=== PATIENT | female | born 1975 | race Caucasian/White ===

== ENCOUNTER 2018-05-05 23:39 | Inpatient (IN) | payer MEDICARE, OTHER ==
[2018-05-05 23:53] LABS: Glucose,Whole Blood 111 mg/dL (75-99)
--- NOTE | 2018-05-06 00:19 | ED ---
General Adult HPI - General Chief complaint: Seizure Stated complaint: SEIZURE Time Seen by Provider: 05/05/18 23:43 Source: EMS, RN notes reviewed, old records reviewed, Caregiver Limitations: language barrier, altered mental status, physical limitation - History of Present Illness Initial comments: Patient is a nonverbal 43-year-old female with history of Down syndrome and severe developmental delay and seizures presenting as a transfer from [facility]. Patient is unable to provide any history. Patient reportedly had 2 seizures today, second one lasting up to 10-15 minutes. While there patient did become hypotensive and later fed was started. Patient also was found to be hypothermic. No source of infection was identified. Chest x-ray and computed tomography scan of the brain and urinalysis are reported as normal. Patient presents to emergency department somewhat alert. Patient does not follow commands however does try to withdrawal when providing treatment. - Related Data Allergies Allergy/AdvReac Type Severity Reaction Status Date / Time No Known Allergies Allergy Verified 05/06/18 00:05 Review of Systems ROS Statement: Those systems with pertinent positive or pertinent negative responses have been documented in the HPI. ROS Other: All systems not noted in ROS Statement are negative. Limitations: ROS unobtainable due to patients medical condition Past Medical History Past Medical History: Seizure Disorder, Thyroid Disorder Additional Past Medical History / Comment(s): downs syndrome developmental delay History of Any Multi-Drug Resistant Organisms: Unobtainable Past Surgical History: Unable to Obtain Past Psychological History: Unable to Obtain Smoking Status: Unknown if ever smoked Past Alcohol Use History: Unable to Obtain Past Drug Use History: Unable to Obtain General Exam Limitations: language barrier, altered mental status, physical limitation General appearance: alert, in no apparent distress Head exam: Present: atraumatic Eye exam: Present: normal appearance, PERRL ENT exam: Present: normal oropharynx Neck exam: Present: normal inspection Respiratory exam: Present: normal lung sounds bilaterally Cardiovascular Exam: Present: regular rate, normal rhythm GI/Abdominal exam: Present: soft. Absent: tenderness Extremities exam: Present: normal inspection Neurological exam: Present: alert, altered, other (Limited exam. Does not follow commands. Patient does move all extremities. Patient can say no). Absent: motor sensory deficit Psychiatric exam: Present: other (Agitated to touch) Skin exam: Present: normal color Course Vital Signs 05/05/18 05/05/18 05/05/18 23:45 23:46 23:50 Temperature 97.4 F L Pulse Rate 68 Respiratory 18 Rate Blood Pressure 99/51 99/51 O2 Sat by Pulse 96 98 90 L Oximetry 05/06/18 05/06/18 05/06/18 00:00 00:06 00:20 Temperature Pulse Rate 71 69 77 Respiratory 12 9 L 15 Rate Blood Pressure 81/55 74/46 78/41 O2 Sat by Pulse Oximetry 05/06/18 00:38 Temperature 97.4 F L Pulse Rate 51 L Respiratory 12 Rate Blood Pressure 73/45 O2 Sat by Pulse 98 Oximetry - Reevaluation(s) Reevaluation #1: 05/06/18 01:29 Case was earlier discussed with Dr. Arredondo who did come and evaluate the patient. Chest x-ray is now concerning for infiltrate increased from previous. With patient having episodes of hypotension and now a source of infection there is increased concern for sepsis. Dr. Arredondo agrees with Zosyn and Levaquin. Patient was earlier given Rocephin. I did place central line. Patient will need to be restarted on Levophed. Labs will be redrawn. 05/06/18 01:30 Dr. Toledo has been paged for consult. 05/06/18 01:36 Patient did receive 2 L bolus from [facility]. 05/06/18 01:38 Case was discussed with Dr. Brannon, who will consult EKG Findings - EKG Comments: EKG Findings:: Sinus rhythm at 66. OH 144. QRS 72. QT 392. QTC 410. Normal axis. Normal QRS. No acute ST change. Procedures - Central Line Placement Right Femoral Consent Obtained: verbal consent, emergent situation Time Out Performed: Yes Patient Placed on Monitor/Pulse Ox: Yes MD Prep: mask, gown, gloves Central Line Prep: Chlorhexidine scrub Local Anesthesia Used: Lidocaine 1% Central Line Position: good blood return, all ports aspirated, flushed, capped, sutured in place with 3-0 nylon Dressing Applied: Tegaderm Post Procedure X-Ray: tip of catheter in good position Patient Tolerated Procedure: well Complications: none - Sepsis Sepsis Focused Exam #1 Time Sepsis Criteria Met: 00:00 Sepsis Focused Exam Date: 05/06/18 Sepsis Focused Exam Time: 01:37 Sepsis Focused Exam Complete: Yes Vital Signs & RN Notes Reviewed: Yes Capillary Refill: < 2 Seconds: Fingers, Toes Peripheral Pulses: Weak: Radial (R), Radial (L) Skin Color: Normal for Patient Respiratory Exam: normal lung sounds Cardiovascular Exam: regular rate, normal rhythm Medical Decision Making - Lab Data Lab Results 05/05/18 Range/Units 23:51 POC Glucose (mg/dL) 111 H (75-99) mg/dL POC Glu Patient Registration Clerk ID Josefa Bean - Radiology Data Radiology results: image reviewed (Chest x-ray shows interstitial infiltrates. Bilateral bases.) Critical Care Time Critical Care Time: Yes Total Critical Care Time: 32 Disposition Clinical Impression: Sepsis, Pneumonia Disposition: ADMITTED IP TO THIS HOSP Condition: Stable Is patient prescribed a controlled substance at d/c from ED?: No Referrals: Kamran Pittman MD [Primary Care Provider] - 1-2 days Decision Time: 01:29
--- NOTE | 2018-05-06 01:09 | XR ---
EXAMINATION TYPE: XR chest 1V portable DATE OF EXAM: 05/06/2018 COMPARISON: Yesterday HISTORY: Altered mental status TECHNIQUE: Single frontal view of the chest is obtained. FINDINGS: There are some infiltrates and atelectasis in the lower lobes. There is no definite heart failure. There are chest leads. IMPRESSION: Interstitial infiltrates and atelectasis at the lung bases are increased compared to yes terday. No gross heart failure.
[2018-05-06] MEDS ORDERED: PIPERACILLIN-TAZOBACTAM 3.375 GM in SODIUM CHLORIDE 0.9% 100 ML IVPB STA (01:31)
[2018-05-06] MEDS ORDERED: IPRATROPIUM-ALBUTEROL 3 ML NEB INHALATION PRN (01:31)
[2018-05-06] MEDS ORDERED: PNEUMONIA PROTOCOL UTILIZED 1 EACH MISC PO PRN (01:31)
[2018-05-06] MEDS ORDERED: NALOXONE 0.4 MG/ML 1 ML VIAL IV PRN (01:31)
[2018-05-06] MEDS ORDERED: LEVOFLOXACIN 750MG-D5W PMX 750 MG in DEXTROSE/WATER 1 150ML.BAG IVPB STA (01:31)
[2018-05-06] MEDS ORDERED: NOREPINEPHRINE 16 MG in SODIUM CHLORIDE 0.9% 250 ML IV SCH (02:00)
[2018-05-06] MEDS: SODIUM CHLORIDE 0.9% 500 ML 500 ML IV SCH (02:03)
[2018-05-06] MEDS: SODIUM CHLORIDE 0.9% 1,000 ML IV SCH ×3 (02:04→16:38)
[2018-05-06 02:35] LABS: Basophils % (A) 1 %; Eosinophils % (A) 0 %; HCT 36.2 % (34.0-46.0); HGB 11.8 gm/dL (11.4-16.0); Lymphocytes # (A) 0.8 k/uL (1.0-4.8); Lymphocytes % (A) 17 %; MCHC 32.6 g/dL (31.0-37.0); MCV 110.2 fL (80.0-100.0); Macrocytosis Marked; Mean Platelet Volume 8.4; Monocytes # (A) 0.2 k/uL (0-1.0); Monocytes % (A) 4 %; Neutrophils # (A) 3.3 k/uL (1.3-7.7); Neutrophils % (A) 76 %; Platelet Count 129 k/uL (150-450); RBC 3.28 m/uL (3.80-5.40); RDW 14.6 % (11.5-15.5); WBC 4.3 k/uL (3.8-10.6)
[2018-05-06 02:44] LABS: ALT 41 U/L (9-52); AST 42 U/L (14-36); Albumin 2.7 g/dL (3.5-5.0); Alkaline Phosphatase 83 U/L (38-126); Anion Gap 4 mmol/L; Blood Urea Nitrogen 24 mg/dL (7-17); Calcium 8.3 mg/dL (8.4-10.2); Carbon Dioxide 26 mmol/L (22-30); Chloride 112 mmol/L (98-107); Glucose 113 mg/dL (74-99); Potassium 4.8 mmol/L (3.5-5.1); Sodium 142 mmol/L (137-145); Total Bilirubin 0.6 mg/dL (0.2-1.3); Total Protein 5.9 g/dL (6.3-8.2)
[2018-05-06 02:52] LABS: Partial Thromboplastin Time 24.1 sec (22.0-30.0); Prothrombin Time 10.7 sec (9.0-12.0)
--- NOTE | 2018-05-06 02:57 | P.HPIM ---
History of Present Illness H&P Date: 05/06/18 Chief Complaint: Multiple seizures at assisted care facility 43-year-old female with developmental delay and history of seizures. Patient is nonverbal on unable to provide any meaningful history. History was obtained by reviewing transfer orders and medical records from [facility]. This seems like patient had seizure activity at her assisted care facility for which EMS was notified. Which she then had another prolonged seizure activity for which EMS administered 5 mg of Valium IM which helped abort the seizure. At [facility] patient was evaluated extensively including CAT scan of the head which was unremarkable for any new acute process , chest x-ray which was also reported unremarkable for any acute process. Patient noted at [facility] to have mottling discoloration of feet however is documented that this is chronic due to history of Raynaud's. She was also to follow a be found hypothermic and hypotensive she was started on active warming, she was also given IV fluids aggressively with 3 boluses of normal saline 1 L each without much improvement in her blood pressure, her baseline blood pressure is not known at this time. Patient was started on IV pressor levophed from a peripheral line to help maintain her blood pressure. It seems like patient at baseline does withdraw from pain and answers with shaking her head indicating yes and no she wears diaper as she is incontinent to urine there is no chronic Busch. Patient received a dose of hydrocortisone and Rocephin at [facility] due to suspicion of underlying unknown infection at that. Patient mother is her guardian there is no documented reports of any falls or injuries. However per the mother patient has been having recurrent worsening seizures over the past 1 year she was evaluated by neurology at [facility] however the mother has fired their service. Based on the documentation patient is compliant with her home medications, urine drug screen showed urine positive for benzo otherwise urinalysis was negative, negative urine test, TSH unremarkable. Otherwise her labs showed white count 4.2 hemoglobin within normal limits MCV elevated at 110 platelets are low at 138 urine elevated at 29 and Normal at 7 bicarb was unremarkable creatinine was 0.7 and normal phosphorus was elevated at 4.5 otherwise liver function tests was within normal limits. In our emergency department central line into the left groin was inserted patient was stabilized and will be sent to the ICU for close monitoring. She continues to be on IV pressor and Hydrocort. Patient was started on broad- spectrum antibiotic after obtaining cultures Review of Systems Unable to obtain due to patient developmental delays Past Medical History Past Medical History: Seizure Disorder, Thyroid Disorder Additional Past Medical History / Comment(s): downs syndrome developmental delay History of Any Multi-Drug Resistant Organisms: Unobtainable Past Surgical History: Unable to Obtain Past Psychological History: Unable to Obtain Smoking Status: Unknown if ever smoked Past Alcohol Use History: Unable to Obtain Past Drug Use History: Unable to Obtain Medications and Allergies Home Medications and Allergies Comment(s): Reviewed and reconciled. Patient on Depakote, levothyroxine please refer to transfer papers for full list of home meds Allergies Allergy/AdvReac Type Severity Reaction Status Date / Time No Known Allergies Allergy Verified 05/06/18 00:05 Physical Exam Vitals: Vital Signs Temp Pulse Resp BP Pulse Ox 05/06/18 02:35 80/50 05/06/18 01:40 56 L 10 L 82/46 93 L 05/06/18 01:30 57 L 7 L 87/69 05/06/18 01:20 80 15 83/58 95 05/06/18 01:10 105 H 26 H 101/61 98 05/06/18 00:50 76 15 82/57 99 05/06/18 00:41 53 L 14 73/45 97 05/06/18 00:38 97.4 F L 51 L 12 73/45 98 05/06/18 00:20 77 15 78/41 05/06/18 00:06 69 9 L 74/46 05/06/18 00:00 71 12 81/55 05/05/18 23:50 99/51 90 L 05/05/18 23:46 97.4 F L 68 18 99/51 98 05/05/18 23:45 96 Intake and Output 05/05/18 05/05/18 05/06/18 14:59 22:59 06:59 Output Total 600 Balance -600 Output: Urine 600 Other: Voiding Method Diaper Incontinent Indwelling Catheter Weight 54.88 kg Constitutional: Patient seems calm most of the time however she has periods where she starts moaning and screaming, patient does not follow commands. She moves her upper extremities purposefully. Eyes: Anicteric sclerae, moist conjunctiva, no lid-lag Pupils equal round reactive to light, patient refuses to open eyes to verbal command ENMT: NC/AT I was unable to examine the mouth as patient is uncooperative Neck: Supple, FROM, no masses, or JVD No carotid bruits No thyromegaly Lungs: Good breath sounds bilaterally no rales rhonchi or wheezes Clear to percussion Normal respiratory effort, no accessory muscle use Cardiovascular: Heart regular in rate and rhythm, No murmurs, gallops, or rubs No peripheral edema Abdominal: Soft Nontender, no guarding, rebound or rigidity Abdomen moving with respiration Normoactive bowel sounds No hepatomegaly, No splenomegaly No palpable mass No abdominal wall hernia noted Skin: Normal temperature, tone, texture, turgor No induration No subcutaneous nodules There is marked clearing of bilateral feet, reports to be her baseline to raynauds disease No ulcers Extremities: Mottling and purplish discoloration off toes bilaterally, warm to the touch though No clubbing Pedal pulses intact and symmetrical Radial pulses intact and symmetrical No calf tenderness Psychiatric: Patient is moaning and screaming sporadically, otherwise she seems to be comfortable most of the time and moving her upper extremities purposefully Neuro could not perform proper neurologic assessment due to patient not cooperating with exam Lymphatics: no palpable cervical or supraclavicular , or inguinal lymph nodes Patient wearing a diaper due to incontinence Patient has 2 peripheral IV lines in her right upper extremity and 1 peripheral IV line in her left upper extremity and she has 1 central venous catheter in her left groin. Patient is on nasal cannula. Results Labs: Abnormal Lab Results - Last 24 Hours (Table) 05/05/18 Range/Units 23:51 POC Glucose (mg/dL) 111 H (75-99) mg/dL Assessment and Plan Assessment: 43-year-old female with history of developmental delay Down syndrome seizure disorder. Patient was transferred from [facility] upon family requests or facility and admitted as an inpatient due to hypotension, and repeated attacks of seizures. Chest x-ray suggested some possible infiltration in the right lower lobe concerning for possible aspiration patient will be covered for community-acquired pneumonia and aspiration pneumonia with levoFloxin Zosyn. Patient was also hydrated aggressively started on IV pressors from [facility] will continue that we'll continue patient on stress dose of hydrocortisone follow-up blood cultures. Neurology assessment. EKG was unremarkable. Computed tomography scan of the head from [facility] reports no acute process Plan: Breakthrough seizures Seizure precautions Fall precautions Resume home meds Neurology evaluation Aspiration pneumonia Patient started on Zosyn, and levofloxacin to cover both aspiration pneumonia and community-acquired pneumonia Monitor vital signs Follow-up cultures Hypotension unknown baseline, refractory to IV fluid resuscitation Patient received aggressive IV fluid hydration Continue with IV pressors Hydrocortisone daily Follow-up cultures Hypothyroidism TSH reported to be unremarkable for [facility] Continue levothyroxine DVT prophylaxis on heparin subcu 3 times a day Thrombocytopenia No evidence of bleeding at this time Continue to monitor closely Functional debility patient is bedridden No evidence of bedsores Developmental delay due to Down syndrome history Hyperphosphatemia Unknown underlying cause Follow-up labs IV fluid hydration History of Raynaud's Follow-up labs Admission to the ICU Prognosis is guarded 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
[2018-05-06 03:10] LABS: Glucose,Whole Blood 106 mg/dL (75-99)
[2018-05-06] MEDS ORDERED: PIPERACILLIN-TAZOBACTAM 3.375 GM in SODIUM CHLORIDE 0.9% 100 ML IVPB SCH (04:00)
[2018-05-06 04:33] LABS: Anisocytosis (M) Present
[2018-05-06 04:34] LABS: Large Platelets Present; Target Cells Present
[2018-05-06 06:37] VITALS: BMI 32.7
[2018-05-06] MEDS ORDERED: HYDROCORTISONE SUCCINATE 100 MG/2 ML VIAL IV SCH (08:00)
[2018-05-06] MEDS: LEVOTHYROXINE 75 MCG TAB PO SCH (09:21)
[2018-05-06] MEDS: PANTOPRAZOLE 40 MG/10 ML VIAL IV SCH (10:12)
[2018-05-06] MEDS: HEPARIN SODIUM,PORCINE 5,000 UNIT/ML 1 ML VIAL SQ SCH ×3 (10:13→23:06)
[2018-05-06 10:47] LABS: Appearance,Urine Clear (Clear); Bilirubin,Urine Negative (Negative); Blood,Urine Negative (Negative); Color,Urine Light Yellow; Glucose,Urine (UA) Negative (Negative); Ketones,Urine Negative (Negative); Leukocyte Esterase,Urine Small (Negative); Mucus,Urine Rare /hpf; Nitrite,Urine Negative (Negative); PH, Urine 6.5 (5.0-8.0); Protein,Urine Negative (Negative); RBC,Urine <1 /hpf (0-5); Specific Gravity,Urine 1.006 (1.001-1.035); Squamous Epithelial Cell,Urine <1 /hpf (0-4); Urobilinogen,Urine <2.0 mg/dL (<2.0); WBC,Urine 8 /hpf (0-5)
[2018-05-06] MEDS ORDERED: VALPROATE SODIUM 500 MG in SODIUM CHLORIDE 0.9% 50 ML IVPB ONE (11:00)
--- NOTE | 2018-05-06 12:27 | CONS ---
CONSULTATION 43-year-old female who came into the emergency room with seizure. She apparently had a number of seizures maybe up to 3. She apparently was transferred down from [facility]. She has a history of Down syndrome and severe developmental delay. She does have a history of chronic seizure disorder. She also suffers from hypothyroidism and early-onset dementia. The patient was brought to the ICU primarily because she was found to be profoundly hypotensive in the emergency room. She was started on some norepinephrine there. Currently, she is on room air. Her IV is a saline IV at 125 mL an hour. Norepinephrine has been off for a couple of hours. She was admitted on May 06. Chest x-ray shows some mild fluid overload. She herself cannot give us any history. ALLERGIES: Apparently are none. HOME MEDICATIONS: Apparently include MiraLAX, melatonin, Synthroid, Vimpat, Depakote, and Abilify. MEDICAL HISTORY: Down syndrome, mental retardation/developmental delay, seizure disorder, hypothyroidism. I do not have any history as it relates to the previous surgeries. SOCIAL HISTORY: Negative for alcohol, tobacco, or illicit drug use. Family and occupational history are not known. REVIEW OF SYSTEMS: Cannot really be obtained. Current vital signs are reviewed. Her temperature is 96.4, heart rate 68, respiratory 12, blood pressure 84/52, mean of 62, saturations on room air between 98 to 100%. Appears in no acute distress. HEENT examination is grossly unremarkable. No supplemental oxygen. Neck supple. Full range of motion. No adenopathy. Cardiovascular examination reveals regular rhythm rate. Heart rate in mid 60s. S1, S2 normal. No murmur. Lungs reveal clear breath sounds. No wheezes or rhonchi. She does not take deep breaths. Abdomen is soft. Extremities are intact. The distal extremities reveal evidence of significant erythema consistent with her history of Raynaud's. Chest x-ray is reviewed. It shows some interstitial changes bilaterally. LABS: Reviewed. White count 4.3, hemoglobin 11.8, hematocrit 36.2, platelet count 129,000. PT/INR and PTT all normal. Sodium and potassium normal. Chloride 112, CO2 of 26, BUN and creatinine were 24 and 0.7. Anion gap is normal at 4. Albumin 2.7, calcium 8.3. Microbiology is negative. I do not see a TSH and we should get one. ASSESSMENT: 1. Recurrent seizure disorder in a lady who has Down syndrome and chronic seizure disorder. 2. History of hypothyroidism. Rule out myxedema coma. 3. History of Down syndrome with significant developmental delay. 4. Early-onset dementia. 5. History of Raynaud's syndrome. PLAN: TSH will be ordered. I told the nurses that the patient could probably be discharged out of the ICU later today as long as her blood pressure remains stable and she has no further seizures. Neurology has been consulted. No additional recommendations are made. Prognosis is guarded. We will continue to follow. MMODL / IJN: [id number] /
--- NOTE | 2018-05-06 13:38 | P.CNNES ---
History of Present Illness Consult date: 05/06/18 Reason for Consult: Patient admitted for breakthrough seizures and pneumonia. History of Present Illness: This patient is a 43-year-old right-handed white female who has a history of Down syndrome and is developmentally delayed. She has a long-standing history of seizure disorder as well. She has been residing at a assisted living facility in [place]. She is a resident at [facility] home there. Yesterday she had apparently 2-3 seizures which were witnessed by the nursing staff there. The first 2 seizures lasted only 1-2 minutes and the second seizure up to 15 minutes in duration. She was transferred to [facility] where she was given some Ativan and then transferred to [facility] emergency room where she was further evaluated. She was found to be profoundly hypotensive and was started on some norepinephrine and then transferred up into the intensive care unit. The patient has a long-standing history of intractable epilepsy. She has been on Depakote monotherapy as her primary treatment. Her Depakote level was checked in the emergency room when she arrived and it was noted to be 55.4. She has a history of intractable epilepsy and was referred to [facility] for further evaluation. According to the note the patient's mother has refused further evaluation at [facility] neurology and neurosurgery Department at this time. The patient's mother is her main legal guardian and reports that she has had difficulty with seizures for this past one year. She was prescribed Vimpat but apparently has not been taking that and is been on Depakote monotherapy. We have recommended to give her IV bolus of IV Depacon today to push her Depakote level to high normal. The patient is examined today in the intensive care unit. She is arousable but somewhat lethargic this morning. She has had no further seizures since coming into the intensive care unit. Her blood pressure has stabilized and she is off of the Levophed at this time. All of her laboratory test results came back normal. She is afebrile. We did check with the assisted living facility and apparently her dosage of Depakote has been 1250 mg at bedtime. We have adjusted the dosage today with the ICU nurse and we will recheck her Depakote level in the morning. Patient has a history of Down syndrome. She has not been very responsive even when alert and without having seizure activity. She is developmentally delayed. She does open her eyes and seems to track easily and does not always follow commands. Chest x- ray revealed possible right lower lobe aspiration pneumonia. We're waiting further follow-up for this. She has been started on some antibiotics at this time. We will recheck her Depakote level in the morning and adjust her dose as needed. She does have history of functional debility secondary to her Down syndrome. There is developmental delay noted from her prior history as well. We will continue to follow her closely during this admission. Overall prognosis at this time remains very guarded. Review of Systems Constitutional: Denies chills, Denies fever Eyes: denies blurred vision, denies pain Ears, nose, mouth and throat: Denies headache, Denies sore throat Cardiovascular: Denies chest pain, Denies shortness of breath Respiratory: Denies cough Gastrointestinal: Denies abdominal pain, Denies diarrhea, Denies nausea, Denies vomiting Genitourinary: Denies dysuria, Denies hematuria Musculoskeletal: Denies myalgias Integumentary: Denies pruritus, Denies rash Neurological: Reports confusion, Reports convulsions, Reports memory loss, Reports seizures, Denies numbness, Denies weakness Psychiatric: Reports confusion, Reports disorientation, Denies anxiety, Denies depression Endocrine: Denies fatigue, Denies weight change Past Medical History Past Medical History: Seizure Disorder, Thyroid Disorder Additional Past Medical History / Comment(s): downs syndrome developmental delay History of Any Multi-Drug Resistant Organisms: Unobtainable Past Surgical History: Unable to Obtain Past Psychological History: Unable to Obtain Smoking Status: Unknown if ever smoked Past Alcohol Use History: Unable to Obtain Past Drug Use History: Unable to Obtain Medications and Allergies Home Medications Medication Instructions Recorded Confirmed Type ARIPiprazole [Abilify] 5 mg PO DAILY@0900 05/06/18 05/06/18 History Divalproex ER [Depakote ER] 1,000 mg PO HS@209905/06/18 05/06/18 History Divalproex Sodium [Depakote ER] 250 mg PO HS@209905/06/18 05/06/18 History Levothyroxine Sodium [Synthroid] 75 mcg PO DAILY 05/06/18 05/06/18 History Melatonin 3 mg PO HS@209905/06/18 05/06/18 History Polyethylene Glycol 3350 [Miralax] 17 gm PO DAILY@1000 05/06/18 05/06/18 History Allergies Allergy/AdvReac Type Severity Reaction Status Date / Time No Known Allergies Allergy Verified 05/06/18 08:53 Physical Examination - Vital Signs Vital Signs: Vital Signs Temp Pulse Pulse Resp BP BP Pulse Ox 05/06/18 10:30 16 90/60 98 05/06/18 10:15 74 12 98/66 96 05/06/18 10:00 89 16 90/56 99 05/06/18 09:45 70 16 84/56 97 05/06/18 09:30 79 13 74/54 96 05/06/18 09:15 68 12 84/52 98 05/06/18 09:00 65 10 L 102/70 100 05/06/18 08:45 89 29 H 100/72 97 05/06/18 08:30 70 14 100/72 98 05/06/18 08:15 98 16 104/65 96 05/06/18 08:00 96.4 F L 78 16 76/36 94 L 05/06/18 07:45 71 12 92/55 98 05/06/18 07:30 80 13 93/76 97 05/06/18 07:15 68 10 L 109/64 94 L 05/06/18 07:00 81 25 H 117/103 96 05/06/18 06:45 80 9 L 86/72 97 05/06/18 06:30 76 23 109/89 98 05/06/18 06:15 67 11 L 91/78 98 05/06/18 06:00 64 9 L 97/63 98 05/06/18 05:45 55 L 10 L 103/55 98 05/06/18 05:30 66 6 L 77/50 98 05/06/18 05:15 93 25 H 89/60 97 05/06/18 05:00 68 8 L 95/61 99 05/06/18 04:45 84 18 98/67 94 L 05/06/18 04:30 69 9 L 102/61 96 05/06/18 04:15 97 23 91/64 96 05/06/18 04:00 71 20 109/69 99 05/06/18 03:45 98 23 106/78 96 05/06/18 03:30 91 22 165/145 95 05/06/18 03:15 13 90/62 99 05/06/18 03:07 97 05/06/18 02:53 97.2 F L 72 18 91/53 97 05/06/18 02:45 75 22 88/52 05/06/18 02:35 80/50 05/06/18 02:30 82 7 L 165/152 05/06/18 02:15 84 20 81/55 86 L 05/06/18 02:00 53 L 14 83/52 91 L 05/06/18 01:54 97.0 F L 95 17 106/78 97 05/06/18 01:45 55 L 14 80/45 92 L 05/06/18 01:40 56 L 10 L 82/46 93 L 05/06/18 01:30 57 L 7 L 87/69 05/06/18 01:20 80 15 83/58 95 05/06/18 01:10 105 H 26 H 101/61 98 05/06/18 00:50 76 15 82/57 99 05/06/18 00:41 53 L 14 73/45 97 05/06/18 00:38 97.4 F L 51 L 12 73/45 98 05/06/18 00:20 77 15 78/41 05/06/18 00:06 69 9 L 74/46 05/06/18 00:00 71 12 81/55 05/05/18 23:50 99/51 90 L 05/05/18 23:46 97.4 F L 68 18 99/51 98 05/05/18 23:45 96 Intake and Output 05/05/18 05/06/18 05/06/18 22:59 06:59 14:59 Intake Total 875 500 Output Total 1365 574 Balance -490 -74 Intake: IV 875 500 Levofloxacin 750Mg-D5w 150 Pmx 750 mg In Dextrose/ Water 1 150ml.bag @ 100 mls/hr IVPB Q24H [facility] Rx#: [id number] Piperacillin-Tazobactam 3 100 .375 gm In Sodium Chloride 0.9% 100 ml @ 25 mls/hr IVPB Q8H [facility] Rx#: [id number] Sodium Chloride 0.9% 1, 625 500 000 ml @ 125 mls/hr IV . Q8H [facility] Rx#:[id number] Output: Urine 1365 574 Other: Voiding Method Diaper Incontinent Indwelling Catheter Weight 54.88 kg - Constitutional General appearance: average body habitus, cooperative - EENT EENT: PERRL, mucous membranes moist - Respiratory Respiratory: lungs clear, normal breath sounds - Cardiovascular Cardiovascular: regular rate, normal S1, normal S2 Extremities: no peripheral edema bilaterally - Gastrointestinal Gastrointestinal: normoactive bowel sounds - Integumentary Integumentary: normal - Neurologic Cranial nerve examination: PERRL, EOMI, V1/V2/V3 grossly intact, face symmetric , tongue midline, intact gag reflex, intact corneal reflex, normal palatal elevation Speech examination: intact Sensorimotor examination: intact Motor examination - right side: 3/5: biceps, triceps, wrist flexion, wrist extension, gis instructor, hip flexors, knee extensors, dorsiflexion, toe extension (EHL) , plantarflexion Motor examination - left side: 3/5: biceps, triceps, wrist flexion, wrist extension, gis instructor, hip flexors, knee extensors, dorsiflexion, toe extension (EHL) , plantarflexion Detailed sensory examination: intact Reflex and gait examination: intact Reflexes: 1+: ankle, bicep, knee, tricep - Musculoskeletal Musculoskeletal: no pain - Psychiatric Psychiatric: mood/affect appropriate, cooperative Results - Laboratory Findings CBC and BMP: 05/06/18 02:00 05/06/18 02:00 Abnormal Lab Findings: Abnormal Labs 05/05/18 05/06/18 05/06/18 23:51 02:00 02:00 RBC 3.28 L MCV 110.2 H MCH 36.0 H Plt Count 129 L Lymphocytes # 0.8 L Chloride 112 H BUN 24 H Glucose 113 H POC Glucose (mg/dL) 111 H Calcium 8.3 L AST 42 H Total Protein 5.9 L Albumin 2.7 L Ur Leukocyte Esterase Urine WBC Urine Mucus 05/06/18 05/06/18 03:07 10:26 RBC MCV MCH Plt Count Lymphocytes # Chloride BUN Glucose POC Glucose (mg/dL) 106 H Calcium AST Total Protein Albumin Ur Leukocyte Esterase Small H Urine WBC 8 H Urine Mucus Rare H Assessment and Plan (1) Intractable epilepsy Current Visit: Yes Status: Acute Code(s): G40.919 - EPILEPSY, UNSP, INTRACTABLE, WITHOUT STATUS EPILEPTICUS SNOMED Code(s): 439361238 (2) History of Down syndrome Current Visit: Yes Status: Acute Code(s): Q90.9 - DOWN SYNDROME, UNSPECIFIED SNOMED Code(s): 269852047 (3) History of hypothyroidism Current Visit: Yes Status: Acute Code(s): Z86.39 - PERSONAL HISTORY OF ENDO , NUTRITIONAL AND METABOLIC DISEASE SNOMED Code(s): 363431012 (4) History of Raynaud's syndrome Current Visit: Yes Status: Acute Code(s): Z86.79 - PERSONAL HISTORY OF OTHER DISEASES OF THE CIRCULATORY SYSTEM SNOMED Code(s): 574125158 (5) Pneumonia Current Visit: Yes Status: Acute Code(s): J18.9 - PNEUMONIA, UNSPECIFIED ORGANISM SNOMED Code(s): 097905686 Plan: This patient is a 43-year-old female who has a history of intractable epilepsy and Down syndrome. She is developmentally delayed and is been residing at a assisted living facility in [place]. She had breakthrough seizures yesterday and was admitted through the emergency room late last night. She was hypotensive and was transferred to the intensive care unit for close monitoring. She has multiple complex medical issues and has had history of intractable epilepsy for many years. She was referred to [facility] neurology and neurosurgery Department but apparently mother has canceled any further follow-up with them. She has been taking Depakote monotherapy and her Depakote level on admission was 55.4. We have given the patient IV Depacon and we'll recheck her Depakote level in the morning. Apparently she was prescribed Vimpat in the past but has not been taking this. We will need to discuss this with her mother Nadege who is her legal guardian as well. She has been on Depakote 1250 mg daily at the assisted living facility. The patient has been stabilized in the intensive care unit. Her blood pressure is now normalized and she will be closely monitored and possibly transferred out of the ICU later today. We have recommended to repeat a Depakote level tomorrow morning and we will make further adjustments as needed. She has remained seizure-free since coming into the intensive care unit. Review of all of her laboratory test results indicates normal liver enzymes. Lately count was 138,000. She is afebrile. We will continue close monitoring of this patient during this admission. We will attempt to contact her mother who is her legal guardian in terms of her anticonvulsant medications that she has been taking at the assisted living facility. Case was discussed at length with the patient's ICU nurse at bedside. We will verify all of her home medications with the assisted living facility. We will plan to reevaluate her tomorrow and adjust her Depakote as needed. Her overall prognosis at this time remains guarded.
--- NOTE | 2018-05-06 14:28 | P.PN ---
Progress Note - Text Progress Note Date: 05/06/18 43-year-old female with PMH of Down syndrome and development of delay, seizure disorder, and hypothyroidism presents to the ED as a transfer from [facility] for seizure-like activity from her assisted care facility. She was noted to have mottling and discoloration of the feet thought to be secondary to her Raynaud's. She was also noted to be hypothermic and hypotensive, not responding to multiple fluid bolus, requiring IV pressors. Patient was seen and examined at 1:45 PM on 05/06/2018. No acute events overnight. Patient getting assisted feeds at bedside. Patient is in no acute distress. Assessment and Plan 1. Seizures: There is no fever or leukocytosis. No signs of infection prior to SZ. Valproic acid 55.4 within normal limits. Continue Depakote 250 mg + 1000 mg PO QHS. Fall precautions. Seizure precautions. FU Neurology, Valproic acid 2. Hypotension: Lactic acid 1.0. Initially started on Levophed and Hydrocortisone IV, now discontinued. Initially started on broad spectrum IV Abx for concerns of sepsis, all discontinued by Pulmonology. Appears to be at baseline, SBP 100s when awake. Continue NS at 125 cc/h. Monitor vitals and titrate medications as necessary. 3. Hypothyroidism: TSH is within normal limits. Continue Synthoid 75 mcg PO QD. 4. Macrocytosis: MCV 110.2 with normal Hg/Hct. Likely due to Depakote use. FU B12/Folate 5. Thrombocytopenia: Plt 129. Watch as patient is on Heparin products. No signs of bleeding. Daily CBC. 6. Abnormal CXR: Possible concern for infiltrate seen on CXR. Initially treated as aspiration pneumonia, all Abx discontinued at this time. FU CXR in the AM. 7. DVT/GI Prophylaxis: Heparin 5000 units SUBCUT TID. Protonix 40 mg IV QD. Patient has a history of Raynauds for which she does not take any medications. She has a history of Down's syndrome and developmental delay. She has functional debility and comes from assisted living facility. Patient transferred from [facility] for seizures and hypotension, concerns for sepsis. Initially, there was concern for aspiration pneumonia. Her blood pressure has maintained, thought to be borderline low at baseline. IV pressors and/or IV antibiotics have been discontinued. Neurology consulted for management of seizures. Patient to be transferred out of ICU later on today if BP can be maintained.
[2018-05-06] MEDS: ARIPiprazole 5 MG TAB PO SCH (15:47)
[2018-05-06] MEDS ORDERED: DIVALPROEX ER 500 MG TAB.ER.24H PO SCH (21:00)
[2018-05-06] MEDS: MELATONIN 3 MG TABLET PO SCH (23:06)
[2018-05-06] MEDS: DIVALPROEX ER 500 MG TAB.ER.24H PO SCH (23:10)
[2018-05-06] MEDS: DIVALPROEX 250 MG TABLET.DR PO SCH (23:11)
[2018-05-07] MEDS: SODIUM CHLORIDE 0.9% 1,000 ML IV SCH ×2 (01:55→10:28)
[2018-05-07] MEDS ORDERED: LEVOFLOXACIN 750MG-D5W PMX 750 MG in DEXTROSE/WATER 1 150ML.BAG IVPB SCH (03:00)
[2018-05-07 04:49] LABS: Basophils % (A) 1 %; Eosinophils % (A) 1 %; HCT 32.9 % (34.0-46.0); HGB 10.5 gm/dL (11.4-16.0); Lymphocytes # (A) 2.5 k/uL (1.0-4.8); Lymphocytes % (A) 50 %; MCH 35.3 pg (25.0-35.0); MCHC 31.8 g/dL (31.0-37.0); MCV 110.8 fL (80.0-100.0); Macrocytosis Marked; Mean Platelet Volume 8.1; Monocytes # (A) 0.5 k/uL (0-1.0); Monocytes % (A) 9 %; Neutrophils # (A) 1.7 k/uL (1.3-7.7); Neutrophils % (A) 35 %; Platelet Count 144 k/uL (150-450); RBC 2.97 m/uL (3.80-5.40); RDW 15.2 % (11.5-15.5)
[2018-05-07 05:01] LABS: Anion Gap 0 mmol/L; Blood Urea Nitrogen 17 mg/dL (7-17); Calcium 8.5 mg/dL (8.4-10.2); Carbon Dioxide 28 mmol/L (22-30); Chloride 113 mmol/L (98-107); Glucose 81 mg/dL (74-99); Potassium 4.2 mmol/L (3.5-5.1); Sodium 141 mmol/L (137-145)
[2018-05-07] MEDS: LEVOTHYROXINE 75 MCG TAB PO SCH (06:58)
--- NOTE | 2018-05-07 08:30 | XR ---
EXAMINATION TYPE: XR chest 1V portable DATE OF EXAM: 05/07/2018 COMPARISON: 05/06/2018 HISTORY: Altered mental status TECHNIQUE: Single frontal view of the chest is obtained. FINDINGS: There is worsening of the interstitial prominence throughout. Cardiomegaly remains. No siz able pneumothorax or pleural effusion. Osseous structures are grossly intact. IMPRESSION: Worsening interstitial prominence favored to relate to interstitial edema of decompensat ed congestive heart failure given cardiomegaly.
[2018-05-07] MEDS: PANTOPRAZOLE 40 MG/10 ML VIAL IV SCH (09:13)
[2018-05-07] MEDS: HEPARIN SODIUM,PORCINE 5,000 UNIT/ML 1 ML VIAL SQ SCH ×3 (09:14→23:54)
[2018-05-07] MEDS: ARIPiprazole 5 MG TAB PO SCH (09:15)
[2018-05-07] MEDS ORDERED: HYDROCORTISONE SUCCINATE 100 MG/2 ML VIAL IV STA (09:58)
[2018-05-07] MEDS: POLYETHYLENE GLYCOL 3350 17 GM POWD.PACK PO SCH (10:15)
--- NOTE | 2018-05-07 10:21 | P.PN ---
Subjective Progress Note Date: 05/07/18 Principal diagnosis: breakthrough seizure Patient is a 43-year-old female with a history of Down syndrome, developmental delay, seizure disorder, and hypothyroidism who initially presented to [facility] due to seizure activity. She was evaluated extensively including a CT of the head which was negative, chest x-ray which was unremarkable for any acute process. She was found to be hypothermic and hypotensive there. She was started on IV levophed througha peripheral line to maintain her blood pressure. She was transferred here after receiving a dose of hydrocortisone and Rocephin for further care. She has a history of seizures and has had worsening seizures over the last year. She was evaluated by neurology at [facility] however the mother no longer wants to follow with their services. Based on documentation appears that patient was compliant with her home medications, urine drug screen is positive for benzodiazepines, urinalysis was negative, urine test negative, and TSH was unremarkable. She was admitted to the ICU after a left groin triple lumen catheter was placed for closer monitoring. She was started on broad-spectrum antibiotics after cultures were obtained. Initial Depakote was slightly on the low side at 55.4. Repeat draw was therapeutic at 89.4. She was able to be weaned off of levothyroid quickly. She was seen by neurology who recommended continuing Depakote. Patient has been intolerant to Vimpat in the past. TSH was checked to rule out myxedema coma and was in the therapeutic range at 1.6. Patient continued to struggle with some hypotension and hypothermia. Infection was ruled out and broad spectrum antibiotics were held. Patient seen and examined at bedside. Patient is nonverbal and no family present. Case discussed with nursing who states that patient had difficulty coming off of there however yesterday it was slightly hypothermic but producing good amounts of urine. No seizure activity. Objective - Vital Signs Vital signs: Vital Signs Temp 98.1 F 05/07/18 08:00 Pulse 73 05/07/18 09:00 Resp 11 L 05/07/18 09:00 BP 79/47 05/07/18 09:00 Pulse Ox 95 05/07/18 07:00 Intake & Output 05/06/18 05/07/18 05/07/18 18:59 06:59 18:59 Intake Total 5960.100 3447 375 Output Total 1359 1110 240 Balance 218.784 390 135 Weight 66.1 kg Intake: IV 1550 1500 375 Sodium Chloride 0.9% 1, 1500 1500 375 000 ml @ 125 mls/hr IV . Q8H [facility] Rx#:[id number] Valproate Sodium 500 mg 50 In Sodium Chloride 0.9% 50 ml @ 50 mls/hr IVPB ONCE ONE Rx#:[id number] Intake, IV Titration 27.784 Amount Norepinephrine 16 mg In 27.784 Sodium Chloride 0.9% 250 ml @ Titrate IV .Q0M [facility] Rx#:[id number] Output: Urine 1359 1110 240 Other: Voiding Method Indwelling Catheter Indwelling Catheter - Exam General: non toxic, mild distress, appears at younger than stated age, short stature, small hands Derm: warm, dry Head: atraumatic, normocephalic, symmetric Eyes: EOMI, no lid lag, anicteric sclera Mouth: no lip lesion, mucus membranes dry Cardiovascular: S1S2 reg, no murmur, Lungs: decreased bs bilateral, no rhonchi, no rales , no accessory muscle use Abdominal: soft, nontender to palpation, no guarding, no appreciable organomegaly Ext: no gross muscle atrophy, no edema, no contractures Neuro: CN II-XI grossly intact, no focal neuro deficits Psych: Awake, states no when try you palpate her pulse, anxious - Labs CBC & Chem 7: 05/07/18 04:30 05/07/18 04:30 Labs: Abnormal Lab Results - Last 24 Hours (Table) 05/06/18 05/07/18 05/07/18 Range/Units 10:26 04:30 04:30 RBC 2.97 L (3.80-5.40) m/uL Hgb 10.5 L (11.4-16.0) gm/dL Hct 32.9 L (34.0-46.0) % MCV 110.8 H (80.0-100.0) fL MCH 35.3 H (25.0-35.0) pg Plt Count 144 L (150-450) k/uL Chloride 113 H (98-107) mmol/L Ur Leukocyte Esterase Small H (Negative) Urine WBC 8 H (0-5) /hpf Urine Mucus Rare H (None) /hpf Microbiology - Last 24 Hours (Table) 05/06/18 02:00 Blood Culture - Preliminary Blood No Growth after 24 hours 05/06/18 10:26 Urine Culture - Preliminary Urine,Catheterized Assessment and Plan Assessment: Hypotension and hypothermia - Concern for adrenal insufficiency, was going to order ACTH stim test, however critical care has added random cortisol and AM labs from today and given test stress dose of steroids. - check ECHO with persistent hypotension - TSH normal - decrease IVF with edema developing on CXR Break through seizure with hx of seizure disorder - neuro recs - continue Depakote - seizure precuations Down syndrome with developmental delay - supportive care Mactocytic anemia - ? role of depakote , check B 12 and folic acid - follow intermittent CBC Thrmobocytopenia - likely reactive, improving - follow CBC DVT prophylaxis: Heparin Discussed with: nursing Anticipated discharge: 3-[address]: return to ECF A total of 45 minutes was spent on the care of this complex patient more than 50 % of the time was spent in counseling and care coordination.
--- NOTE | 2018-05-07 12:05 | P.PN ---
Subjective Progress Note Date: 05/07/18 Principal diagnosis: Breakthrough seizure This is a 43-year-old female with history of Down syndrome, seizure disorder, hypothyroidism, transferred to days ago from [facility] due to seizure activity. Patient was seen by neurology on consultation, she is on Depakote, she had previous intolerance to fit man in the past, she had previous history of hypothyroidism, and upon this admission she was noted to have hypotension and hypothermia. Serum cortisol level is pending, patient's blood pressure remains borderline, hence I recommended one dose of hydrocortisone 100 mg IV push to be given. We checked back, the patient never received any hydrocortisone on this admission. Hence the dose was given, and a cortisol level was ordered prior to the hydrocortisone given. Patient remains to have low blood pressure, but she is making an excellent urine output, and remains intermittently hypothermic. No evidence of seizure activity in the last 24 hours. CBC was noted to be relatively normal electrolytes are normal renal profile is normal. Blood sugar is 81. Objective - Vital Signs Vital signs: Vital Signs Temp 98.1 F 05/07/18 08:00 Pulse 80 05/07/18 11:00 Resp 16 05/07/18 11:40 BP 118/86 05/07/18 11:00 Pulse Ox 97 05/07/18 11:00 Intake & Output 05/06/18 05/07/18 05/07/18 18:59 06:59 18:59 Intake Total 4827.718 3253 550 Output Total 1359 1110 350 Balance 218.784 390 200 Weight 66.1 kg Intake: IV 1550 1500 550 Sodium Chloride 0.9% 1, 1500 1500 550 000 ml @ 50 mls/hr IV . Q20H [facility] Rx#:[id number] Valproate Sodium 500 mg 50 In Sodium Chloride 0.9% 50 ml @ 50 mls/hr IVPB ONCE ONE Rx#:[id number] Intake, IV Titration 27.784 Amount Norepinephrine 16 mg In 27.784 Sodium Chloride 0.9% 250 ml @ Titrate IV .Q0M [facility] Rx#:[id number] Output: Urine 1359 1110 350 Other: Voiding Method Indwelling Catheter Indwelling Catheter Indwelling Catheter - Exam Physical Exam: Revealed a 43-year-old female, Down syndrome features, in no distress, she has a short stature and small hands. Head: Atraumatic, normocephalic. HEENT:[Neck is supple.] [No neck masses.] [No thyromegaly.] [No JVD.] Chest: [Clear throughout, no crackles, no rhonchi, no wheezes.] Cardiac Exam: [Normal S1 and S2, no S3 gallop, no murmur.] Abdomen: [Soft, nontender, no megaly, no rebound, no guarding, normal bowel sounds.] Extremities: [No clubbing, no edema, no cyanosis.] Neurological Exam: [No gross focal neurologic deficit. Seems mentally challenged. Skin: No rashes.] - Labs CBC & Chem 7: 05/07/18 04:30 05/07/18 04:30 Labs: Abnormal Lab Results - Last 24 Hours (Table) 05/07/18 05/07/18 Range/Units 04:30 04:30 RBC 2.97 L (3.80-5.40) m/uL Hgb 10.5 L (11.4-16.0) gm/dL Hct 32.9 L (34.0-46.0) % MCV 110.8 H (80.0-100.0) fL MCH 35.3 H (25.0-35.0) pg Plt Count 144 L (150-450) k/uL Chloride 113 H (98-107) mmol/L Microbiology - Last 24 Hours (Table) 05/06/18 10:26 Urine Culture - Final Urine,Catheterized 05/06/18 02:00 Blood Culture - Preliminary Blood No Growth after 24 hours Assessment and Plan Assessment: Impression: 1 breakthrough seizure, history of seizure disorder, remains on Depakote, and remains on seizure precautions. 2 hypotension and hypothermia, strongly suspect adrenal insufficiency, serum cortisol level was ordered, patient never received any hydrocortisone since admission, hence we will give her a dose of hydrocortisone after the blood is drawn for serum cortisol. 3 Down syndrome and developmental delay 4 chronic macrocytic anemia could be related to B12 deficiency or folic acid deficiency. Recommendation: Continue present meds given 1 dose of hydrocortisone 100 mg IV push, may give her more hydrocortisone as seeming her blood pressure response to treatment. Otherwise we will continue to monitor in the ICU, continue to monitor the blood pressure, may even have to restart norepinephrine if necessary. We'll continue to follow. Time with Patient: Less than 30
--- NOTE | 2018-05-07 14:02 | CDI ---
Documentation Clarification Form Date: 05/07/2018 1:46:32 PM From: Michelle Owusu CCS, CCDS Admit Date: 05/06/2018 1:31:00 AM Patient Name: Charlette Catherine Visit Number: [id number] Discharge Date: ATTENTION: The Clinical Documentation Specialists (CDI) and [facility] Coding Staff appreciate your assistance in clarifying documentation. Please respond to the clarification below the line at the bottom and electronically sign. The CDI & [facility] Coding staff will review the response and follow-up if needed. Please note: Queries are made part of the Legal Health Record. If you have any questions, please contact the author of this message via ITS. Dr. Mary Painting: Per the History & Physical: "She was also to follow a be found hypothermic and hypotensive she was started on active warming, she was also given IV fluids aggressively with 3 boluses of normal saline 1 L each without much improvement in her blood pressure, her baseline blood pressure is not known at this time.Patient was started on IV pressor Levophed from a peripheral line to help maintain her blood pressure." Patient history/risk factors: Recurrent seizures, Down's syndrome, Raynaud's syndrome, Hypothyroidism, Developmental delay. Clinical Indicators: Transferred with multiple seizures from [facility]. Vitals: T 97.4*, P 68, R 18 - 9*, BP 99/51 - 74/46*, PO 96 - 90 Treatment: Fall precs, Telem, Seizure precs, Blood cultures, Sputum cultures. IV fl 1000, IV Norepinephrine Bitartrate, Albuterol INH, IV Levaquin, IV Narcan , IV Zosyn, IV fluid rate 50, IV SoluCortef, IV PPI, IV Valproic Acid In your professional opinion, can you please specify the type of shock if known ? Septic Shock o Suspected or known causative organism, please specify Hypovolemic Shock o Cause, please specify Other, please specify Unable to determine (Last Revision: February 2017) Other no signs of shock, persistent hypotension despite IVF fluids and no signs of infection MTDD
--- NOTE | 2018-05-07 19:27 | P.PN ---
Subjective Progress Note Date: 05/07/18 This patient is seen in the ICU today for seizure disorder. Patient is examined at bedside and remains nonverbal. She is much more awake and alert today in the ICU. Apparently she has continued to show evidence of hypotension and a serum cortisol level was checked. Her levels came back low and she is being treated for this in the ICU setting. She has a history of underlying seizure disorder and Down syndrome and is developmentally delayed. Today she is much more awake in the ICU and seems to be near baseline level of function. Her Depakote level this morning came back therapeutic at 89.4. We will get a repeat Depakote level tomorrow for her as well. She continues on a broad- spectrum antibiotics and cultures are pending. She was placed on Vimpat recently as a second anticonvulsant but had difficulty tolerating this and this was discontinued at the assisted living facility. Patient is now being treated for low cortisol level and a dose of hydrocortisone was given. Her blood pressure seems to be well when she is awake and alert and dropped when she is sleeping. Case was discussed today with the nursing staff. They're going to keep her in the ICU with close monitoring of her blood pressure. She has had no further seizure activity. We will continue to follow her progress closely in the intensive care unit. She is still on Rocephin as well. Objective - Vital Signs Vital signs: Vital Signs Temp 97.1 F L 05/07/18 16:00 Pulse 61 05/07/18 16:00 Resp 11 L 05/07/18 16:00 BP 111/74 05/07/18 16:00 Pulse Ox 98 05/07/18 16:00 Intake & Output 05/06/18 05/07/18 05/07/18 18:59 06:59 18:59 Intake Total 4749.663 4910 924 Output Total 1359 1110 1775 Balance 218.784 390 -851 Weight 66.1 kg Intake: IV 1550 1500 800 Sodium Chloride 0.9% 1, 1500 1500 800 000 ml @ 50 mls/hr IV . Q20H [facility] Rx#:[id number] Valproate Sodium 500 mg 50 In Sodium Chloride 0.9% 50 ml @ 50 mls/hr IVPB ONCE ONE Rx#:[id number] Intake, IV Titration 27.784 Amount Norepinephrine 16 mg In 27.784 Sodium Chloride 0.9% 250 ml @ Titrate IV .Q0M [facility] Rx#:[id number] Oral 124 Output: Urine 1359 1110 1775 Other: Voiding Method Indwelling Catheter Indwelling Catheter Indwelling Catheter - Exam Physical examination: PHYSICAL EXAMINATION: Patient is resting comfortably in bed. VITAL SIGNS: Blood pressure is [112/74]. Heart rate is [61]. Respiration is [15] . Temperature is [97.1]. HEENT: Head is atraumatic, neck is supple, there were no carotid bruits. CHEST: Lungs are clear to auscultation and percussion. CARDIAC: S1, S2 normal rate and rhythm. There is no murmur. ABDOMEN: Soft and nontender. Bowel sounds are present. EXTREMITIES: There is no pedal edema. Peripheral pulses are present. Neurological examination: Patient is more awake and alert today. She has had no further seizure activity in the ICU. She is developmentally delayed but does seem to be more active and following some commands. She is moving all 4 extremities. Deep tendon reflexes are 1+ and symmetric. Plantar responses flexor bilaterally. - Labs CBC & Chem 7: 05/07/18 04:30 05/07/18 04:30 Labs: Abnormal Lab Results - Last 24 Hours (Table) 05/07/18 05/07/18 Range/Units 04:30 04:30 RBC 2.97 L (3.80-5.40) m/uL Hgb 10.5 L (11.4-16.0) gm/dL Hct 32.9 L (34.0-46.0) % MCV 110.8 H (80.0-100.0) fL MCH 35.3 H (25.0-35.0) pg Plt Count 144 L (150-450) k/uL Chloride 113 H (98-107) mmol/L Microbiology - Last 24 Hours (Table) 05/06/18 10:26 Urine Culture - Final Urine,Catheterized 05/06/18 02:00 Blood Culture - Preliminary Blood No Growth after 24 hours Assessment and Plan (1) Intractable epilepsy Current Visit: Yes Status: Acute Code(s): G40.919 - EPILEPSY, UNSP, INTRACTABLE, WITHOUT STATUS EPILEPTICUS SNOMED Code(s): 184944117 (2) History of Down syndrome Current Visit: Yes Status: Acute Code(s): Q90.9 - DOWN SYNDROME, UNSPECIFIED SNOMED Code(s): 406986807 (3) History of hypothyroidism Current Visit: Yes Status: Acute Code(s): Z86.39 - PERSONAL HISTORY OF ENDO , NUTRITIONAL AND METABOLIC DISEASE SNOMED Code(s): 117334079 (4) History of Raynaud's syndrome Current Visit: Yes Status: Acute Code(s): Z86.79 - PERSONAL HISTORY OF OTHER DISEASES OF THE CIRCULATORY SYSTEM SNOMED Code(s): 529613494 (5) Pneumonia Current Visit: Yes Status: Acute Code(s): J18.9 - PNEUMONIA, UNSPECIFIED ORGANISM SNOMED Code(s): 973447515 Plan: This patient is a 43-year-old female who has a history of Down syndrome and is developmentally delayed. She has a long-standing history of seizure disorder and has been residing at a assisted living facility. She was found to have evidence of recurrent seizures and was admitted to the hospital. Due to evidence of hypotension and hypothermia she was transferred to the ICU. Today she underwent testing and is found to have a low serum cortisol level. She is being treated with hydrocortisone for this. Her Depakote level today came back therapeutic at 89.4. She has had no further seizures. She is being monitored for the hypotension as well as a hypothermia. We will recheck a Depakote level tomorrow morning. We'll continue close monitoring of the intensivists and other specialists seen this patient in the ICU setting. Overall prognosis at this time remains very guarded. The patient's mother was not at bedside today during our examination. We will try to update her once she comes in or discussed with the nursing staff. Her overall prognosis at this time remains very guarded.
[2018-05-07] MEDS: HYDROCORTISONE SUCCINATE 100 MG/2 ML VIAL IV SCH (22:08)
[2018-05-07] MEDS: DIVALPROEX ER 500 MG TAB.ER.24H PO SCH (22:12)
[2018-05-07] MEDS: MELATONIN 3 MG TABLET PO SCH (22:12)
[2018-05-07] MEDS: DIVALPROEX 250 MG TABLET.DR PO SCH (22:12)
[2018-05-08] MEDS: HYDROCORTISONE SUCCINATE 100 MG/2 ML VIAL IV SCH ×3 (04:16→21:33)
[2018-05-08 05:24] LABS: Basophils % (A) 1 %; Eosinophils % (A) 0 %; HCT 35.2 % (34.0-46.0); HGB 11.5 gm/dL (11.4-16.0); Lymphocytes # (A) 1.9 k/uL (1.0-4.8); Lymphocytes % (A) 23 %; MCH 35.7 pg (25.0-35.0); MCHC 32.6 g/dL (31.0-37.0); MCV 109.6 fL (80.0-100.0); Macrocytosis Marked; Mean Platelet Volume 8.1; Monocytes # (A) 0.4 k/uL (0-1.0); Monocytes % (A) 5 %; Neutrophils # (A) 5.7 k/uL (1.3-7.7); Neutrophils % (A) 70 %; Platelet Count 176 k/uL (150-450); RBC 3.21 m/uL (3.80-5.40); RDW 14.9 % (11.5-15.5)
[2018-05-08] MEDS: SODIUM CHLORIDE 0.9% 1,000 ML IV SCH ×2 (05:25→17:08)
[2018-05-08 05:45] LABS: Anion Gap 6 mmol/L; Blood Urea Nitrogen 14 mg/dL (7-17); Carbon Dioxide 30 mmol/L (22-30); Chloride 108 mmol/L (98-107); Glucose 111 mg/dL (74-99); Magnesium 1.7 mg/dL (1.6-2.3); Potassium 3.7 mmol/L (3.5-5.1); Sodium 144 mmol/L (137-145)
[2018-05-08 05:51] LABS: Valproic Acid (Depakene) 93.3 ug/mL
[2018-05-08] MEDS ORDERED: POTASSIUM CHLORIDE ER 20 MEQ TAB.ER PO SCH (06:00)
[2018-05-08] MEDS: MAGNESIUM SULFATE-D5W PMX 1 GM in DEXTROSE/WATER 1 100ML.BAG IVPB SCH ×2 (06:08→07:09)
[2018-05-08] MEDS: LEVOTHYROXINE 75 MCG TAB PO SCH (06:10)
[2018-05-08] MEDS: HEPARIN SODIUM,PORCINE 5,000 UNIT/ML 1 ML VIAL SQ SCH ×2 (10:26→17:09)
[2018-05-08] MEDS: PANTOPRAZOLE 40 MG/10 ML VIAL IV SCH (10:27)
[2018-05-08] MEDS: ARIPiprazole 5 MG TAB PO SCH (10:27)
[2018-05-08] MEDS: POLYETHYLENE GLYCOL 3350 17 GM POWD.PACK PO SCH (10:32)
--- NOTE | 2018-05-08 11:09 | P.PN ---
Subjective Progress Note Date: 05/08/18 Principal diagnosis: breakthrough seizure Patient is a 43-year-old female with a history of Down syndrome, developmental delay, seizure disorder, and hypothyroidism who initially presented to [facility] due to seizure activity. She was evaluated extensively including a CT of the head which was negative, chest x-ray which was unremarkable for any acute process. She was found to be hypothermic and hypotensive there. She was started on IV levophed througha peripheral line to maintain her blood pressure. She was transferred here after receiving a dose of hydrocortisone and Rocephin for further care. She has a history of seizures and has had worsening seizures over the last year. She was evaluated by neurology at [facility] however the mother no longer wants to follow with their services. Based on documentation appears that patient was compliant with her home medications, urine drug screen is positive for benzodiazepines, urinalysis was negative, urine test negative, and TSH was unremarkable. She was admitted to the ICU after a left groin triple lumen catheter was placed for closer monitoring. She was started on broad-spectrum antibiotics after cultures were obtained. Initial Depakote was slightly on the low side at 55.4. Repeat draw was therapeutic at 89.4. She was able to be weaned off of levothyroid quickly. She was seen by neurology who recommended continuing Depakote. Patient has been intolerant to Vimpat in the past. TSH was checked to rule out myxedema coma and was in the therapeutic range at 1.6. Patient continued to struggle with some hypotension and hypothermia. Infection was ruled out and broad spectrum antibiotics were held. AM cortisol level was checked and was 1. She was started on stress dose steroids for adrenal insufficiency. Patient seen and examined at bedside. Patient is nonverbal, no family present. Case discussed with nursing Patient has been normothermic, BP has been good but still drops when sleeping, urine output good. Will attempt to start florinef today. If BP stable then transfer to [facility]. Will need jane removed and central line removed prior to transfer. Objective - Vital Signs Vital signs: Vital Signs Temp 97.5 F L 05/08/18 08:00 Pulse 68 05/08/18 10:00 Resp 14 05/08/18 10:00 BP 96/73 05/08/18 10:00 Pulse Ox 93 L 05/08/18 10:00 Intake & Output 05/07/18 05/08/18 05/08/18 18:59 06:59 18:59 Intake Total 1024 600 250 Output Total 2175 1550 355 Balance -0601 950 -105 Weight 57.4 kg Intake: IV 900 600 250 Magnesium Sulfate-D5w Pmx 100 1 gm In Dextrose/Water 1 100ml.bag @ 100 mls/hr IVPB Q1H [facility] Rx#: [id number] Sodium Chloride 0.9% 1, 900 600 150 000 ml @ 50 mls/hr IV . Q20H [facility] Rx#:[id number] Oral 124 Output: Urine 8656 1550 355 Other: Voiding Method Indwelling Catheter Indwelling Catheter - Exam General: non toxic, mild distress, appears at younger than stated age, short stature, small hands Derm: warm, dry Head: atraumatic, normocephalic, symmetric Eyes: EOMI, no lid lag, anicteric sclera Mouth: no lip lesion, mucus membranes dry Cardiovascular: S1S2 reg, no murmur, Lungs: decreased bs bilateral, no rhonchi, no rales , no accessory muscle use Abdominal: soft, nontender to palpation, no guarding, no appreciable organomegaly Ext: no gross muscle atrophy, no edema, no contractures Neuro: CN II-XI grossly intact, no focal neuro deficits Psych: Awake, moving in bed, anxious - Labs CBC & Chem 7: 05/08/18 05:00 05/08/18 05:00 Labs: Abnormal Lab Results - Last 24 Hours (Table) 05/08/18 05/08/18 Range/Units 05:00 05:00 RBC 3.21 L (3.80-5.40) m/uL MCV 109.6 H (80.0-100.0) fL MCH 35.7 H (25.0-35.0) pg Chloride 108 H (98-107) mmol/L Glucose 111 H (74-99) mg/dL Microbiology - Last 24 Hours (Table) 05/06/18 02:00 Blood Culture - Preliminary Blood No Growth after 48 hours 05/06/18 10:26 Urine Culture - Final Urine,Catheterized Assessment and Plan Assessment: Hypotension and hypothermia due to adrenal insufficiency - solucortef, - Hypotension resolved with steroids, no need for echo at this time. - TSH normal - outpatient endocrinology follow-up Break through seizure with hx of seizure disorder - neuro recs - continue Depakote - seizure precuations Down syndrome with developmental delay - supportive care Mactocytic anemia - ? role of depakote , check B 12 and folic acid - follow intermittent CBC Thrmobocytopenia, resolved TO GMF if BP stable, will need TLC and jane removed. DVT prophylaxis: Heparin Discussed with: nursing Anticipated discharge: 24-[address]: return to [facility] A total of 35 minutes was spent on the care of this complex patient more than 50 % of the time was spent in counseling and care coordination.
[2018-05-08] MEDS: FLUDROCORTISONE 0.1 MG TAB PO SCH (11:59)
--- NOTE | 2018-05-08 12:21 | P.PN ---
Subjective Progress Note Date: 05/08/18 Principal diagnosis: Breakthrough seizure This is a 43-year-old female with history of Down syndrome, seizure disorder, hypothyroidism, transferred to days ago from [facility] due to seizure activity. Patient was seen by neurology on consultation, she is on Depakote, she had previous intolerance to fit man in the past, she had previous history of hypothyroidism, and upon this admission she was noted to have hypotension and hypothermia. Serum cortisol level is pending, patient's blood pressure remains borderline, hence I recommended one dose of hydrocortisone 100 mg IV push to be given. We checked back, the patient never received any hydrocortisone on this admission. Hence the dose was given, and a cortisol level was ordered prior to the hydrocortisone given. Patient remains to have low blood pressure, but she is making an excellent urine output, and remains intermittently hypothermic. No evidence of seizure activity in the last 24 hours. CBC was noted to be relatively normal electrolytes are normal renal profile is normal. Blood sugar is 81. Reevaluated today on 05/08/2018, patient remains in the ICU, remains on seizure precautions, patient was noted to have low blood pressure and hypothermia yesterday, her serum cortisol level was extremely low, hence she was started on hydrocortisone stress doses, today I started the patient on Florinef, and cut down the hydrocortisone dose to 50 mg IV push every 8 hours. Blood pressure seems to be much per at this point, and if it remains stable in the next few hours, may consider transferring the patient out of the ICU. No seizures while in the ICU, although the patient remains on seizure precautions. Labs were reviewed, relatively normal CBC and the relatively normal basic metabolic profile noted. Objective - Vital Signs Vital signs: Vital Signs Temp 97.5 F L 05/08/18 08:00 Pulse 81 05/08/18 12:00 Resp 13 05/08/18 12:00 BP 90/52 05/08/18 12:00 Pulse Ox 93 L 05/08/18 12:00 Intake & Output 05/07/18 05/08/18 05/08/18 18:59 06:59 18:59 Intake Total 1024 600 350 Output Total 2175 1550 445 Balance -1151 -950 -95 Weight 57.4 kg Intake: IV 900 600 350 Magnesium Sulfate-D5w Pmx 100 1 gm In Dextrose/Water 1 100ml.bag @ 100 mls/hr IVPB Q1H [facility] Rx#: [id number] Sodium Chloride 0.9% 1, 900 600 250 000 ml @ 50 mls/hr IV . Q20H [facility] Rx#:[id number] Oral 124 Output: Urine 2175 1550 445 Other: Voiding Method Indwelling Catheter Indwelling Catheter Indwelling Catheter - Exam Physical Exam: Revealed a 43-year-old female, Down syndrome features, in no distress, she has a short stature and small hands. Head: Atraumatic, normocephalic. HEENT:[Neck is supple.] [No neck masses.] [No thyromegaly.] [No JVD.] Chest: [Clear throughout, no crackles, no rhonchi, no wheezes.] Cardiac Exam: [Normal S1 and S2, no S3 gallop, no murmur.] Abdomen: [Soft, nontender, no megaly, no rebound, no guarding, normal bowel sounds.] Extremities: [No clubbing, no edema, no cyanosis.] Neurological Exam: [No gross focal neurologic deficit. Seems mentally challenged. Skin: No rashes.] - Labs CBC & Chem 7: 05/08/18 05:00 05/08/18 05:00 Labs: Abnormal Lab Results - Last 24 Hours (Table) 05/08/18 05/08/18 Range/Units 05:00 05:00 RBC 3.21 L (3.80-5.40) m/uL MCV 109.6 H (80.0-100.0) fL MCH 35.7 H (25.0-35.0) pg Chloride 108 H (98-107) mmol/L Glucose 111 H (74-99) mg/dL Microbiology - Last 24 Hours (Table) 05/06/18 02:00 Blood Culture - Preliminary Blood No Growth after 48 hours 05/06/18 10:26 Urine Culture - Final Urine,Catheterized Assessment and Plan Assessment: Impression: 1 breakthrough seizure, history of seizure disorder, remains on Depakote, and remains on seizure precautions. 2 hypotension and hypothermia, strongly suspect adrenal insufficiency, serum cortisol level was ordered, patient never received any hydrocortisone since admission, hence we will give her a dose of hydrocortisone after the blood is drawn for serum cortisol. 3 Down syndrome and developmental delay 4 chronic macrocytic anemia could be related to B12 deficiency or folic acid deficiency. 5 acute adrenal insufficiency with hypotension, hypothermia, and low serum cortisol of 1. Patient is presently now on Solu-Cortef 50 mg IV push every 8 hours, she is also on Florinef 0.1 mg by mouth daily, Recommendation: we'll continue to monitor in the ICU for the rest of the day, and if her blood pressure remains stable, we'll consider transferring to a regular medical floor. The Busch and the central line may have to be removed prior to transfer out of the ICU. Patient will remain on seizure precautions, will remain on seizure meds, and we'll follow closely. Time with Patient: Less than 30
--- NOTE | 2018-05-08 15:50 | P.PN ---
Subjective Progress Note Date: 05/08/18 This patient is seen in the ICU today for seizure disorder. Patient is examined at bedside and remains nonverbal. She is much more awake and alert today in the ICU. Apparently she has continued to show evidence of hypotension and a serum cortisol level was checked. Her levels came back low and she is being treated for this in the ICU setting. She has a history of underlying seizure disorder and Down syndrome and is developmentally delayed. Today she is much more awake in the ICU and seems to be near baseline level of function. Her Depakote level this morning came back therapeutic at 93.3. We will get a repeat Depakote level tomorrow for her as well. She continues on a broad- spectrum antibiotics and cultures are pending. She was placed on Vimpat recently as a second anticonvulsant but had difficulty tolerating this and this was discontinued at the assisted living facility. Patient is now being treated for low cortisol level and a dose of hydrocortisone was given. Her blood pressure seems to be well when she is awake and alert and dropped when she is sleeping. Case was discussed today with the nursing staff. They are going to keep her in the ICU with close monitoring of her blood pressure. She has had no further seizure activity. The patient is resting comfortably this afternoon and is easily arousable. She has not had any further seizures. She is now normothermic but blood pressure continues to drop especially when she is sleeping. Patient is being considered for addition of Florinef by internal medicine and we will await their further recommendations. We will continue to follow her progress closely in the intensive care unit. Her overall prognosis at this time remains guarded. Objective - Vital Signs Vital signs: Vital Signs Temp 97.5 F L 05/08/18 08:00 Pulse 81 05/08/18 12:00 Resp 13 05/08/18 12:00 BP 90/52 05/08/18 12:00 Pulse Ox 93 L 05/08/18 12:00 Intake & Output 05/07/18 05/08/18 05/08/18 18:59 06:59 18:59 Intake Total 1024 600 350 Output Total 2175 1550 445 Balance -1151 -950 -95 Weight 57.4 kg Intake: IV 900 600 350 Magnesium Sulfate-D5w Pmx 100 1 gm In Dextrose/Water 1 100ml.bag @ 100 mls/hr IVPB Q1H [facility] Rx#: [id number] Sodium Chloride 0.9% 1, 900 600 250 000 ml @ 50 mls/hr IV . Q20H [facility] Rx#:[id number] Oral 124 Output: Urine 2175 1550 445 Other: Voiding Method Indwelling Catheter Indwelling Catheter Indwelling Catheter - Exam Physical examination: PHYSICAL EXAMINATION: Patient is resting comfortably in bed. VITAL SIGNS: Blood pressure is [90/52]. Heart rate is [81]. Respiration is [15] . Temperature is [97.5]. HEENT: Head is atraumatic, neck is supple, there were no carotid bruits. CHEST: Lungs are clear to auscultation and percussion. CARDIAC: S1, S2 normal rate and rhythm. There is no murmur. ABDOMEN: Soft and nontender. Bowel sounds are present. EXTREMITIES: There is no pedal edema. Peripheral pulses are present. Neurological examination: Patient is more awake and alert today. She has had no further seizure activity in the ICU. She is developmentally delayed but does seem to be more active and following some commands. She was sleeping this afternoon but is easily arousable in the ICU. She is moving all 4 extremities. Deep tendon reflexes are 1+ and symmetric. Plantar responses flexor bilaterally. - Labs CBC & Chem 7: 05/08/18 05:00 05/08/18 05:00 Labs: Abnormal Lab Results - Last 24 Hours (Table) 05/08/18 05/08/18 Range/Units 05:00 05:00 RBC 3.21 L (3.80-5.40) m/uL MCV 109.6 H (80.0-100.0) fL MCH 35.7 H (25.0-35.0) pg Chloride 108 H (98-107) mmol/L Glucose 111 H (74-99) mg/dL Microbiology - Last 24 Hours (Table) 05/06/18 02:00 Blood Culture - Preliminary Blood No Growth after 48 hours 05/06/18 10:26 Urine Culture - Final Urine,Catheterized Assessment and Plan (1) Intractable epilepsy Current Visit: Yes Status: Acute Code(s): G40.919 - EPILEPSY, UNSP, INTRACTABLE, WITHOUT STATUS EPILEPTICUS SNOMED Code(s): 314438723 (2) History of Down syndrome Current Visit: Yes Status: Acute Code(s): Q90.9 - DOWN SYNDROME, UNSPECIFIED SNOMED Code(s): 066176088 (3) History of hypothyroidism Current Visit: Yes Status: Acute Code(s): Z86.39 - PERSONAL HISTORY OF ENDO , NUTRITIONAL AND METABOLIC DISEASE SNOMED Code(s): 854619503 (4) History of Raynaud's syndrome Current Visit: Yes Status: Acute Code(s): Z86.79 - PERSONAL HISTORY OF OTHER DISEASES OF THE CIRCULATORY SYSTEM SNOMED Code(s): 700590246 (5) Pneumonia Current Visit: Yes Status: Acute Code(s): J18.9 - PNEUMONIA, UNSPECIFIED ORGANISM SNOMED Code(s): 676251395 Plan: This patient is a 43-year-old female who has a history of Down syndrome and is developmentally delayed. She has a long-standing history of seizure disorder and has been residing at a assisted living facility. She was found to have evidence of recurrent seizures and was admitted to the hospital. Due to evidence of hypotension and hypothermia she was transferred to the ICU. Today she underwent testing and is found to have a low serum cortisol level. She is being treated with hydrocortisone for this. Her Depakote level today came back therapeutic at 93.3. She has had no further seizures. She is being monitored for the hypotension as well as a hypothermia. She is normothermic temperature today in the ICU. Her blood pressure continues to drop especially when she is sleeping. She is being considered for initiation with Florinef for treatment. We will continue close monitoring of the recreational assistant seeing this patient in the ICU setting. Overall prognosis at this time remains very guarded. The patient' s mother was not at bedside today during our examination. We did discuss her findings today with ICU nursing staff. We will try to update her mother once she comes in or discussed with the nursing staff. Her overall prognosis at this time remains very guarded. We will continue to follow with other specialists Center seeing this patient in the ICU setting.
[2018-05-08] MEDS: DIVALPROEX 250 MG TABLET.DR PO SCH (21:32)
[2018-05-08] MEDS: MELATONIN 3 MG TABLET PO SCH (21:32)
[2018-05-08] MEDS: DIVALPROEX ER 500 MG TAB.ER.24H PO SCH (21:32)
[2018-05-09] MEDS: HEPARIN SODIUM,PORCINE 5,000 UNIT/ML 1 ML VIAL SQ SCH ×4 (00:45→23:48)
[2018-05-09] MEDS: HYDROCORTISONE SUCCINATE 100 MG/2 ML VIAL IV SCH ×3 (05:28→21:00)
[2018-05-09] MEDS: LEVOTHYROXINE 75 MCG TAB PO SCH (05:33)
[2018-05-09 05:47] LABS: Basophils % (A) 0 %; Eosinophils % (A) 0 %; HCT 32.4 % (34.0-46.0); HGB 10.5 gm/dL (11.4-16.0); Lymphocytes # (A) 2.5 k/uL (1.0-4.8); Lymphocytes % (A) 25 %; MCH 35.6 pg (25.0-35.0); MCHC 32.4 g/dL (31.0-37.0); Mean Platelet Volume 8.2; Monocytes # (A) 0.4 k/uL (0-1.0); Monocytes % (A) 4 %; Neutrophils # (A) 6.6 k/uL (1.3-7.7); Neutrophils % (A) 67 %; Platelet Count 202 k/uL (150-450); RBC 2.95 m/uL (3.80-5.40); RDW 15.5 % (11.5-15.5); WBC 9.8 k/uL (3.8-10.6)
[2018-05-09 05:57] LABS: Anion Gap 4 mmol/L; Blood Urea Nitrogen 14 mg/dL (7-17); Calcium 8.6 mg/dL (8.4-10.2); Carbon Dioxide 30 mmol/L (22-30); Chloride 110 mmol/L (98-107); Glucose 103 mg/dL (74-99); Magnesium 2.3 mg/dL (1.6-2.3); Potassium 3.5 mmol/L (3.5-5.1); Sodium 144 mmol/L (137-145)
[2018-05-09 06:10] LABS: Macrocytosis Marked
[2018-05-09] MEDS: POTASSIUM CHLORIDE ER 20 MEQ TAB.ER PO SCH ×2 (06:28→09:21)
[2018-05-09] MEDS: FLUDROCORTISONE 0.1 MG TAB PO SCH (09:21)
[2018-05-09] MEDS: PANTOPRAZOLE 40 MG/10 ML VIAL IV SCH (09:22)
[2018-05-09] MEDS: ARIPiprazole 5 MG TAB PO SCH (09:22)
[2018-05-09 10:10] LABS: Folate, Serum 14.5 ng/mL
[2018-05-09] MEDS: SODIUM CHLORIDE 0.9% 1,000 ML IV SCH (10:27)
--- NOTE | 2018-05-09 12:02 | P.PN ---
Subjective Progress Note Date: 05/09/18 Principal diagnosis: Breakthrough seizure This is a 43-year-old female with history of Down syndrome, seizure disorder, hypothyroidism, transferred to days ago from [facility] due to seizure activity. Patient was seen by neurology on consultation, she is on Depakote, she had previous intolerance to fit man in the past, she had previous history of hypothyroidism, and upon this admission she was noted to have hypotension and hypothermia. Serum cortisol level is pending, patient's blood pressure remains borderline, hence I recommended one dose of hydrocortisone 100 mg IV push to be given. We checked back, the patient never received any hydrocortisone on this admission. Hence the dose was given, and a cortisol level was ordered prior to the hydrocortisone given. Patient remains to have low blood pressure, but she is making an excellent urine output, and remains intermittently hypothermic. No evidence of seizure activity in the last 24 hours. CBC was noted to be relatively normal electrolytes are normal renal profile is normal. Blood sugar is 81. Reevaluated today on 05/08/2018, patient remains in the ICU, remains on seizure precautions, patient was noted to have low blood pressure and hypothermia yesterday, her serum cortisol level was extremely low, hence she was started on hydrocortisone stress doses, today I started the patient on Florinef, and cut down the hydrocortisone dose to 50 mg IV push every 8 hours. Blood pressure seems to be much per at this point, and if it remains stable in the next few hours, may consider transferring the patient out of the ICU. No seizures while in the ICU, although the patient remains on seizure precautions. Labs were reviewed, relatively normal CBC and the relatively normal basic metabolic profile noted. Patient was reevaluated today on 05/09/2018, remains in the ICU, remains on seizure precautions, but no seizures since she was in the ICU. Her blood pressure seems to be better, her hypothermia has resolved, remains on Solu- Cortef, and she remains on seizure medications. No major issues except the blood pressure seems to be fluctuating up and down but improved since Florinef was added along with Solu-Cortef. Patient could have her central line removed today, and I plan to transfer the patient out of the ICU to a medical surgical floor. She will remain on seizure precautions. All labs were reviewed, all medications were reviewed, and no changes were made. Objective - Vital Signs Vital signs: Vital Signs Temp 97.2 F L 01/02/19 08:00 Pulse 85 05/09/18 10:00 Resp 16 05/09/18 10:00 BP 105/90 05/09/18 10:00 Pulse Ox 99 05/09/18 10:00 Intake & Output 05/08/18 05/09/18 05/09/18 18:59 06:59 18:59 Intake Total 650 600 590 Output Total 690 810 445 Balance -40 -210 145 Weight 57.6 kg Intake: IV 650 600 150 Magnesium Sulfate-D5w Pmx 100 50 1 gm In Dextrose/Water 1 100ml.bag @ 100 mls/hr IVPB Q1H [facility] Rx#: [id number] Sodium Chloride 0.9% 1, 550 550 150 000 ml @ 50 mls/hr IV . Q20H [facility] Rx#:[id number] Oral 440 Output: Urine 690 810 445 Other: Voiding Method Indwelling Catheter Indwelling Catheter Indwelling Catheter - Exam Physical Exam: Revealed a 43-year-old female, Down syndrome features Head: Atraumatic, normocephalic. HEENT:[Neck is supple.] [No neck masses.] [No thyromegaly.] [No JVD.] Chest: [Clear throughout, no crackles, no rhonchi, no wheezes.] Cardiac Exam: [Normal S1 and S2, no S3 gallop, no murmur.] Abdomen: [Soft, nontender, no megaly, no rebound, no guarding, normal bowel sounds.] Extremities: [No clubbing, no edema, no cyanosis.] Neurological Exam: [No gross focal neurologic deficit. Seems mentally challenged. Skin: No rashes.] - Labs CBC & Chem 7: 05/09/18 05:33 05/09/18 05:33 Labs: Abnormal Lab Results - Last 24 Hours (Table) 05/08/18 05/09/18 05/09/18 Range/Units 05:00 05:33 05:33 RBC 2.95 L (3.80-5.40) m/uL Hgb 10.5 L (11.4-16.0) gm/dL Hct 32.4 L (34.0-46.0) % MCV 110.0 H (80.0-100.0) fL MCH 35.6 H (25.0-35.0) pg Chloride 110 H (98-107) mmol/L Glucose 103 H (74-99) mg/dL Vitamin B12 1205.0 H (200.0-944.0) pg/mL Microbiology - Last 24 Hours (Table) 05/06/18 02:00 Blood Culture - Preliminary Blood No Growth after 72 hours Assessment and Plan Assessment: Impression: 1 breakthrough seizure, history of seizure disorder, remains on Depakote, and remains on seizure precautions. Has been seizure free for the last 4 days per 2 hypotension and hypothermia, strongly suspect adrenal insufficiency, resolved since patient was placed on Solu-Cortef and Florinef. 3 Down syndrome and developmental delay 4 chronic macrocytic anemia could be related to B12 deficiency or folic acid deficiency. 5 acute adrenal insufficiency with hypotension, hypothermia, on treatment. Recommendation: Continue present meds including Solu-Cortef, Florinef, seizure medications, discontinue central line today, continue seizure precautions, consider transferring the patient out of the ICU to a medical surgical floor today, and continue to monitor the blood pressure more frequently, continue to monitor labs , and treatment of her seizure as per neurology on the case. As far as discharge planning is concerned, once the patient is cleared by neurology to be discharged, I will clear the patient from the pulmonary and ICU perspective. Will follow. Time with Patient: Less than 30
[2018-05-09] MEDS: POLYETHYLENE GLYCOL 3350 17 GM POWD.PACK PO SCH (12:45)
--- NOTE | 2018-05-09 15:36 | P.PN ---
Subjective Progress Note Date: 05/09/18 Principal diagnosis: breakthrough seizure Patient is a 43-year-old female with a history of Down syndrome, developmental delay, seizure disorder, and hypothyroidism who initially presented to [facility] due to seizure activity. She was evaluated extensively including a CT of the head which was negative, chest x-ray which was unremarkable for any acute process. She was found to be hypothermic and hypotensive there. She was started on IV levophed througha peripheral line to maintain her blood pressure. She was transferred here after receiving a dose of hydrocortisone and Rocephin for further care. She has a history of seizures and has had worsening seizures over the last year. She was evaluated by neurology at [facility] however the mother no longer wants to follow with their services. Based on documentation appears that patient was compliant with her home medications, urine drug screen is positive for benzodiazepines, urinalysis was negative, urine test negative, and TSH was unremarkable. She was admitted to the ICU after a left groin triple lumen catheter was placed for closer monitoring. She was started on broad-spectrum antibiotics after cultures were obtained. Initial Depakote was slightly on the low side at 55.4. Repeat draw was therapeutic at 89.4. She was able to be weaned off of levothyroid quickly. She was seen by neurology who recommended continuing Depakote. Patient has been intolerant to Vimpat in the past. TSH was checked to rule out myxedema coma and was in the therapeutic range at 1.6. Patient continued to struggle with some hypotension and hypothermia. Infection was ruled out and broad spectrum antibiotics were held. AM cortisol level was checked and was 1. She was started on stress dose steroids for adrenal insufficiency and florinef. Patient seen and examined at bedside with nursing present. Eleanor and says NESS. FOllows commands of sticking tongue out. Objective - Vital Signs Vital signs: Vital Signs Temp 97.2 F L 05/09/18 08:00 Pulse 75 05/09/18 13:00 Resp 17 05/09/18 13:00 BP 90/69 05/09/18 13:00 Pulse Ox 95 05/09/18 13:00 Intake & Output 05/08/18 05/09/18 05/09/18 18:59 06:59 18:59 Intake Total 650 600 590 Output Total 690 810 445 Balance -40 -210 145 Weight 57.6 kg Intake: IV 650 600 150 Magnesium Sulfate-D5w Pmx 100 50 1 gm In Dextrose/Water 1 100ml.bag @ 100 mls/hr IVPB Q1H [facility] Rx#: [id number] Sodium Chloride 0.9% 1, 550 550 150 000 ml @ 50 mls/hr IV . Q20H [facility] Rx#:[id number] Oral 440 Output: Urine 690 810 445 Other: Voiding Method Indwelling Catheter Indwelling Catheter Diaper Incontinent # Voids 1 - Exam General: non toxic, no distress, appears at younger than stated age, short stature, small hands Derm: warm, dry Head: atraumatic, normocephalic, symmetric Eyes: EOMI, no lid lag, anicteric sclera Mouth: no lip lesion, mucus membranes dry Cardiovascular: S1S2 reg, no murmur, Lungs: ROnchi left base, no rhonchi, no rales , no accessory muscle use Abdominal: soft, nontender to palpation, no guarding, no appreciable organomegaly Ext: no gross muscle atrophy, no edema, no contractures Neuro: CN II-XI grossly intact, no focal neuro deficits Psych: Awake, moving in bed, anxious - Labs CBC & Chem 7: 05/09/18 05:33 05/09/18 05:33 Labs: Abnormal Lab Results - Last 24 Hours (Table) 05/08/18 05/09/18 05/09/18 Range/Units 05:00 05:33 05:33 RBC 2.95 L (3.80-5.40) m/uL Hgb 10.5 L (11.4-16.0) gm/dL Hct 32.4 L (34.0-46.0) % MCV 110.0 H (80.0-100.0) fL MCH 35.6 H (25.0-35.0) pg Chloride 110 H (98-107) mmol/L Glucose 103 H (74-99) mg/dL Vitamin B12 1205.0 H (200.0-944.0) pg/mL Microbiology - Last 24 Hours (Table) 05/06/18 02:00 Blood Culture - Preliminary Blood No Growth after 72 hours Assessment and Plan Assessment: Hypotension and hypothermia due to adrenal insufficiency - christian mauro - attempt endocrine consult, if unavailable outpatient follow-up - Hypotension resolved with steroids, no need for echo at this time. - TSH normal Break through seizure with hx of seizure disorder - neuro recs - continue Depakote - seizure precuations Down syndrome with developmental delay - supportive care Mactocytic anemia - ? role of depakote , B 12 and folic acid normal - follow intermittent CBC Thromobocytopenia, resolved DVT prophylaxis: Heparin Discussed with: nursing Anticipated discharge: 24-[address]: return to [facility] A total of 35 minutes was spent on the care of this complex patient more than 50 % of the time was spent in counseling and care coordination.
--- NOTE | 2018-05-09 20:42 | P.PN ---
Subjective Progress Note Date: 05/09/18 This patient is seen in the ICU today for seizure disorder. Patient is examined at bedside and remains nonverbal. She is much more awake and alert today in the ICU. Apparently she has continued to show evidence of hypotension and a serum cortisol level was checked. Her levels came back low and she is being treated for this in the ICU setting. She has a history of underlying seizure disorder and Down syndrome and is developmentally delayed. Today she is much more awake in the ICU and seems to be near baseline level of function. Her Depakote level this morning came back therapeutic at 93.3. We will get a repeat Depakote level tomorrow for her as well. She continues on a broad- spectrum antibiotics and cultures are pending. She was placed on Vimpat recently as a second anticonvulsant but had difficulty tolerating this and this was discontinued at the assisted living facility. Patient is now being treated for low cortisol level and a dose of hydrocortisone was given. Her blood pressure seems to be well when she is awake and alert and dropped when she is sleeping. Case was discussed today with the nursing staff. They are going to keep her in the ICU with close monitoring of her blood pressure. According to the nursing staff she has been much more vocal today and screams out and yells out at times. She is awaiting transfer out of the ICU to a medical floor now that her blood pressure has stabilized. She has had no further seizure activity. The patient is resting comfortably this afternoon and is easily arousable. She has not had any further seizures. She is now normothermic but blood pressure continues to drop especially when she is sleeping. Patient is being referred adrenal insufficiency and is currently taking Florinef. We will continue to follow her progress closely in the intensive care unit. We will have her continue on current dose of Depakote. Her most recent level was therapeutic at 89.4. We will continue to follow her closely in the intensive care unit and she is awaiting transfer of to the medical floor. Her overall prognosis at this time remains guarded. Objective - Vital Signs Vital signs: Vital Signs Temp 97.2 F L 05/09/18 08:00 Pulse 52 L 05/09/18 16:00 Resp 12 05/09/18 16:00 BP 84/54 05/09/18 16:00 Pulse Ox 93 L 05/09/18 16:00 Intake & Output 05/09/18 05/09/18 05/10/18 06:59 18:59 06:59 Intake Total 600 590 Output Total 810 445 Balance -210 145 Weight 57.6 kg Intake: IV 600 150 Magnesium Sulfate-D5w Pmx 50 1 gm In Dextrose/Water 1 100ml.bag @ 100 mls/hr IVPB Q1H [facility] Rx#: [id number] Sodium Chloride 0.9% 1, 550 150 000 ml @ 50 mls/hr IV . Q20H [facility] Rx#:[id number] Oral 440 Output: Urine 810 445 Other: Voiding Method Indwelling Catheter Diaper Incontinent # Voids 1 - Exam Physical examination: PHYSICAL EXAMINATION: Patient is resting comfortably in bed. VITAL SIGNS: Blood pressure is [112/79]. Heart rate is [78]. Respiration is [30] . Temperature is [97.2]. HEENT: Head is atraumatic, neck is supple, there were no carotid bruits. CHEST: Lungs are clear to auscultation and percussion. CARDIAC: S1, S2 normal rate and rhythm. There is no murmur. ABDOMEN: Soft and nontender. Bowel sounds are present. EXTREMITIES: There is no pedal edema. Peripheral pulses are present. Neurological examination: Patient is more awake and alert today. She has had no further seizure activity in the ICU. She is developmentally delayed but does seem to be more active and following some commands. She was sleeping this afternoon but is easily arousable in the ICU. She is moving all 4 extremities. Deep tendon reflexes are 1+ and symmetric. Plantar responses flexor bilaterally. Patient has been more vocal today according to the nursing staff and yells out quite frequently. - Labs CBC & Chem 7: 05/09/18 05:33 05/09/18 05:33 Labs: Abnormal Lab Results - Last 24 Hours (Table) 05/08/18 05/09/18 05/09/18 Range/Units 05:00 05:33 05:33 RBC 2.95 L (3.80-5.40) m/uL Hgb 10.5 L (11.4-16.0) gm/dL Hct 32.4 L (34.0-46.0) % MCV 110.0 H (80.0-100.0) fL MCH 35.6 H (25.0-35.0) pg Chloride 110 H (98-107) mmol/L Glucose 103 H (74-99) mg/dL Vitamin B12 1205.0 H (200.0-944.0) pg/mL Microbiology - Last 24 Hours (Table) 05/06/18 02:00 Blood Culture - Preliminary Blood No Growth after 72 hours Assessment and Plan (1) Intractable epilepsy Current Visit: Yes Status: Acute Code(s): G40.919 - EPILEPSY, UNSP, INTRACTABLE, WITHOUT STATUS EPILEPTICUS SNOMED Code(s): 423750138 (2) History of Down syndrome Current Visit: Yes Status: Acute Code(s): Q90.9 - DOWN SYNDROME, UNSPECIFIED SNOMED Code(s): 516038514 (3) History of hypothyroidism Current Visit: Yes Status: Acute Code(s): Z86.39 - PERSONAL HISTORY OF ENDO , NUTRITIONAL AND METABOLIC DISEASE SNOMED Code(s): 376729436 (4) History of Raynaud's syndrome Current Visit: Yes Status: Acute Code(s): Z86.79 - PERSONAL HISTORY OF OTHER DISEASES OF THE CIRCULATORY SYSTEM SNOMED Code(s): 711614536 (5) Pneumonia Current Visit: Yes Status: Acute Code(s): J18.9 - PNEUMONIA, UNSPECIFIED ORGANISM SNOMED Code(s): 323495264 Plan: This patient is a 43-year-old female who was seen today in the intensive care unit for follow-up regarding seizure disorder. She has a long-standing history of Down syndrome and developmental delay. She has been treated for underlying seizure disorder as well. She is currently on Depakote monotherapy and her last Depakote level was therapeutic. She has had no further seizures since admission to the intensive care unit. She is resting comfortably and has had no further changes in her mental status. She opens her eyes and does occasionally say a few outbursts of words which is hard to comprehend. She does follow some simple commands and does stick her tongue out off and on throughout the entire examination. As noted her last Depakote level was therapeutic at 89.4. She is being treated for hypotension and hypothermia secondary to adrenal insufficiency. She has been started on Florinef and Solu- Cortef for further treatment. She is likely to require endocrine consultation as outpatient. Her hypotension has resolved at this time. Blood pressure seems to be doing better today. We do recommend to continue on current dose of Depakote. Patient has been much more vocal today and is been yelling out at times. Apparently this may be her baseline level of function given her history of developmental delay and Down syndrome. She is awaiting transfer out of the ICU to a medical floor possibly tomorrow. She is being evaluated for possible discharge back to the extended care facility in the next few days. We will continue to follow her progress closely and she is awaiting transfer out of the ICU to a medical floor. We will continue to follow along with Dr. Painting for further management of her overall medical status. This patient's prognosis at this time remains guarded.
[2018-05-09] MEDS: DIVALPROEX 250 MG TABLET.DR PO SCH (20:47)
[2018-05-09] MEDS: DIVALPROEX ER 500 MG TAB.ER.24H PO SCH (20:48)
[2018-05-09] MEDS: MELATONIN 3 MG TABLET PO SCH (20:48)
[2018-05-10] MEDS: HYDROCORTISONE SUCCINATE 100 MG/2 ML VIAL IV SCH (04:38)
[2018-05-10] MEDS ORDERED: HYDROCORTISONE 20 MG TAB PO SCH (09:45)
[2018-05-10] MEDS: LEVOTHYROXINE 75 MCG TAB PO SCH (11:35)
[2018-05-10] MEDS: ARIPiprazole 5 MG TAB PO SCH (11:36)
[2018-05-10] MEDS: FLUDROCORTISONE 0.1 MG TAB PO SCH (11:36)
[2018-05-10] MEDS: HEPARIN SODIUM,PORCINE 5,000 UNIT/ML 1 ML VIAL SQ SCH ×3 (11:36→23:16)
[2018-05-10] MEDS: HYDROCORTISONE 20 MG TAB PO SCH ×2 (11:37→18:19)
[2018-05-10] MEDS: POLYETHYLENE GLYCOL 3350 17 GM POWD.PACK PO SCH (11:37)
[2018-05-10] MEDS: PANTOPRAZOLE 40 MG/10 ML VIAL IV SCH (11:41)
--- NOTE | 2018-05-10 16:09 | P.PN ---
Subjective Progress Note Date: 05/10/18 Principal diagnosis: Breakthrough seizure This is a 43-year-old female with history of Down syndrome, seizure disorder, hypothyroidism, transferred to days ago from [facility] due to seizure activity. Patient was seen by neurology on consultation, she is on Depakote, she had previous intolerance to fit man in the past, she had previous history of hypothyroidism, and upon this admission she was noted to have hypotension and hypothermia. Serum cortisol level is pending, patient's blood pressure remains borderline, hence I recommended one dose of hydrocortisone 100 mg IV push to be given. We checked back, the patient never received any hydrocortisone on this admission. Hence the dose was given, and a cortisol level was ordered prior to the hydrocortisone given. Patient remains to have low blood pressure, but she is making an excellent urine output, and remains intermittently hypothermic. No evidence of seizure activity in the last 24 hours. CBC was noted to be relatively normal electrolytes are normal renal profile is normal. Blood sugar is 81. Reevaluated today on 05/08/2018, patient remains in the ICU, remains on seizure precautions, patient was noted to have low blood pressure and hypothermia yesterday, her serum cortisol level was extremely low, hence she was started on hydrocortisone stress doses, today I started the patient on Florinef, and cut down the hydrocortisone dose to 50 mg IV push every 8 hours. Blood pressure seems to be much per at this point, and if it remains stable in the next few hours, may consider transferring the patient out of the ICU. No seizures while in the ICU, although the patient remains on seizure precautions. Labs were reviewed, relatively normal CBC and the relatively normal basic metabolic profile noted. Patient was reevaluated today on 05/09/2018, remains in the ICU, remains on seizure precautions, but no seizures since she was in the ICU. Her blood pressure seems to be better, her hypothermia has resolved, remains on Solu- Cortef, and she remains on seizure medications. No major issues except the blood pressure seems to be fluctuating up and down but improved since Florinef was added along with Solu-Cortef. Patient could have her central line removed today, and I plan to transfer the patient out of the ICU to a medical surgical floor. She will remain on seizure precautions. All labs were reviewed, all medications were reviewed, and no changes were made. On 05/10/2018 patient seen in follow-up on medical surgical floor. No recurrent breakthrough seizures. No distress, she is resting comfortably in bed , she is awake and alert, but to provide simple verbal answers. She is resting in bed watching TV, afebrile. Blood pressure is 105/57. He shouldn't IV hydrocortisone has been transitioned to oral Cortef. Cultures have been negative, lung sounds are clear to auscultation. Today's labs have been noted. Objective - Vital Signs Vital signs: Vital Signs Temp 97.8 F 05/10/18 04:56 Pulse 63 05/10/18 08:30 Resp 16 05/10/18 08:30 BP 105/57 05/10/18 04:56 Pulse Ox 96 05/10/18 04:56 Intake & Output 05/09/18 05/10/18 05/10/18 18:59 06:59 18:59 Intake Total 590 120 Output Total 445 Balance 145 120 Intake: IV 150 Sodium Chloride 0.9% 1, 150 000 ml @ 50 mls/hr IV . Q20H [facility] Rx#:[id number] Oral 440 120 Output: Urine 445 Other: Voiding Method Diaper Diaper Diaper Incontinent Incontinent Incontinent # Voids 1 1 2 - Exam Physical Exam: Revealed a 43-year-old female, Down syndrome features Head: Atraumatic, normocephalic. HEENT:[Neck is supple.] [No neck masses.] [No thyromegaly.] [No JVD.] Chest: [Clear throughout, no crackles, no rhonchi, no wheezes.] Cardiac Exam: [Normal S1 and S2, no S3 gallop, no murmur.] Abdomen: [Soft, nontender, no megaly, no rebound, no guarding, normal bowel sounds.] Extremities: [No clubbing, no edema, no cyanosis.] Neurological Exam: [No gross focal neurologic deficit. Seems mentally challenged. Skin: No rashes.] - Labs CBC & Chem 7: 05/09/18 05:33 05/09/18 05:33 Labs: Microbiology - Last 24 Hours (Table) 05/06/18 02:00 Blood Culture - Preliminary Blood No Growth after 96 hours Assessment and Plan Plan: Assessment: 1 breakthrough seizure, history of seizure disorder, remains on Depakote, and remains on seizure precautions. Has been seizure free for the last 4 days per 2 hypotension and hypothermia, strongly suspect adrenal insufficiency, resolved since patient was placed on Solu-Cortef and Florinef. 3 Down syndrome and developmental delay 4 chronic macrocytic anemia could be related to B12 deficiency or folic acid deficiency. 5 acute adrenal insufficiency with hypotension, hypothermia, on treatment. Plan: Patient is stable from pulmonary perspective. Hemodynamically stable, has been transitioned to oral Cortef. No breakthrough seizures, afebrile. Cultures are negative. We will follow the patient on as-needed basis. I performed a history & physical examination of the patient and discussed their management with my nurse practitioner, Noreen Dominique. I reviewed the nurse practitioner's note and agree with the documented findings and plan of care. Lung sounds are positive for clear breath sounds throughout the lung villarreal. The findings and the impression was discussed with the patient. I attest to the documentation by the nurse practitioner. Time with Patient: Less than 30
--- NOTE | 2018-05-10 17:24 | P.PN ---
Subjective Progress Note Date: 05/10/18 This patient is seen on the medical floor today for seizure disorder. Patient is examined at bedside and remains nonverbal. She is currently sleeping but has been relatively stable all through the day. Apparently she has continued to show evidence of hypotension and a serum cortisol level was checked. Her levels came back low and she is being treated for this adrenal insufficiency. She has a history of underlying seizure disorder and Down syndrome and is developmentally delayed. Today she is much more awake in the ICU and seems to be near baseline level of function. Her Depakote level this morning came back therapeutic at 93.3. We will get a repeat Depakote level tomorrow for her as well. She continues on a broad-spectrum antibiotics and cultures are pending. She was placed on Vimpat recently as a second anticonvulsant but had difficulty tolerating this and this was discontinued at the assisted living facility. Patient is now being treated for low cortisol level and a dose of hydrocortisone was given. Her blood pressure seems to be well when she is awake and alert and dropped when she is sleeping. As noted patient was transferred out of the intensive care unit to the medical floor and is doing relatively well. Case was discussed today with the nursing staff. Her blood pressures remain stable and is not showing evidence of hypotension. According to the nursing staff she has been much more vocal today and screams out and yells out at times. She has had no further seizure activity. The patient is resting comfortably this afternoon and is easily arousable. She has not had any further seizures. She is now normothermic but blood pressure continues to drop especially when she is sleeping. Patient is being referred adrenal insufficiency and is currently taking Florinef. We will continue to follow her progress closely in the intensive care unit. We will have her continue on current dose of Depakote. Her most recent level was therapeutic at 89.4. Her overall prognosis at this time remains guarded. Objective - Vital Signs Vital signs: Vital Signs Temp 97.8 F 05/10/18 04:56 Pulse 63 05/10/18 08:30 Resp 16 05/10/18 08:30 BP 105/57 05/10/18 04:56 Pulse Ox 96 05/10/18 04:56 Intake & Output 05/09/18 05/10/18 05/10/18 18:59 06:59 18:59 Intake Total 590 120 Output Total 445 Balance 145 120 Intake: IV 150 Sodium Chloride 0.9% 1, 150 000 ml @ 50 mls/hr IV . Q20H [facility] Rx#:[id number] Oral 440 120 Output: Urine 445 Other: Voiding Method Diaper Diaper Diaper Incontinent Incontinent Incontinent # Voids 1 1 2 - Exam Physical examination: PHYSICAL EXAMINATION: Patient is resting comfortably in bed. VITAL SIGNS: Blood pressure is [105/57]. Heart rate is [63]. Respiration is [16] . Temperature is [97.8]. HEENT: Head is atraumatic, neck is supple, there were no carotid bruits. CHEST: Lungs are clear to auscultation and percussion. CARDIAC: S1, S2 normal rate and rhythm. There is no murmur. ABDOMEN: Soft and nontender. Bowel sounds are present. EXTREMITIES: There is no pedal edema. Peripheral pulses are present. Neurological examination: Patient is examined on the medical floor today. She is currently sleeping and is easily arousable. She does attempt to say some words and make some verbalizations. She has history of Down syndrome and developmental delay and seems to be near baseline level of function today. - Labs CBC & Chem 7: 05/09/18 05:33 05/09/18 05:33 Labs: Microbiology - Last 24 Hours (Table) 05/06/18 02:00 Blood Culture - Preliminary Blood No Growth after 96 hours Assessment and Plan (1) Intractable epilepsy Current Visit: Yes Status: Acute Code(s): G40.919 - EPILEPSY, UNSP, INTRACTABLE, WITHOUT STATUS EPILEPTICUS SNOMED Code(s): 508758408 (2) History of Down syndrome Current Visit: Yes Status: Acute Code(s): Q90.9 - DOWN SYNDROME, UNSPECIFIED SNOMED Code(s): 723880526 (3) History of hypothyroidism Current Visit: Yes Status: Acute Code(s): Z86.39 - PERSONAL HISTORY OF ENDO , NUTRITIONAL AND METABOLIC DISEASE SNOMED Code(s): 735486912 (4) History of Raynaud's syndrome Current Visit: Yes Status: Acute Code(s): Z86.79 - PERSONAL HISTORY OF OTHER DISEASES OF THE CIRCULATORY SYSTEM SNOMED Code(s): 422781054 (5) Pneumonia Current Visit: Yes Status: Acute Code(s): J18.9 - PNEUMONIA, UNSPECIFIED ORGANISM SNOMED Code(s): 016644625 Plan: This patient is a 43-year-old female who is being followed for known history of seizure disorder with past history of Down syndrome and developmental delay. She is currently on Depakote monotherapy for seizure prophylaxis. She has remained seizure free on her current dose of Depakote. She was transferred to the medical floor today and is resting comfortably. Blood pressure seems to be stable and is not showing any signs of hypotension. She is now on oral Cortef for further treatment. We will continue to follow her progress closely during this admission. Anticipate she'll be discharged back to extended care facility once she is stabilized. Overall prognosis at this time remains guarded.
--- NOTE | 2018-05-10 18:35 | P.PN ---
Subjective Progress Note Date: 05/10/18 Principal diagnosis: breakthrough seizure Patient is a 43-year-old female with a history of Down syndrome, developmental delay, seizure disorder, and hypothyroidism who initially presented to [facility] due to seizure activity. She was evaluated extensively including a CT of the head which was negative, chest x-ray which was unremarkable for any acute process. She was found to be hypothermic and hypotensive there. She was started on IV levophed througha peripheral line to maintain her blood pressure. She was transferred here after receiving a dose of hydrocortisone and Rocephin for further care. She has a history of seizures and has had worsening seizures over the last year. She was evaluated by neurology at [facility] however the mother no longer wants to follow with their services. Based on documentation appears that patient was compliant with her home medications, urine drug screen is positive for benzodiazepines, urinalysis was negative, urine test negative, and TSH was unremarkable. She was admitted to the ICU after a left groin triple lumen catheter was placed for closer monitoring. She was started on broad-spectrum antibiotics after cultures were obtained. Initial Depakote was slightly on the low side at 55.4. Repeat draw was therapeutic at 89.4. She was able to be weaned off of levothyroid quickly. She was seen by neurology who recommended continuing Depakote. Patient has been intolerant to Vimpat in the past. TSH was checked to rule out myxedema coma and was in the therapeutic range at 1.6. Patient continued to struggle with some hypotension and hypothermia. Infection was ruled out and broad spectrum antibiotics were held. AM cortisol level was checked and was 1. She was started on stress dose steroids for adrenal insufficiency and florinef. Transitioned to oral steroids on 05/10. BP and temperature normal and patient more interactive. Patient seen and examined at bedside with nursing present. Smiling and interacting. Likes her pengiune. Gutierrez not appear in any distress. No acute events over night. Objective - Vital Signs Vital signs: Vital Signs Temp 97.8 F 05/10/18 04:56 Pulse 63 05/10/18 04:56 Resp 16 05/10/18 04:56 BP 105/57 05/10/18 04:56 Pulse Ox 96 05/10/18 04:56 Intake & Output 05/09/18 05/10/18 05/10/18 18:59 06:59 18:59 Intake Total 590 Output Total 445 Balance 145 Intake: IV 150 Sodium Chloride 0.9% 1, 150 000 ml @ 50 mls/hr IV . Q20H [facility] Rx#:[id number] Oral 440 Output: Urine 445 Other: Voiding Method Diaper Diaper Incontinent Incontinent # Voids 1 1 - Exam General: non toxic, no distress, appears at younger than stated age, short stature, small hands Derm: warm, dry Head: atraumatic, normocephalic, symmetric Eyes: EOMI, no lid lag, anicteric sclera Mouth: no lip lesion, mucus membranes dry Cardiovascular: S1S2 reg, no murmur, Lungs: Ronchi left base, no rhonchi, no rales , no accessory muscle use Abdominal: soft, nontender to palpation, no guarding, no appreciable organomegaly Ext: no gross muscle atrophy, no edema, no contractures Neuro: CN II-XI grossly intact, no focal neuro deficits Psych: Awake, moving in bed, smiling and interactive - Labs CBC & Chem 7: 05/09/18 05:33 05/09/18 05:33 Labs: Abnormal Lab Results - Last 24 Hours (Table) 05/08/18 Range/Units 05:00 Vitamin B12 1205.0 H (200.0-944.0) pg/mL Microbiology - Last 24 Hours (Table) 05/06/18 02:00 Blood Culture - Preliminary Blood No Growth after 96 hours Assessment and Plan Assessment: Hypotension and hypothermia due to adrenal insufficiency - solucortef to [facility] - outpatient follow-up with endocrinology - Hypotension resolved with steroids, no need for echo at this time. - TSH normal Break through seizure with hx of seizure disorder - neuro recs - continue Depakote - seizure precuations Down syndrome with developmental delay - supportive care Mactocytic anemia - ? role of depakote , B 12 and folic acid normal - follow intermittent CBC Thromobocytopenia, resolved DVT prophylaxis: Heparin Discussed with: nursing Anticipated discharge: in AM if BP and temp stable. Anticipated discharge place: return to ECF A total of 35 minutes was spent on the care of this complex patient more than 50 % of the time was spent in counseling and care coordination.
[2018-05-10] MEDS: DIVALPROEX 250 MG TABLET.DR PO SCH (20:51)
[2018-05-10] MEDS: DIVALPROEX ER 500 MG TAB.ER.24H PO SCH (20:51)
[2018-05-10] MEDS: MELATONIN 3 MG TABLET PO SCH (20:54)
[2018-05-10] MEDS ORDERED: HYDROCORTISONE 10 MG TAB PO SCH (21:00)
[2018-05-10 22:12] VITALS: RESP 18
[2018-05-11 05:41] VITALS: BP 114/55; PULSE 76; TEMP 98.1
[2018-05-11] MEDS: PANTOPRAZOLE 40 MG/10 ML VIAL IV SCH (09:34)
[2018-05-11] MEDS: HYDROCORTISONE 20 MG TAB PO SCH (09:35)
[2018-05-11] MEDS: HEPARIN SODIUM,PORCINE 5,000 UNIT/ML 1 ML VIAL SQ SCH (09:35)
[2018-05-11] MEDS: ARIPiprazole 5 MG TAB PO SCH (09:35)
[2018-05-11] MEDS: FLUDROCORTISONE 0.1 MG TAB PO SCH (09:35)
[2018-05-11] MEDS: LEVOTHYROXINE 75 MCG TAB PO SCH (09:35)
[2018-05-11] MEDS: POLYETHYLENE GLYCOL 3350 17 GM POWD.PACK PO SCH (09:35)
--- NOTE | 2018-05-11 10:14 | P.DS ---
Providers Date of admission: 05/06/18 01:31 Expected date of discharge: 05/11/18 Attending physician: Quyen Parkinson MD Consults: 05/09/18 07:44 Consult Physician Routine Consulting Provider: Lizzy Stone Consult Reason/Comments: new adrenal insufficiency cortisol 1 Do you want consulting provider notified?: Yes 05/06/18 01:31 Consult Physician Stat Consulting Provider: Taye Toledo Consult Reason/Comments: critical care Do you want consulting provider notified?: Yes 05/06/18 02:49 Consult Physician Routine Consulting Provider: Miguel Villalba Consult Reason/Comments: worsening seizures, known to doc Do you want consulting provider notified?: Yes Primary care physician: Kamran Pittman [facility] Course: Discharge Diagnosis: Adrenal insufficiency with resultant hypotension and hypothermia Breakthrough seizure with history of seizure disorder Down syndrome with developmental delay Macrocytic anemia- likely sure to depakote Thrombocytopenia, resolved Hospital Course: Patient is a 43-year-old female with a history of Down syndrome, developmental delay, seizure disorder, and hypothyroidism who initially presented to [facility] due to seizure activity. She was evaluated extensively including a CT of the head which was negative, chest x-ray which was unremarkable for any acute process. She was found to be hypothermic and hypotensive there. She was started on IV levophed througha peripheral line to maintain her blood pressure. She was transferred here after receiving a dose of hydrocortisone and Rocephin for further care. She has a history of seizures and has had worsening seizures over the last year. She was evaluated by neurology at [facility] however the mother no longer wants to follow with their services. Based on documentation appears that patient was compliant with her home medications, urine drug screen is positive for benzodiazepines, urinalysis was negative, urine test negative, and TSH was unremarkable. She was admitted to the ICU after a left groin triple lumen catheter was placed for closer monitoring. She was started on broad-spectrum antibiotics after cultures were obtained. Initial Depakote was slightly on the low side at 55.4. Repeat draw was therapeutic at 89.4. She was able to be weaned off of levothyroid quickly. She was seen by neurology who recommended continuing Depakote. Patient has been intolerant to Vimpat in the past. TSH was checked to rule out myxedema coma and was in the therapeutic range at 1.6. Patient continued to struggle with some hypotension and hypothermia. Infection was ruled out and broad spectrum antibiotics were held. AM cortisol level was checked and was 1. She was started on stress dose steroids for adrenal insufficiency and florinef. Transitioned to oral steroids on 05/10. BP and temperature normal and patient more interactive. She was determined stable for discharge. She will need to follow-up with Dr. Stone of endocrine for her adrenal insufficiency to wean her steroids. Patient seen and examined at bedside. Non verbal and in good spirits. Following commands. General: non toxic, no distress, appears at younger than stated age, short stature, small hands Derm: warm, dry Head: atraumatic, normocephalic, symmetric Eyes: EOMI, no lid lag, anicteric sclera Mouth: no lip lesion, mucus membranes dry Cardiovascular: S1S2 reg, no murmur, Lungs: CTA bilateral, no rhonchi, no rales , no accessory muscle use Abdominal: soft, nontender to palpation, no guarding, no appreciable organomegaly Ext: no gross muscle atrophy, no edema, no contractures Neuro: CN II-XI grossly intact, no focal neuro deficits Psych: Awake, moving in bed, smiling and interactive A total of 35 minutes of time were spent preparing this complex discharge summary . Pertinent Studies: Chest [id number] interstitial prominence related to edema Patient Condition at Discharge: Fair Plan - Discharge Summary New Discharge Prescriptions: New Fludrocortisone [Florinef] 0.1 mg PO DAILY #15 tab Hydrocortisone [Cortef] 10 mg PO HS #30 tab Hydrocortisone [Cortef] 20 mg PO BID@0900,1400 #60 tab Continue Divalproex Sodium [Depakote ER] 250 mg PO HS@2100 Divalproex ER [Depakote ER] 1,000 mg PO HS@2100 ARIPiprazole [Abilify] 5 mg PO DAILY@0900 Polyethylene Glycol 3350 [Miralax] 17 gm PO DAILY@1000 Levothyroxine Sodium [Synthroid] 75 mcg PO DAILY Melatonin 3 mg PO HS@2100 Discharge Medication List ARIPiprazole [Abilify] 5 mg PO DAILY@0900 05/06/18 [History] Divalproex ER [Depakote ER] 1,000 mg PO HS@2100 05/06/18 [History] Divalproex Sodium [Depakote ER] 250 mg PO HS@2100 05/06/18 [History] Levothyroxine Sodium [Synthroid] 75 mcg PO DAILY 05/06/18 [History] Melatonin 3 mg PO HS@2100 05/06/18 [History] Polyethylene Glycol 3350 [Miralax] 17 gm PO DAILY@1000 05/06/18 [History] Fludrocortisone [Florinef] 0.1 mg PO DAILY #15 tab 05/11/18 [Rx] Hydrocortisone [Cortef] 10 mg PO HS #30 tab 05/11/18 [Rx] Hydrocortisone [Cortef] 20 mg PO BID@0900,1400 #60 tab 05/11/18 [Rx] Follow up Appointment(s)/Referral(s): Kamran Pittman MD [Primary Care Provider] - 1-2 days Lizzy Stone MD [STAFF PHYSICIAN] - 2 Weeks [facility] [NON-STAFF] - 1 Week Activity/Diet/Wound Care/Special Instructions: NURSE when the pt is d/c peaceful [facility] will transport the pt Regular diet Activity as tolerated Discharge Disposition: HOME WITH HOME HEALTH SERVICES
== END 2018-05-11 14:30 | disposition home health service (06) | DRG 100 ==
LOC: EC 23:39 → 2SICU 05-06 01:31 → EEVIPCON 05-06 01:31 → 3NMEDONC 05-09 21:21
PROVIDERS: ADMIT Internal Medicine; ATTEND Internal Medicine
PROC: 02HV33Z Insertion of Infusion Device into Superior Vena Cava, Percutaneous Approach (ICD-10-PCS; principal; 2018-05-06)
DX: G40.919 Epilepsy, unspecified, intractable, without status epilepticus (principal); J69.0 Pneumonitis due to inhalation of food and vomit; E27.40 Unspecified adrenocortical insufficiency; E03.9 Hypothyroidism, unspecified; D53.9 Nutritional anemia, unspecified; T42.6X5A Adverse effect of other antiepileptic and sedative-hypnotic drugs, initial encounter; D69.6 Thrombocytopenia, unspecified; D75.89 Other specified diseases of blood and blood-forming organs; E83.39 Other disorders of phosphorus metabolism; E87.70 Fluid overload, unspecified; F03.90 Unspecified dementia, unspecified severity, without behavioral disturbance, psychotic disturbance, mood disturbance, and anxiety; F79 Unspecified intellectual disabilities; I73.00 Raynaud's syndrome without gangrene; Q90.9 Down syndrome, unspecified; Z74.01 Bed confinement status; Z79.890 Hormone replacement therapy; Z79.899 Other long term (current) drug therapy
CPT/HCPCS: 36415; 36556; 71045; 80048; 80053; 80164; 81001; 82533; 82607; 82746; 83605; 83735; 84443; 85025; 85610; 85730; 87040; 87086; 96360; 96365; 99291

== ENCOUNTER → 2018-10-23 | Outpatient (CLI) | payer MEDICARE, OTHER ==
--- NOTE | 2018-10-23 12:33 | FL ---
EXAMINATION TYPE: FL barium swallow w video DATE OF EXAM: 10/23/2018 COMPARISON: NONE HISTORY: Dysphasia. FINDINGS: Patient was evaluated in real-time fluoroscopy in the lateral projection while ingesting barium mixe d with liquids and solids. No aspiration or laryngeal penetration. 1 minute 28 seconds fluoroscopy time, no images obtained See dictated report from speech pathology.
== END | disposition home or self-care (01) ==
LOC: RADFLMAIN 10:46
PROVIDERS: ATTEND Family Medicine
DX: F03.90 Unspecified dementia, unspecified severity, without behavioral disturbance, psychotic disturbance, mood disturbance, and anxiety (principal); R13.10 Dysphagia, unspecified; R09.02 Hypoxemia; R91.8 Other nonspecific abnormal finding of lung field; Q20.9 Congenital malformation of cardiac chambers and connections, unspecified; Z23 Encounter for immunization
CPT/HCPCS: 74230

== ENCOUNTER → 2019-12-18 | Outpatient (CLI) | payer MEDICARE, OTHER ==
--- NOTE | 2019-12-18 13:46 | FL ---
Modified esophagram HISTORY: Dysphasia 1.19 minutes fluoroscopy time, no images obtained. Patient was evaluated in real-time and lateral projection under fluoroscopy suggesting barium mixed w ith liquids and pudding. No toyin aspiration was identified. Some transient laryngeal penetration cleared spontaneously, some delayed initiation of swallow was noted during the course of the exam. See dictated report from [facility] [place] [facility] for full evaluation.
== END | disposition home or self-care (01) ==
LOC: RADFLMAIN 10:47
PROVIDERS: ATTEND Family Medicine
DX: R13.10 Dysphagia, unspecified (principal); Q90.0 Trisomy 21, nonmosaicism (meiotic nondisjunction); L89.522 Pressure ulcer of left ankle, stage 2; F71 Moderate intellectual disabilities
CPT/HCPCS: 74230

== ENCOUNTER 2020-04-18 06:27 | Inpatient (IN) | payer MEDICARE, OTHER ==
[2020-04-18] MEDS ORDERED: ACETAMINOPHEN IV (For NPO) 1,000 MG in EMPTY BAG 1 BAG IVPB STA (06:38)
[2020-04-18] MEDS ORDERED: IPRATROPIUM-ALBUTEROL 3 ML NEB INHALATION STA (06:50)
[2020-04-18] MEDS ORDERED: SODIUM CHLORIDE 0.9% 2,000 ML IV ONE (06:53)
[2020-04-18] MEDS ORDERED: PIPERACILLIN-TAZOBACTAM 3.375 GM in SODIUM CHLORIDE 0.9% 100 ML IVPB STA (06:53)
--- NOTE | 2020-04-18 06:56 | XR ---
EXAM: XR Chest, 1 View CLINICAL HISTORY: ITS.REASON XR Reason: fever TECHNIQUE: Frontal view of the chest. COMPARISON: Chest radiograph May 07, 2018. FINDINGS/IMPRESSION: Pulmonary edema with suspected, trace pleural effusions. Follow-up chest radiograph recommended. No pneumothorax. Mildly prominent heart size.
[2020-04-18] MEDS ORDERED: ALBUTEROL HFA INHALER INHALATION ONE (07:00)
--- NOTE | 2020-04-18 07:00 | ED ---
Fever HPI - General Source: patient, EMS, RN notes reviewed Mode of arrival: EMS Limitations: altered mental status, physical limitation <Grant Fuentes - Last Filed: 04/18/20 10:31> <Ar Mo - Last Filed: 04/18/20 10:42> - General Chief Complaint: Fever Stated Complaint: Fever,weakness Time Seen by Provider: 04/18/20 06:31 - History of Present Illness Initial Comments: This is a 44-year-old female presents emergency Department via EMS from [facility] for fever, altered mental status. Patient has a history of Down syndrome, mental delay, normally nonverbal, nonmobile. Patient is full care at [facility]. Patient reportedly becomes his or night with a fever, increase respirator distress, hypotension. Report given to nurse that she had no symptoms yesterday. Information is very limited. Did review prior medical records. (Grant Fuentes) - Related Data Home Medications Medication Instructions Recorded Confirmed Levothyroxine Sodium [Synthroid] 75 mcg PO DAILY@0700 05/06/18 04/18/20 Albuterol Nebulized [Ventolin 2.5 mg INHALATION RT-Q6H PRN 04/18/20 04/18/20 Nebulized] Ascorbic Acid [Vitamin C] 1,000 mg PO DAILY@0700 04/18/20 04/18/20 Brivaracetam [Briviact] 50 mg PO BID 04/18/20 04/18/20 Calcium Polycarbophil [Fibercon] 625 mg PO DAILY 04/18/20 04/18/20 Divalproex Sodium [Depakote] 375 mg PO TID@0700,1300,1900 04/18/20 04/18/20 Hydrocortisone [Cortef] 20 mg PO BID@0700,1600 04/18/20 04/18/20 Magnesium Hydroxide [Milk of 2,400 mg PO DAILY PRN 04/18/20 04/18/20 Magnesia] Potassium Chloride ER [K-Dur 10] 10 meq PO BID@0700,1600 04/18/20 04/18/20 Pro-Stat Awc 30 ml PO BID 04/18/20 04/18/20 Sennosides [Senna] 17.2 mg PO HS@199904/18/20 04/18/20 Previous Rx's Medication Instructions Recorded Hydrocortisone [Cortef] 10 mg PO HS #30 tab 05/11/18 Allergies Allergy/AdvReac Type Severity Reaction Status Date / Time No Known Allergies Allergy Verified 04/18/20 09:41 Review of Systems ROS Other: All systems not noted in ROS Statement are negative. <Grant Fuentes - Last Filed: 04/18/20 10:31> ROS Other: All systems not noted in ROS Statement are negative. <Ar Mo - Last Filed: 04/18/20 10:42> ROS Statement: Those systems with pertinent positive or pertinent negative responses have been documented in the HPI. Past Medical History Past Medical History: Seizure Disorder, Thyroid Disorder Additional Past Medical History / Comment(s): downs syndrome developmental delay History of Any Multi-Drug Resistant Organisms: Unobtainable Past Surgical History: Unable to Obtain Past Psychological History: Unable to Obtain Smoking Status: Never smoker Past Alcohol Use History: Unable to Obtain Past Drug Use History: Unable to Obtain <Grant Fuentes - Last Filed: 04/18/20 10:31> General Exam General appearance: alert, in no apparent distress Head exam: Present: atraumatic, normocephalic, normal inspection Eye exam: Present: normal appearance, PERRL, EOMI. Absent: scleral icterus, conjunctival injection, periorbital swelling ENT exam: Absent: normal oropharynx, mucous membranes moist Neck exam: Present: normal inspection. Absent: tenderness, meningismus, lymphadenopathy Respiratory exam: Present: respiratory distress (Mild), rhonchi. Absent: normal lung sounds bilaterally, wheezes, rales, stridor Cardiovascular Exam: Present: normal rhythm, tachycardia, normal heart sounds. Absent: systolic murmur, diastolic murmur, rubs, gallop, clicks GI/Abdominal exam: Present: soft, normal bowel sounds. Absent: distended, tenderness, guarding, rebound, rigid External exam: Present: other (Busch catheter in place, puslike urine and blood tinged ) Neurological exam: Present: alert, CN II-XII intact. Absent: altered, oriented X3 Skin exam: Present: warm, dry, intact, normal color. Absent: rash <Grant Fuentes - Last Filed: 04/18/20 10:31> Course <Grant Fuentes - Last Filed: 04/18/20 10:31> Vital Signs 04/18/20 04/18/20 04/18/20 06:43 06:49 07:19 Temperature 100.8 F H 102.5 F H Pulse Rate 149 H 147 H Respiratory 15 22 Rate Blood Pressure 79/53 107/84 O2 Sat by Pulse 96 92 L Oximetry 04/18/20 04/18/20 04/18/20 07:20 07:44 08:35 Temperature 99.4 F Pulse Rate 130 H 130 H 140 H Respiratory 26 H Rate Blood Pressure 115/80 O2 Sat by Pulse 93 L Oximetry 04/18/20 04/18/20 04/18/20 09:00 09:53 10:14 Temperature 98.8 F Pulse Rate 121 H 134 H 115 H Respiratory 22 22 22 Rate Blood Pressure 100/56 109/73 102/69 O2 Sat by Pulse 96 96 96 Oximetry - Reevaluation(s) Reevaluation #1: 04/18/20 06:57 Patient was initially evaluated upon arrival to emergency department, labs EKG, chest x-ray and urinalysis were ordered. I did review prior medical records. Patient's was started on IV fluids, breathing treatment, antibiotics for suspected sepsis patient is hypotensive. (Grant Fuentes) Procedures - Sepsis Sepsis Focused Exam #1 Time Sepsis Criteria Met: 09:04 Sepsis Focused Exam Date: 04/18/20 Sepsis Focused Exam Time: 09:05 Sepsis Focused Exam Complete: Yes Vital Signs & RN Notes Reviewed: Yes Capillary Refill: < 2 Seconds: Fingers, Toes Peripheral Pulses: Normal: Radial (R), Radial (L), Posterior Tibialis (R), Posterior Tibialis (L), Dorsalis Pedis (R), Dorsalis Pedis (L) Skin Color: Ashen Respiratory Exam: rhonchi, decreased breath sounds Cardiovascular Exam: tachycardia <Grant Fuentes - Last Filed: 04/18/20 10:31> Medical Decision Making - Lab Data Result diagrams: 04/18/20 06:49 04/18/20 06:49 - EKG Data -: EKG Interpreted by Me <Grant Fuentes - Last Filed: 04/18/20 10:31> - Lab Data Result diagrams: 04/18/20 06:49 04/18/20 06:49 <Ar Mo - Last Filed: 04/18/20 10:42> - Medical Decision Making Patient was earlier reexamined and reevaluated by myself, Dr. Mo. Patient resting comfortably in bed. Heart rate 120. Blood pressure 102 systolic. I agree with. Findings. This includes diagnostic interpretation and treatment plan. Case was discussed in detail with Dr. garcia, who will admit covering for Dr. Ruiz ([place]) - Lab Data Lab Results 04/18/20 04/18/20 04/18/20 Range/Units 06:49 06:49 06:49 WBC 15.3 H (3.8-10.6) k/uL RBC 4.28 (3.80-5.40) m/uL Hgb 14.6 (11.4-16.0) gm/dL Hct 49.6 H (34.0-46.0) % MCV 116.1 H (80.0-100.0) fL MCH 34.0 (25.0-35.0) pg MCHC 29.3 L (31.0-37.0) g/dL RDW 15.9 H (11.5-15.5) % Plt Count 367 (150-450) k/uL MPV 8.7 Neutrophils % (Manual) 52 % Band Neuts % (Manual) 9 % Lymphocytes % (Manual) 34 % Monocytes % (Manual) 4 % Metamyelocytes % 1 % Myelocytes % 1 % Neutrophils # (Manual) 9.30 H (1.3-7.7) k/uL Lymphocytes # (Manual) 5.20 H (1.0-4.8) k/uL Monocytes # (Manual) 0.61 (0-1.0) k/uL Metamyelocytes # (Man) 0.15 H (0) k/uL Myelocytes # (Manual) 0.15 H (0) k/uL Nucleated RBCs 0 (0-0) /100 WBC Manual Slide Review Performed Reactive Lymphocytes Present Toxic Vacuolation Present Hypochromasia Slight Macrocytosis Marked A PT (9.0-12.0) sec INR (<1.2) APTT (22.0-30.0) sec Sodium 153 H (137-145) mmol/L Potassium 3.9 (3.5-5.1) mmol/L Chloride 116 H (98-107) mmol/L Carbon Dioxide 28 (22-30) mmol/L Anion Gap 9 mmol/L BUN 41 H (7-17) mg/dL Creatinine 1.99 H (0.52-1.04) mg/dL Est GFR (CKD-EPI)AfAm 35 (>60 ml/min/1.73 sqM) Est GFR (CKD-EPI)NonAf 30 (>60 ml/min/1.73 sqM) Glucose 113 H (74-99) mg/dL Lactic Ac Sepsis Rflx Plasma Lactic Acid Bud 5.8 H* (0.7-2.0) mmol/L Calcium 9.9 (8.4-10.2) mg/dL Total Bilirubin 0.7 (0.2-1.3) mg/dL AST 54 H (14-36) U/L ALT 39 H (4-34) U/L Alkaline Phosphatase 79 (38-126) U/L Ammonia 48 H (<30) umol/L Lactate Dehydrogenase 867 H (313-618) U/L C-Reactive Protein 23.9 H (<10.0) mg/L Total Protein 7.2 (6.3-8.2) g/dL Albumin 3.6 (3.5-5.0) g/dL TSH 3.100 (0.465-4.680) mIU/L Urine Color Urine Appearance (Clear) Urine pH (5.0-8.0) Ur Specific [place] (1.001-1.035) Urine Protein (Negative) Urine Glucose (UA) (Negative) Urine Ketones (Negative) Urine Blood (Negative) Urine Nitrite (Negative) Urine Bilirubin (Negative) Urine Urobilinogen (<2.0) mg/dL Ur Leukocyte Esterase (Negative) Urine RBC (0-5) /hpf Urine WBC (0-5) /hpf Urine WBC Clumps (None) /hpf Ur Squamous Epith Cells (0-4) /hpf Amorphous Sediment (None) /hpf Urine Bacteria (None) /hpf Urine Mucus (None) /hpf Valproic Acid 86.5 ug/mL Coronavirus (PCR) (Not Detectd) 04/18/20 04/18/20 04/18/20 Range/Units 06:50 06:50 07:26 WBC (3.8-10.6) k/uL RBC (3.80-5.40) m/uL Hgb (11.4-16.0) gm/dL Hct (34.0-46.0) % MCV (80.0-100.0) fL MCH (25.0-35.0) pg MCHC (31.0-37.0) g/dL RDW (11.5-15.5) % Plt Count (150-450) k/uL MPV Neutrophils % (Manual) % Band Neuts % (Manual) % Lymphocytes % (Manual) % Monocytes % (Manual) % Metamyelocytes % % Myelocytes % % Neutrophils # (Manual) (1.3-7.7) k/uL Lymphocytes # (Manual) (1.0-4.8) k/uL Monocytes # (Manual) (0-1.0) k/uL Metamyelocytes # (Man) (0) k/uL Myelocytes # (Manual) (0) k/uL Nucleated RBCs (0-0) /100 WBC Manual Slide Review Reactive Lymphocytes Toxic Vacuolation Hypochromasia Macrocytosis PT 15.2 H (9.0-12.0) sec INR 1.5 H (<1.2) APTT 21.8 L (22.0-30.0) sec Sodium (137-145) mmol/L Potassium (3.5-5.1) mmol/L Chloride (98-107) mmol/L Carbon Dioxide (22-30) mmol/L Anion Gap mmol/L BUN (7-17) mg/dL Creatinine (0.52-1.04) mg/dL Est GFR (CKD-EPI)AfAm (>60 ml/min/1.73 sqM) Est GFR (CKD-EPI)NonAf (>60 ml/min/1.73 sqM) Glucose (74-99) mg/dL Lactic Ac Sepsis Rflx Plasma Lactic Acid Bud (0.7-2.0) mmol/L Calcium (8.4-10.2) mg/dL Total Bilirubin (0.2-1.3) mg/dL AST (14-36) U/L ALT (4-34) U/L Alkaline Phosphatase (38-126) U/L Ammonia (<30) umol/L Lactate Dehydrogenase (313-618) U/L C-Reactive Protein (<10.0) mg/L Total Protein (6.3-8.2) g/dL Albumin (3.5-5.0) g/dL TSH (0.465-4.680) mIU/L Urine Color Yellow Urine Appearance Turbid H (Clear) Urine pH 6.5 (5.0-8.0) Ur Specific [place] 1.009 (1.001-1.035) Urine Protein 2+ H (Negative) Urine Glucose (UA) Negative (Negative) Urine Ketones Negative (Negative) Urine Blood Large H (Negative) Urine Nitrite Negative (Negative) Urine Bilirubin Negative (Negative) Urine Urobilinogen <2.0 (<2.0) mg/dL Ur Leukocyte Esterase Large H (Negative) Urine RBC 4 (0-5) /hpf Urine WBC >182 H (0-5) /hpf Urine WBC Clumps Many H (None) /hpf Ur Squamous Epith Cells 1 (0-4) /hpf Amorphous Sediment Moderate H (None) /hpf Urine Bacteria Moderate H (None) /hpf Urine Mucus Occasional H (None) /hpf Valproic Acid ug/mL Coronavirus (PCR) Not Detected (Not Detectd) 04/18/20 Range/Units 08:20 WBC (3.8-10.6) k/uL RBC (3.80-5.40) m/uL Hgb (11.4-16.0) gm/dL Hct (34.0-46.0) % MCV (80.0-100.0) fL MCH (25.0-35.0) pg MCHC (31.0-37.0) g/dL RDW (11.5-15.5) % Plt Count (150-450) k/uL MPV Neutrophils % (Manual) % Band Neuts % (Manual) % Lymphocytes % (Manual) % Monocytes % (Manual) % Metamyelocytes % % Myelocytes % % Neutrophils # (Manual) (1.3-7.7) k/uL Lymphocytes # (Manual) (1.0-4.8) k/uL Monocytes # (Manual) (0-1.0) k/uL Metamyelocytes # (Man) (0) k/uL Myelocytes # (Manual) (0) k/uL Nucleated RBCs (0-0) /100 WBC Manual Slide Review Reactive Lymphocytes Toxic Vacuolation Hypochromasia Macrocytosis PT (9.0-12.0) sec INR (<1.2) APTT (22.0-30.0) sec Sodium (137-145) mmol/L Potassium (3.5-5.1) mmol/L Chloride (98-107) mmol/L Carbon Dioxide (22-30) mmol/L Anion Gap mmol/L BUN (7-17) mg/dL Creatinine (0.52-1.04) mg/dL Est GFR (CKD-EPI)AfAm (>60 ml/min/1.73 sqM) Est GFR (CKD-EPI)NonAf (>60 ml/min/1.73 sqM) Glucose (74-99) mg/dL Lactic Ac Sepsis Rflx Y Plasma Lactic Acid Bud (0.7-2.0) mmol/L Calcium (8.4-10.2) mg/dL Total Bilirubin (0.2-1.3) mg/dL AST (14-36) U/L ALT (4-34) U/L Alkaline Phosphatase (38-126) U/L Ammonia (<30) umol/L Lactate Dehydrogenase (313-618) U/L C-Reactive Protein (<10.0) mg/L Total Protein (6.3-8.2) g/dL Albumin (3.5-5.0) g/dL TSH (0.465-4.680) mIU/L Urine Color Urine Appearance (Clear) Urine pH (5.0-8.0) Ur Specific [place] (1.001-1.035) Urine Protein (Negative) Urine Glucose (UA) (Negative) Urine Ketones (Negative) Urine Blood (Negative) Urine Nitrite (Negative) Urine Bilirubin (Negative) Urine Urobilinogen (<2.0) mg/dL Ur Leukocyte Esterase (Negative) Urine RBC (0-5) /hpf Urine WBC (0-5) /hpf Urine WBC Clumps (None) /hpf Ur Squamous Epith Cells (0-4) /hpf Amorphous Sediment (None) /hpf Urine Bacteria (None) /hpf Urine Mucus (None) /hpf Valproic Acid ug/mL Coronavirus (PCR) (Not Detectd) - EKG Data EKG Comments: EKG 1 is his: 40 sinus tachycardia rate of 139 IA 124 QRS 66 QT/QTC 298/453. (Grant Fuentes) Critical Care Time Critical Care Time: Yes Total Critical Care Time: 70 <Grant Fuentes - Last Filed: 04/18/20 10:31> Critical Care Time: Critical care time was used initially better with the patient, review past medical history, discussed the case with EMS, staff report. Patient had significant workup including labs, EKG, chest x-ray, urinalysis with Busch replacement,covid testing, ordering of fluid bolus for hypotension, suspected septic shock, antibiotics broad-spectrum Zosyn. Patient states that this comes up to check related to urosepsis. Chest x-ray shows pulmonary edema though concern for possible aspiration. Patient has known dysphasia. Patient is discussed with admitting physician. Patient will be continued on antibiotics, IV fluids, blood pressure monitor (Grant Fuentes) Disposition Time of Disposition: 09:21 <Grant Fuentes - Last Filed: 04/18/20 10:31> <Ar Mo - Last Filed: 04/18/20 10:42> Clinical Impression: Sepsis, UTI (urinary tract infection), Pneumonia, Dehydration, Acute kidney injury Disposition: ADMITTED IP TO THIS HOSP Condition: Serious Referrals: Michel Ruiz MD [Primary Care Provider] - 1-2 days
[2020-04-18 07:19] LABS: Albumin 3.6 g/dL (3.5-5.0); Calcium 9.9 mg/dL (8.4-10.2); Potassium 3.9 mmol/L (3.5-5.1); Total Bilirubin 0.7 mg/dL (0.2-1.3); Total Protein 7.2 g/dL (6.3-8.2)
[2020-04-18 07:30] LABS: INR 1.5 (<1.2); Prothrombin Time 15.2 sec (9.0-12.0)
[2020-04-18 07:50] LABS: Partial Thromboplastin Time 21.8 sec (22.0-30.0)
[2020-04-18 07:51] LABS: HCT 49.6 % (34.0-46.0); HGB 14.6 gm/dL (11.4-16.0); Hypochromasia Slight; MCHC 29.3 g/dL (31.0-37.0); MCV 116.1 fL (80.0-100.0); Macrocytosis Marked; Mean Platelet Volume 8.7; Platelet Count 367 k/uL (150-450); RBC 4.28 m/uL (3.80-5.40); RDW 15.9 % (11.5-15.5); WBC 15.3 k/uL (3.8-10.6)
[2020-04-18 08:14] LABS: C Reactive Protein 23.9 mg/L (<10.0)
[2020-04-18 08:16] LABS: Valproic Acid (Depakene) 86.5 ug/mL
[2020-04-18 08:20] LABS: Lactic Acid, Venous 5.8 mmol/L (0.7-2.0)
[2020-04-18 08:36] LABS: Band Neutrophils % 9 %; Metamyelocytes # (M) 0.15 k/uL (0); Metamyelocytes % 1 %; Monocytes # (M) 0.61 k/uL (0-1.0); Myelocytes # (M) 0.15 k/uL (0); Myelocytes % 1 %; Neutrophils % (M) 52 %; Nucleated Red Blood Cells 0 /100 WBC (0-0); Total Cells Counted 200
[2020-04-18 08:39] LABS: Toxic Vacuolation Present
[2020-04-18 08:41] LABS: Reactive Lymphocytes Present
[2020-04-18] MEDS ORDERED: SODIUM CHLORIDE 0.9% 1,000 ML IV ONE (08:41)
[2020-04-18 10:18] LABS: Amorphous Sediment,Urine Moderate /hpf; Appearance,Urine Turbid (Clear); Bacteria,Urine Moderate /hpf; Bilirubin,Urine Negative (Negative); Blood,Urine Large (Negative); Color,Urine Yellow; Glucose,Urine (UA) Negative (Negative); Ketones,Urine Negative (Negative); Leukocyte Esterase,Urine Large (Negative); Mucus,Urine Occasional /hpf; Nitrite,Urine Negative (Negative); PH, Urine 6.5 (5.0-8.0); Protein,Urine 2+ (Negative); RBC,Urine 4 /hpf (0-5); Specific Gravity,Urine 1.009 (1.001-1.035); Squamous Epithelial Cell,Urine 1 /hpf (0-4); Urobilinogen,Urine <2.0 mg/dL (<2.0); WBC,Urine >182 /hpf (0-5)
[2020-04-18] MEDS ORDERED: LORazepam 2 MG/ML INJ IV STA ×2 (11:27→16:42)
[2020-04-18] MEDS: SODIUM CHLORIDE 0.9% 1,000 ML IV SCH ×3 (11:38→23:59)
[2020-04-18 13:15] LABS: Ferritin 2558.9 ng/mL (10.0-291.0)
[2020-04-18] MEDS ORDERED: MAGNESIUM HYDROXIDE 2,400 MG/10 ML CUP PO PRN (15:18)
[2020-04-18] MEDS: PIPERACILLIN-TAZOBACTAM 3.375 GM in SODIUM CHLORIDE 0.9% 100 ML IVPB SCH ×2 (15:21→23:58)
[2020-04-18] MEDS ORDERED: AZITHROMYCIN 500 MG in SODIUM CHLORIDE 0.9% 250 ML IVPB SCH (15:30)
[2020-04-18] MEDS ORDERED: HYDROCORTISONE 20 MG TAB PO SCH (16:00)
[2020-04-18] MEDS ORDERED: PHENYLEPHRINE 40 MG in SODIUM CHLORIDE 0.9% 250 ML IV SCH (17:00)
[2020-04-18] MEDS ORDERED: DEXTROSE 50% SYRINGE 50 ML IVP ONE (17:00)
[2020-04-18 17:01] LABS: Glucose,Whole Blood 54 mg/dL (75-99)
[2020-04-18 17:27] LABS: Glucose,Whole Blood 139 mg/dL (75-99)
[2020-04-18 17:28] LABS: Glucose,Whole Blood 128 mg/dL (75-99)
[2020-04-18] MEDS ORDERED: LIDOCAINE 2% (PF) 20 MG/ML 5 ML VIAL ONE (17:33)
[2020-04-18 17:56] LABS: ABG Base Excess -9.6 mmol/L; ABG HCO3 17 mmol/L (21-25); ABG Oxygen Saturation 99.6 % (94-97); ABG PCO2 37 mmHg (35-45); ABG PH 7.28 (7.35-7.45); ABG PO2 149 mmHg (83-108); ABG TCO2 18 mmol/L (19-24); Allen Test Performed? Yes
--- NOTE | 2020-04-18 18:05 | P.EN ---
Called to patient bedside for A-Team. Patient was unresponsive to painful stimuli with tremulousness. Prior to arrival, patients measured BPs were in the 50s systolic, and patient had been bolused 3L of fluids, with response up to 129 SBP. However, patient did not improve in mentation. Pulses were hard to palpate when attempted on femoral, radial, brachial, and carotid arteries. Brachial artery had thready pulse. Patient was saturating between 88-92% on 12L HFNC. Her respirations appeared labored with prolonged expiratory phase. Her lung sounds had very coarse nature, and the precordium was too loud to discern character of heart sounds. Levido reticularis across her lower legs. Blood pressure was repeated several minutes into A-Team, and could not be measured by automatic cuff. Manual read by provider at bedside listed 54/30 when taken on right arm. Patient was placed in trendelenberg and CODE BLUE called to initiate rapid airway management as patient did not appear to be protecting her airway well. ABG was attempted in radial artery on the left several times without success. Patient was placed on threat monitoring analyst which demonstrated sinus tachycardia. Patient was suctioned and started on levophed, with which pressures responded to 70s/40s. At this point, oxygen saturation improved to 100% on 12L NC. Patient was returned to upright position. At this point decision was made to move patient to ICU, to determine ongoing care once stabilized in the unit. Phx: Gen: obtunded, in severe resp distress, does not awaken to painful stimulus Resp: coarse breath sounds, prolonged expiratory phase, accessory muscle use CVS: could not palpate pulses x 4 extremities, tachycardic, precordium was too loud for further assessment GI: nttp, nd : + jane catheter with cloudy yellow urine and dense sediment Neuro: withdraws to pain A/P: - patient transferred to ICU Resp: patient is saturating 100% on HFNC; obtain ABG, may warrant intubation if CO2 is high; RT to evaluate frequency of suctioning, patient does not appear to be protecting her airway. CVS: sinus tachycardia; obtain EKG; continue levophed for goal MAP > 65, currently running at 10; patient warrants placement of A-line for hemodynamic monitoring : oliguric renal failure; continue IVF at 130cc/hr, continue jane and hourly UOP; consider nephrology consult Neuro: withdraws to pain; EEG to rule out seizure activity; ativan PRN for seizures IF BPs allow; can consider keguyra leonardo and neurology consult ID: continue zosyn; ID following I spent approximately 60 minutes of critical care time with this patient.
[2020-04-18] MEDS: POTASSIUM CHLORIDE ER 10 MEQ TAB.ER.PRT PO SCH (18:13)
[2020-04-18] MEDS: NOREPINEPHRINE 4 MG in SODIUM CHLORIDE 0.9% 250 ML IV SCH ×6 (18:18→23:40)
[2020-04-18] MEDS ORDERED: SODIUM CHLORIDE 0.9% 50 ML with VASOPRESSIN 20 UNIT IVPB SCH ×2 (19:00)
[2020-04-18] MEDS ORDERED: DIVALPROEX SPRINKLE 125 MG CAP.SPRINK PO SCH (19:00)
[2020-04-18] MEDS: SODIUM CHLORIDE 0.9% 150 ML with VASOPRESSIN 60 UNIT IV SCH ×2 (19:32)
[2020-04-18] MEDS: levETIRAcetam IV 1,000 MG in SALINE 1 100ML.BAG IVPB SCH (19:52)
[2020-04-18] MEDS: SENNOSIDES 8.6 MG TAB PO SCH (20:07)
[2020-04-18] MEDS: BRIVARACETAM 10 MG/ML PO SCH (20:07)
[2020-04-18] MEDS: HYDROCORTISONE SUCCINATE 100 MG/2 ML VIAL IV SCH (20:32)
[2020-04-18] MEDS ORDERED: HYDROCORTISONE 10 MG TAB PO SCH (21:00)
[2020-04-18] MEDS ORDERED: PRO STAT AWC PO SCH (21:00)
--- NOTE | 2020-04-18 21:15 | P.CNPUL ---
History of Present Illness Consult date: 04/18/20 Chief complaint: Acute hypotension, unresponsiveness History of present illness: This is a 44-year-old female patient, a skilled nursing resident with a known history of Down syndrome and developmental delay, normally nonverbal and nonmobile. The patient was admitted through emergency for sepsis and he was admitted to the medical floor and within few hours of admission the patient got transferred to the ICU because of profound hypotension and septic shock. The patient became febrile and she had increased respiration and hypertension and she was brought into the emergency department and the patient was diagnosed having UTI with secondary sepsis. At the time of the admission, the patient had a lactic acid of 5.8, white cell count of 15.3, hemoglobin of 14.6, 9% bandemia, the sodium level of 153 with a BUN of 41 and creatinine of 1.9. The UA was abnormal with many clumps of white cells and bacteria and the patient's coronavirus/: 19 nasal swab by PCR came back negative. Chest x-ray showed mild hilar prominence. In the emergency department, the patient was given IV fluids and he was started on a combination of Zosyn and Zithromax. The patient got transferred to the medical floor and the patient was found to be hypotensive, un responsive to painful stimulation and she was having tremors/questionable seizure activity. Systolic blood pressure was apparently the mid 50s. The patient received a total of 3 L of fluid bolus of normal saline. Mentation was altered and quite diminished. The patient was placed on 12 L of oxygen by nasal cannula and her pulse ox was in the mid 90s. At one point, a CODE BLUE was also called thinking that the patient may not several falls for a blood pressure. The patient was placed on a secured entrance monitor. She was in sinus tachycardia. Pressors were started and subsequent blood pressure reading was 70/40. The patient got transferred to the intensive care units. Currently she is on levo fed which is running at a higher dose. Vasopressin was also started for hemodynamic support. This was started at physiologic dose. Started the patient also on IV fluids. Start the patient on hydrocortisone stress dose. At the same time, there was a concern for seizure activity. Start the patient on Keppra and she'll be receiving 1 g every 12 hours. Upon further review of the records, the patient is known to have also seizure disorder. She has history of hypothyroidism. She has been hospitalized in the past because of seizure activity and disorder. She was taken Depakote and Briviact on outpatient basis. She has previous history of intractable epilepsy and she has been evaluated [facility] many years back. She was hospitalized a few years ago for seizure activity and pneumonia. I believe she also has a component of venous insufficiency and the patient was receiving hydrocortisone on outpatient basis. Review of Systems Altered mental status, the patient is unresponsive at this point in time. Unable to take any further review of system. ROS unobtainable: due to mental status Past Medical History Past Medical History: Seizure Disorder, Thyroid Disorder Additional Past Medical History / Comment(s): downs syndrome developmental delay, hypothyroid, adrenal insufficiency History of Any Multi-Drug Resistant Organisms: Unobtainable Past Surgical History: Unable to Obtain Past Psychological History: Unable to Obtain Smoking Status: Never smoker Past Alcohol Use History: Unable to Obtain Past Drug Use History: Unable to Obtain Medications and Allergies Home Medications Medication Instructions Recorded Confirmed Type Levothyroxine Sodium [Synthroid] 75 mcg PO DAILY@0700 05/06/18 04/18/20 History Hydrocortisone [Cortef] 10 mg PO HS #30 tab 05/11/18 04/18/20 Rx Albuterol Nebulized [Ventolin 2.5 mg INHALATION RT-Q6H PRN 04/18/20 04/18/20 History Nebulized] Ascorbic Acid [Vitamin C] 1,000 mg PO DAILY@0700 04/18/20 04/18/20 History Brivaracetam [Briviact] 50 mg PO BID 04/18/20 04/18/20 History Calcium Polycarbophil [Fibercon] 625 mg PO DAILY 04/18/20 04/18/20 History Divalproex Sodium [Depakote] 375 mg PO TID@0700,1300,1900 04/18/20 04/18/20 History Hydrocortisone [Cortef] 20 mg PO BID@0700,1600 04/18/20 04/18/20 History Magnesium Hydroxide [Milk of 2,400 mg PO DAILY PRN 04/18/20 04/18/20 History Magnesia] Potassium Chloride ER [K-Dur 10] 10 meq PO BID@0700,1600 04/18/20 04/18/20 History Pro-Stat Awc 30 ml PO BID 04/18/20 04/18/20 History Sennosides [Senna] 17.2 mg PO HS@199904/18/20 04/18/20 History Allergies Allergy/AdvReac Type Severity Reaction Status Date / Time No Known Allergies Allergy Verified 04/18/20 09:41 Physical Exam Vitals: Vital Signs Temp Pulse Pulse Resp BP BP Pulse Ox 04/18/20 19:15 97 16 96 04/18/20 19:00 98 16 96 04/18/20 18:45 125 H 21 96 04/18/20 18:30 109 H 17 87/72 96 04/18/20 18:15 94 15 87/72 99 04/18/20 18:00 94 15 78/58 04/18/20 17:45 99.2 F 109 H 16 82/48 97 04/18/20 17:30 96 04/18/20 16:24 52/35 04/18/20 16:10 108 H 22 52/36 97 04/18/20 16:00 104 H 20 50/34 97 04/18/20 15:52 98.7 F 111 H 19 70/33 95 04/18/20 11:53 135 H 24 92/70 94 L 04/18/20 11:46 105 H 18 77/40 93 L 04/18/20 11:28 129 H 18 113/91 04/18/20 10:14 115 H 22 102/69 96 04/18/20 09:53 98.8 F 134 H 22 109/73 96 04/18/20 09:00 121 H 22 100/56 96 04/18/20 08:35 99.4 F 140 H 26 H 115/80 93 L 04/18/20 07:44 130 H 04/18/20 07:20 130 H 04/18/20 07:19 147 H 22 107/84 92 L 04/18/20 06:49 102.5 F H 04/18/20 06:43 100.8 F H 149 H 15 79/53 96 Intake and Output 04/18/20 04/18/20 04/18/20 06:59 14:59 22:59 Intake Total 130 567.920 Output Total 20 475 Balance 110 92.920 Intake: IV 260 Sodium Chloride 0.9% 1, 260 000 ml @ 130 mls/hr IV . Q7H42M [facility] Rx#:[id number] Intake, IV Titration 130 307.920 Amount Norepinephrine 4 mg In 307.920 Sodium Chloride 0.9% 250 ml @ 0.05 MCG/KG/MIN 13. 826 mls/hr IV .[id number] [facility] Rx#:[id number] Sodium Chloride 0.9% 1, 130 000 ml @ 130 mls/hr IV . Q7H42M [facility] Rx#:[id number] Oral 0 Output: Urine 20 475 Other: Voiding Method Indwelling Catheter # Voids 0 Weight 72.575 kg 72.575 kg ABP, PAP, CO, CI - Last 8 Hours Arterial Blood Pressure 85/44 Arterial Blood Pressure 88/48 Arterial Blood Pressure 125/70 Arterial Blood Pressure 110/65 Arterial Blood Pressure 100/54 Arterial Blood Pressure 79/45 Arterial Blood Pressure 84/52 General: Down's features and the patient is unresposice and toxic, no distress, appears at younger than stated age, short stature, small hands Derm: warm, dry Head: atraumatic, normocephalic, symmetric Eyes: EOMI, no lid lag, anicteric sclera Mouth: no lip lesion, mucus membranes dry Cardiovascular: S1S2 reg, no murmur, tachycardic and no murmurs appreciated Lungs: Ronchi left base, no rhonchi, no rales , no accessory muscle use Abdominal: soft, nontender to palpation, no guarding, no appreciable organomegaly Ext: no gross muscle atrophy, no edema, no contractures Neuro: Obtunded and the patient is unresponsive an she has global motor weakness. Occasional jerky body movement was noted and this was highly suspicious for seizure activity Psych: Unresponsive Results - Laboratory Findings CBC and BMP: 04/18/20 06:49 04/18/20 06:49 ABG ABG pH 7.28 (7.35-7.45) L 04/18/20 16:51 ABG pCO2 37 mmHg (35-45) 04/18/20 16:51 ABG pO2 149 mmHg (83-108) H 04/18/20 16:51 ABG O2 Saturation 99.6 % (94-97) H 04/18/20 16:51 PT/INR, D-dimer PT 15.2 sec (9.0-12.0) H 04/18/20 06:50 INR 1.5 (<1.2) H 04/18/20 06:50 Abnormal lab findings: Abnormal Labs 04/18/20 04/18/20 04/18/20 06:49 06:49 06:49 WBC 15.3 H Hct 49.6 H MCV 116.1 H MCHC 29.3 L RDW 15.9 H Neutrophils # (Manual) 9.30 H Lymphocytes # (Manual) 5.20 H Metamyelocytes # (Man) 0.15 H Myelocytes # (Manual) 0.15 H Macrocytosis Marked A PT INR APTT ABG pH ABG pO2 ABG HCO3 ABG Total CO2 ABG O2 Saturation Sodium 153 H Chloride 116 H BUN 41 H Creatinine 1.99 H Glucose 113 H POC Glucose (mg/dL) Plasma Lactic Acid Bud 5.8 H* Ferritin 2558.9 H AST 54 H ALT 39 H Ammonia 48 H Lactate Dehydrogenase 867 H C-Reactive Protein 23.9 H Urine Appearance Urine Protein Urine Blood Ur Leukocyte Esterase Urine WBC Urine WBC Clumps Amorphous Sediment Urine Bacteria Urine Mucus 04/18/20 04/18/20 04/18/20 06:50 07:26 11:00 WBC Hct MCV MCHC RDW Neutrophils # (Manual) Lymphocytes # (Manual) Metamyelocytes # (Man) Myelocytes # (Manual) Macrocytosis PT 15.2 H INR 1.5 H APTT 21.8 L ABG pH ABG pO2 ABG HCO3 ABG Total CO2 ABG O2 Saturation Sodium Chloride BUN Creatinine Glucose POC Glucose (mg/dL) Plasma Lactic Acid Bud 5.7 H* Ferritin AST ALT Ammonia Lactate Dehydrogenase C-Reactive Protein Urine Appearance Turbid H Urine Protein 2+ H Urine Blood Large H Ur Leukocyte Esterase Large H Urine WBC >182 H Urine WBC Clumps Many H Amorphous Sediment Moderate H Urine Bacteria Moderate H Urine Mucus Occasional H 04/18/20 04/18/20 04/18/20 14:31 16:51 16:59 WBC Hct MCV MCHC RDW Neutrophils # (Manual) Lymphocytes # (Manual) Metamyelocytes # (Man) Myelocytes # (Manual) Macrocytosis PT INR APTT ABG pH 7.28 L ABG pO2 149 H ABG HCO3 17 L ABG Total CO2 18 L ABG O2 Saturation 99.6 H Sodium Chloride BUN Creatinine Glucose POC Glucose (mg/dL) 54 L Plasma Lactic Acid Bud 5.8 H* Ferritin AST ALT Ammonia Lactate Dehydrogenase C-Reactive Protein Urine Appearance Urine Protein Urine Blood Ur Leukocyte Esterase Urine WBC Urine WBC Clumps Amorphous Sediment Urine Bacteria Urine Mucus 04/18/20 04/18/20 04/18/20 17:15 17:26 18:07 WBC Hct MCV MCHC RDW Neutrophils # (Manual) Lymphocytes # (Manual) Metamyelocytes # (Man) Myelocytes # (Manual) Macrocytosis PT INR APTT ABG pH ABG pO2 ABG HCO3 ABG Total CO2 ABG O2 Saturation Sodium Chloride BUN Creatinine Glucose POC Glucose (mg/dL) 139 H 128 H Plasma Lactic Acid Bud 6.0 H* Ferritin AST ALT Ammonia Lactate Dehydrogenase C-Reactive Protein Urine Appearance Urine Protein Urine Blood Ur Leukocyte Esterase Urine WBC Urine WBC Clumps Amorphous Sediment Urine Bacteria Urine Mucus - Diagnostic Findings Chest x-ray: image reviewed Assessment and Plan Plan: 1 septic shock secondary to a UTI. The patient is currently hypotensive in a shock state secondary to sepsis. The patient is being aggressively resuscitated with IV fluids. The patient is also on high-dose pressors. He is on a combination of vasopressin and norepinephrine infusion. Patient is on IV Zosyn and Zithromax for now. Patient will be also started on stress dose hydrocortisone. There may be an underlying component in insufficiency of the patient has been taken hydrocortisone outpatient basis. 2 acute leukocytosis with bandemia secondary to above 3 acute lactic acidosis secondary to above 4 acute kidney injury secondary to above 5 history of seizure disorder maintained on a combination of Depakote and Briviact on outpatient basis. The patient may be having underlying breakthrough seizures. 6 unresponsiveness, consider metabolic encephalopathy, consider seizure with postictal state 7 bowel syndrome with developmental delay and mental retardation 8 obesity 9 hypothyroidism 10 additional insufficiency maintained on hydrocortisone outpatient basis 11 skilled nursing resident Plan IVF resuscitation and the patient has received a total of 4 liters in the and she has on maintenance of 150 NSS Neorepinephrin 1.3 mcg/kg/min and vasopressin 0.03 U/hr physiologic dose IV zosyn and Levaquin as broad spectrum ABX coverage. The patient has a UTI/sepsis and there is a suspicion for an underlying aspiration pneumonia Urine and blood cultures Will establish a central line and an Art line Will continue the Depakote IV and will start the patient also on Keppra and monitor for any seizure activity and will place a consultation for neurology Stress dose hydrocortisone electrocardiogram in AM monitor lactic acid levels ABG noted Condition is critical and will continue to FU the case . The patient is in the ICU and her condition is critical and the patient is in septic shock and MSOF.
[2020-04-18] MEDS ORDERED: LEVOFLOXACIN 500MG-D5W PMX 500 MG in DEXTROSE/WATER 1 100ML.BAG IVPB SCH (21:30)
--- NOTE | 2020-04-18 22:10 | P.ANPRN ---
Procedure Note - Anesthesia - Invasive Line Right Central Line Time Out Performed: Yes Date of Procedure: 04/18/20 Time of Procedure: 21:40 Location of Patient: [facility] Preparation: Sterile Prep, Sterile Dressing Ultrasound Used: Yes Purpose - Visualization and Identification of Vasculature: Yes Image Stored and Saved: Yes Narrative: Central line placement per sterile protocol utilized.
--- NOTE | 2020-04-18 22:17 | XR ---
EXAMINATION TYPE: XR chest 1V portable DATE OF EXAM: 04/18/2020 COMPARISON: Earlier same day. HISTORY: Central line placement. TECHNIQUE: Single frontal view of the chest is obtained. FINDINGS: There is placement of a right IJ catheter with tip overlying the right atrium. There is pe rsistent moderate interstitial edema with superimposed hazy and streaky opacities. No pleural effusio n or pneumothorax. The cardiac silhouette size is stable. The osseous structures are intact. IMPRESSION: As above.
--- NOTE | 2020-04-18 22:51 | P.HPIM ---
History of Present Illness H&P Date: 04/18/20 Chief Complaint: fever/ AMS This is a 44-year-old female presents emergency Department via EMS from [facility] for fever, altered mental status. Patient has a history of Down syndrome, mental delay, normally nonverbal, nonmobile. Patient is full care at [facility]. Patient reportedly becomes his or night with a fever, increase respirator distress, hypotension. Report given to nurse that she had no symptoms yesterday. Information is very limited. Did review prior medical records. patient was diagnosed having UTI with secondary sepsis. At the time of the admission, the patient had a lactic acid of 5.8, white cell count of 15.3, hemoglobin of 14.6, 9% bandemia, the sodium level of 153 with a BUN of 41 and creatinine of 1.9. The UA was abnormal with many clumps of white cells and bacteria and the patient's coronavirus/: 19 nasal swab by PCR came back negative. Chest x-ray showed mild hilar prominence. In the emergency department, the patient was given IV fluids and he was started on a combination of Zosyn and Zithromax. The patient got transferred to the medical floor Review of Systems ROS unobtainable: due to mental status Past Medical History Past Medical History: Seizure Disorder, Thyroid Disorder Additional Past Medical History / Comment(s): downs syndrome developmental delay History of Any Multi-Drug Resistant Organisms: Unobtainable Past Surgical History: Unable to Obtain Past Psychological History: Unable to Obtain Smoking Status: Never smoker Past Alcohol Use History: Unable to Obtain Past Drug Use History: Unable to Obtain Medications and Allergies Home Medications Medication Instructions Recorded Confirmed Type Levothyroxine Sodium [Synthroid] 75 mcg PO DAILY@0700 05/06/18 04/18/20 History Hydrocortisone [Cortef] 10 mg PO HS #30 tab 05/11/18 04/18/20 Rx Albuterol Nebulized [Ventolin 2.5 mg INHALATION RT-Q6H PRN 04/18/20 04/18/20 History Nebulized] Ascorbic Acid [Vitamin C] 1,000 mg PO DAILY@0700 04/18/20 04/18/20 History Brivaracetam [Briviact] 50 mg PO BID 04/18/20 04/18/20 History Calcium Polycarbophil [Fibercon] 625 mg PO DAILY 04/18/20 04/18/20 History Divalproex Sodium [Depakote] 375 mg PO TID@0700,1300,1900 04/18/20 04/18/20 History Hydrocortisone [Cortef] 20 mg PO BID@0700,1600 04/18/20 04/18/20 History Magnesium Hydroxide [Milk of 2,400 mg PO DAILY PRN 04/18/20 04/18/20 History Magnesia] Potassium Chloride ER [K-Dur 10] 10 meq PO BID@0700,1600 04/18/20 04/18/20 Hi story Pro-Stat Awc 30 ml PO BID 04/18/20 04/18/20 History Sennosides [Senna] 17.2 mg PO HS@199904/18/20 04/18/20 History Allergies Allergy/AdvReac Type Severity Reaction Status Date / Time No Known Allergies Allergy Verified 04/18/20 09:41 Physical Exam Vitals: Vital Signs Temp Pulse Pulse Resp BP BP Pulse Ox 04/18/20 11:53 135 H 24 92/70 94 L 04/18/20 11:46 105 H 18 77/40 93 L 04/18/20 11:28 129 H 18 113/91 04/18/20 10:14 115 H 22 102/69 96 04/18/20 09:53 98.8 F 134 H 22 109/73 96 04/18/20 09:00 121 H 22 100/56 96 04/18/20 08:35 99.4 F 140 H 26 H 115/80 93 L 04/18/20 07:44 130 H 04/18/20 07:20 130 H 04/18/20 07:19 147 H 22 107/84 92 L 04/18/20 06:49 102.5 F H 04/18/20 06:43 100.8 F H 149 H 15 79/53 96 Intake and Output 04/18/20 04/18/20 04/18/20 06:59 14:59 22:59 Intake Total 130 Output Total 20 Balance 110 Intake: Intake, IV Titration 130 Amount Sodium Chloride 0.9% 1, 130 000 ml @ 130 mls/hr IV . Q7H42M [facility] Rx#:[id number] Oral 0 Output: Urine 20 Other: # Voids 0 Weight 72.575 kg 72.575 kg General appearance: alert, in no apparent distress Head exam: Present: atraumatic, normocephalic, normal inspection Eye exam: Present: normal appearance, PERRL, EOMI. Absent: scleral icterus, conjunctival injection, periorbital swelling ENT exam: Absent: normal oropharynx, mucous membranes moist Neck exam: Present: normal inspection. Absent: tenderness, meningismus, lymphadenopathy Respiratory exam: Present: respiratory distress (Mild), rhonchi. Absent: normal lung sounds bilaterally, wheezes, rales, stridor Cardiovascular Exam: Present: normal rhythm, tachycardia, normal heart sounds. Absent: systolic murmur, diastolic murmur, rubs, gallop, clicks GI/Abdominal exam: Present: soft, normal bowel sounds. Absent: distended, tenderness, guarding, rebound, rigid External exam: Present: other (Busch catheter in place, puslike urine and blood tinged ) Neurological exam: Present: alert, CN II-XII intact. Absent: altered, oriented X3 Skin exam: Present: warm, dry, intact, normal color. Results CBC & Chem 7: 04/18/20 06:49 04/18/20 06:49 Labs: Abnormal Lab Results - Last 24 Hours (Table) 04/18/20 04/18/20 04/18/20 Range/Units 06:49 06:49 06:49 WBC 15.3 H (3.8-10.6) k/uL Hct 49.6 H (34.0-46.0) % MCV 116.1 H (80.0-100.0) fL MCHC 29.3 L (31.0-37.0) g/dL RDW 15.9 H (11.5-15.5) % Neutrophils # (Manual) 9.30 H (1.3-7.7) k/uL Lymphocytes # (Manual) 5.20 H (1.0-4.8) k/uL Metamyelocytes # (Man) 0.15 H (0) k/uL Myelocytes # (Manual) 0.15 H (0) k/uL Macrocytosis Marked A PT (9.0-12.0) sec INR (<1.2) APTT (22.0-30.0) sec Sodium 153 H (137-145) mmol/L Chloride 116 H (98-107) mmol/L BUN 41 H (7-17) mg/dL Creatinine 1.99 H (0.52-1.04) mg/dL Glucose 113 H (74-99) mg/dL Plasma Lactic Acid Bud 5.8 H* (0.7-2.0) mmol/L Ferritin 2558.9 H (10.0-291.0) ng/mL AST 54 H (14-36) U/L ALT 39 H (4-34) U/L Ammonia 48 H (<30) umol/L Lactate Dehydrogenase 867 H (313-618) U/L C-Reactive Protein 23.9 H (<10.0) mg/L Urine Appearance (Clear) Urine Protein (Negative) Urine Blood (Negative) Ur Leukocyte Esterase (Negative) Urine WBC (0-5) /hpf Urine WBC Clumps (None) /hpf Amorphous Sediment (None) /hpf Urine Bacteria (None) /hpf Urine Mucus (None) /hpf 04/18/20 04/18/20 04/18/20 Range/Units 06:50 07:26 11:00 WBC (3.8-10.6) k/uL Hct (34.0-46.0) % MCV (80.0-100.0) fL MCHC (31.0-37.0) g/dL RDW (11.5-15.5) % Neutrophils # (Manual) (1.3-7.7) k/uL Lymphocytes # (Manual) (1.0-4.8) k/uL Metamyelocytes # (Man) (0) k/uL Myelocytes # (Manual) (0) k/uL Macrocytosis PT 15.2 H (9.0-12.0) sec INR 1.5 H (<1.2) APTT 21.8 L (22.0-30.0) sec Sodium (137-145) mmol/L Chloride (98-107) mmol/L BUN (7-17) mg/dL Creatinine (0.52-1.04) mg/dL Glucose (74-99) mg/dL Plasma Lactic Acid Bud 5.7 H* (0.7-2.0) mmol/L Ferritin (10.0-291.0) ng/mL AST (14-36) U/L ALT (4-34) U/L Ammonia (<30) umol/L Lactate Dehydrogenase (313-618) U/L C-Reactive Protein (<10.0) mg/L Urine Appearance Turbid H (Clear) Urine Protein 2+ H (Negative) Urine Blood Large H (Negative) Ur Leukocyte Esterase Large H (Negative) Urine WBC >182 H (0-5) /hpf Urine WBC Clumps Many H (None) /hpf Amorphous Sediment Moderate H (None) /hpf Urine Bacteria Moderate H (None) /hpf Urine Mucus Occasional H (None) /hpf Assessment and Plan Assessment: 1. Sepsis secondary to a UTI. - The patient was aggressively resuscitated with IV fluids in ED. Patient is on IV Zosyn and Zithromax for now. - consult ID for further treatment 2. Acute leukocytosis/ lactic acidosis secondary to above; await urine and blood cultures for further recs 3. Acute kidney injury secondary to above; continue with IVFs; monitor renal function and electrolytes; monitor strict I&Os; avoid nephrotoxic agents 4. Seizure disorder; continue Depakote and Briviact 5. 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 Hypothyroidism; continue with levothyroxine 7. Adrenal insufficiency; maintained on hydrocortisone outpatient basis DVT Prophylaxis; SCDs/ s/q Lovenox Code status; Full Code
[2020-04-18] MEDS: VALPROATE SODIUM 500 MG in SODIUM CHLORIDE 0.9% 100 ML IVPB SCH (23:59)
[2020-04-19] MEDS: HEPARIN SODIUM,PORCINE 5,000 UNIT/ML 1 ML VIAL SQ SCH ×4 (00:01→23:27)
[2020-04-19] MEDS: HYDROCORTISONE SUCCINATE 100 MG/2 ML VIAL IV SCH ×4 (00:01→23:27)
[2020-04-19] MEDS: NOREPINEPHRINE 32 MG in SODIUM CHLORIDE 0.9% 218 ML IV SCH (00:57)
[2020-04-19] MEDS ORDERED: ACETAMINOPHEN IV (For NPO) 1,000 MG in EMPTY BAG 1 BAG IVPB PRN (01:30)
[2020-04-19 04:25] LABS: Basophils # (A) 0.2 k/uL (0-0.2); Basophils % (A) 1 %; Eosinophils % (A) 0 %; HCT 38.9 % (34.0-46.0); HGB 12.1 gm/dL (11.4-16.0); Hypochromasia Marked; Lymphocytes # (A) 1.2 k/uL (1.0-4.8); Lymphocytes % (A) 4 %; MCH 36.6 pg (25.0-35.0); Macrocytosis Marked; Mean Platelet Volume 8.4; Monocytes # (A) 1.1 k/uL (0-1.0); Monocytes % (A) 3 %; Neutrophils # (A) 31.2 k/uL (1.3-7.7); Neutrophils % (A) 93 %; Platelet Count 201 k/uL (150-450); RBC 3.29 m/uL (3.80-5.40); RDW 15.5 % (11.5-15.5); WBC 33.8 k/uL (3.8-10.6)
[2020-04-19 04:52] LABS: Glucose,Whole Blood 141 mg/dL (75-99)
[2020-04-19 05:35] LABS: Albumin 2.5 g/dL (3.5-5.0); Calcium 7.1 mg/dL (8.4-10.2); Potassium 5.2 mmol/L (3.5-5.1); Total Bilirubin 0.8 mg/dL (0.2-1.3); Total Protein 5.4 g/dL (6.3-8.2)
--- NOTE | 2020-04-19 06:35 | CONS ---
CONSULTATION DATE OF SERVICE: 04/18/2020 REASON FOR CONSULTATION: Sepsis. HISTORY OF PRESENT ILLNESS: The patient is a 44-year-old female with past medical history significant for Down syndrome, development delay, normally a [facility] resident. The patient was brought to the ER at [facility] early this morning for evaluation of her fever and mental status changes. Apparently the patient's symptoms started the night before she presented to the hospital. She was noted to have increasing respiratory distress and hypotension. With these symptoms, the patient was evaluated by the ER physician. On arrival to the ER, the patient did have a fever of 102.5 degrees Fahrenheit. The patient was tachycardic initially. She was hypotensive and has received multiple fluid boluses. However, the patient also has elevated white count of 15.8 on presentation to the hospital. The patient did have elevated lactic acid. [place] PCR came back negative. The patient did have a positive UA. She did have a chest x-ray that shows pulmonary edema, suspected right pleural effusion. This evening did have persistent hypotension. The A-Team was called and the patient subsequently did have a Code Blue. The patient has been started on Levophed and the patient was subsequently transferred to the ICU. The patient has been treated with Zosyn. Infectious Disease was consulted for further management of antibiotic therapy. Most information has been obtained from either the chart or the nursing staff, as the patient was not able to provide any history. REVIEW OF SYSTEMS: Positive points have been mentioned in HPI. Complete review could not be completed. PAST MEDICAL HISTORY: Down syndrome, developmental delay, hypothyroidism, seizure disorder. PAST SURGICAL HISTORY: Reviewed on the chart. SOCIAL HISTORY: Patient is resident of [facility]. No active smoking, drinking, drug use. FAMILY HISTORY: No pertinent findings noticed. ALLERGIES: No known drug allergies. MEDICATIONS: The patient is currently on IV fluids. She is on Zosyn 3.375 g q.8 hours, levothyroxine, Levaquin, hydrocortisone, heparin, , vitamin C. PHYSICAL EXAMINATION: Blood pressure is 85/44, pulse of 97, temperature 99.2, T-max 102.5. She is 96% on high-flow oxygen. General description is a middle-aged female lying in bed in no distress. No tachypnea or accessory muscle of respiration use. HEENT: Examination shows no pallor or scleral icterus. Oral mucous membranes dry. Neck with no thyromegaly. LUNGS: Unlabored breathing. Coarse breath sounds bilaterally, no wheeze. Heart S1, S2. Regular rate and rhythm. ABDOMEN: Soft, no tenderness. No guarding or rigidity. EXTREMITIES: No edema of the feet. SKIN: No rash or mass palpable. NEUROLOGICAL: The patient minimally responsive. Orientation could not be determined because the patient was nonverbal. LABS: Hemoglobin is 14.8, white count 15.3, BUN of 41, creatinine 1.91. Lactic acid is elevated. Liver enzymes mildly elevated. Urine was positive. DIAGNOSTIC IMPRESSION: Patient with sepsis/septic shock. Source is likely urinary and concern for possible aspiration pneumonia in this patient who did have significant hypotension requiring transfer to the ICU and has been treated with vasopressor. Being a [facility] resident, we will cover for the resistant gram-negative such as Pseudomonas sheila. PLAN: 1. Zosyn 3.375 grams q.8 hours. Level should provide adequate recovery. 2. IV fluid. 3. We will follow her clinical condition and culture to further adjust medication if needed. Thank you for this consultation. Will follow this patient along with you. MMODL / IJN: [id number] /
--- NOTE | 2020-04-19 06:41 | P.PN ---
Subjective Progress Note Date: 04/19/20 This is a 44-year-old female patient, a [facility] resident with a known history of Down syndrome and developmental delay, normally nonverbal and nonmobile. The patient was admitted through emergency for sepsis and he was admitted to the medical floor and within few hours of admission the patient got transferred to the ICU because of profound hypotension and septic shock. The patient became febrile and she had increased respiration and hypertension and she was brought into the emergency department and the patient was diagnosed having UTI with secondary sepsis. At the time of the admission, the patient had a lactic acid of 5.8, white cell count of 15.3, hemoglobin of 14.6, 9% bandemia, the sodium level of 153 with a BUN of 41 and creatinine of 1.9. The UA was abnormal with many clumps of white cells and bacteria and the patient's coronavirus/: 19 nasal swab by PCR came back negative. Chest x-ray showed mild hilar prominence. In the emergency department, the patient was given IV fluids and he was started on a combination of Zosyn and Zithromax. The patient got transferred to the medical floor and the patient was found to be hypotensive, unresponsive to painful stimulation and she was having tremors/questionable seizure activity. Systolic blood pressure was apparently the mid 50s. The patient received a total of 3 L of fluid bolus of normal saline. Mentation was altered and quite diminished. The patient was placed on 12 L of oxygen by nasal cannula and her pulse ox was in the mid 90s. At one point, a CODE BLUE was also called thinking that the patient may not several falls for a blood pressure. The patient was placed on a panel monitor. She was in sinus tachycardia. Pressors were started and subsequent blood pressure reading was 70/40. The patient got transferred to the intensive care units. Currently she is on levo fed which is running at a higher dose. Vasopressin was also started for hemodynamic support. This was started at physiologic dose. Started the patient also on IV fluids. Start the patient on hydrocortisone stress dose. At the same time, there was a concern for seizure activity. Start the patient on Keppra and she'll be receiving 1 g every 12 hours. Upon further review of the records, the patient is known to have also seizure disorder. She has history of hypothyroidism. She has been hospitalized in the past because of seizure activity and disorder. She was taken Depakote and Briviact on outpatient basis. She has previous history of intractable epilepsy and she has been evaluated [facility] many years back. She was hospitalized a few years ago for seizure activity and pneumonia. I believe she also has a component of venous insufficiency and the patient was receiving hydrocortisone on outpatient basis. On today's evaluation of 04/19/2020 patient is being seen for a follow-up. She seems to be well resuscitated since yesterday. She is currently on a normal saline infusion running at the rate of on 30 mL an hour. She remains on physiologic dose of vasopressin and she is also on norepinephrine running at 0.23 mcg/kg per minute. Oxygen currently is at 6 L per minute nasal cannula. She has a congested cough. She is producing adequate amount of urine output. The chest x-ray from today wanting loss in the left lung and there is significant consolidation of the left compared to the right along with some air bronchograms in the left lower lobe. Consider the possibility of a left lung pneumonia/aspiration. The urine cultures still pending. Blood cultures still pending. Meanwhile, the patient is covered with a combination of Levaquin and Zosyn. The white cell count today is up to 33.8. The patient has a sodium of 147. Lactic acid is down to 1.8. Creatinine is down to 1.2 with a BUN of 19. As such, there has been significant improvement in her condition. In terms of seizure activity, no further jerking body movements has been noticed. The patient is currently on a combination of Keppra and IV Depakote. The triple- lumen catheter inserted in her right IJ. Objective - Vital Signs Vital signs: Vital Signs Temp 97.9 F 04/19/20 04:00 Pulse 60 04/19/20 05:15 Resp 18 04/19/20 05:15 BP 119/77 04/19/20 05:15 Pulse Ox 96 04/19/20 05:15 Intake & Output 04/18/20 04/18/20 04/19/20 06:59 18:59 06:59 Intake Total 248.791 5560.042 Output Total 170 2540 Balance 112.812 285.042 Weight 72.575 kg 72.575 kg 79.9 kg Intake: IV 130 1460 Pressure Bags 30 Sodium Chloride 0.9% 1, 130 1430 000 ml @ 130 mls/hr IV . Q7H42M [facility] Rx#:[id number] Intake, IV Titration 357.540 8073.042 Amount Norepinephrine 32 mg In 47.486 Sodium Chloride 0.9% 218 ml @ 0.05 MCG/KG/MIN 1. 701 mls/hr IV .Q24H [facility] Rx#:[id number] Norepinephrine 4 mg In 22.812 1317.556 Sodium Chloride 0.9% 250 ml @ 0.05 MCG/KG/MIN 13. 826 mls/hr IV .[id number] [facility] Rx#:[id number] Sodium Chloride 0.9% 1, 130 000 ml @ 130 mls/hr IV . Q7H42M [facility] Rx#:[id number] Oral 0 Output: Urine 170 2540 Other: Voiding Method Indwelling Catheter Indwelling Catheter # Voids 0 # Bowel Movements 1 ABP, PAP, CO, CI - Last Documented Arterial Blood Pressure 112/72 - Exam General: Down's features and the patient is unresponsive and toxic she seems to be in less distress compared to yesterday., no distress, appears at younger than stated age, short stature, small hands patient continues to have a congested cough. Unable to bring up any sputum. Derm: warm, dry Head: atraumatic, normocephalic, symmetric Eyes: EOMI, no lid lag, anicteric sclera Mouth: no lip lesion, mucus membranes dry Cardiovascular: S1S2 reg, no murmur, tachycardic is improved and no murmurs appreciated Lungs: Ronchi left base, no rhonchi, no rales , no accessory muscle use Abdominal: soft, nontender to palpation, no guarding, no appreciable organomegaly Ext: no gross muscle atrophy, no edema, no contractures Neuro: Obtunded and the patient is unresponsive an she has global motor weakness. She responds only to some deep painful stimulation.. She mumbles. She is unable to holding conversation. Psych: Unresponsive - Labs CBC & Chem 7: 04/19/20 04:22 04/19/20 05:27 Labs: Abnormal Lab Results - Last 24 Hours (Table) 04/18/20 04/18/20 04/18/20 Range/Units 06:49 06:49 06:49 WBC 15.3 H (3.8-10.6) k/uL RBC (3.80-5.40) m/uL Hct 49.6 H (34.0-46.0) % MCV 116.1 H (80.0-100.0) fL MCH (25.0-35.0) pg MCHC 29.3 L (31.0-37.0) g/dL RDW 15.9 H (11.5-15.5) % Neutrophils # (1.3-7.7) k/uL Neutrophils # (Manual) 9.30 H (1.3-7.7) k/uL Lymphocytes # (Manual) 5.20 H (1.0-4.8) k/uL Monocytes # (0-1.0) k/uL Metamyelocytes # (Man) 0.15 H (0) k/uL Myelocytes # (Manual) 0.15 H (0) k/uL Macrocytosis Marked A PT (9.0-12.0) sec INR (<1.2) APTT (22.0-30.0) sec ABG pH (7.35-7.45) ABG pO2 (83-108) mmHg ABG HCO3 (21-25) mmol/L ABG Total CO2 (19-24) mmol/L ABG O2 Saturation (94-97) % Sodium 153 H (137-145) mmol/L Potassium (3.5-5.1) mmol/L Chloride 116 H (98-107) mmol/L BUN 41 H (7-17) mg/dL Creatinine 1.99 H (0.52-1.04) mg/dL Glucose 113 H (74-99) mg/dL POC Glucose (mg/dL) (75-99) mg/dL Plasma Lactic Acid Bud 5.8 H* (0.7-2.0) mmol/L Calcium (8.4-10.2) mg/dL Ferritin 2558.9 H (10.0-291.0) ng/mL AST 54 H (14-36) U/L ALT 39 H (4-34) U/L Ammonia 48 H (<30) umol/L Lactate Dehydrogenase 867 H (313-618) U/L C-Reactive Protein 23.9 H (<10.0) mg/L Total Protein (6.3-8.2) g/dL Albumin (3.5-5.0) g/dL Urine Appearance (Clear) Urine Protein (Negative) Urine Blood (Negative) Ur Leukocyte Esterase (Negative) Urine WBC (0-5) /hpf Urine WBC Clumps (None) /hpf Amorphous Sediment (None) /hpf Urine Bacteria (None) /hpf Urine Mucus (None) /hpf 04/18/20 04/18/20 04/18/20 Range/Units 06:50 07:26 11:00 WBC (3.8-10.6) k/uL RBC (3.80-5.40) m/uL Hct (34.0-46.0) % MCV (80.0-100.0) fL MCH (25.0-35.0) pg MCHC (31.0-37.0) g/dL RDW (11.5-15.5) % Neutrophils # (1.3-7.7) k/uL Neutrophils # (Manual) (1.3-7.7) k/uL Lymphocytes # (Manual) (1.0-4.8) k/uL Monocytes # (0-1.0) k/uL Metamyelocytes # (Man) (0) k/uL Myelocytes # (Manual) (0) k/uL Macrocytosis PT 15.2 H (9.0-12.0) sec INR 1.5 H (<1.2) APTT 21.8 L (22.0-30.0) sec ABG pH (7.35-7.45) ABG pO2 (83-108) mmHg ABG HCO3 (21-25) mmol/L ABG Total CO2 (19-24) mmol/L ABG O2 Saturation (94-97) % Sodium (137-145) mmol/L Potassium (3.5-5.1) mmol/L Chloride (98-107) mmol/L BUN (7-17) mg/dL Creatinine (0.52-1.04) mg/dL Glucose (74-99) mg/dL POC Glucose (mg/dL) (75-99) mg/dL Plasma Lactic Acid Bud 5.7 H* (0.7-2.0) mmol/L Calcium (8.4-10.2) mg/dL Ferritin (10.0-291.0) ng/mL AST (14-36) U/L ALT (4-34) U/L Ammonia (<30) umol/L Lactate Dehydrogenase (313-618) U/L C-Reactive Protein (<10.0) mg/L Total Protein (6.3-8.2) g/dL Albumin (3.5-5.0) g/dL Urine Appearance Turbid H (Clear) Urine Protein 2+ H (Negative) Urine Blood Large H (Negative) Ur Leukocyte Esterase Large H (Negative) Urine WBC >182 H (0-5) /hpf Urine WBC Clumps Many H (None) /hpf Amorphous Sediment Moderate H (None) /hpf Urine Bacteria Moderate H (None) /hpf Urine Mucus Occasional H (None) /hpf 04/18/20 04/18/20 04/18/20 Range/Units 14:31 16:51 16:59 WBC (3.8-10.6) k/uL RBC (3.80-5.40) m/uL Hct (34.0-46.0) % MCV (80.0-100.0) fL MCH (25.0-35.0) pg MCHC (31.0-37.0) g/dL RDW (11.5-15.5) % Neutrophils # (1.3-7.7) k/uL Neutrophils # (Manual) (1.3-7.7) k/uL Lymphocytes # (Manual) (1.0-4.8) k/uL Monocytes # (0-1.0) k/uL Metamyelocytes # (Man) (0) k/uL Myelocytes # (Manual) (0) k/uL Macrocytosis PT (9.0-12.0) sec INR (<1.2) APTT (22.0-30.0) sec ABG pH 7.28 L (7.35-7.45) ABG pO2 149 H (83-108) mmHg ABG HCO3 17 L (21-25) mmol/L ABG Total CO2 18 L (19-24) mmol/L ABG O2 Saturation 99.6 H (94-97) % Sodium (137-145) mmol/L Potassium (3.5-5.1) mmol/L Chloride (98-107) mmol/L BUN (7-17) mg/dL Creatinine (0.52-1.04) mg/dL Glucose (74-99) mg/dL POC Glucose (mg/dL) 54 L (75-99) mg/dL Plasma Lactic Acid Bud 5.8 H* (0.7-2.0) mmol/L Calcium (8.4-10.2) mg/dL Ferritin (10.0-291.0) ng/mL AST (14-36) U/L ALT (4-34) U/L Ammonia (<30) umol/L Lactate Dehydrogenase (313-618) U/L C-Reactive Protein (<10.0) mg/L Total Protein (6.3-8.2) g/dL Albumin (3.5-5.0) g/dL Urine Appearance (Clear) Urine Protein (Negative) Urine Blood (Negative) Ur Leukocyte Esterase (Negative) Urine WBC (0-5) /hpf Urine WBC Clumps (None) /hpf Amorphous Sediment (None) /hpf Urine Bacteria (None) /hpf Urine Mucus (None) /hpf 04/18/20 04/18/20 04/18/20 Range/Units 17:15 17:26 18:07 WBC (3.8-10.6) k/uL RBC (3.80-5.40) m/uL Hct (34.0-46.0) % MCV (80.0-100.0) fL MCH (25.0-35.0) pg MCHC (31.0-37.0) g/dL RDW (11.5-15.5) % Neutrophils # (1.3-7.7) k/uL Neutrophils # (Manual) (1.3-7.7) k/uL Lymphocytes # (Manual) (1.0-4.8) k/uL Monocytes # (0-1.0) k/uL Metamyelocytes # (Man) (0) k/uL Myelocytes # (Manual) (0) k/uL Macrocytosis PT (9.0-12.0) sec INR (<1.2) APTT (22.0-30.0) sec ABG pH (7.35-7.45) ABG pO2 (83-108) mmHg ABG HCO3 (21-25) mmol/L ABG Total CO2 (19-24) mmol/L ABG O2 Saturation (94-97) % Sodium (137-145) mmol/L Potassium (3.5-5.1) mmol/L Chloride (98-107) mmol/L BUN (7-17) mg/dL Creatinine (0.52-1.04) mg/dL Glucose (74-99) mg/dL POC Glucose (mg/dL) 139 H 128 H (75-99) mg/dL Plasma Lactic Acid Bud 6.0 H* (0.7-2.0) mmol/L Calcium (8.4-10.2) mg/dL Ferritin (10.0-291.0) ng/mL AST (14-36) U/L ALT (4-34) U/L Ammonia (<30) umol/L Lactate Dehydrogenase (313-618) U/L C-Reactive Protein (<10.0) mg/L Total Protein (6.3-8.2) g/dL Albumin (3.5-5.0) g/dL Urine Appearance (Clear) Urine Protein (Negative) Urine Blood (Negative) Ur Leukocyte Esterase (Negative) Urine WBC (0-5) /hpf Urine WBC Clumps (None) /hpf Amorphous Sediment (None) /hpf Urine Bacteria (None) /hpf Urine Mucus (None) /hpf 04/18/20 04/19/20 04/19/20 Range/Units 22:30 04:22 04:50 WBC 33.8 H (3.8-10.6) k/uL RBC 3.29 L (3.80-5.40) m/uL Hct (34.0-46.0) % MCV 118.0 H (80.0-100.0) fL MCH 36.6 H (25.0-35.0) pg MCHC (31.0-37.0) g/dL RDW (11.5-15.5) % Neutrophils # 31.2 H (1.3-7.7) k/uL Neutrophils # (Manual) (1.3-7.7) k/uL Lymphocytes # (Manual) (1.0-4.8) k/uL Monocytes # 1.1 H (0-1.0) k/uL Metamyelocytes # (Man) (0) k/uL Myelocytes # (Manual) (0) k/uL Macrocytosis Marked A PT (9.0-12.0) sec INR (<1.2) APTT (22.0-30.0) sec ABG pH (7.35-7.45) ABG pO2 (83-108) mmHg ABG HCO3 (21-25) mmol/L ABG Total CO2 (19-24) mmol/L ABG O2 Saturation (94-97) % Sodium (137-145) mmol/L Potassium (3.5-5.1) mmol/L Chloride (98-107) mmol/L BUN (7-17) mg/dL Creatinine (0.52-1.04) mg/dL Glucose (74-99) mg/dL POC Glucose (mg/dL) 141 H (75-99) mg/dL Plasma Lactic Acid Bud 5.4 H* (0.7-2.0) mmol/L Calcium (8.4-10.2) mg/dL Ferritin (10.0-291.0) ng/mL AST (14-36) U/L ALT (4-34) U/L Ammonia (<30) umol/L Lactate Dehydrogenase (313-618) U/L C-Reactive Protein (<10.0) mg/L Total Protein (6.3-8.2) g/dL Albumin (3.5-5.0) g/dL Urine Appearance (Clear) Urine Protein (Negative) Urine Blood (Negative) Ur Leukocyte Esterase (Negative) Urine WBC (0-5) /hpf Urine WBC Clumps (None) /hpf Amorphous Sediment (None) /hpf Urine Bacteria (None) /hpf Urine Mucus (None) /hpf 04/19/20 Range/Units 05:27 WBC (3.8-10.6) k/uL RBC (3.80-5.40) m/uL Hct (34.0-46.0) % MCV (80.0-100.0) fL MCH (25.0-35.0) pg MCHC (31.0-37.0) g/dL RDW (11.5-15.5) % Neutrophils # (1.3-7.7) k/uL Neutrophils # (Manual) (1.3-7.7) k/uL Lymphocytes # (Manual) (1.0-4.8) k/uL Monocytes # (0-1.0) k/uL Metamyelocytes # (Man) (0) k/uL Myelocytes # (Manual) (0) k/uL Macrocytosis PT (9.0-12.0) sec INR (<1.2) APTT (22.0-30.0) sec ABG pH (7.35-7.45) ABG pO2 (83-108) mmHg ABG HCO3 (21-25) mmol/L ABG Total CO2 (19-24) mmol/L ABG O2 Saturation (94-97) % Sodium 147 H (137-145) mmol/L Potassium 5.2 H (3.5-5.1) mmol/L Chloride 119 H (98-107) mmol/L BUN 19 H (7-17) mg/dL Creatinine 1.22 H (0.52-1.04) mg/dL Glucose 180 H (74-99) mg/dL POC Glucose (mg/dL) (75-99) mg/dL Plasma Lactic Acid Bud (0.7-2.0) mmol/L Calcium 7.1 L (8.4-10.2) mg/dL Ferritin (10.0-291.0) ng/mL AST 42 H (14-36) U/L ALT (4-34) U/L Ammonia (<30) umol/L Lactate Dehydrogenase (313-618) U/L C-Reactive Protein (<10.0) mg/L Total Protein 5.4 L (6.3-8.2) g/dL Albumin 2.5 L (3.5-5.0) g/dL Urine Appearance (Clear) Urine Protein (Negative) Urine Blood (Negative) Ur Leukocyte Esterase (Negative) Urine WBC (0-5) /hpf Urine WBC Clumps (None) /hpf Amorphous Sediment (None) /hpf Urine Bacteria (None) /hpf Urine Mucus (None) /hpf Microbiology - Last 24 Hours (Table) 04/18/20 07:26 Urine Culture - Preliminary Urine,Voided Assessment and Plan Plan: 1 septic shock secondary to a UTI probably in combination with an extensive left lung pneumonia of an aspiration type.. The patient is currently hypotensive in a shock state secondary to sepsis. The patient was being aggressively resuscitated with IV fluids. The patient was on high-dose pressors. He is on a combination of vasopressin and norepinephrine infusion. Patient is on IV Zosyn and Levaquin. The patient's received a total of 4 L of IV fluid bolus and currently she is on 130 mL an hour of maintenance. The patient is on a lower dose of pressors and norepinephrine is running at 0.22 mg per KG per minute in combination with vasopressin. Her blood pressure is under better control and her urine output and renal function is also improving. 2 acute leukocytosis with bandemia secondary to above 3 acute lactic acidosis secondary to above, improved on the lactic acid level is down to 1.8 4 acute kidney injury secondary to above, improved and the creatinine is down to 1.2 5 history of seizure disorder maintained on a combination of Depakote and Briviact on outpatient basis. The patient may be having underlying breakthrough seizures. The patient is currently on a combination of Depakote level of which is therapeutic and IV Keppra 6 unresponsiveness, consider metabolic encephalopathy, consider seizure with postictal state 7 bowel syndrome with developmental delay and mental retardation 8 obesity 9 hypothyroidism 10 additional insufficiency maintained on hydrocortisone outpatient basis 11 [facility] resident Plan New maintenance of 150 NSS Neorepinephrin .23 mcg/kg/min and vasopressin 0.03 U/hr physiologic dose IV zosyn and Levaquin as broad spectrum ABX coverage. The patient has a UTI/sepsis and there is a suspicion for an underlying aspiration pneumonia Urine and blood cultures Will continue the Depakote IV and will start the patient also on Keppra and monitor for any seizure activity and will place a consultation for neurology Stress dose hydrocortisone electrocardiogram in AM monitor lactic acid levels, levels are improving Neurology consult along with EEG Condition is critical and will continue to FU the case . The patient is in the ICU and her condition is critical and the patient is in septic shock and MSOF. 30 min evaluation Time with Patient: Greater than 30
[2020-04-19] MEDS: POTASSIUM CHLORIDE ER 10 MEQ TAB.ER.PRT PO SCH ×2 (07:58→16:31)
[2020-04-19] MEDS: ASCORBIC ACID 500 MG TAB PO SCH (07:58)
[2020-04-19] MEDS: LEVOTHYROXINE 75 MCG TAB PO SCH (07:58)
[2020-04-19] MEDS: PIPERACILLIN-TAZOBACTAM 3.375 GM in SODIUM CHLORIDE 0.9% 100 ML IVPB SCH ×3 (07:59→23:24)
[2020-04-19] MEDS: levETIRAcetam IV 1,000 MG in SALINE 1 100ML.BAG IVPB SCH ×2 (07:59→20:37)
[2020-04-19] MEDS: VALPROATE SODIUM 500 MG in SODIUM CHLORIDE 0.9% 100 ML IVPB SCH ×3 (08:00→23:30)
[2020-04-19] MEDS: BRIVARACETAM 10 MG/ML PO SCH ×2 (08:00→19:37)
[2020-04-19] MEDS: SODIUM CHLORIDE 0.9% 1,000 ML IV SCH ×3 (08:01→23:25)
--- NOTE | 2020-04-19 08:10 | XR ---
EXAMINATION TYPE: XR chest 1V portable DATE OF EXAM: 04/19/2020 COMPARISON: 04/18/2020 INDICATION: ICU management TECHNIQUE: Single frontal view of the chest is obtained. FINDINGS: The heart size is enlarged. The pulmonary vasculature is normal. There is a consolidation with air bronchograms to the left lung. Mild infiltrate is at the right base . Right subclavian venous catheter tip is within the deep right atrium IMPRESSION: 1. Left lung consolidation worsening. Improvement of the right lower lobe filtrate
[2020-04-19 10:23] LABS: Ferritin 1662.3 ng/mL (10.0-291.0)
[2020-04-19] MEDS ORDERED: levETIRAcetam IV 1,000 MG in SALINE 1 100ML.BAG IVPB STA (13:40)
--- NOTE | 2020-04-19 17:06 | P.CNNES ---
History of Present Illness Consult date: 04/19/20 History of Present Illness: The patient is a 44-year-old female who is seen in neurologic consultation on April 19, 2020, via teleneurology. The patient was brought in via ambulance, for mental status changes. Patient has a history of Down syndrome and seizure disorder. The patient was worked up in the emergency department and was found to have urosepsis. The patient was originally admitted to the general medical floor. She apparently had an episode of severe hypotension, fever and tachycardia. She was subsequently moved to the intensive care unit for blood pressure support and possible intubation. The patient has a very congested cough. She is having difficulty handling her secretions. Apparently at the time of the hypotension, there was a questionable seizure. The patient reportedly had full-body tremors. The RN who is present in the room at the time of my evaluation does not describe or mimic tonic-clonic movements but more of a shivering movement. The nurse reports that the patient has been unresponsive since being admitted to the hospital. At the time of this reporting event, there was no nystagmus. The patient has had no further generalized tremor, today. She has been afebrile today. She is currently receiving levothyroid and vasopressin for blood pressure support. She was loaded with IV Keppra. The patient reportedly has a history of seizures that have been very difficult to control. As an outpatient, she is taking valproic acid and Broviac. It is not certain whether she was able to receive her medications as an outpatient, since she was brought in unresponsive. If she did not receive her medication, the number of missing doses is unknown. Past Medical History Past Medical History: Seizure Disorder, Thyroid Disorder Additional Past Medical History / Comment(s): downs syndrome developmental delay History of Any Multi-Drug Resistant Organisms: Unobtainable Past Surgical History: Unable to Obtain Past Psychological History: Unable to Obtain Smoking Status: Never smoker Past Alcohol Use History: Unable to Obtain Past Drug Use History: Unable to Obtain Medications and Allergies Home Medications Medication Instructions Recorded Confirmed Type Levothyroxine Sodium [Synthroid] 75 mcg PO DAILY@0700 05/06/18 04/18/20 History Hydrocortisone [Cortef] 10 mg PO HS #30 tab 05/11/18 04/18/20 Rx Albuterol Nebulized [Ventolin 2.5 mg INHALATION RT-Q6H PRN 04/18/20 04/18/20 History Nebulized] Ascorbic Acid [Vitamin C] 1,000 mg PO DAILY@0700 04/18/20 04/18/20 History Brivaracetam [Briviact] 50 mg PO BID 04/18/20 04/18/20 History Calcium Polycarbophil [Fibercon] 625 mg PO DAILY 04/18/20 04/18/20 History Divalproex Sodium [Depakote] 375 mg PO TID@0700,1300,1900 04/18/20 04/18/20 History Hydrocortisone [Cortef] 20 mg PO BID@0700,1600 04/18/20 04/18/20 History Magnesium Hydroxide [Milk of 2,400 mg PO DAILY PRN 04/18/20 04/18/20 History Magnesia] Potassium Chloride ER [K-Dur 10] 10 meq PO BID@0700,1600 04/18/20 04/18/20 History Pro-Stat Awc 30 ml PO BID 04/18/20 04/18/20 History Sennosides [Senna] 17.2 mg PO HS@199904/18/20 04/18/20 History Allergies Allergy/AdvReac Type Severity Reaction Status Date / Time No Known Allergies Allergy Verified 04/18/20 09:41 Physical Examination - Vital Signs Vital Signs: Vital Signs Temp Pulse Pulse Resp BP BP Pulse Ox 04/19/20 13:15 48 L 18 142/77 95 04/19/20 13:00 46 L 17 136/90 96 04/19/20 12:45 49 L 19 144/81 97 04/19/20 12:30 44 L 11 L 118/95 96 04/19/20 12:15 84 22 97 04/19/20 12:00 98.0 F 46 L 22 145/90 96 04/19/20 11:45 54 L 22 134/86 94 L 04/19/20 11:30 50 L 16 115/81 95 04/19/20 11:15 52 L 16 132/82 94 L 04/19/20 11:00 52 L 19 122/84 96 04/19/20 10:45 68 16 103/75 97 04/19/20 10:30 55 L 12 111/100 100 04/19/20 10:15 75 14 139/129 96 04/19/20 10:00 51 L 14 121/77 96 04/19/20 09:45 52 L 18 122/78 93 L 04/19/20 09:30 52 L 17 153/92 96 04/19/20 09:15 53 L 22 141/86 96 04/19/20 09:00 50 L 17 140/83 96 04/19/20 08:45 48 L 15 129/97 99 04/19/20 08:30 64 15 112/97 96 04/19/20 08:15 92 26 H 121/105 97 04/19/20 08:00 98.1 F 53 L 17 119/85 95 04/19/20 07:45 56 L 21 128/80 95 04/19/20 07:30 55 L 11 L 119/76 96 04/19/20 07:15 53 L 18 127/74 99 04/19/20 07:00 52 L 18 135/85 98 04/19/20 06:45 59 L 16 136/120 97 04/19/20 06:30 56 L 18 127/71 97 04/19/20 06:15 62 28 H 122/71 95 04/19/20 06:00 59 L 20 95 04/19/20 05:45 57 L 18 138/69 96 04/19/20 05:30 67 14 120/79 98 04/19/20 05:15 60 18 119/77 96 04/19/20 05:00 66 19 113/68 95 04/19/20 04:45 58 L 18 120/72 97 04/19/20 04:30 94 21 106/80 97 04/19/20 04:15 106 H 23 98 04/19/20 04:00 97.9 F 80 18 112/82 98 04/19/20 03:45 90 17 125/69 97 04/19/20 03:30 74 17 112/80 99 04/19/20 03:15 75 15 122/80 99 04/19/20 03:00 88 14 106/92 99 04/19/20 02:45 78 16 98/64 98 04/19/20 02:30 75 17 98 04/19/20 02:15 76 17 92/46 98 04/19/20 02:00 83 19 123/84 97 04/19/20 01:45 96 14 143/113 96 04/19/20 01:30 90 19 91/81 99 04/19/20 01:15 86 18 119/85 97 04/19/20 01:00 81 18 108/72 98 04/19/20 00:45 95 13 106/63 97 04/19/20 00:30 82 17 124/74 100 04/19/20 00:15 98 14 115/82 97 04/19/20 00:00 100.2 F H 104 H 20 135/89 97 04/18/20 23:45 84 16 111/73 98 04/18/20 23:30 91 18 115/86 99 04/18/20 23:15 106 H 20 120/103 94 L 04/18/20 23:00 86 18 90/62 96 04/18/20 22:45 88 19 119/68 97 04/18/20 22:30 87 28 H 106/73 97 04/18/20 22:15 104 H 16 104/53 96 04/18/20 22:00 133 H 24 96 04/18/20 21:45 97 17 95 04/18/20 21:30 87 18 95 04/18/20 21:15 124 H 30 H 97 04/18/20 21:00 97 17 113/93 96 04/18/20 20:45 122 H 27 H 93 L 04/18/20 20:30 118 H 21 93/62 96 04/18/20 20:15 96 19 97 04/18/20 20:00 98.8 F 97 27 H 105/67 96 04/18/20 19:15 97 16 96 04/18/20 19:00 98 16 96 04/18/20 18:45 125 H 21 96 04/18/20 18:30 109 H 17 87/72 96 04/18/20 18:15 94 15 87/72 99 04/18/20 18:00 94 15 78/58 04/18/20 17:45 99.2 F 109 H 16 82/48 97 04/18/20 17:30 96 04/18/20 16:24 52/35 04/18/20 16:10 108 H 22 52/36 97 04/18/20 16:00 104 H 20 50/34 97 04/18/20 15:52 98.7 F 111 H 19 70/33 95 Intake and Output 04/18/20 04/19/20 04/19/20 22:59 06:59 14:59 Intake Total 6740.621 6245.869 1170.438 Output Total 1210 1555 1000 Balance 327.985 17.869 170.438 Intake: IV 659 1064 1131 Pressure Bags 9 24 21 Sodium Chloride 0.9% 1, 650 1040 910 000 ml @ 130 mls/hr IV . Q7H42M [facility] Rx#:[id number] Valproate Sodium 500 mg 100 In Sodium Chloride 0.9% 100 ml @ 100 mls/hr IVPB Q8HR [facility] Rx#:[id number] levETIRAcetam IV 1,000 mg 100 In Saline 1 100ml.bag @ 400 mls/hr IVPB Q12HR [facility] Rx#:[id number] Intake, IV Titration 878.985 508.869 39.438 Amount Norepinephrine 32 mg In 47.486 39.438 Sodium Chloride 0.9% 218 ml @ 0.05 MCG/KG/MIN 1. 701 mls/hr IV .Q24H [facility] Rx#:[id number] Norepinephrine 4 mg In 878.985 461.383 Sodium Chloride 0.9% 250 ml @ 0.05 MCG/KG/MIN 13. 826 mls/hr IV .[id number] [facility] Rx#:[id number] Output: Urine 1210 1555 1000 Other: Voiding Method Indwelling Catheter Indwelling Catheter Indwelling Catheter # Bowel Movements 1 Weight 79.9 kg ABP, PAP, CO, CI - Last 8 Hours Arterial Blood Pressure 117/70 Arterial Blood Pressure 124/70 Arterial Blood Pressure 135/76 Arterial Blood Pressure 143/94 Arterial Blood Pressure 146/102 Arterial Blood Pressure 130/72 Arterial Blood Pressure 143/95 Arterial Blood Pressure 117/79 Arterial Blood Pressure 122/74 Arterial Blood Pressure 122/79 Arterial Blood Pressure 133/81 Arterial Blood Pressure 121/78 Arterial Blood Pressure 120/76 Arterial Blood Pressure 115/70 Arterial Blood Pressure 107/64 Arterial Blood Pressure 124/72 Arterial Blood Pressure 138/78 Arterial Blood Pressure 124/72 Arterial Blood Pressure 134/78 Arterial Blood Pressure 113/77 Arterial Blood Pressure 122/78 Arterial Blood Pressure 110/71 Arterial Blood Pressure 120/75 Arterial Blood Pressure 114/72 Arterial Blood Pressure 122/73 Arterial Blood Pressure 106/75 Arterial Blood Pressure 117/76 Arterial Blood Pressure 114/70 Arterial Blood Pressure 110/69 Arterial Blood Pressure 113/68 Arterial Blood Pressure 126/76 Gen.: Patient is reclining in the bed. She has O2 via nasal cannula in place. She is obese. HEENT: Head is atraumatic, normocephalic. Fundus not visualized. There is no scleral icterus. Mucous membranes are moist. The patient has an excessive amount of secretions. Heart: Heart sounds difficult to auscultate secondary to rhonchi Lungs: Diffuse rhonchi throughout Extremities: Without edema Neurological examination Mental status: The patient is unresponsive to verbal and noxious stimulation. She does not open her eyes. She does not follow commands. She is nonverbal. Cranial nerves: Pupils are equal at 4 mm. They are sluggishly reactive. upon initial passive eye opening, the eyes are midline. What eye position is rechecked, while the tremoring is occurring, there appears to be slow vertical eye movements. The patient does not blink to visual threat. Right corneal reflexes present. There is no obvious facial asymmetry. There is a positive gag and cough reflex with deep suctioning. Motor: There are no spontaneous movements. There are tremors noted, involving the bilateral hands/arms, R > L. There are tremors involving the toes as well. Sensation: The patient does not grimace or withdraw from nail bed pressure Deep tendon reflexes: 3+/4+ in the bilateral upper extremities. 2+/4+ in the bilateral lower extremities. Plantar responses are flexor bilaterally. Results - Laboratory Findings CBC and BMP: 04/19/20 04:22 04/19/20 05:27 Abnormal Lab Findings: Abnormal Labs 04/18/20 04/18/20 04/18/20 06:49 06:49 06:49 WBC 15.3 H RBC Hct 49.6 H MCV 116.1 H MCH MCHC 29.3 L RDW 15.9 H Neutrophils # Neutrophils # (Manual) 9.30 H Lymphocytes # (Manual) 5.20 H Monocytes # Metamyelocytes # (Man) 0.15 H Myelocytes # (Manual) 0.15 H Macrocytosis Marked A PT INR APTT ABG pH ABG pO2 ABG HCO3 ABG Total CO2 ABG O2 Saturation Sodium 153 H Potassium Chloride 116 H BUN 41 H Creatinine 1.99 H Glucose 113 H POC Glucose (mg/dL) Plasma Lactic Acid Bud 5.8 H* Calcium Ferritin 2558.9 H AST 54 H ALT 39 H Ammonia 48 H Lactate Dehydrogenase 867 H C-Reactive Protein 23.9 H Total Protein Albumin Urine Appearance Urine Protein Urine Blood Ur Leukocyte Esterase Urine WBC Urine WBC Clumps Amorphous Sediment Urine Bacteria Urine Mucus 04/18/20 04/18/20 04/18/20 06:50 07:26 11:00 WBC RBC Hct MCV MCH MCHC RDW Neutrophils # Neutrophils # (Manual) Lymphocytes # (Manual) Monocytes # Metamyelocytes # (Man) Myelocytes # (Manual) Macrocytosis PT 15.2 H INR 1.5 H APTT 21.8 L ABG pH ABG pO2 ABG HCO3 ABG Total CO2 ABG O2 Saturation Sodium Potassium Chloride BUN Creatinine Glucose POC Glucose (mg/dL) Plasma Lactic Acid Bud 5.7 H* Calcium Ferritin AST ALT Ammonia Lactate Dehydrogenase C-Reactive Protein Total Protein Albumin Urine Appearance Turbid H Urine Protein 2+ H Urine Blood Large H Ur Leukocyte Esterase Large H Urine WBC >182 H Urine WBC Clumps Many H Amorphous Sediment Moderate H Urine Bacteria Moderate H Urine Mucus Occasional H 04/18/20 04/18/20 04/18/20 14:31 16:51 16:59 WBC RBC Hct MCV MCH MCHC RDW Neutrophils # Neutrophils # (Manual) Lymphocytes # (Manual) Monocytes # Metamyelocytes # (Man) Myelocytes # (Manual) Macrocytosis PT INR APTT ABG pH 7.28 L ABG pO2 149 H ABG HCO3 17 L ABG Total CO2 18 L ABG O2 Saturation 99.6 H Sodium Potassium Chloride BUN Creatinine Glucose POC Glucose (mg/dL) 54 L Plasma Lactic Acid Bud 5.8 H* Calcium Ferritin AST ALT Ammonia Lactate Dehydrogenase C-Reactive Protein Total Protein Albumin Urine Appearance Urine Protein Urine Blood Ur Leukocyte Esterase Urine WBC Urine WBC Clumps Amorphous Sediment Urine Bacteria Urine Mucus 04/18/20 04/18/20 04/18/20 17:15 17:26 18:07 WBC RBC Hct MCV MCH MCHC RDW Neutrophils # Neutrophils # (Manual) Lymphocytes # (Manual) Monocytes # Metamyelocytes # (Man) Myelocytes # (Manual) Macrocytosis PT INR APTT ABG pH ABG pO2 ABG HCO3 ABG Total CO2 ABG O2 Saturation Sodium Potassium Chloride BUN Creatinine Glucose POC Glucose (mg/dL) 139 H 128 H Plasma Lactic Acid Bud 6.0 H* Calcium Ferritin AST ALT Ammonia Lactate Dehydrogenase C-Reactive Protein Total Protein Albumin Urine Appearance Urine Protein Urine Blood Ur Leukocyte Esterase Urine WBC Urine WBC Clumps Amorphous Sediment Urine Bacteria Urine Mucus 04/18/20 04/19/20 04/19/20 22:30 04:22 04:50 WBC 33.8 H RBC 3.29 L Hct MCV 118.0 H MCH 36.6 H MCHC RDW Neutrophils # 31.2 H Neutrophils # (Manual) Lymphocytes # (Manual) Monocytes # 1.1 H Metamyelocytes # (Man) Myelocytes # (Manual) Macrocytosis Marked A PT INR APTT ABG pH ABG pO2 ABG HCO3 ABG Total CO2 ABG O2 Saturation Sodium Potassium Chloride BUN Creatinine Glucose POC Glucose (mg/dL) 141 H Plasma Lactic Acid Bud 5.4 H* Calcium Ferritin AST ALT Ammonia Lactate Dehydrogenase C-Reactive Protein Total Protein Albumin Urine Appearance Urine Protein Urine Blood Ur Leukocyte Esterase Urine WBC Urine WBC Clumps Amorphous Sediment Urine Bacteria Urine Mucus 04/19/20 05:27 WBC RBC Hct MCV MCH MCHC RDW Neutrophils # Neutrophils # (Manual) Lymphocytes # (Manual) Monocytes # Metamyelocytes # (Man) Myelocytes # (Manual) Macrocytosis PT INR APTT ABG pH ABG pO2 ABG HCO3 ABG Total CO2 ABG O2 Saturation Sodium 147 H Potassium 5.2 H Chloride 119 H BUN 19 H Creatinine 1.22 H Glucose 180 H POC Glucose (mg/dL) Plasma Lactic Acid Bud Calcium 7.1 L Ferritin 1662.3 H AST 42 H ALT Ammonia Lactate Dehydrogenase C-Reactive Protein Total Protein 5.4 L Albumin 2.5 L Urine Appearance Urine Protein Urine Blood Ur Leukocyte Esterase Urine WBC Urine WBC Clumps Amorphous Sediment Urine Bacteria Urine Mucus - Diagnostic Findings Comments: EEG reveals no signs of seizure activity. There is diffuse slowing consistent with toxic, metabolic, hypoxic encephalopathy Assessment and Plan Assessment: 1. History of seizure disorder with possible breakthrough seizure, likely secondary to sepsis. Patient did have an episode of tremoring while I was present in the room. This is not actual tonic-clonic movement howeve, there was evidence of slow vertical nystagmus. 2 History of Down syndrome 3. Hypotension and respiratory distress 4. Elevated ammonia level Plan: 1. Patient was given an additional bolus of Keppra 1000 mg IV piggyback 2. I agree with continuing Keppra 1000 mg every 12 hours 3. Continue your treatment of the patient's sepsis 4. Will check valproic acid level 5. Dr. Oakley will assume neurologic coverage of this patient Thank you for allowing me to participate in the care of this patient Time with Patient: Greater than 30 (spent 40 minutes via teleneurology)
--- NOTE | 2020-04-19 18:02 | EEG ---
ELECTROENCEPHALOGRAM REPORT DATE OF SERVICE: 04/19/2020 BEDSIDE EEG: REASON FOR EEG: Seizure. FINDINGS: This is an 18 channel EEG being done at the bedside using bipolar and referential montages. The EEG is performed using the international 10/20 placement system. The patient is comatose and nonresponsive throughout the EEG. At the onset there is a 3-4 Hz delta rhythm with an overlying low amplitude beta activity. Later in the recording the background rhythm increases to 5-6 Hz. Photic stimulation is performed and does produce a symmetric driving response. There is no waking state. There is no eye opening. There are EKG artifacts present during the recording. There are no focal or lateralizing discharges. There are no epileptiform discharges. IMPRESSION: This is an abnormal EEG with diffuse slowing consistent with a toxic metabolic hypoxic encephalopathy. Clinical correlation is advised. GENO / ALBINA: [id number] / MTDD
[2020-04-19] MEDS: SENNOSIDES 8.6 MG TAB PO SCH (19:37)
--- NOTE | 2020-04-19 20:47 | P.PN ---
Subjective Progress Note Date: 04/19/20 44-year-old female presents emergency Department via EMS from [facility] for fever, altered mental status. Patient has a history of Down syndrome, mental delay, normally nonverbal, nonmobile. Patient is full care at [facility]. Patient reportedly becomes his or night with a fever, increase respirator distress, hypotension. Report given to nurse that she had no symptoms yesterday. Information is very limited. Did review prior medical records. patient was diagnosed having UTI with secondary sepsis. At the time of the admission, the patient had a lactic acid of 5.8, white cell count of 15.3, hemoglobin of 14.6, 9% bandemia, the sodium level of 153 with a BUN of 41 and creatinine of 1.9. The UA was abnormal with many clumps of white cells and bacteria and the patient's coronavirus/: 19 nasal swab by PCR came back negative. Chest x-ray showed mild hilar prominence. In the emergency department, the patient was given IV fluids and he was started on a combination of Zosyn and Zithromax. 04/19/2020 patient is transferred to ICU for septic shock. She seems to be well resuscitated since yesterday. She is currently on a normal saline infusion running at the rate of on 30 mL an hour. She remains on vasopressin and she is also on norepinephrine running at 0.23 mcg/kg per minute. Oxygen currently is at 6 L per minute nasal cannula. She has a congested cough. She is producing adequate amount of urine output. The chest x-ray from today wanting loss in the left lung and there is significant consolidation of the left compared to the right along with some air bronchograms in the left lower lobe; left lung pneumonia/aspiration. The urine cultures still pending. Blood cultures still pending; patient remains on IV Levaquin and Zosyn. The white cell count today is up to 33.8. The patient has a sodium of 147. Lactic acid is down to 1.8. Creatinine is down to 1.2 with a BUN of 19. As such, there has been significant improvement in her condition. In terms of seizure activity, no further jerking body movements has been noticed. The patient is currently on a combination of Keppra and IV Depakote. Objective - Vital Signs Vital signs: Vital Signs Temp 98.0 F 04/19/20 12:00 Pulse 75 04/19/20 15:00 Resp 16 04/19/20 15:00 BP 125/113 04/19/20 15:00 Pulse Ox 100 04/19/20 15:00 Intake & Output 04/18/20 04/19/20 04/19/20 18:59 06:59 18:59 Intake Total 093.331 9321.042 1443.582 Output Total 170 2615 1200 Balance 112.812 343.042 243.582 Weight 72.575 kg 79.9 kg Intake: IV 130 1593 1397 Pressure Bags 33 27 Sodium Chloride 0.9% 1, 130 1560 1170 000 ml @ 130 mls/hr IV . Q7H42M [facility] Rx#:[id number] Valproate Sodium 500 mg 100 In Sodium Chloride 0.9% 100 ml @ 100 mls/hr IVPB Q8HR [facility] Rx#:[id number] levETIRAcetam IV 1,000 mg 100 In Saline 1 100ml.bag @ 400 mls/hr IVPB Q12HR [facility] Rx#:[id number] Intake, IV Titration 981.138 7855.042 46.582 Amount Norepinephrine 32 mg In 47.486 46.582 Sodium Chloride 0.9% 218 ml @ 0.05 MCG/KG/MIN 1. 701 mls/hr IV .Q24H [facility] Rx#:[id number] Norepinephrine 4 mg In 22.812 1317.556 Sodium Chloride 0.9% 250 ml @ 0.05 MCG/KG/MIN 13. 826 mls/hr IV .[id number] [facility] Rx#:[id number] Sodium Chloride 0.9% 1, 130 000 ml @ 130 mls/hr IV . Q7H42M [facility] Rx#:[id number] Oral 0 Output: Urine 170 2615 1200 Other: Voiding Method Indwelling Catheter Indwelling Catheter Indwelling Catheter # Voids 0 # Bowel Movements 1 ABP, PAP, CO, CI - Last Documented Arterial Blood Pressure 129/84 - Exam General: Down's features and the patient is unresponsive and toxic she seems to be in less distress compared to yesterday., no distress, appears at younger than stated age, short stature, small hands patient continues to have a congested cough. Unable to bring up any sputum. Derm: warm, dry Head: atraumatic, normocephalic, symmetric Eyes: EOMI, no lid lag, anicteric sclera Mouth: no lip lesion, mucus membranes dry Cardiovascular: S1S2 reg, no murmur, tachycardic is improved and no murmurs appreciated Lungs: Ronchi left base, no rhonchi, no rales , no accessory muscle use Abdominal: soft, nontender to palpation, no guarding, no appreciable organomegaly Ext: no gross muscle atrophy, no edema, no contractures - Labs CBC & Chem 7: 04/19/20 04:22 04/19/20 05:27 Labs: Abnormal Lab Results - Last 24 Hours (Table) 04/18/20 04/18/20 04/18/20 Range/Units 16:51 16:59 17:15 WBC (3.8-10.6) k/uL RBC (3.80-5.40) m/uL MCV (80.0-100.0) fL MCH (25.0-35.0) pg Neutrophils # (1.3-7.7) k/uL Monocytes # (0-1.0) k/uL Macrocytosis ABG pH 7.28 L (7.35-7.45) ABG pO2 149 H (83-108) mmHg ABG HCO3 17 L (21-25) mmol/L ABG Total CO2 18 L (19-24) mmol/L ABG O2 Saturation 99.6 H (94-97) % Sodium (137-145) mmol/L Potassium (3.5-5.1) mmol/L Chloride (98-107) mmol/L BUN (7-17) mg/dL Creatinine (0.52-1.04) mg/dL Glucose (74-99) mg/dL POC Glucose (mg/dL) 54 L 139 H (75-99) mg/dL Plasma Lactic Acid Bud (0.7-2.0) mmol/L Calcium (8.4-10.2) mg/dL Ferritin (10.0-291.0) ng/mL AST (14-36) U/L Total Protein (6.3-8.2) g/dL Albumin (3.5-5.0) g/dL 04/18/20 04/18/20 04/18/20 Range/Units 17:26 18:07 22:30 WBC (3.8-10.6) k/uL RBC (3.80-5.40) m/uL MCV (80.0-100.0) fL MCH (25.0-35.0) pg Neutrophils # (1.3-7.7) k/uL Monocytes # (0-1.0) k/uL Macrocytosis ABG pH (7.35-7.45) ABG pO2 (83-108) mmHg ABG HCO3 (21-25) mmol/L ABG Total CO2 (19-24) mmol/L ABG O2 Saturation (94-97) % Sodium (137-145) mmol/L Potassium (3.5-5.1) mmol/L Chloride (98-107) mmol/L BUN (7-17) mg/dL Creatinine (0.52-1.04) mg/dL Glucose (74-99) mg/dL POC Glucose (mg/dL) 128 H (75-99) mg/dL Plasma Lactic Acid Bud 6.0 H* 5.4 H* (0.7-2.0) mmol/L Calcium (8.4-10.2) mg/dL Ferritin (10.0-291.0) ng/mL AST (14-36) U/L Total Protein (6.3-8.2) g/dL Albumin (3.5-5.0) g/dL 04/19/20 04/19/20 04/19/20 Range/Units 04:22 04:50 05:27 WBC 33.8 H (3.8-10.6) k/uL RBC 3.29 L (3.80-5.40) m/uL MCV 118.0 H (80.0-100.0) fL MCH 36.6 H (25.0-35.0) pg Neutrophils # 31.2 H (1.3-7.7) k/uL Monocytes # 1.1 H (0-1.0) k/uL Macrocytosis Marked A ABG pH (7.35-7.45) ABG pO2 (83-108) mmHg ABG HCO3 (21-25) mmol/L ABG Total CO2 (19-24) mmol/L ABG O2 Saturation (94-97) % Sodium 147 H (137-145) mmol/L Potassium 5.2 H (3.5-5.1) mmol/L Chloride 119 H (98-107) mmol/L BUN 19 H (7-17) mg/dL Creatinine 1.22 H (0.52-1.04) mg/dL Glucose 180 H (74-99) mg/dL POC Glucose (mg/dL) 141 H (75-99) mg/dL Plasma Lactic Acid Bud (0.7-2.0) mmol/L Calcium 7.1 L (8.4-10.2) mg/dL Ferritin 1662.3 H (10.0-291.0) ng/mL AST 42 H (14-36) U/L Total Protein 5.4 L (6.3-8.2) g/dL Albumin 2.5 L (3.5-5.0) g/dL Microbiology - Last 24 Hours (Table) 04/18/20 06:49 Blood Culture - Preliminary Blood No Growth after 24 hours 04/18/20 07:26 Urine Culture - Preliminary Urine,Voided Assessment and Plan Assessment: 1. Sepsis secondary to a UTI. - The patient was aggressively resuscitated with IV fluids in ED. Patient is on IV Zosyn and Zithromax for now. - consult ID for further treatment 2. Acute leukocytosis/ lactic acidosis secondary to above; await urine and blood cultures for further recs 3. Acute kidney injury secondary to above; continue with IVFs; monitor renal function and electrolytes; monitor strict I&Os; avoid nephrotoxic agents 4. Seizure disorder; continue Depakote and Briviact 5. 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 Hypothyroidism; continue with levothyroxine 7. Adrenal insufficiency; maintained on hydrocortisone outpatient basis DVT Prophylaxis; SCDs/ s/q Lovenox Code status; Full Code
[2020-04-19] MEDS ORDERED: LEVOFLOXACIN 250MG-D5W PMX 250 MG in DEXTROSE/WATER 1 50ML.BAG IVPB SCH (21:30)
[2020-04-19] MEDS: SODIUM CHLORIDE 0.9% 150 ML with VASOPRESSIN 60 UNIT IV SCH ×2 (23:28)
--- NOTE | 2020-04-20 00:42 | PN ---
PROGRESS NOTE DATE OF SERVICE: 04/19/2020 REASON FOR FOLLOWUP: Sepsis source aspiration pneumonia and UTI. INTERVAL HISTORY: The patient has been transferred to ICU because of need for pressor and hemodynamic instability. The patient overall vasopressor and Levophed dose has been cut back throughout the day. The patient is currently on 2 L nasal cannula. No respiratory distress has been noticed. Did have a congested cough. No vomiting or any diarrhea reported by the nursing staff. The patient herself was not able to provide any history. PHYSICAL EXAMINATION: Blood pressure 104/83, pulse of 63, temperature 97.7. She is 100% on 2 L nasal cannula. General description is a middle-aged female lying in bed in no distress. RESPIRATORY SYSTEM: Unlabored breathing, coarse breath sounds at the bases bilaterally. No wheeze. HEART: S1, S2. Regular rate and rhythm. ABDOMEN: Soft, no tenderness. LABS: BUN of 19, creatinine is 1.22. Hemoglobin is 12.1, white count 33.8. Urine cultures currently pending. DIAGNOSTIC IMPRESSION AND PLAN: 1. Patient admitted to the hospital with sepsis, source is multifactorial in this patient likely component of aspiration pneumonia and urinary tract infection. Patient is currently covered with Zosyn, Levaquin, to continue while waiting for the culture to finalize. 2. Patient with leukocytosis and a jump in the white count more likely steroid effect, as the patient is currently on hydrocortisone 100 q.8 and we will monitor it closely. MMDAVIDL / GEOFFN: [id number] /
[2020-04-20] MEDS: NOREPINEPHRINE 32 MG in SODIUM CHLORIDE 0.9% 218 ML IV SCH ×2 (01:18→13:51)
[2020-04-20 04:21] LABS: Basophils % (A) 0 %; Eosinophils % (A) 0 %; HCT 30.5 % (34.0-46.0); Hypochromasia Moderate; Lymphocytes # (A) 1.2 k/uL (1.0-4.8); Lymphocytes % (A) 6 %; MCH 36.4 pg (25.0-35.0); MCHC 32.1 g/dL (31.0-37.0); MCV 113.5 fL (80.0-100.0); Macrocytosis Marked; Mean Platelet Volume 8.5; Monocytes # (A) 0.8 k/uL (0-1.0); Monocytes % (A) 4 %; Neutrophils # (A) 18.3 k/uL (1.3-7.7); Neutrophils % (A) 90 %; Platelet Count 118 k/uL (150-450); RBC 2.68 m/uL (3.80-5.40); RDW 15.2 % (11.5-15.5); WBC 20.4 k/uL (3.8-10.6)
[2020-04-20 04:29] LABS: HGB 9.8 gm/dL (11.4-16.0)
[2020-04-20 04:49] LABS: ALT 21 U/L (4-34); AST 32 U/L (14-36); African American GFR (CKD) >90 (>60 ml/min/1.73 sqM); Alkaline Phosphatase 58 U/L (38-126); Anion Gap 1 mmol/L; Blood Urea Nitrogen 13 mg/dL (7-17); Carbon Dioxide 27 mmol/L (22-30); Chloride 112 mmol/L (98-107); Glucose 119 mg/dL (74-99); Non-African American GFR(CKD) >90 (>60 ml/min/1.73 sqM); Sodium 140 mmol/L (137-145); Total Bilirubin 0.3 mg/dL (0.2-1.3); Total Protein 4.6 g/dL (6.3-8.2)
[2020-04-20] MEDS ORDERED: Potassium Replacement Protocol 1 EACH MISC MISCELLANE PRN (05:13)
[2020-04-20] MEDS: POTASSIUM CHLORIDE 20 MEQ in WATER FOR INJECTION 1 100ML.BAG IVPB SCH ×5 (06:02→18:22)
[2020-04-20] MEDS: LEVOTHYROXINE 75 MCG TAB PO SCH (06:04)
[2020-04-20] MEDS: ASCORBIC ACID 500 MG TAB PO SCH (06:04)
[2020-04-20] MEDS: SODIUM CHLORIDE 0.9% 1,000 ML IV SCH ×2 (06:04→16:09)
[2020-04-20] MEDS: POTASSIUM CHLORIDE ER 10 MEQ TAB.ER.PRT PO SCH ×2 (06:06→15:59)
[2020-04-20] MEDS: PIPERACILLIN-TAZOBACTAM 3.375 GM in SODIUM CHLORIDE 0.9% 100 ML IVPB SCH ×3 (06:13→23:25)
[2020-04-20] MEDS: HYDROCORTISONE SUCCINATE 100 MG/2 ML VIAL IV SCH ×3 (08:38→23:26)
[2020-04-20] MEDS: HEPARIN SODIUM,PORCINE 5,000 UNIT/ML 1 ML VIAL SQ SCH ×3 (08:38→23:26)
[2020-04-20] MEDS: levETIRAcetam IV 1,000 MG in SALINE 1 100ML.BAG IVPB SCH ×2 (08:40→21:54)
[2020-04-20] MEDS: BRIVARACETAM 10 MG/ML PO SCH ×2 (08:41→19:38)
--- NOTE | 2020-04-20 09:37 | XR ---
EXAMINATION TYPE: XR chest 1V portable DATE OF EXAM: 04/20/2020 COMPARISON: 04/19/2020 HISTORY: Cough TECHNIQUE: Single frontal view of the chest is obtained. FINDINGS: Diffuse interstitial pattern with bilateral infiltrate and pleural effusion. Central line is low in position likely within the lower margin the right atrium or IVC. No pneumothorax. IMPRESSION: 1. Diffuse pleural-parenchymal changes correlate for diffuse pneumonia versus CHF. 2. Correlate for positioning of the right-sided central line
[2020-04-20] MEDS ORDERED: FUROSEMIDE 10 MG/ML 4 ML VIAL IV STA (10:27)
[2020-04-20 10:33] LABS: Glucose,Whole Blood 77 mg/dL (75-99)
[2020-04-20 10:35] LABS: ABG Base Excess -6.4 mmol/L; ABG HCO3 18 mmol/L (21-25); ABG PCO2 27 mmHg (35-45); ABG PH 7.43 (7.35-7.45); ABG TCO2 19 mmol/L (19-24)
[2020-04-20 10:38] LABS: ABG PO2 58 mmHg (83-108)
[2020-04-20] MEDS: VALPROATE SODIUM 500 MG in SODIUM CHLORIDE 0.9% 100 ML IVPB SCH (10:46)
--- NOTE | 2020-04-20 12:22 | ECHOF ---
Referral Reason:Sepsis MEASUREMENTS -------- HEIGHT: 152.4 cm WEIGHT: 79.4 kg BP: RVIDd: 2.1 cm (< 3.3) IVSd: 0.9 cm (0.6 - 1.1) LVIDd: 3.1 cm (3.9 - 5.3) LVPWd: 1.1 cm (0.6 - 1.1) IVSs: 1.1 cm LVIDs: 2.3 cm LVPWs: 1.3 cm LA Diam: 2.9 cm (2.7 - 3.8) LAESV Index (A-L): 22.63 ml/m Ao Diam: 2.4 cm (2.0 - 3.7) LA Diam: 3.2 cm (2.7 - 3.8) MV EXCURSION: 17.766 mm (> 18.000) MV EF SLOPE: 38 mm/s (70 - 150) EPSS: 0.3 cm MV E Mario: 0.90 m/s MV DecT: 114 ms MV A Mario: 0.55 m/s MV E/A Ratio: 1.63 RAP: 5.00 mmHg RVSP: 15.66 mmHg FINDINGS -------- Sinus rhythm. This was a technically good study. LV size, wall thickness and systolic function are normal, with an EF greater than 55%. The left radha tricular size is normal. The right ventricle is normal in size. The left atrial size is normal. The right atrial size is normal. The aortic valve is trileaflet, and appears structurally normal. No aortic stenosis or regurgitation. Mild mitral regurgitation is present. Mild tricuspid regurgitation present. Right ventricular systolic pressure is normal at < 35 mmHg. There is no pulmonic regurgitation present. The aortic root size is normal. There is no pericardial effusion. CONCLUSIONS -------- 1. LV size, wall thickness and systolic function are normal, with an EF greater than 55%. 2. The left ventricular size is normal. 3. The right ventricle is normal in size. 4. The left atrial size is normal. 5. The right atrial size is normal. 6. Mild mitral regurgitation is present. 7. Mild tricuspid regurgitation present. 8. There is no pulmonic regurgitation present. 9. The aortic root size is normal. 10. There is no pericardial effusion. KEY MAKER: Elke Pascual RDCS
--- NOTE | 2020-04-20 12:39 | P.PN ---
Subjective Progress Note Date: 04/20/20 Principal diagnosis: Septic shock This is a 44-year-old female patient, a prison resident with a known history of Down syndrome and developmental delay, normally nonverbal and nonmobile. The patient was admitted through emergency for sepsis and he was admitted to the medical floor and within few hours of admission the patient got transferred to the ICU because of profound hypotension and septic shock. The patient became febrile and she had increased respiration and hypertension and she was brought into the emergency department and the patient was diagnosed having UTI with secondary sepsis. At the time of the admission, the patient had a lactic acid of 5.8, white cell count of 15.3, hemoglobin of 14.6, 9% bandemia, the sodium level of 153 with a BUN of 41 and creatinine of 1.9. The UA was abnormal with many clumps of white cells and bacteria and the patient's coronavirus/: 19 nasal swab by PCR came back negative. Chest x-ray showed mild hilar prominence. In the emergency department, the patient was given IV fluids and he was started on a combination of Zosyn and Zithromax. The patient got transferred to the medical floor and the patient was found to be hypotensive, unresponsive to painful stimulation and she was having tremors/questionable seizure activity. Systolic blood pressure was apparently the mid 50s. The patient received a total of 3 L of fluid bolus of normal saline. Mentation was altered and quite diminished. The patient was placed on 12 L of oxygen by nasal cannula and her pulse ox was in the mid 90s. At one point, a CODE BLUE was also called thinking that the patient may not several falls for a blood pressure. The patient was placed on a nuclear monitoring technician. She was in sinus tachycardia. Pressors were started and subsequent blood pressure reading was 70/40. The patient got transferred to the intensive care units. Currently she is on levo fed which is running at a higher dose. Vasopressin was also started for hemody namic support. This was started at physiologic dose. Started the patient also on IV fluids. Start the patient on hydrocortisone stress dose. At the same time, there was a concern for seizure activity. Start the patient on Keppra and she'll be receiving 1 g every 12 hours. Upon further review of the records, the patient is known to have also seizure disorder. She has history of hypothyroidism. She has been hospitalized in the past because of seizure activity and disorder. She was taken Depakote and Briviact on outpatient basis. She has previous history of intractable epilepsy and she has been evaluated [facility] many years back. She was hospitalized a few years ago for seizure activity and pneumonia. I believe she also has a component of venous insufficiency and the patient was receiving hydrocortisone on outpatient basis. On today's evaluation of 04/19/2020 patient is being seen for a follow-up. She seems to be well resuscitated since yesterday. She is currently on a normal saline infusion running at the rate of on 30 mL an hour. She remains on physiologic dose of vasopressin and she is also on norepinephrine running at 0.23 mcg/kg per minute. Oxygen currently is at 6 L per minute nasal cannula. She has a congested cough. She is producing adequate amount of urine output. The chest x-ray from today wanting loss in the left lung and there is significa nt consolidation of the left compared to the right along with some air bronchograms in the left lower lobe. Consider the possibility of a left lung pneumonia/aspiration. The urine cultures still pending. Blood cultures still pending. Meanwhile, the patient is covered with a combination of Levaquin and Zosyn. The white cell count today is up to 33.8. The patient has a sodium of 147. Lactic acid is down to 1.8. Creatinine is down to 1.2 with a BUN of 19. As such, there has been significant improvement in her condition. In terms of seizure activity, no further jerking body movements has been noticed. The patient is currently on a combination of Keppra and IV Depakote. The triple-lum en catheter inserted in her right IJ. On 04/20/2020 patient seen in follow-up in the intensive care unit, she is still quite encephalopathic, almost stuporous, withdraws to very vigorous noxious stim ulation, we had to OPEN her eyes open to evaluate her pupillary response, she is PERRLA, appears to be in no acute respiratory distress, and does have audible chest congestion. Currently on 4 L of oxygen pulse ox of 90%, hemodynamically she is stable, she is off the vasopressors including levofed and vasopressin, she isn't point an adenosine at a rate of 25 ML per hour, she is currently on 2 L of oxygen pulse ox of 94%, she is on, initially Levaquin and Zosyn for antibiotic coverage, her urine culture showed no growth, blood culture was negative as well. sHe has a chronic indwelling catheter related to stage III sacral decubitus ulcer, and she has chronic bowel incontinence. Today's chest x-ray shows diffuse pleural parenchymal changes correlating for diffuse pneumonia and possibility of CHF. White count is improving, down to 20.4 on today's labs, hemoglobin is 9.8, sodium is 140, potassium is 3.0, chloride is 112, CO2 is 27, BUN is 13 creatinine of 0.74, ferritin level was elevated as 1662, proBNP came back elevated at 3610, LFTs are now within normal limits, and her Coumadin 19 PCR was negative. Patient has had no witnessed seizure activity, she is on Keppra and IV Depakote, neurology services are following, her EEG showed diffuse slowing consistent with a toxic metabolic hypoxic encephalopathy. Objective - Vital Signs Vital signs: Vital Signs Temp 96.6 F L 04/20/20 08:00 Pulse 50 L 04/20/20 11:00 Resp 20 04/20/20 11:00 BP 106/70 04/20/20 11:00 Pulse Ox 98 04/20/20 11:00 Intake & Output 04/19/20 04/20/20 04/20/20 18:59 06:59 18:59 Intake Total 3813.972 2349.993 686.859 Output Total 1475 855 405 Balance 375.598 870.993 281.859 Weight 78.5 kg Intake: IV 1796 1716 685 Levofloxacin 250Mg-D5w 50 Pmx 250 mg In Dextrose/ Water 1 50ml.bag @ 50 mls /hr IVPB Q24H [facility] Rx#: [id number] Piperacillin-Tazobactam 3 100 100 .375 gm In Sodium Chloride 0.9% 100 ml @ 25 mls/hr IVPB Q8H [facility] Rx#: [id number] Potassium Chloride 20 meq 200 In Water For Injection 1 100ml.bag @ 50 mls/hr IVPB Q2H [facility] Rx#: [id number] Pressure Bags 36 36 15 Sodium Chloride 0.9% 1, 1560 1430 170 000 ml @ 20 mls/hr IV . Q24H [facility] Rx#:[id number] Valproate Sodium 500 mg 100 100 In Sodium Chloride 0.9% 100 ml @ 100 mls/hr IVPB Q8HR [facility] Rx#:[id number] levETIRAcetam IV 1,000 mg 100 100 100 In Saline 1 100ml.bag @ 400 mls/hr IVPB Q12HR [facility] Rx#:[id number] Intake, IV Titration 54.598 9.993 1.859 Amount Norepinephrine 32 mg In 54.598 9.993 1.859 Sodium Chloride 0.9% 218 ml @ 0.05 MCG/KG/MIN 1. 701 mls/hr IV .Q24H [facility] Rx#:[id number] Output: Urine 1475 855 405 Other: Voiding Method Indwelling Catheter Indwelling Catheter # Bowel Movements 1 1 ABP, PAP, CO, CI - Last Documented Arterial Blood Pressure 106/58 - Exam GENERAL EXAM: 44-year-old white female, with features characteristic of ongoing developmental delay, short statured, obtunded, only responsive to noxious stimuli, she was on 2 L of oxygen with a pulse ox of 94% comfortable in no apparent distress. HEAD: Normocephalic/atraumatic. EYES: Normal reaction of pupils, equal size. Conjunctiva pink, sclera white. NOSE: Clear with pink turbinates. THROAT: No erythema or exudates. NECK: No masses, no JVD, no thyroid enlargement, no adenopathy. CHEST: No chest wall deformity. Symmetrical expansion. LUNGS: Equal air entry with no crackles, wheeze, rhonchi or dullness. CVS: Regular rate and rhythm, normal S1 and S2, no gallops, no murmurs, no rubs ABDOMEN: Soft, nontender. No hepatosplenomegaly, normal bowel sounds, no guarding or rigidity. EXTREMITIES: No clubbing, no edema, no cyanosis, 2+ pulses and upper and lower extremities. MUSCULOSKELETAL: Muscle strength and tone normal. SPINE: No scoliosis or deformity SKIN: Stage III decubitus ulcer on coccyx the wound bed is clean without any evidence of infection CENTRAL NERVOUS SYSTEM: Obtunded - Labs CBC & Chem 7: 04/20/20 04:06 04/20/20 04:06 Labs: Abnormal Lab Results - Last 24 Hours (Table) 04/20/20 04/20/20 04/20/20 Range/Units 04:06 04:06 10:33 WBC 20.4 H (3.8-10.6) k/uL RBC 2.68 L (3.80-5.40) m/uL Hgb 9.8 L D (11.4-16.0) gm/dL Hct 30.5 L (34.0-46.0) % MCV 113.5 H (80.0-100.0) fL MCH 36.4 H (25.0-35.0) pg Plt Count 118 L (150-450) k/uL Neutrophils # 18.3 H (1.3-7.7) k/uL Macrocytosis Marked A ABG pCO2 27 L (35-45) mmHg ABG pO2 58 L* (83-108) mmHg ABG HCO3 18 L (21-25) mmol/L ABG O2 Saturation 93.0 L (94-97) % Potassium 3.0 L (3.5-5.1) mmol/L Chloride 112 H (98-107) mmol/L Glucose 119 H (74-99) mg/dL Calcium 7.0 L (8.4-10.2) mg/dL Total Protein 4.6 L (6.3-8.2) g/dL Albumin 2.0 L (3.5-5.0) g/dL Microbiology - Last 24 Hours (Table) 04/18/20 06:49 Blood Culture - Preliminary Blood No Growth after 48 hours 04/18/20 07:26 Urine Culture - Final Urine,Voided Assessment and Plan Plan: Assessment: 1 septic shock secondary to a UTI probably in combination with an extensive left lung pneumonia of an aspiration type.. The patient is currently hypotensive in a shock state secondary to sepsis. The patient was being aggressively resuscitated with IV fluids. The patient was on high-dose pressors. He is on a combination of vasopressin and norepinephrine infusion. Patient is on IV Zosyn and Levaquin. The patient's received a total of 4 L of IV fluid bolus and currently she is on 130 mL an hour of maintenance. The patient is on a lower dose of pressors and norepinephrine is running at 0.22 mg per KG per minute in combination with vasopressin. Her blood pressure is under better control and her urine output and renal function is also improving. 2 acute leukocytosis with bandemia secondary to above, improving 3 acute lactic acidosis secondary to above, improved on the lactic acid level is down to 1.8 4 acute kidney injury secondary to above, improved and the creatinine is down to 1.2 5 history of seizure disorder maintained on a combination of Depakote and Briviact on outpatient basis. The patient may be having underlying breakthrough seizures. The patient is currently on a combination of Depakote level of which is therapeutic and IV Keppra 6 unresponsiveness, consider metabolic encephalopathy, consider seizure with postictal state. 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 8 obesity 9 hypothyroidism 10 additional insufficiency maintained on hydrocortisone outpatient basis 11 prison resident 12 stage III decubitus ulcer on sacral area, present on admission 13 chronic indwelling catheter related to stage III decubitus ulcer 14 bLadderand bowel incontinence Plan: Continue current antibiotic coverage, no growth on the cultures thus far, ID service is following, white blood cell count is improving, patient is afebrile, she is off the vasopressor support, maintaining a better blood pressures, she is producing urine, neurology services are following, patient is on Keppra and Depakote, she has had no breakthrough seizures, EEG showed findings consistent with toxic metabolic encephalopathy. Maintain aspiration precautions, hold a swallow evaluation right now in view of altered mental status, blood gas has been obtained and reviewed, consistent with acute metabolic acidosis and respiratory alkalosis, and acute hypoxic respiratory failure, we increased the oxygen flow, maintain aspiration precautions. Continue Lasix and antibiotics. Wound care recommendations per ID service. We'll continue stress dose steroids right now. Continue close monitoring in the intensive care unit I performed a history & physical examination of the patient and discussed their management with my nurse practitioner, Noreen Dominique. I reviewed the nurse practitioner's note and agree with the documented findings and plan of care. Lung sounds are positive for bibasilar crackles. The findings and the impression was discussed with the patient. I attest to the documentation by the nurse practitioner. Time with Patient: Greater than 30
[2020-04-20 12:46] LABS: Glucose,Whole Blood 105 mg/dL (75-99)
--- NOTE | 2020-04-20 14:21 | CDI ---
Documentation Clarification Form Date: 04/20/2020 02:07:14 PM From: Josette Clark RN, CCDS Admit Date: 04/18/2020 11:19:00 AM Patient Name: Charlette Catherine Visit Number: [id number] ATTENTION: The Clinical Documentation Specialists (CDI) and [facility] Coding Staff appreciate your assistance in clarifying documentation. Please respond to the clarification below the line at the bottom and electronically sign. The CDI & [facility] Coding staff will review the response and follow-up if needed. Please note: Queries are made part of the Legal Health Record. If you have any questions, please contact the author of this message via ITS. Dr. Oscar Freeman diagnosis of UTI has been documented in the H&P and progress notes on a patient with a chronic IDC. History/Risk Factors: Per documentation in the 04/20 pulmonary progress note this patient was admitted with an indwelling Busch catheter. Stage 3 sacral Decub, Downs syndrome, developmental delay Clinical Indicators: 04/20 Pulmonary Progress Note: "She has a chronic indwelling catheter related to stage III sacral decubitus ulcer, and she has chronic bowel incontinence." 04/18 Urinalysis: Turbid, +2 Protein, large amount of blood, large amount of leukocyte esterase, >182 WBC, many WBC clumps, moderate amorphous sediment, moderate bacteria, occasional mucus 04/18 Urine culture: no growth 04/18-04/20 Lab results: WBC 15.3/33.8/20.4, Neutrophils 9.3/31.2/18.3, Lactic acid 5.4/1.8 Treatment: 04/18 Levaquin 500 mg IVPB Q 24 hrs. 04/18 Zosyn 3.375 gm IVPB q 8 hrs. 04/18 3L 0.9% NS IVF bolus In your professional opinion, can you please clarify the etiology of the UTI, if known? Busch catheter related UTI UTI not related to catheter Other condition, please specify Unable to determine If an infective organism is present, please specify cause and effect relationship if applicable. (Last Revision: August 2017) Busch catheter related UTI MTDD
--- NOTE | 2020-04-20 14:40 | CDI ---
Documentation Clarification Form Date: 04/20/2020 02:27:01 PM From: Josette Clark RN, CCDS Admit Date: 04/18/2020 11:19:00 AM Patient Name: Charlette Catherine Visit Number: [id number] ATTENTION: The Clinical Documentation Specialists (CDI) and [facility] Coding Staff appreciate your assistance in clarifying documentation. Please respond to the clarification below the line at the bottom and electronically sign. The CDI & [facility] Coding staff will review the response and follow-up if needed. Please note: Queries are made part of the Legal Health Record. If you have any questions, please contact the author of this message via ITS. Dr. Oscar Freeman pressure ulcer was documented in the 04/20 Pulmonary progress note and requires acknowledgement and documentation from the attending provider. History/Risk Factors: Downs syndrome, lives in a detention, UTI with Sepsis and septic shock this admission Clinical Indicators: Location: Sacral Wound description: 04/20 Pulmonary Progress note: "SKIN: Stage III decubitus ulcer on coccyx the wound bed is clean without any evidence of infection. 12 stage III decubitus ulcer on sacral area, present on admission 13 chronic indwelling catheter related to stage III decubitus ulcer." Nursing Assessments: stage 3 tunneling, boggy loose tissue with erythema Treatment: Duoderm Elements for accurate and compliant documentation of an ulcer: *The location/laterality of the ulcer *Etiology (decubitus/pressure, diabetic, PVD) *Stage I-IV, Unstageable, Suspected Deep Tissue Injury (To the deepest stage) *If the ulcer was present at admission (POA) or occurred after admission In your professional opinion, can you please clarify the diagnosis, location, laterality and whether present on admission (POA): Stage 1 Pressure/Decubitus Ulcer (intact skin, non-blanching redness of local area) Stage 2 Pressure/Decubitus Ulcer (Partial thickness, loss of dermis, pink wound bed) Stage 3 Pressure/Decubitus Ulcer (Full thickness tissue loss) Stage 4 Pressure/Decubitus Ulcer (Full thickness tissue loss with exposed bone, tendon, or muscle. May have slough or eschar present) Unstageable Other condition, please specify Unable to determine Please indicate etiology of pressure ulcer (if known). (Last Revision: February 2017) Stage 3 Pressure/Decubitus Ulcer (Full thickness tissue loss) [facility]
--- NOTE | 2020-04-20 15:03 | P.PN ---
Subjective Progress Note Date: 04/20/20 Patient was seen by Dr. Lima initially yesterday for mental status change. Please refer to her note for details. Patient does have history of Down syndrome and seizure disorder. Patient was found to have urosepsis. Patient was having some trembling, for which neurology was consulted to rule out seiz ures. Patient currently not on any sedation. According to the nurse report, it was reported from [facility], that she sometimes have shaking like spells, which were considered not seizures. Patient had an EEG performed yesterday, which revealed diffuse slowing consistent with toxic metabolic encephalopathy. No epileptiform activity were seen. Patient had a 2-D echo performed today, which revealed EF greater than 55% with normal left-ventricular size, wall thickness and systolic function. Left atrial size is normal. Mild MR. Chest x-ray showed diffuse pleural-parenchymal changes correlate for diffuse pneumonia versus CHF. Patient's blood test from 04/20/2020 showed WBC 20.4 hemoglobin 9.8 platelets were 118. Patient's sodium was 147, potassium 5.2, BUN 19, currently 1.22, which has now improved. Hepatic panel with AST 42, ALT 28. Objective - Vital Signs Vital signs: Vital Signs Temp 96.3 F L 04/20/20 12:00 Pulse 66 04/20/20 14:00 Resp 17 04/20/20 14:00 BP 112/67 04/20/20 14:00 Pulse Ox 92 L 04/20/20 14:00 Intake & Output 04/19/20 04/20/20 04/20/20 18:59 06:59 18:59 Intake Total 5344.797 5418.993 755.859 Output Total 6848 478 3174 Balance 375.598 870.993 -1574.141 Weight 78.5 kg 78.5 kg Intake: IV 1796 1716 754 Levofloxacin 250Mg-D5w 50 Pmx 250 mg In Dextrose/ Water 1 50ml.bag @ 50 mls /hr IVPB Q24H [facility] Rx#: [id number] Piperacillin-Tazobactam 3 100 100 .375 gm In Sodium Chloride 0.9% 100 ml @ 25 mls/hr IVPB Q8H [facility] Rx#: [id number] Potassium Chloride 20 meq 200 In Water For Injection 1 100ml.bag @ 50 mls/hr IVPB Q2H [facility] Rx#: [id number] Pressure Bags 36 36 24 Sodium Chloride 0.9% 1, 1560 1430 230 000 ml @ 20 mls/hr IV . Q24H [facility] Rx#:[id number] Valproate Sodium 500 mg 100 100 In Sodium Chloride 0.9% 100 ml @ 100 mls/hr IVPB Q8HR [facility] Rx#:[id number] levETIRAcetam IV 1,000 mg 100 100 100 In Saline 1 100ml.bag @ 400 mls/hr IVPB Q12HR [facility] Rx#:[id number] Intake, IV Titration 54.598 9.993 1.859 Amount Norepinephrine 32 mg In 54.598 9.993 1.859 Sodium Chloride 0.9% 218 ml @ 0.05 MCG/KG/MIN 1. 701 mls/hr IV .Q24H [facility] Rx#:[id number] Output: Urine 8192 706 9253 Other: Voiding Method Indwelling Catheter Indwelling Catheter # Bowel Movements 1 1 ABP, PAP, CO, CI - Last Documented Arterial Blood Pressure 80/45 - Exam Patient is significantly obtunded. She keeps her eyes closed. Does not follow commands. Patient does facial grimaces to painful stimuli with some mild withdrawal. Pupils are round. No obvious seizure activity noted. Tone is equal bilaterally. Abdomen is soft. Patient has stage III decubitus ulcers. No scoliosis or deformity. - Labs CBC & Chem 7: 04/20/20 04:06 04/20/20 12:47 Labs: Abnormal Lab Results - Last 24 Hours (Table) 04/20/20 04/20/20 04/20/20 Range/Units 04:06 04:06 10:33 WBC 20.4 H (3.8-10.6) k/uL RBC 2.68 L (3.80-5.40) m/uL Hgb 9.8 L D (11.4-16.0) gm/dL Hct 30.5 L (34.0-46.0) % MCV 113.5 H (80.0-100.0) fL MCH 36.4 H (25.0-35.0) pg Plt Count 118 L (150-450) k/uL Neutrophils # 18.3 H (1.3-7.7) k/uL Macrocytosis Marked A ABG pCO2 27 L (35-45) mmHg ABG pO2 58 L* (83-108) mmHg ABG HCO3 18 L (21-25) mmol/L ABG O2 Saturation 93.0 L (94-97) % Potassium 3.0 L (3.5-5.1) mmol/L Chloride 112 H (98-107) mmol/L Glucose 119 H (74-99) mg/dL POC Glucose (mg/dL) (75-99) mg/dL Calcium 7.0 L (8.4-10.2) mg/dL Total Protein 4.6 L (6.3-8.2) g/dL Albumin 2.0 L (3.5-5.0) g/dL 04/20/20 04/20/20 Range/Units 12:43 12:47 WBC (3.8-10.6) k/uL RBC (3.80-5.40) m/uL Hgb (11.4-16.0) gm/dL Hct (34.0-46.0) % MCV (80.0-100.0) fL MCH (25.0-35.0) pg Plt Count (150-450) k/uL Neutrophils # (1.3-7.7) k/uL Macrocytosis ABG pCO2 (35-45) mmHg ABG pO2 (83-108) mmHg ABG HCO3 (21-25) mmol/L ABG O2 Saturation (94-97) % Potassium 2.9 L (3.5-5.1) mmol/L Chloride (98-107) mmol/L Glucose (74-99) mg/dL POC Glucose (mg/dL) 105 H (75-99) mg/dL Calcium (8.4-10.2) mg/dL Total Protein (6.3-8.2) g/dL Albumin (3.5-5.0) g/dL Microbiology - Last 24 Hours (Table) 04/18/20 06:49 Blood Culture - Preliminary Blood No Growth after 48 hours 04/18/20 07:26 Urine Culture - Final Urine,Voided Assessment and Plan Assessment: * History of seizure disorder, with possible breakthrough seizure likely secondary to sepsis. Intermittent tremoring, likely due to metabolic encephalopathy, doubt seizures/status. EEG did not reveal any status, or seizure activity. * Toxic metabolic encephalopathy. * History of Down syndrome * Septic shock secondary to UTI and pneumonia * Acute kidney injury, improving * Hypertension * Elevated ammonia level * Stage III decubitus ulcer on sacral area Plan: * Patient's Depakote level is therapeutic 86.5. * Ammonia is 48, which probably is partly related to Depakote. * Patient at home was on Depakote 375 mg 3 times a day. Her dose currently in hospital is 500 mg 3 times a day, which appears somewhat high-dose. I will decrease Depakote to 500 mg twice a day because of her mental status, and elevated ammonia level. * Continue same dose of Keppra 1000 mg twice a day.
[2020-04-20] MEDS: VALPROATE SODIUM 250 MG in SODIUM CHLORIDE 0.9% 100 ML IVPB SCH ×2 (18:22→23:26)
[2020-04-20 18:42] LABS: Glucose,Whole Blood 113 mg/dL (75-99)
[2020-04-20] MEDS: SENNOSIDES 8.6 MG TAB PO SCH (19:38)
[2020-04-20] MEDS: LEVOFLOXACIN 500MG-D5W PMX 500 MG in DEXTROSE/WATER 1 100ML.BAG IVPB SCH (21:55)
--- NOTE | 2020-04-20 23:36 | PN ---
PROGRESS NOTE DATE OF SERVICE: 04/20/2020 REASON FOR FOLLOWUP: Sepsis, aspiration pneumonia, UTI. INTERVAL HISTORY: The patient remains afebrile. The patient is currently off the pressor support. She is on 4 L nasal cannula and still has a congested cough; no sputum. No vomiting or diarrhea reported by the nursing staff. The patient herself was unable to provide any history. PHYSICAL EXAMINATION: Blood pressure 115/84, pulse of 82, temperature of 98.1. She is 95% on 4 L nasal cannula. General description is a middle-aged female lying in bed in no distress. RESPIRATORY SYSTEM: Unlabored breathing. Coarse breath sounds at the bases bilaterally. No wheeze. HEART: S1, S2. Regular rate and rhythm. ABDOMEN: Soft. No tenderness. EXTREMITIES: No edema of the feet. LABS: Hemoglobin is 9.8, white count 20.4 with a BUN of 13, creatinine 0.74. Urine is negative. Blood culture so far negative. DIAGNOSTIC IMPRESSION AND PLAN: Patient admitted to hospital with sepsis, likely with a component of aspiration pneumonia and urinary tract infection. Patient is covered with Zosyn and Levaquin. Try to obtain a sputum sample and monitor her clinical course closely. MMODL / IJN: [id number] /
[2020-04-21 01:45] LABS: Glucose,Whole Blood 101 mg/dL (75-99)
[2020-04-21] MEDS: POTASSIUM CHLORIDE 20 MEQ in WATER FOR INJECTION 1 100ML.BAG IVPB SCH ×3 (02:07→22:06)
[2020-04-21 04:21] LABS: Basophils % (A) 0 %; Eosinophils % (A) 0 %; HCT 31.4 % (34.0-46.0); HGB 10.3 gm/dL (11.4-16.0); Lymphocytes % (A) 5 %; MCH 36.6 pg (25.0-35.0); MCHC 32.8 g/dL (31.0-37.0); MCV 111.4 fL (80.0-100.0); Macrocytosis Marked; Mean Platelet Volume 9.1; Monocytes # (A) 0.7 k/uL (0-1.0); Monocytes % (A) 4 %; Neutrophils # (A) 16.4 k/uL (1.3-7.7); Neutrophils % (A) 90 %; Platelet Count 107 k/uL (150-450); RBC 2.82 m/uL (3.80-5.40); RDW 15.6 % (11.5-15.5); WBC 18.1 k/uL (3.8-10.6)
[2020-04-21 04:31] LABS: Albumin 2.4 g/dL (3.5-5.0); Calcium 8.1 mg/dL (8.4-10.2); Potassium 3.6 mmol/L (3.5-5.1); Total Bilirubin 0.4 mg/dL (0.2-1.3); Total Protein 5.4 g/dL (6.3-8.2)
[2020-04-21 04:56] LABS: Anisocytosis (M) Present; Hypochromasia (M) Present; Poikilocytosis (M) Present; Polychromasia Present
[2020-04-21] MEDS: VALPROATE SODIUM 250 MG in SODIUM CHLORIDE 0.9% 100 ML IVPB SCH ×4 (05:09→23:02)
[2020-04-21] MEDS: POTASSIUM CHLORIDE ER 10 MEQ TAB.ER.PRT PO SCH ×2 (06:31→15:16)
[2020-04-21] MEDS: ASCORBIC ACID 500 MG TAB PO SCH (06:31)
[2020-04-21] MEDS: LEVOTHYROXINE 75 MCG TAB PO SCH (06:31)
[2020-04-21] MEDS: PIPERACILLIN-TAZOBACTAM 3.375 GM in SODIUM CHLORIDE 0.9% 100 ML IVPB SCH ×3 (06:52→22:12)
--- NOTE | 2020-04-21 08:50 | XR ---
EXAMINATION TYPE: XR chest 1V portable DATE OF EXAM: 04/21/2020 COMPARISON: 04/20/2020 HISTORY: Shortness of breath TECHNIQUE: Single frontal view of the chest is obtained. FINDINGS: Diffuse interstitial pattern with bilateral consolidation and small effusion noted greater on the left. No pneumothorax. Heart size stable. Central line appears somewhat low in position may b e within the lower margin the right atrium or IVC. IMPRESSION: 1. Diffuse pleural-parenchymal changes stable. Correlate for diffuse pneumonia versus CHF. 2. Central line is distally placed correlate for positioning.
[2020-04-21] MEDS ORDERED: FUROSEMIDE 10 MG/ML 4 ML VIAL IV STA (09:49)
[2020-04-21] MEDS: BRIVARACETAM 10 MG/ML PO SCH ×2 (10:27→20:56)
[2020-04-21] MEDS: HEPARIN SODIUM,PORCINE 5,000 UNIT/ML 1 ML VIAL SQ SCH ×3 (10:34→23:02)
[2020-04-21] MEDS: levETIRAcetam IV 1,000 MG in SALINE 1 100ML.BAG IVPB SCH ×2 (10:44→21:00)
--- NOTE | 2020-04-21 11:38 | XR ---
EXAMINATION TYPE: XR chest 1V portable DATE OF EXAM: 04/21/2020 COMPARISON: 04/21/2020 HISTORY: Shortness of breath TECHNIQUE: Single frontal view of the chest is obtained. FINDINGS: Diffuse interstitial pattern with bilateral consolidation and small effusion noted greater on the left. No pneumothorax. Heart size stable. Central line appears somewhat low in position may b e within the lower margin the right atrium or IVC. G-tube seen coursing in the left upper quadrant. IMPRESSION: 1. NG tube seen extending the abdomen appears in good position. 2. Diffuse pleural-parenchymal changes stable.
[2020-04-21] MEDS: HYDROCORTISONE SUCCINATE 100 MG/2 ML VIAL IV SCH ×2 (11:39→21:00)
[2020-04-21] MEDS: LACTULOSE 20 GM/30 ML CUP PO SCH ×4 (11:55→20:59)
[2020-04-21 13:01] LABS: Glucose,Whole Blood 108 mg/dL (75-99)
[2020-04-21] MEDS: NOREPINEPHRINE 32 MG in SODIUM CHLORIDE 0.9% 218 ML IV SCH (13:26)
--- NOTE | 2020-04-21 14:25 | P.PN ---
Subjective Progress Note Date: 04/21/20 04/21/2020: Patient currently not on any sedatives. She is severely encephalopathic. Keeps her eyes closed. No seizure-like activity noticed. 04/20/2020: Patient was seen by Dr. Lima initially yesterday for mental status change. Please refer to her note for details. Patient does have history of D own syndrome and seizure disorder. Patient was found to have urosepsis. Patient was having some trembling, for which neurology was consulted to rule out seizures. Patient currently not on any sedation. According to the nurse report, it was reported from the skilled nursing where she lives, that she sometimes have shaking like spells, which were considered not seizures. Patient had an EEG performed yesterday, which revealed diffuse slowing consistent with toxic metabolic encephalopathy. No epileptiform activity were seen. Patient had a 2-D echo performed today, which revealed EF greater than 55% with normal left-ventricular size, wall thickness and systolic function. Left atrial size is normal. Mild MR. Chest x-ray showed diffuse pleural-parenchymal changes correlate for diffuse pneumonia versus CHF. Patient's blood test from 04/20/2020 showed WBC 20.4 hemoglobin 9.8 platelets were 118. Patient's sodium was 147, potassium 5.2, BUN 19, currently 1.22, which has now improved. Hepatic panel with AST 42, ALT 28. Objective - Vital Signs Vital signs: Vital Signs Temp 97.5 F L 04/21/20 12:00 Pulse 93 04/21/20 13:00 Resp 14 04/21/20 13:00 BP 99/68 04/21/20 12:00 Pulse Ox 97 04/21/20 13:00 Intake & Output 04/20/20 04/21/20 04/21/20 18:59 06:59 18:59 Intake Total 458.471 0074.942 342.288 Output Total 3130 1445 1875 Balance -9367.467 -281.058 -1532.712 Weight 78.5 kg 79.8 kg Intake: IV 846 1156 341 Piperacillin-Tazobactam 3 100 100 .375 gm In Sodium Chloride 0.9% 100 ml @ 25 mls/hr IVPB Q8H [facility] Rx#: [id number] Potassium Chloride 20 meq 200 600 In Water For Injection 1 100ml.bag @ 50 mls/hr IVPB Q2H [facility] Rx#: [id number] Pressure Bags 36 36 21 Sodium Chloride 0.9% 1, 310 220 120 000 ml @ 20 mls/hr IV . Q24H [facility] Rx#:[id number] Valproate Sodium 500 mg 100 200 100 In Sodium Chloride 0.9% 100 ml @ 100 mls/hr IVPB Q8HR [facility] Rx#:[id number] levETIRAcetam IV 1,000 mg 100 100 In Saline 1 100ml.bag @ 400 mls/hr IVPB Q12HR [facility] Rx#:[id number] Intake, IV Titration 6.533 7.942 1.288 Amount Norepinephrine 32 mg In 1.859 Sodium Chloride 0.9% 218 ml @ 0.05 MCG/KG/MIN 1. 701 mls/hr IV .Q24H [facility] Rx#:[id number] Norepinephrine 32 mg In 4.674 7.942 1.288 Sodium Chloride 0.9% 218 ml @ 0.05 MCG/KG/MIN 1.84 mls/hr IV .Q24H [facility] Rx#: [id number] Output: Urine 3130 1445 1875 Other: Voiding Method Indwelling Catheter Indwelling Catheter ABP, PAP, CO, CI - Last Documented Arterial Blood Pressure 109/65 - Exam Patient is significantly obtunded. She keeps her eyes closed. Does not follow commands. Patient does facial grimaces to painful stimuli with some mild withdrawal of the fingers. Pupils are round. No obvious seizure activity noted. Tone is equal bilaterally. Abdomen is soft. Patient has stage III decubitus ulcers. No scoliosis or deformity. - Labs CBC & Chem 7: 04/21/20 04:12 04/21/20 04:12 Labs: Abnormal Lab Results - Last 24 Hours (Table) 04/20/20 04/20/20 04/21/20 Range/Units 18:40 23:41 01:44 WBC (3.8-10.6) k/uL RBC (3.80-5.40) m/uL Hgb (11.4-16.0) gm/dL Hct (34.0-46.0) % MCV (80.0-100.0) fL MCH (25.0-35.0) pg RDW (11.5-15.5) % Plt Count (150-450) k/uL Neutrophils # (1.3-7.7) k/uL Macrocytosis Sodium (137-145) mmol/L Potassium 3.2 L (3.5-5.1) mmol/L Chloride (98-107) mmol/L Carbon Dioxide (22-30) mmol/L Glucose (74-99) mg/dL POC Glucose (mg/dL) 113 H 101 H (75-99) mg/dL Calcium (8.4-10.2) mg/dL AST (14-36) U/L Total Protein (6.3-8.2) g/dL Albumin (3.5-5.0) g/dL 04/21/20 04/21/20 04/21/20 Range/Units 04:12 04:12 12:59 WBC 18.1 H (3.8-10.6) k/uL RBC 2.82 L (3.80-5.40) m/uL Hgb 10.3 L (11.4-16.0) gm/dL Hct 31.4 L (34.0-46.0) % MCV 111.4 H (80.0-100.0) fL MCH 36.6 H (25.0-35.0) pg RDW 15.6 H (11.5-15.5) % Plt Count 107 L (150-450) k/uL Neutrophils # 16.4 H (1.3-7.7) k/uL Macrocytosis Marked A Sodium 146 H (137-145) mmol/L Potassium (3.5-5.1) mmol/L Chloride 112 H (98-107) mmol/L Carbon Dioxide 34 H (22-30) mmol/L Glucose 102 H (74-99) mg/dL POC Glucose (mg/dL) 108 H (75-99) mg/dL Calcium 8.1 L (8.4-10.2) mg/dL AST 50 H (14-36) U/L Total Protein 5.4 L (6.3-8.2) g/dL Albumin 2.4 L (3.5-5.0) g/dL Microbiology - Last 24 Hours (Table) 04/18/20 06:49 Blood Culture - Preliminary Blood No Growth after 72 hours Assessment and Plan Assessment: * History of seizure disorder, with possible breakthrough seizure likely secondary to sepsis. Intermittent tremoring, likely due to metabolic encephalopathy, doubt seizures/status. EEG did not reveal any status, or seizure activity. * Toxic metabolic encephalopathy. * History of Down syndrome * Septic shock secondary to UTI and pneumonia * Acute kidney injury, improving * Hypertension * Elevated ammonia level * Stage III decubitus ulcer on sacral area Plan: * Patient's Depakote level is therapeutic 86.5. * Ammonia is 48, which probably is partly related to Depakote. * Patient at home was on Depakote 375 mg 3 times a day. Her dose currently in hospital is 500 mg 3 times a day, which appears somewhat high-dose. I will decrease Depakote to 250 mg 4 times a day because of her mental status, and elevated ammonia level. * Continue same dose of Keppra 1000 mg twice a day. * Recheck ammonia, Keppra and Depakote level in a.m. * Medical management as per IM/critical care.
[2020-04-21 14:56] VITALS: BMI 36.7
--- NOTE | 2020-04-21 14:57 | CT ---
EXAMINATION TYPE: CT brain wo con DATE OF EXAM: 04/21/2020 COMPARISON: 05/05/2018 HISTORY: Altered mental status and lethargy CT DLP: 1099.4 mGycm. Automated Exposure Control for Dose Reduction was Utilized. TECHNIQUE: CT scan of the head is performed without contrast. FINDINGS: There is diffuse ventricular dilation which is similar in appearance to the prior exam driver ggestive of hydrocephalus. No midline shift. Ventricular size is similar to the prior exam. No acute hemorrhage. Periventricular low attenuation is nonspecific but most typical remote microvascular isch emia. Calvarium grossly intact. IMPRESSION: 1. Stable diffuse ventricular dilation likely on the basis of hydrocephalus. This could be correlated with MRI as clinically warranted. Low attenuation the periventricular white matter could be on the b asis of transependymal edema versus remote white matter ischemia.
--- NOTE | 2020-04-21 15:06 | P.PN ---
Subjective Progress Note Date: 04/21/20 Principal diagnosis: Septic shock secondary to urinary tract infection This is a 44-year-old female patient, a [place] [facility] resident with a known history of Down syndrome and developmental delay, normally nonverbal and nonmobile. The patient was admitted through emergency for sepsis and he was admitted to the medical floor and within few hours of admission the patient got transferred to the ICU because of profound hypotension and septic shock. The patient became febrile and she had increased respiration and hypertension and she was brought into the emergency department and the patient was diagnosed having UTI with secondary sepsis. At the time of the admission, the patient had a lactic acid of 5.8, white cell count of 15.3, hemoglobin of 14.6, 9% bandemia, the sodium level of 153 with a BUN of 41 and creatinine of 1.9. The UA was abnormal with many clumps of white cells and bacteria and the patient's coronavirus/: 19 nasal swab by PCR came back negative. Chest x-ray showed mild hilar prominence. In the emergency department, the patient was given IV fluids and he was started on a combination of Zosyn and Zithromax. The patient got transferred to the medical floor and the patient was found to be hypotensive, unresponsive to painful stimulation and she was having tremors/questionable seizure activity. Systolic blood pressure was apparently the mid 50s. The patient received a total of 3 L of fluid bolus of normal saline. Mentation was altered and quite diminished. The patient was placed on 12 L of oxygen by nasal cannula and her pulse ox was in the mid 90s. At one point, a CODE BLUE was also called thinking that the patient may not several falls for a blood pressure. The patient was placed on a property clerk. She was in sinus tachycardia. Pressors were started and subsequent blood pressure reading was 70/40. The patient got transferred to the intensive care units. Currently she is on levo fed which is running at a higher dose. Vasopressin was also started for hemodynamic support. This was started at physiologic dose. Started the patient also on IV fluids. Start the patient on hydrocortisone stress dose. At the same time, there was a concern for seizure activity. Start the patient on Keppra and she'll be receiving 1 g every 12 hours. Upon further review of the records, the patient is known to have also seizure disorder. She has history of hypothyroidism. She has been hospitalized in the past because of seizure acti vity and disorder. She was taken Depakote and Briviact on outpatient basis. She has previous history of intractable epilepsy and she has been evaluated [facility] many years back. She was hospitalized a few years ago for seizure activity and pneumonia. I believe she also has a component of venous insufficiency and the patient was receiving hydrocortisone on outpatient basis. On today's evaluation of 04/19/2020 patient is being seen for a follow-up. She seems to be well resuscitated since yesterday. She is currently on a normal saline infusion running at the rate of on 30 mL an hour. She remains on physiologic dose of vasopressin and she is also on norepinephrine running at 0 .23 mcg/kg per minute. Oxygen currently is at 6 L per minute nasal cannula. She has a congested cough. She is producing adequate amount of urine output. The chest x-ray from today wanting loss in the left lung and there is significant consolidation of the left compared to the right along with some air bronchograms in the left lower lobe. Consider the possibility of a left lung pneumonia/aspiration. The urine cultures still pending. Blood cultures still pending. Meanwhile, the patient is covered with a combination of Levaquin and Zosyn. The white cell count today is up to 33.8. The patient has a sodium of 147. Lactic acid is down to 1.8. Creatinine is down to 1.2 with a BUN of 19. As such, there has been significant improvement in her condition. In terms of seizure activity, no further jerking body movements has been noticed. The patient is currently on a combination of Keppra and IV Depakote. The triple- lumen catheter inserted in her right IJ. On 04/20/2020 patient seen in follow-up in the intensive care unit, she is still quite encephalopathic, almost stuporous, withdraws to very vigorous noxious stimulation, we had to OPEN her eyes open to evaluate her pupillary response, she is PERRLA, appears to be in no acute respiratory distress, and does have audible chest congestion. Currently on 4 L of oxygen pulse ox of 90%, hemodynamically she is stable, she is off the vasopressors including levofed and vasopressin, she isn't point an adenosine at a rate of 25 ML per hour, she is currently on 2 L of oxygen pulse ox of 94%, she is on, initially Levaquin and Zosyn for antibiotic coverage, her urine culture showed no growth, blood culture was negative as well. sHe has a chronic indwelling catheter related to stage III sacral decubitus ulcer, and she has chronic bowel incontinence. Today's chest x-ray shows diffuse pleural parenchymal changes correlating for diffuse pneumonia and possibility of CHF. White count is improving, down to 20.4 on today's labs, hemoglobin is 9.8, sodium is 140, potassium is 3.0, chloride is 112, CO2 is 27, BUN is 13 creatinine of 0.74, ferritin level was elevated as 1662, proBNP came back elevated at 3610, LFTs are now within normal limits, and her Coumadin 19 PCR was negative. Patient has had no witnessed seizure activit y, she is on Keppra and IV Depakote, neurology services are following, her EEG showed diffuse slowing consistent with a toxic metabolic hypoxic encephalopathy. Patient was reevaluated today on 04/21/20, remains in the ICU, she remains quite encephalopathic, obtunded, cannot arouse even with deep painful stimuli, patient is not on any sedatives or narcotics, no seizure activity has been noticed. Patient does have history of Down syndrome and seizure disorder, she was initially admitted with urosepsis. EEG done by neurology showed diffuse slowing consistent with toxic metabolic encephalopathy, there was no epileptiform focus or activity. Echocardiogram is basically unremarkable. Chest x-ray initially on admission showed evidence of fluid overload, underlying pneumonia is not entirely ruled out but felt to be less likely. Patient remained on antibiotics for her UTI and sepsis, again not clear whether the patient has underlying pneumonia. CBC showed WBC count of 18.1 hemoglobin is 10.3. Electrolytes are normal, however her ammonia level yesterday was 38. And I'm recommending a n asogastric tube to be placed, and recommending lactulose to get her ammonia level down hoping that. Her mental status. Repeat CT of the brain this morning is pending. Blood cultures have been negative since 04/18, urine cultures have been negative since admission. Objective - Vital Signs Vital signs: Vital Signs Temp 97.5 F L 04/21/20 12:00 Pulse 93 04/21/20 13:00 Resp 14 04/21/20 13:00 BP 99/68 04/21/20 12:00 Pulse Ox 97 04/21/20 13:00 Intake & Output 04/20/20 04/21/20 04/21/20 18:59 06:59 18:59 Intake Total 724.902 1393.942 342.288 Output Total 3130 1445 1875 Balance -2277.467 -281.058 -1532.712 Weight 78.5 kg 79.8 kg Intake: IV 846 1156 341 Piperacillin-Tazobactam 3 100 100 .375 gm In Sodium Chloride 0.9% 100 ml @ 25 mls/hr IVPB Q8H [facility] Rx#: [id number] Potassium Chloride 20 meq 200 600 In Water For Injection 1 100ml.bag @ 50 mls/hr IVPB Q2H [facility] Rx#: [id number] Pressure Bags 36 36 21 Sodium Chloride 0.9% 1, 310 220 120 000 ml @ 20 mls/hr IV . Q24H [facility] Rx#:[id number] Valproate Sodium 500 mg 100 200 100 In Sodium Chloride 0.9% 100 ml @ 100 mls/hr IVPB Q8HR [facility] Rx#:[id number] levETIRAcetam IV 1,000 mg 100 100 In Saline 1 100ml.bag @ 400 mls/hr IVPB Q12HR [facility] Rx#:[id number] Intake, IV Titration 6.533 7.942 1.288 Amount Norepinephrine 32 mg In 1.859 Sodium Chloride 0.9% 218 ml @ 0.05 MCG/KG/MIN 1. 701 mls/hr IV .Q24H [facility] Rx#:[id number] Norepinephrine 32 mg In 4.674 7.942 1.288 Sodium Chloride 0.9% 218 ml @ 0.05 MCG/KG/MIN 1.84 mls/hr IV .Q24H [facility] Rx#: [id number] Output: Urine 3130 1445 1875 Other: Voiding Method Indwelling Catheter Indwelling Catheter ABP, PAP, CO, CI - Last Documented Arterial Blood Pressure 109/65 - Exam GENERAL EXAM: 44-year-old white female, with features of Down syndrome, obtunded, unresponsive to even deep painful stimuli. Not in respiratory d istress HEAD: Normocephalic/atraumatic. Down syndrome features noted. EENT: PERRLA, AL, no icterus, no neck masses, no JVD. CHEST: No chest wall deformity. Symmetrical expansion. LUNGS: Fine crackles at the base. CVS: Regular rate and rhythm, normal S1 and S2, no gallops, no murmurs, no rubs ABDOMEN: Soft, nontender. No hepatosplenomegaly, normal bowel sounds, no guarding or rigidity. EXTREMITIES: No clubbing, no edema, no cyanosis, 2+ pulses and upper and lower extremities. MUSCULOSKELETAL: Unable to assess. SKIN: Stage III decubitus ulcer on coccyx the wound bed is clean without any evidence of infection CENTRAL NERVOUS SYSTEM: Obtunded, keeps eyes closed, does not follow any commands. Minimal facial grimaces to painful stimuli. Pupils are round, tone is equal bilaterally. - Labs CBC & Chem 7: 04/21/20 04:12 04/21/20 04:12 Labs: Abnormal Lab Results - Last 24 Hours (Table) 04/20/20 04/20/20 04/21/20 Range/Units 18:40 23:41 01:44 WBC (3.8-10.6) k/uL RBC (3.80-5.40) m/uL Hgb (11.4-16.0) gm/dL Hct (34.0-46.0) % MCV (80.0-100.0) fL MCH (25.0-35.0) pg RDW (11.5-15.5) % Plt Count (150-450) k/uL Neutrophils # (1.3-7.7) k/uL Macrocytosis Sodium (137-145) mmol/L Potassium 3.2 L (3.5-5.1) mmol/L Chloride (98-107) mmol/L Carbon Dioxide (22-30) mmol/L Glucose (74-99) mg/dL POC Glucose (mg/dL) 113 H 101 H (75-99) mg/dL Calcium (8.4-10.2) mg/dL AST (14-36) U/L Total Protein (6.3-8.2) g/dL Albumin (3.5-5.0) g/dL 04/21/20 04/21/20 04/21/20 Range/Units 04:12 04:12 12:59 WBC 18.1 H (3.8-10.6) k/uL RBC 2.82 L (3.80-5.40) m/uL Hgb 10.3 L (11.4-16.0) gm/dL Hct 31.4 L (34.0-46.0) % MCV 111.4 H (80.0-100.0) fL MCH 36.6 H (25.0-35.0) pg RDW 15.6 H (11.5-15.5) % Plt Count 107 L (150-450) k/uL Neutrophils # 16.4 H (1.3-7.7) k/uL Macrocytosis Marked A Sodium 146 H (137-145) mmol/L Potassium (3.5-5.1) mmol/L Chloride 112 H (98-107) mmol/L Carbon Dioxide 34 H (22-30) mmol/L Glucose 102 H (74-99) mg/dL POC Glucose (mg/dL) 108 H (75-99) mg/dL Calcium 8.1 L (8.4-10.2) mg/dL AST 50 H (14-36) U/L Total Protein 5.4 L (6.3-8.2) g/dL Albumin 2.4 L (3.5-5.0) g/dL Microbiology - Last 24 Hours (Table) 04/18/20 06:49 Blood Culture - Preliminary Blood No Growth after 72 hours Assessment and Plan Assessment: Impression: 1 septic shock secondary to a UTI probably in combination with an extensive left lung pneumonia of an aspiration type.The patient was being aggressively resuscitated with IV fluids. The patient was on high-dose pressors. He is on a combination of vasopressin and norepinephrine infusion. Patient is on IV Zosyn and Levaquin. The patient's received a total of 4 L of IV fluid boluses , required diuretics over the last 24 hours, and now she is off pressors. 2 acute leukocytosis with bandemia secondary to above, improving 3 acute lactic acidosis secondary to above, resolved 4 acute kidney injury secondary to above, resolved 5 history of seizure disorder maintained on a combination of Depakote and Briviact on outpatient basis. The patient may be having underlying breakthrough seizures. The patient is currently on a combination of Depakote level of which is therapeutic and IV Keppra 6 unresponsiveness, consider metabolic encephalopathy, consider seizure with postictal state. 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 8 obesity 9 hypothyroidism 10 additional insufficiency maintained on hydrocortisone outpatient basis 11 [place] [facility] resident 12 stage III decubitus ulcer on sacral area, present on admission 13 chronic indwelling catheter related to stage III decubitus ulcer 14 bLadderand bowel incontinence 15 elevated ammonia level, may be another contributing factor to her encephalopathy, hence we will recommend nasogastric tube placement and starting the patient on lactulose. 16 toxic metabolic encephalopathy, we'll repeat CT of the brain today. No contrast. Recommendation: Continue present antibiotics coverage. Continue seizure medications. Arrange for CT of the brain Nasogastric tube and start lactulose. Continue aspiration precautions. Continue Lasix and antibiotics. Continue GI and DVT prophylaxis. Use pressors if needed for low blood pressure. Continue to follow-up chest x-ray. Prognosis remains guarded. Critical care time greater than 30 minutes Time with Patient: Greater than 30
[2020-04-21] MEDS: SODIUM CHLORIDE 0.9% 1,000 ML IV SCH (16:48)
[2020-04-21 18:21] LABS: Glucose,Whole Blood 88 mg/dL (75-99)
[2020-04-21] MEDS: LEVOFLOXACIN 500MG-D5W PMX 500 MG in DEXTROSE/WATER 1 100ML.BAG IVPB SCH (21:00)
[2020-04-21] MEDS: SENNOSIDES 8.6 MG TAB PO SCH (21:00)
[2020-04-21] MEDS: POTASSIUM CHLORIDE ER 20 MEQ TAB.ER PO SCH (22:06)
--- NOTE | 2020-04-21 22:30 | PN ---
PROGRESS NOTE DATE OF SERVICE: 04/21/2020 REASON FOR FOLLOWUP: Sepsis, aspiration pneumonia, UTI. INTERVAL HISTORY: The patient is currently afebrile. The patient is currently off the pressor support. The patient remains nonverbal. No vomiting, diarrhea or any other changes reported by the nursing staff. PHYSICAL EXAMINATION: Blood pressure 100/82 with a pulse of 131, temperature 98.2. She is 95% on 4 L nasal cannula. General description is a middle-aged female lying in bed in no distress. RESPIRATORY SYSTEM: Unlabored breathing with decreased breath sounds at the base. No wheeze. HEART: S1, S2. Tachycardic. ABDOMEN: Soft. No tenderness. LABS: Hemoglobin 10.3, white count 18.1 with a BUN of 13, creatinine 0.94. Blood and urine are negative. DIAGNOSTIC IMPRESSION AND PLAN: Patient with sepsis. Source is likely aspiration pneumonia urinary tract infection, covered with Zosyn and Levaquin. Try to obtain a sputum sample to narrow down the antibiotics and continue supportive care. MMODL / IJN: [id number] /
[2020-04-21 23:12] LABS: Glucose,Whole Blood 128 mg/dL (75-99)
[2020-04-21 23:52] LABS: Glucose,Whole Blood 122 mg/dL (75-99)
[2020-04-22] MEDS: POTASSIUM CHLORIDE ER 20 MEQ TAB.ER PO SCH ×2 (00:43→03:01)
[2020-04-22] MEDS: POTASSIUM CHLORIDE 20 MEQ in WATER FOR INJECTION 1 100ML.BAG IVPB SCH ×2 (00:44→03:01)
[2020-04-22] MEDS: ASCORBIC ACID 500 MG TAB PO SCH (06:34)
[2020-04-22] MEDS: VALPROATE SODIUM 250 MG in SODIUM CHLORIDE 0.9% 100 ML IVPB SCH ×3 (06:34→17:32)
[2020-04-22] MEDS: POTASSIUM CHLORIDE ER 10 MEQ TAB.ER.PRT PO SCH (06:34)
[2020-04-22] MEDS: LEVOTHYROXINE 75 MCG TAB PO SCH (06:34)
[2020-04-22] MEDS: PIPERACILLIN-TAZOBACTAM 3.375 GM in SODIUM CHLORIDE 0.9% 100 ML IVPB SCH ×3 (06:34→22:23)
[2020-04-22 06:39] LABS: Calcium 8.1 mg/dL (8.4-10.2); Potassium 3.6 mmol/L (3.5-5.1)
[2020-04-22] MEDS ORDERED: POTASSIUM BICARBONATE/CIT AC 20 MEQ TABLET.EFF NG-TUBE SCH (07:00)
[2020-04-22 07:47] LABS: Anisocytosis Slight; HGB 10.7 gm/dL (11.4-16.0); Hypochromasia Moderate; MCH 35.9 pg (25.0-35.0); MCHC 31.5 g/dL (31.0-37.0); MCV 113.7 fL (80.0-100.0); Macrocytosis Marked; Mean Platelet Volume 9.2; RBC 2.99 m/uL (3.80-5.40); RDW 16.5 % (11.5-15.5)
[2020-04-22 08:18] LABS: Band Neutrophils % 5 %; Metamyelocytes # (M) 0.16 k/uL (0); Metamyelocytes % 1 %; Myelocytes % 10 %; Neutrophils % (M) 79 %; Nucleated Red Blood Cells 1 /100 WBC (0-0); Total Cells Counted 200
[2020-04-22 08:19] LABS: Lymphocytes # (M) 0.48 k/uL (1.0-4.8); Monocytes # (M) 0.48 k/uL (0-1.0); Polychromasia Present
[2020-04-22 08:21] LABS: Toxic Granulation Present
[2020-04-22 08:22] LABS: Platelet Count 92 k/uL (150-450)
[2020-04-22 08:23] LABS: Poikilocytosis (M) Present
[2020-04-22] MEDS: HEPARIN SODIUM,PORCINE 5,000 UNIT/ML 1 ML VIAL SQ SCH ×2 (09:01→15:42)
[2020-04-22] MEDS: BRIVARACETAM 10 MG/ML PO SCH ×2 (09:02→20:17)
[2020-04-22] MEDS: HYDROCORTISONE SUCCINATE 100 MG/2 ML VIAL IV SCH ×2 (09:03→15:42)
[2020-04-22] MEDS: LACTULOSE 20 GM/30 ML CUP PO SCH (09:04)
[2020-04-22] MEDS: levETIRAcetam IV 1,000 MG in SALINE 1 100ML.BAG IVPB SCH ×2 (09:15→20:21)
[2020-04-22] MEDS ORDERED: DEXTROSE 5% IN WATER 100 ML with AMIODARONE 150 MG IV ONE (10:00)
[2020-04-22] MEDS ORDERED: AMIODARONE 360 MG in DEXTROSE 5% IN WATER 200 ML IV ONE ×2 (10:15)
[2020-04-22 11:24] LABS: ABG Base Excess 10.3 mmol/L; ABG HCO3 34 mmol/L (21-25); ABG Oxygen Saturation 96.4 % (94-97); ABG PCO2 46 mmHg (35-45); ABG PH 7.48 (7.35-7.45); ABG PO2 72 mmHg (83-108); ABG TCO2 35 mmol/L (19-24); Allen Test Performed? Yes
[2020-04-22] MEDS: DEXTROSE 5% IN WATER 1,000 ML IV SCH ×2 (12:03→22:23)
[2020-04-22 12:41] LABS: Glucose,Whole Blood 201 mg/dL (75-99)
--- NOTE | 2020-04-22 12:58 | P.CRDCN ---
History of Present Illness History of present illness: 44-year-old intermediate resident with a history of Down syndrome and developmental delay who was at baseline nonverbal and non-mobile Admitted with sepsis Transferred to the ICU on account of profound hypotension and septic shock and fever with respiratory distress Cardiology was consulted on account of A. fib with RVR She was treated with IV antibiotics IV amiodarone was started and she is back in sinus rhythm No history is available from this patient At this time her blood pressures 93 203 mmHg systolic and diastolics are in the 60s She is in sinus rhythm pulse rate is in the 60s temperature 99.2 respirations 18-20 Breath sounds are reduced bilaterally on account of poor is respiratory effort S1 and S2 are soft and normal no murmurs Impression A. fib with RVR, transient Currently on IV amiodarone Septic shock likely urosepsis Plan Continue IV amiodarone today and tomorrow we'll switch to oral if possible Past Medical History Past Medical History: Seizure Disorder, Thyroid Disorder Additional Past Medical History / Comment(s): downs syndrome developmental delay History of Any Multi-Drug Resistant Organisms: Unobtainable Past Surgical History: Unable to Obtain Past Psychological History: Unable to Obtain Smoking Status: Never smoker Past Alcohol Use History: Unable to Obtain Past Drug Use History: Unable to Obtain Medications and Allergies Home Medications Medication Instructions Recorded Confirmed Type Levothyroxine Sodium [Synthroid] 75 mcg PO DAILY@0700 05/06/18 04/18/20 History Hydrocortisone [Cortef] 10 mg PO HS #30 tab 05/11/18 04/18/20 Rx Albuterol Nebulized [Ventolin 2.5 mg INHALATION RT-Q6H PRN 04/18/20 04/18/20 History Nebulized] Ascorbic Acid [Vitamin C] 1,000 mg PO DAILY@0700 04/18/20 04/18/20 History Brivaracetam [Briviact] 50 mg PO BID 04/18/20 04/18/20 History Calcium Polycarbophil [Fibercon] 625 mg PO DAILY 04/18/20 04/18/20 History Divalproex Sodium [Depakote] 375 mg PO TID@0700,1300,1900 04/18/20 04/18/20 History Hydrocortisone [Cortef] 20 mg PO BID@0700,1600 04/18/20 04/18/20 History Magnesium Hydroxide [Milk of 2,400 mg PO DAILY PRN 04/18/20 04/18/20 History Magnesia] Potassium Chloride ER [K-Dur 10] 10 meq PO BID@0700,1600 04/18/20 04/18/20 History Pro-Stat Awc 30 ml PO BID 04/18/20 04/18/20 History Sennosides [Senna] 17.2 mg PO HS@199904/18/20 04/18/20 History Allergies Allergy/AdvReac Type Severity Reaction Status Date / Time No Known Allergies Allergy Verified 04/18/20 09:41 Physical Exam Vitals: Vital Signs Temp Pulse Resp BP Pulse Ox 04/22/20 07:00 65 14 103/69 96 04/22/20 06:00 64 18 93/68 97 04/22/20 05:00 108 H 14 155/94 95 04/22/20 04:00 99.2 F 111 H 20 142/107 96 04/22/20 03:00 95 14 101/78 97 04/22/20 02:00 92 11 L 103/68 96 04/22/20 01:00 104 H 20 96/80 95 04/22/20 00:38 98 17 87/74 93 L 04/22/20 00:00 97.9 F 95 14 94/54 97 04/21/20 23:00 91 18 90/56 95 04/21/20 22:00 98 17 98/74 95 04/21/20 21:00 86 11 L 125/79 97 04/21/20 20:00 98.2 F 131 H 22 100/82 95 04/21/20 19:00 87 14 97 04/21/20 18:30 91 14 97 04/21/20 18:00 84 16 109/80 97 04/21/20 17:30 73 21 109/80 98 04/21/20 17:00 80 19 97 04/21/20 16:30 109 H 21 116/85 95 04/21/20 16:00 97.7 F 92 14 116/105 97 04/21/20 15:30 84 13 103/75 96 04/21/20 15:00 83 13 115/72 96 04/21/20 14:30 95/72 04/21/20 14:00 79 14 106/68 97 04/21/20 13:30 87 19 120/66 96 04/21/20 13:00 93 14 97 Intake and Output 04/21/20 04/22/20 04/22/20 22:59 06:59 14:59 Intake Total 844 395.214 23 Output Total 760 230 30 Balance 84 165.214 -7 Intake: IV 684 184 23 Levofloxacin 500Mg-D5w 100 Pmx 500 mg In Dextrose/ Water 1 100ml.bag @ 100 mls/hr IVPB Q24H [facility] Rx#: [id number] Piperacillin-Tazobactam 3 200 .375 gm In Sodium Chloride 0.9% 100 ml @ 25 mls/hr IVPB Q8H [facility] Rx#: [id number] Pressure Bags 24 24 3 Sodium Chloride 0.9% 1, 160 160 20 000 ml @ 20 mls/hr IV . Q24H [facility] Rx#:[id number] Valproate Sodium 500 mg 100 In Sodium Chloride 0.9% 100 ml @ 100 mls/hr IVPB Q8HR [facility] Rx#:[id number] levETIRAcetam IV 1,000 mg 100 In Saline 1 100ml.bag @ 400 mls/hr IVPB Q12HR [facility] Rx#:[id number] Intake, IV Titration 0 1.214 Amount Norepinephrine 32 mg In 0 1.214 Sodium Chloride 0.9% 218 ml @ 0.05 MCG/KG/MIN 1.84 mls/hr IV .Q24H [facility] Rx#: [id number] Tube Feeding 100 150 Other 60 60 Output: Urine 760 230 30 Other: Voiding Method Indwelling Catheter Indwelling Catheter # Bowel Movements 1 ABP, PAP, CO, CI - Last 8 Hours Arterial Blood Pressure 92/66 Arterial Blood Pressure 111/71 Arterial Blood Pressure 123/78 Results 04/22/20 06:00 04/22/20 06:00 CBC 04/22/20 Range/Units 06:00 WBC 16.0 H (3.8-10.6) k/uL RBC 2.99 L (3.80-5.40) m/uL Hgb 10.7 L (11.4-16.0) gm/dL Hct 34.0 (34.0-46.0) % Plt Count 92 L (150-450) k/uL Comprehensive Metabolic Panel 04/21/20 04/21/20 04/22/20 Range/Units 18:24 20:57 06:00 Sodium 154 H (137-145) mmol/L Potassium 2.8 L 2.8 L 3.6 (3.5-5.1) mmol/L Chloride 118 H (98-107) mmol/L Carbon Dioxide 37 H (22-30) mmol/L BUN 17 (7-17) mg/dL Creatinine 1.02 (0.52-1.04) mg/dL Glucose 143 H (74-99) mg/dL Calcium 8.1 L (8.4-10.2) mg/dL Current Medications Generic Name Dose Route Start Last Admin Trade Name Freq PRN Reason Stop Dose Admin Ascorbic Acid 1,000 mg 04/19/20 07:00 04/22/20 06:34 Ascorbic Acid 500 Mg Tab PO 1,000 mg DAILY@0700 [facility] Administration Calcium Polycarbophil 625 mg 04/19/20 09:00 04/22/20 09:03 Calcium Polycarbophil 625 Mg Tab PO Not Given DAILY [facility] Heparin Sodium (Porcine) 5,000 unit 04/19/20 00:00 04/22/20 09:01 Heparin Sodium,Porcine 5,000 Unit/Ml 1 Ml Vial SQ 5,000 unit Q8HR [facility] Administration Hydrocortisone Sodium Succinate 50 mg 04/21/20 21:00 04/22/20 09:03 Hydrocortisone Succinate 100 Mg/2 Ml Vial IV 50 mg Q12HR [facility] Administration Sodium Chloride 1,000 mls @ 20 mls/hr 04/18/20 08:30 04/21/20 16:48 Saline 0.9% IV 20 mls/hr .Q24H [facility] Administration Piperacillin Sod/Tazobactam 100 mls @ 25 mls/hr 04/18/20 15:00 04/22/20 06:34 Sod 3.375 gm/ Sodium Chloride IVPB 25 mls/hr Q8H [facility] Administration Levetiracetam 1,000 mg/ IV 100 mls @ 400 mls/hr 04/18/20 21:00 04/22/20 09:15 Solution IVPB 400 mls/hr Q12HR [facility] Administration Levofloxacin 500 mg/ IV 100 mls @ 100 mls/hr 04/20/20 21:00 04/21/20 21:00 Solution IVPB 100 mls/hr Q24H [facility] Administration Valproic Acid 250 mg/ Sodium 102.5 mls @ 100 mls/hr 04/20/20 18:00 04/22/20 06:34 Chloride IVPB 100 mls/hr Q6HR [facility] Administration Amiodarone HCl 360 mg/ 200 mls @ 33.333 mls/hr 04/22/20 10:15 04/22/20 10:08 Dextrose/Water IV 04/22/20 16:14 1 mg/min .Q6H [facility] 33.333 mls/hr Administration Protocol 1 MG/MIN Amiodarone HCl 300 mg/ 250 mls @ 25 mls/hr 04/22/20 16:00 Dextrose/Water IV 04/23/20 09:59 .Q10H [facility] Protocol 0.5 MG/MIN Dextrose/Water 1,000 mls @ 75 mls/hr 04/22/20 10:00 04/22/20 12:03 Dextrose 5%-Water Iv Soln IV 75 mls/hr .[id number] [facility] Administration Levothyroxine Sodium 75 mcg 04/19/20 07:00 04/22/20 06:34 Levothyroxine 75 Mcg Tab PO 75 mcg DAILY@0700 [facility] Administration Magnesium Hydroxide 2,400 mg 04/18/20 15:18 Magnesium Hydroxide 2,400 Mg/10 Ml Cup PO DAILY PRN Constipation Miscellaneous Information 1 each 04/20/20 05:13 Potassium Replacement Protocol 1 Each Misc MISCELLANE DAILY PRN Per Protocol Protocol Patient's Own ( 50 mg 04/18/20 21:00 04/22/20 09:02 Brivaracetam [ PO Not Given Briviact] 10 Mg/Ml BID [facility] Solution) Potassium Bicarbonate 20 meq 04/22/20 13:00 Potassium Bicarbonate/Cit Ac 20 Meq Tablet.Eff PO QID [facility] Senna 17.2 mg 04/18/20 20:00 04/21/20 21:00 Sennosides 8.6 Mg Tab PO 17.2 mg HS@2000 [facility] Administration Intake and Output 04/21/20 04/22/20 04/22/20 22:59 06:59 14:59 Intake Total 844 395.214 23 Output Total 760 230 30 Balance 84 165.214 -7 Intake: IV 684 184 23 Levofloxacin 500Mg-D5w 100 Pmx 500 mg In Dextrose/ Water 1 100ml.bag @ 100 mls/hr IVPB Q24H [facility] Rx#: [id number] Piperacillin-Tazobactam 3 200 .375 gm In Sodium Chloride 0.9% 100 ml @ 25 mls/hr IVPB Q8H [facility] Rx#: [id number] Pressure Bags 24 24 3 Sodium Chloride 0.9% 1, 160 160 20 000 ml @ 20 mls/hr IV . Q24H [facility] Rx#:[id number] Valproate Sodium 500 mg 100 In Sodium Chloride 0.9% 100 ml @ 100 mls/hr IVPB Q8HR [facility] Rx#:[id number] levETIRAcetam IV 1,000 mg 100 In Saline 1 100ml.bag @ 400 mls/hr IVPB Q12HR [facility] Rx#:[id number] Intake, IV Titration 0 1.214 Amount Norepinephrine 32 mg In 0 1.214 Sodium Chloride 0.9% 218 ml @ 0.05 MCG/KG/MIN 1.84 mls/hr IV .Q24H [facility] Rx#: [id number] Tube Feeding 100 150 Other 60 60 Output: Urine 760 230 30 Other: Voiding Method Indwelling Catheter Indwelling Catheter # Bowel Movements 1 04/22/20 06:00 04/22/20 06:00
[2020-04-22] MEDS: POTASSIUM BICARBONATE/CIT AC 20 MEQ TABLET.EFF PO SCH ×3 (13:16→20:21)
--- NOTE | 2020-04-22 15:16 | P.PN ---
Subjective Progress Note Date: 04/22/20 Principal diagnosis: Septic shock secondary to urinary tract infection This is a 44-year-old female patient, a half-way resident with a known history of Down syndrome and developmental delay, normally nonverbal and nonmobile. The patient was admitted through emergency for sepsis and he was admitted to the medical floor and within few hours of admission the patient got transferred to the ICU because of profound hypotension and septic shock. The patient became febrile and she had increased respiration and hypertension and she was brought into the emergency department and the patient was diagnosed having UTI with secondary sepsis. At the time of the admission, the patient had a lactic acid of 5.8, white cell count of 15.3, hemoglobin of 14.6, 9% bandemia, the sodium level of 153 with a BUN of 41 and creatinine of 1.9. The UA was abnormal with many clumps of white cells and bacteria and the patient's coronavirus/: 19 nasal swab by PCR came back negative. Chest x-ray showed mild hilar prominence. In the emergency department, the patient was given IV fluids and he was started on a combination of Zosyn and Zithromax. The patient got transferred to the medical floor and the patient was found to be hypotensive, unresponsive to painful stimulation and she was having tremors/questionable seizure activity. Systolic blood pressure was apparently the mid 50s. The patient received a total of 3 L of fluid bolus of normal saline. Mentation was altered and quite diminished. The patient was placed on 12 L of oxygen by nasal cannula and her pulse ox was in the mid 90s. At one point, a CODE BLUE was also called thinking that the patient may not several falls for a blood pressure. The patient was placed on a fish smoker. She was in sinus tachycardia. Pressors were started and subsequent blood pressure reading was 70/40. The patient got transferred to the intensive care units. Currently she is on levo fed which is running at a higher dose. Vasopressin was also started for hemodynamic support. This was started at physiologic dose. Started the patient also on IV fluids. Start the patient on hydrocortisone stress dose. At the same time, there was a concern for seizure activity. Start the patient on Keppra and she'll be receiving 1 g every 12 hours. Upon further review of the records, the patient is known to have also seizure disorder. She has history of hypothyroidism. She has been hospitalized in the past because of seizure acti vity and disorder. She was taken Depakote and Briviact on outpatient basis. She has previous history of intractable epilepsy and she has been evaluated [facility] many years back. She was hospitalized a few years ago for seizure activity and pneumonia. I believe she also has a component of venous insufficiency and the patient was receiving hydrocortisone on outpatient basis. On today's evaluation of 04/19/2020 patient is being seen for a follow-up. She seems to be well resuscitated since yesterday. She is currently on a normal saline infusion running at the rate of on 30 mL an hour. She remains on physiologic dose of vasopressin and she is also on norepinephrine running at 0 .23 mcg/kg per minute. Oxygen currently is at 6 L per minute nasal cannula. She has a congested cough. She is producing adequate amount of urine output. The chest x-ray from today wanting loss in the left lung and there is significant consolidation of the left compared to the right along with some air bronchograms in the left lower lobe. Consider the possibility of a left lung pneumonia/aspiration. The urine cultures still pending. Blood cultures still pending. Meanwhile, the patient is covered with a combination of Levaquin and Zosyn. The white cell count today is up to 33.8. The patient has a sodium of 147. Lactic acid is down to 1.8. Creatinine is down to 1.2 with a BUN of 19. As such, there has been significant improvement in her condition. In terms of seizure activity, no further jerking body movements has been noticed. The patient is currently on a combination of Keppra and IV Depakote. The triple- lumen catheter inserted in her right IJ. On 04/20/2020 patient seen in follow-up in the intensive care unit, she is still quite encephalopathic, almost stuporous, withdraws to very vigorous noxious stimulation, we had to OPEN her eyes open to evaluate her pupillary response, she is PERRLA, appears to be in no acute respiratory distress, and does have audible chest congestion. Currently on 4 L of oxygen pulse ox of 90%, hemodynamically she is stable, she is off the vasopressors including levofed and vasopressin, she isn't point an adenosine at a rate of 25 ML per hour, she is currently on 2 L of oxygen pulse ox of 94%, she is on, initially Levaquin and Zosyn for antibiotic coverage, her urine culture showed no growth, blood culture was negative as well. sHe has a chronic indwelling catheter related to stage III sacral decubitus ulcer, and she has chronic bowel incontinence. Today's chest x-ray shows diffuse pleural parenchymal changes correlating for diffuse pneumonia and possibility of CHF. White count is improving, down to 20.4 on today's labs, hemoglobin is 9.8, sodium is 140, potassium is 3.0, chloride is 112, CO2 is 27, BUN is 13 creatinine of 0.74, ferritin level was elevated as 1662, proBNP came back elevated at 3610, LFTs are now within normal limits, and her Coumadin 19 PCR was negative. Patient has had no witnessed seizure activit y, she is on Keppra and IV Depakote, neurology services are following, her EEG showed diffuse slowing consistent with a toxic metabolic hypoxic encephalopathy. Patient was reevaluated today on 04/21/20, remains in the ICU, she remains quite encephalopathic, obtunded, cannot arouse even with deep painful stimuli, patient is not on any sedatives or narcotics, no seizure activity has been noticed. Patient does have history of Down syndrome and seizure disorder, she was initially admitted with urosepsis. EEG done by neurology showed diffuse slowing consistent with toxic metabolic encephalopathy, there was no epileptiform focus or activity. Echocardiogram is basically unremarkable. Chest x-ray initially on admission showed evidence of fluid overload, underlying pneumonia is not entirely ruled out but felt to be less likely. Patient remained on antibiotics for her UTI and sepsis, again not clear whether the patient has underlying pneumonia. CBC showed WBC count of 18.1 hemoglobin is 10.3. Electrolytes are normal, however her ammonia level yesterday was 38. And I'm recommending a n asogastric tube to be placed, and recommending lactulose to get her ammonia level down hoping that. Her mental status. Repeat CT of the brain this morning is pending. Blood cultures have been negative since 04/18, urine cultures have been negative since admission. Reevaluated today on 04/22/20, as soon as I walked into the ICU, I was notified by the nurse that the patient is in atrial fibrillation with RVR. Patient was given amiodarone bolus and placed on amiodarone drip, patient was also h ypotensive requiring norepinephrine. Logically, the patient remains encephalopathic, difficult to arouse, and not responding to any stimuli. Not following any instructions. Shortly after she was placed on amiodarone, patient went into sinus rhythm, and her blood pressure also improved. Patient is being treated mostly for initial presentation of septic shock and urosepsis. Patient has Down syndrome, history of seizure disorder, and developmental delay. Sodium today is noted to be elevated at 154, hence I plan to correct that by giving the patient's free water flushes via nasogastric tube. Her ammonia level came back normal today, hence we'll hold on lactulose. Patient is now on potassium 20 mEq via nasogastric tube 4 times a day, her IV fluid was switched to D5W at 75 mL/h, and she will continue with water flushes at 400 mL every 4 hours. ABG on 4 L nasal cannula showed a pO2 of 72 pCO2 of 46 pH of 7.48, hence I did not feel that the patient stated to be intubated or mechanically ventilated. My major concern is if the patient is placed on mechanical ventilation, she would likely require tracheostomy and PEG tube placement, and it would be extremely difficult to wean and extubate the patient with all these medical issues as noted. Objective - Vital Signs Vital signs: Vital Signs Temp 97.7 F 04/22/20 12:00 Pulse 84 04/22/20 14:00 Resp 19 04/22/20 14:00 BP 90/59 04/22/20 14:00 Pulse Ox 97 04/22/20 14:00 Intake & Output 04/21/20 04/22/20 04/22/20 18:59 06:59 18:59 Intake Total 637.288 967.214 958.198 Output Total 2550 515 225 Balance -1912.712 452.214 733.198 Weight 79.8 kg Intake: IV 556 676 184 Levofloxacin 500Mg-D5w 100 Pmx 500 mg In Dextrose/ Water 1 100ml.bag @ 100 mls/hr IVPB Q24H [facility] Rx#: [id number] Piperacillin-Tazobactam 3 100 100 .375 gm In Sodium Chloride 0.9% 100 ml @ 25 mls/hr IVPB Q8H [facility] Rx#: [id number] Pressure Bags 36 36 24 Sodium Chloride 0.9% 1, 220 240 160 000 ml @ 20 mls/hr IV . Q24H [facility] Rx#:[id number] Valproate Sodium 500 mg 100 100 In Sodium Chloride 0.9% 100 ml @ 100 mls/hr IVPB Q8HR [facility] Rx#:[id number] levETIRAcetam IV 1,000 mg 100 100 In Saline 1 100ml.bag @ 400 mls/hr IVPB Q12HR [facility] Rx#:[id number] Intake, IV Titration 1.288 1.214 244.198 Amount Dextrose 5% in Water 1, 225 000 ml @ 75 mls/hr IV . [id number] [facility] Rx#:[id number] Norepinephrine 32 mg In 1.288 1.214 19.198 Sodium Chloride 0.9% 218 ml @ 0.05 MCG/KG/MIN 1.84 mls/hr IV .Q24H [facility] Rx#: [id number] Oral 30 Tube Feeding 50 200 100 Other 30 90 400 Output: Urine 2550 515 225 Other: Voiding Method Indwelling Catheter Indwelling Catheter Indwelling Catheter # Bowel Movements 1 1 ABP, PAP, CO, CI - Last Documented Arterial Blood Pressure 126/73 - Exam GENERAL EXAM: 44-year-old white female, with features of Down syndrome, obtunded, unresponsive to even deep painful stimuli. Not in respiratory distress, on 4 L nasal cannula HEAD: Normocephalic/atraumatic. Down syndrome features noted. EENT: PERRLA, [place], no icterus, no neck masses, no JVD. CHEST: No chest wall deformity. Symmetrical expansion. LUNGS: Fine crackles at the base. CVS: Irregular irregular rhythm, normal S1 and S2, no gallops, no murmurs, no rubs ABDOMEN: Soft, nontender. No hepatosplenomegaly, normal bowel sounds, no guarding or rigidity. EXTREMITIES: No clubbing, no edema, no cyanosis, 2+ pulses and upper and lower extremities. MUSCULOSKELETAL: Unable to assess. SKIN: Stage III decubitus ulcer on coccyx the wound bed is clean without any evidence of infection CENTRAL NERVOUS SYSTEM: Obtunded, keeps eyes closed, does not follow any commands. Minimal facial grimaces to painful stimuli. Pupils are round, tone is equal bilaterally. - Labs CBC & Chem 7: 04/22/20 06:00 04/22/20 06:00 Labs: Abnormal Lab Results - Last 24 Hours (Table) 04/21/20 04/21/20 04/21/20 Range/Units 18:24 20:57 23:11 WBC (3.8-10.6) k/uL RBC (3.80-5.40) m/uL Hgb (11.4-16.0) gm/dL MCV (80.0-100.0) fL MCH (25.0-35.0) pg RDW (11.5-15.5) % Plt Count (150-450) k/uL Neutrophils # (Manual) (1.3-7.7) k/uL Lymphocytes # (Manual) (1.0-4.8) k/uL Metamyelocytes # (Man) (0) k/uL Myelocytes # (Manual) (0) k/uL Nucleated RBCs (0-0) /100 WBC Macrocytosis ABG pH (7.35-7.45) ABG pCO2 (35-45) mmHg ABG pO2 (83-108) mmHg ABG HCO3 (21-25) mmol/L ABG Total CO2 (19-24) mmol/L Sodium (137-145) mmol/L Potassium 2.8 L 2.8 L (3.5-5.1) mmol/L Chloride (98-107) mmol/L Carbon Dioxide (22-30) mmol/L Glucose (74-99) mg/dL POC Glucose (mg/dL) 128 H (75-99) mg/dL Calcium (8.4-10.2) mg/dL 04/21/20 04/22/20 04/22/20 Range/Units 23:51 06:00 06:00 WBC 16.0 H (3.8-10.6) k/uL RBC 2.99 L (3.80-5.40) m/uL Hgb 10.7 L (11.4-16.0) gm/dL MCV 113.7 H (80.0-100.0) fL MCH 35.9 H (25.0-35.0) pg RDW 16.5 H (11.5-15.5) % Plt Count 92 L (150-450) k/uL Neutrophils # (Manual) 13.40 H (1.3-7.7) k/uL Lymphocytes # (Manual) 0.48 L (1.0-4.8) k/uL Metamyelocytes # (Man) 0.16 H (0) k/uL Myelocytes # (Manual) 1.60 H (0) k/uL Nucleated RBCs 1 H (0-0) /100 WBC Macrocytosis Marked A ABG pH (7.35-7.45) ABG pCO2 (35-45) mmHg ABG pO2 (83-108) mmHg ABG HCO3 (21-25) mmol/L ABG Total CO2 (19-24) mmol/L Sodium 154 H (137-145) mmol/L Potassium (3.5-5.1) mmol/L Chloride 118 H (98-107) mmol/L Carbon Dioxide 37 H (22-30) mmol/L Glucose 143 H (74-99) mg/dL POC Glucose (mg/dL) 122 H (75-99) mg/dL Calcium 8.1 L (8.4-10.2) mg/dL 04/22/20 04/22/20 Range/Units 11:22 12:38 WBC (3.8-10.6) k/uL RBC (3.80-5.40) m/uL Hgb (11.4-16.0) gm/dL MCV (80.0-100.0) fL MCH (25.0-35.0) pg RDW (11.5-15.5) % Plt Count (150-450) k/uL Neutrophils # (Manual) (1.3-7.7) k/uL Lymphocytes # (Manual) (1.0-4.8) k/uL Metamyelocytes # (Man) (0) k/uL Myelocytes # (Manual) (0) k/uL Nucleated RBCs (0-0) /100 WBC Macrocytosis ABG pH 7.48 H (7.35-7.45) ABG pCO2 46 H (35-45) mmHg ABG pO2 72 L (83-108) mmHg ABG HCO3 34 H (21-25) mmol/L ABG Total CO2 35 H (19-24) mmol/L Sodium (137-145) mmol/L Potassium (3.5-5.1) mmol/L Chloride (98-107) mmol/L Carbon Dioxide (22-30) mmol/L Glucose (74-99) mg/dL POC Glucose (mg/dL) 201 H (75-99) mg/dL Calcium (8.4-10.2) mg/dL Microbiology - Last 24 Hours (Table) 04/18/20 06:49 Blood Culture - Preliminary Blood No Growth after 96 hours Assessment and Plan Assessment: Impression: 1 septic shock secondary to a UTI probably in combination with an extensive left lung pneumonia of an aspiration type.The patient was being aggressively resuscitated with IV fluids. The patient was on high-dose pressors. Was on a combination of vasopressin and norepinephrine infusion. Patient is on IV Zosyn and Levaquin. The patient's received a total of 4 L of IV fluid boluses , required diuretics over the last 24 hours, and now she is off pressors. 2 acute leukocytosis with bandemia secondary to above, improving 3 acute lactic acidosis secondary to above, resolved 4 acute kidney injury secondary to above, resolved 5 history of seizure disorder maintained on a combination of Depakote and Briviact on outpatient basis. The patient may be having underlying breakthrough seizures. The patient is currently on a combination of Depakote level of which is therapeutic and IV Keppra 6 unresponsiveness, consider metabolic encephalopathy, consider seizure with postictal state. 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 8 obesity 9 hypothyroidism 10 adrenal insufficiency maintained on hydrocortisone outpatient basis 11 half-way resident 12 stage III decubitus ulcer on sacral area, present on admission 13 chronic indwelling catheter related to stage III decubitus ulcer 14 bLadder and bowel incontinence 15 elevated ammonia level, resolved today 16 toxic metabolic encephalopathy, being followed by neurology, 17 hypernatremia, will correct with free water flushes via nasogastric tube and changing her main IV fluid to D5W. 18 new onset atrial fibrillation requiring amiodarone bolus and amiodarone drip, resolved shortly after placement on amiodarone, presently in sinus rhythm. 19 hypokalemia secondary to diuretics, will correct accordingly as it may be the cause of her atrial fibrillation with RVR. Recommendation: Continue to monitor closely in the ICU. Continue amiodarone. Address hypokalemia and hyponatremia accordingly. Continue present antibiotics coverage. Continue seizure medications. CT of the brain is nondiagnostic. Discontinue lactulose since the patient's ammonia level is back to normal today.. Continue aspiration precautions. Continue diuretics. Continue GI and DVT prophylaxis. Use pressors as needed to maintain arterial pressure above 65. Continue to follow-up chest x-ray. Prognosis remains guarded. Critical care time greater than 30 minutes Time with Patient: Greater than 30
[2020-04-22] MEDS: SODIUM CHLORIDE 0.9% 1,000 ML IV SCH (15:37)
--- NOTE | 2020-04-22 15:46 | XR ---
EXAMINATION TYPE: XR chest 1V portable DATE OF EXAM: 04/22/2020 COMPARISON: 04/21/2020 HISTORY: Cough TECHNIQUE: Single frontal view of the chest is obtained. FINDINGS: Central line again appears to be low in position and should be correlated clinically. NG t ube stable. Diffuse interstitial pattern with bilateral infiltrate and small effusions. No sizable pn eumothorax. IMPRESSION: 1. Stable diffuse pleural-parenchymal changes
--- NOTE | 2020-04-22 15:51 | PN ---
PROGRESS NOTE DATE OF SERVICE: 04/22/2020 REASON FOR FOLLOWUP: Aspiration pneumonia and UTI. INTERVAL HISTORY: The patient is currently afebrile. The patient was on pressors this morning, apparently off pressors. The patient is currently on 4 L, has been tolerating her tube feeds through the NG. No vomiting or diarrhea has been reported. Patient herself is unable to provide any history. PHYSICAL EXAMINATION: Blood pressure 104/58 with a pulse of 81, temperature 97.7. She is 99% on 4 L nasal cannula. General description is a middle-aged female lying in bed in no distress. RESPIRATORY SYSTEM: Unlabored breathing with decreased intensity of breath sounds. No wheeze. HEART: S1, S2. Regular rate and rhythm. ABDOMEN: Soft. No tenderness. LABS: Hemoglobin 10.7, white count 16,000. BUN of 17, creatinine 1.02. DIAGNOSTIC IMPRESSION AND PLAN: Patient admitted to hospital with sepsis, likely an aspiration pneumonia plus/minus urinary tract infection. The patient has shown clinical response and culture has been negative so far. normal. Plan to continue Zosyn and monitor her clinical course closely. MMODL / IJN: [id number] /
--- NOTE | 2020-04-22 16:41 | P.PN ---
Subjective Progress Note Date: 04/22/20 04/22/2020: patient currently not on any sedatives. Continues to be very encephalopathic. Patient is intermittently on low-dose norepinephrine. No seizure-like activity noted. Patient has now developed atrial fibrillation with rapid ventricular rate. Patient is on subcu heparin, also started on Cardizem. 04/21/2020: Patient currently not on any sedatives. She is severely encephalopathic. Keeps her eyes closed. No seizure-like activity noticed. 04/20/2020: Patient was seen by Dr. Lima initially yesterday for mental status change. Please refer to her note for details. Patient does have history of Down syndrome and seizure disorder. Patient was found to have urosepsis. Patient was having some trembling, for which neurology was consulted to rule out seizures. Patient currently not on any sedation. According to the nurse report, it was reported from the assisted where she lives, that she sometimes have shaking like spells, which were considered not seizures. Patient had an EEG performed yesterday, which revealed diffuse slowing consistent with toxic metabolic encephalopathy. No epileptiform activity were seen. Patient had a 2-D echo performed today, which revealed EF greater than 55% with normal left-ventricular size, wall thickness and systolic function. Left atrial size is normal. Mild MR. Chest x-ray showed diffuse pleural-parenchymal changes correlate for diffuse pneumonia versus CHF. Patient's blood test from 04/20/2020 showed WBC 20.4 hemoglobin 9.8 platelets were 118. Patient's sodium was 147, potassium 5.2, BUN 19, currently 1.22, which has now improved. Hepatic panel with AST 42, ALT 28. Objective - Vital Signs Vital signs: Vital Signs Temp 97.7 F 04/22/20 12:00 Pulse 78 04/22/20 15:00 Resp 14 04/22/20 15:00 BP 90/59 04/22/20 15:00 Pulse Ox 98 04/22/20 15:00 Intake & Output 04/21/20 04/22/20 04/22/20 18:59 06:59 18:59 Intake Total 637.288 810.221 0336.198 Output Total 2550 515 300 Balance -1912.712 452.214 756.198 Weight 79.8 kg Intake: IV 556 676 207 Levofloxacin 500Mg-D5w 100 Pmx 500 mg In Dextrose/ Water 1 100ml.bag @ 100 mls/hr IVPB Q24H [facility] Rx#: [id number] Piperacillin-Tazobactam 3 100 100 .375 gm In Sodium Chloride 0.9% 100 ml @ 25 mls/hr IVPB Q8H [facility] Rx#: [id number] Pressure Bags 36 36 27 Sodium Chloride 0.9% 1, 220 240 180 000 ml @ 20 mls/hr IV . Q24H [facility] Rx#:[id number] Valproate Sodium 500 mg 100 100 In Sodium Chloride 0.9% 100 ml @ 100 mls/hr IVPB Q8HR [facility] Rx#:[id number] levETIRAcetam IV 1,000 mg 100 100 In Saline 1 100ml.bag @ 400 mls/hr IVPB Q12HR [facility] Rx#:[id number] Intake, IV Titration 1.288 1.214 319.198 Amount Dextrose 5% in Water 1, 300 000 ml @ 75 mls/hr IV . [id number] [facility] Rx#:[id number] Norepinephrine 32 mg In 1.288 1.214 19.198 Sodium Chloride 0.9% 218 ml @ 0.05 MCG/KG/MIN 1.84 mls/hr IV .Q24H [facility] Rx#: [id number] Oral 30 Tube Feeding 50 200 100 Other 30 90 400 Output: Urine 2550 515 300 Other: Voiding Method Indwelling Catheter Indwelling Catheter Indwelling Catheter # Bowel Movements 1 1 ABP, PAP, CO, CI - Last Documented Arterial Blood Pressure 120/74 - Exam Patient is significantly obtunded. patient today slightly open her eyes to calling her name, but did not keep her eyes open. Her pupils are 5 mm, reacting to 4 mm. face is symmetric. Patient has very short stature. Short neck. Patient holds her arms up and slowly brings it down, equally with no focal signs and equal tone. Patient does slightly withdraw to painful stimuli..She keeps her eyes closed. Does not follow commands. Patient does facial grimaces to painful stimuli with some mild withdrawal of the fingers. No obvious seizure activity noted. Tone is equal bilaterally. Abdomen is soft. Patient has stage III decubitus ulcers. No scoliosis or deformity. - Labs CBC & Chem 7: 04/22/20 06:00 04/22/20 06:00 Labs: Abnormal Lab Results - Last 24 Hours (Table) 12/15/20 12/15/20 12/15/20 Range/Units 18:24 20:57 23:11 WBC (3.8-10.6) k/uL RBC (3.80-5.40) m/uL Hgb (11.4-16.0) gm/dL MCV (80.0-100.0) fL MCH (25.0-35.0) pg RDW (11.5-15.5) % Plt Count (150-450) k/uL Neutrophils # (Manual) (1.3-7.7) k/uL Lymphocytes # (Manual) (1.0-4.8) k/uL Metamyelocytes # (Man) (0) k/uL Myelocytes # (Manual) (0) k/uL Nucleated RBCs (0-0) /100 WBC Macrocytosis ABG pH (7.35-7.45) ABG pCO2 (35-45) mmHg ABG pO2 (83-108) mmHg ABG HCO3 (21-25) mmol/L ABG Total CO2 (19-24) mmol/L Sodium (137-145) mmol/L Potassium 2.8 L 2.8 L (3.5-5.1) mmol/L Chloride (98-107) mmol/L Carbon Dioxide (22-30) mmol/L Glucose (74-99) mg/dL POC Glucose (mg/dL) 128 H (75-99) mg/dL Calcium (8.4-10.2) mg/dL 04/21/20 04/22/20 04/22/20 Range/Units 23:51 06:00 06:00 WBC 16.0 H (3.8-10.6) k/uL RBC 2.99 L (3.80-5.40) m/uL Hgb 10.7 L (11.4-16.0) gm/dL MCV 113.7 H (80.0-100.0) fL MCH 35.9 H (25.0-35.0) pg RDW 16.5 H (11.5-15.5) % Plt Count 92 L (150-450) k/uL Neutrophils # (Manual) 13.40 H (1.3-7.7) k/uL Lymphocytes # (Manual) 0.48 L (1.0-4.8) k/uL Metamyelocytes # (Man) 0.16 H (0) k/uL Myelocytes # (Manual) 1.60 H (0) k/uL Nucleated RBCs 1 H (0-0) /100 WBC Macrocytosis Marked A ABG pH (7.35-7.45) ABG pCO2 (35-45) mmHg ABG pO2 (83-108) mmHg ABG HCO3 (21-25) mmol/L ABG Total CO2 (19-24) mmol/L Sodium 154 H (137-145) mmol/L Potassium (3.5-5.1) mmol/L Chloride 118 H (98-107) mmol/L Carbon Dioxide 37 H (22-30) mmol/L Glucose 143 H (74-99) mg/dL POC Glucose (mg/dL) 122 H (75-99) mg/dL Calcium 8.1 L (8.4-10.2) mg/dL 04/22/20 04/22/20 Range/Units 11:22 12:38 WBC (3.8-10.6) k/uL RBC (3.80-5.40) m/uL Hgb (11.4-16.0) gm/dL MCV (80.0-100.0) fL MCH (25.0-35.0) pg RDW (11.5-15.5) % Plt Count (150-450) k/uL Neutrophils # (Manual) (1.3-7.7) k/uL Lymphocytes # (Manual) (1.0-4.8) k/uL Metamyelocytes # (Man) (0) k/uL Myelocytes # (Manual) (0) k/uL Nucleated RBCs (0-0) /100 WBC Macrocytosis ABG pH 7.48 H (7.35-7.45) ABG pCO2 46 H (35-45) mmHg ABG pO2 72 L (83-108) mmHg ABG HCO3 34 H (21-25) mmol/L ABG Total CO2 35 H (19-24) mmol/L Sodium (137-145) mmol/L Potassium (3.5-5.1) mmol/L Chloride (98-107) mmol/L Carbon Dioxide (22-30) mmol/L Glucose (74-99) mg/dL POC Glucose (mg/dL) 201 H (75-99) mg/dL Calcium (8.4-10.2) mg/dL Microbiology - Last 24 Hours (Table) 04/18/20 06:49 Blood Culture - Preliminary Blood No Growth after 96 hours Assessment and Plan Assessment: * History of seizure disorder, with possible breakthrough seizure likely secondary to sepsis. Intermittent tremoring, likely due to metabolic encephalopathy, doubt seizures/status. EEG did not reveal any status, or seizure activity. * Toxic metabolic encephalopathy. * History of Down syndrome * Septic shock secondary to UTI and pneumonia * Acute kidney injury, improving * Hypertension * Elevated ammonia level * Stage III decubitus ulcer on sacral area Plan: * Patient's Depakote level is supratherapeutic 102.6. We will decrease Depakote further down to 250 mg 3 times a day. Ammonia is normal 11. * Patient at home was on Depakote 375 mg 3 times a day. * Continue same dose of Keppra 1000 mg twice a day. * Await Keppra level. * Medical management as per IM/critical care.
[2020-04-22] MEDS: AMIODARONE 300 MG in DEXTROSE 5% IN WATER 250 ML IV SCH ×2 (16:45)
[2020-04-22 17:26] LABS: Glucose,Whole Blood 137 mg/dL (75-99)
[2020-04-22] MEDS: INSULIN ASPART (NovoLOG) 100 UNIT/ML VIAL SQ SCH (17:40)
[2020-04-22] MEDS: SENNOSIDES 8.6 MG TAB PO SCH (20:20)
[2020-04-22] MEDS: LEVOFLOXACIN 500MG-D5W PMX 500 MG in DEXTROSE/WATER 1 100ML.BAG IVPB SCH (20:26)
[2020-04-22 23:50] LABS: Glucose,Whole Blood 144 mg/dL (75-99)
[2020-04-23] MEDS: INSULIN ASPART (NovoLOG) 100 UNIT/ML VIAL SQ SCH ×5 (00:09→23:39)
[2020-04-23] MEDS: HYDROCORTISONE SUCCINATE 100 MG/2 ML VIAL IV SCH ×4 (00:09→23:27)
[2020-04-23] MEDS: HEPARIN SODIUM,PORCINE 5,000 UNIT/ML 1 ML VIAL SQ SCH ×2 (00:10→08:28)
[2020-04-23] MEDS: VALPROATE SODIUM 250 MG in SODIUM CHLORIDE 0.9% 100 ML IVPB SCH ×4 (00:12→23:31)
[2020-04-23] MEDS: AMIODARONE 300 MG in DEXTROSE 5% IN WATER 250 ML IV SCH ×2 (03:55)
[2020-04-23 04:40] LABS: Anisocytosis Slight; HGB 10.9 gm/dL (11.4-16.0); Hypochromasia Moderate; MCH 36.7 pg (25.0-35.0); MCHC 31.9 g/dL (31.0-37.0); MCV 114.9 fL (80.0-100.0); Macrocytosis Marked; Mean Platelet Volume 10.4; RBC 2.96 m/uL (3.80-5.40); RDW 16.2 % (11.5-15.5)
[2020-04-23 04:41] LABS: Platelet Count 70 k/uL (150-450)
[2020-04-23 05:03] LABS: Band Neutrophils % 1 %; Lymphocytes # (M) 1.45 k/uL (1.0-4.8); Monocytes # (M) 0.79 k/uL (0-1.0); Myelocytes # (M) 0.66 k/uL (0); Myelocytes % 5 %; Neutrophils % (M) 77 %; Nucleated Red Blood Cells 2 /100 WBC (0-0); Total Cells Counted 200; WBC 13.2 k/uL (3.8-10.6)
[2020-04-23 05:04] LABS: Polychromasia Present
[2020-04-23 05:27] LABS: ALT 32 U/L (4-34); AST 43 U/L (14-36); African American GFR (CKD) >90 (>60 ml/min/1.73 sqM); Albumin 2.2 g/dL (3.5-5.0); Alkaline Phosphatase 87 U/L (38-126); Anion Gap -2 mmol/L; Blood Urea Nitrogen 14 mg/dL (7-17); Calcium 7.7 mg/dL (8.4-10.2); Carbon Dioxide 37 mmol/L (22-30); Chloride 107 mmol/L (98-107); Glucose 174 mg/dL (74-99); Non-African American GFR(CKD) >90 (>60 ml/min/1.73 sqM); Potassium 3.7 mmol/L (3.5-5.1); Sodium 142 mmol/L (137-145); Total Bilirubin 0.5 mg/dL (0.2-1.3); Total Protein 4.8 g/dL (6.3-8.2)
[2020-04-23 06:10] LABS: Glucose,Whole Blood 178 mg/dL (75-99)
[2020-04-23] MEDS: PIPERACILLIN-TAZOBACTAM 3.375 GM in SODIUM CHLORIDE 0.9% 100 ML IVPB SCH ×3 (06:18→23:24)
[2020-04-23] MEDS: ASCORBIC ACID 500 MG TAB PO SCH (06:22)
[2020-04-23] MEDS: LEVOTHYROXINE 75 MCG TAB PO SCH (06:23)
[2020-04-23] MEDS: BRIVARACETAM 10 MG/ML PO SCH ×2 (08:22→21:08)
[2020-04-23] MEDS: POTASSIUM BICARBONATE/CIT AC 20 MEQ TABLET.EFF PO SCH ×4 (08:29→22:47)
--- NOTE | 2020-04-23 09:22 | XR ---
EXAMINATION TYPE: XR chest 1V DATE OF EXAM: 04/23/2020 COMPARISON: 04/22/2020 HISTORY: Shortness of breath TECHNIQUE: Single frontal view of the chest is obtained. FINDINGS: Central line again appears to be low in position and should be correlated clinically. NG t ube stable. Diffuse interstitial pattern with bilateral infiltrate and small effusions. No sizable pn eumothorax. IMPRESSION: 1. Stable diffuse pleural-parenchymal changes
--- NOTE | 2020-04-23 11:47 | P.PN ---
Subjective Progress Note Date: 04/20/20 Principal diagnosis: Septic shock secondary to UTI and possible pneumonia 44-year-old female presents emergency Department via EMS from [facility] for fever, altered mental status. Patient has a history of Down syndrome, mental delay, normally nonverbal, nonmobile. Patient is full care at [facility]. Patient reportedly becomes his or night with a fever, increase respirator distress, hypotension. Report given to nurse that she had no symptoms yesterday. Information is very limited. Did review prior medical records. patient was diagnosed having UTI with secondary sepsis. At the time of the admission, the patient had a lactic acid of 5.8, white cell count of 15.3, hemoglobin of 14.6, 9% bandemia, the sodium level of 153 with a BUN of 41 and creatinine of 1.9. The UA was abnormal with many clumps of white cells and bacteria and the patient's coronavirus/: 19 nasal swab by PCR came back negative. Chest x-ray showed mild hilar prominence. In the emergency department, the patient was given IV fluids and he was started on a combination of Zosyn and Zithromax. 04/19/2020 patient is transferred to ICU for septic shock. She seems to be well resuscita chinedu since yesterday. She is currently on a normal saline infusion running at the rate of on 30 mL an hour. She remains on vasopressin and she is also on norepinephrine running at 0.23 mcg/kg per minute. Oxygen currently is at 6 L per minute nasal cannula. She has a congested cough. She is producing adequate amount of urine output. The chest x-ray from today wanting loss in the left lung and there is significant consolidation of the left compared to the right along with some air bronchograms in the left lower lobe; left lung pneumonia/aspiration. The urine cultures still pending. Blood cultures still pending; patient remains on IV Levaquin and Zosyn. The white cell count today is up to 33.8. The patient has a sodium of 147. Lactic acid is down to 1.8. Creatinine is down to 1.2 with a BUN of 19. As such, there has been significant improvement in her condition. In terms of seizure activity, no further jerking body movements has been noticed. The patient is currently on a combination of Keppra and IV Depakote. 04/20/2020 Patient is currently lying in the bed not response and still encephalopathic. No acute respiratory distress. Currently on oxygen at 3-4 L via nasal cannula. Patient is being continued on antibiotics in the form of Zosyn. Urine cultures are pending. Patient does have stage III sacral decubitus ulcers and chronic bowel incontinence. Patient is being taken it on Depakote dose decreased to her home dose and also Keppra. Neurology has seen the patient. EEG showed diffuse slowing consistent with toxic metabolic encephalopathy. Chest x-ray showed diffuse pleural parenchymal changes with possible pneumonia and CHF. Laboratory data showed WBC 20.4 today. Hemoglobin 9.8, sodium 140, potassium 3.0 and chloride 112 and bicarb is 27 and a BUN 13 and creatinine 0.74. ProBNP is 30 610. Coronary PCR is negative. current medications reviewed. Objective - Vital Signs Vital signs: Vital Signs Temp 98.1 F 04/20/20 16:00 Pulse 71 04/20/20 19:00 Resp 14 04/20/20 19:00 BP 92/49 04/20/20 19:00 Pulse Ox 95 04/20/20 19:00 Intake & Output 04/20/20 04/20/20 04/21/20 06:59 18:59 06:59 Intake Total 1725.993 852.533 403.343 Output Total 855 3130 100 Balance 870.993 -2277.467 303.343 Weight 78.5 kg 78.5 kg Intake: IV 1716 846 403 Levofloxacin 250Mg-D5w 50 Pmx 250 mg In Dextrose/ Water 1 50ml.bag @ 50 mls /hr IVPB Q24H [facility] Rx#: [id number] Piperacillin-Tazobactam 3 100 100 .375 gm In Sodium Chloride 0.9% 100 ml @ 25 mls/hr IVPB Q8H [facility] Rx#: [id number] Potassium Chloride 20 meq 200 300 In Water For Injection 1 100ml.bag @ 50 mls/hr IVPB Q2H [facility] Rx#: [id number] Pressure Bags 36 36 3 Sodium Chloride 0.9% 1, 1430 310 000 ml @ 20 mls/hr IV . Q24H [facility] Rx#:[id number] Valproate Sodium 500 mg 100 100 In Sodium Chloride 0.9% 100 ml @ 100 mls/hr IVPB Q8HR [facility] Rx#:[id number] levETIRAcetam IV 1,000 mg 100 100 In Saline 1 100ml.bag @ 400 mls/hr IVPB Q12HR [facility] Rx#:[id number] Intake, IV Titration 9.993 6.533 0.343 Amount Norepinephrine 32 mg In 9.993 1.859 Sodium Chloride 0.9% 218 ml @ 0.05 MCG/KG/MIN 1. 701 mls/hr IV .Q24H [facility] Rx#:[id number] Norepinephrine 32 mg In 4.674 0.343 Sodium Chloride 0.9% 218 ml @ 0.05 MCG/KG/MIN 1.84 mls/hr IV .Q24H [facility] Rx#: [id number] Output: Urine 855 3130 100 Other: Voiding Method Indwelling Catheter Indwelling Catheter # Bowel Movements 1 ABP, PAP, CO, CI - Last Documented Arterial Blood Pressure 84/44 - Exam - Exam General: Down's features and the patient is unresponsive and toxic she seems to be in less distress compared to yesterday., no distress, appears at younger than stated age, short stature, small hands patient continues to have a congested cough. Unable to bring up any sputum. Derm: warm, dry Head: atraumatic, normocephalic, symmetric Eyes: EOMI, no lid lag, anicteric sclera Mouth: no lip lesion, mucus membranes dry Cardiovascular: S1S2 reg, no murmur, tachycardic is improved and no murmurs appreciated Lungs: Ronchi left base, no rhonchi, no rales , no accessory muscle use Abdominal: soft, nontender to palpation, no guarding, no appreciable organomegaly Ext: no gross muscle atrophy, no edema, no contractures - Labs CBC & Chem 7: 04/23/20 04:20 04/23/20 04:20 Labs: Abnormal Lab Results - Last 24 Hours (Table) 04/20/20 04/20/20 04/20/20 Range/Units 04:06 04:06 10:33 WBC 20.4 H (3.8-10.6) k/uL RBC 2.68 L (3.80-5.40) m/uL Hgb 9.8 L D (11.4-16.0) gm/dL Hct 30.5 L (34.0-46.0) % MCV 113.5 H (80.0-100.0) fL MCH 36.4 H (25.0-35.0) pg Plt Count 118 L (150-450) k/uL Neutrophils # 18.3 H (1.3-7.7) k/uL Macrocytosis Marked A ABG pCO2 27 L (35-45) mmHg ABG pO2 58 L* (83-108) mmHg ABG HCO3 18 L (21-25) mmol/L ABG O2 Saturation 93.0 L (94-97) % Potassium 3.0 L (3.5-5.1) mmol/L Chloride 112 H (98-107) mmol/L Glucose 119 H (74-99) mg/dL POC Glucose (mg/dL) (75-99) mg/dL Calcium 7.0 L (8.4-10.2) mg/dL Total Protein 4.6 L (6.3-8.2) g/dL Albumin 2.0 L (3.5-5.0) g/dL 04/20/20 04/20/20 04/20/20 Range/Units 12:43 12:47 18:40 WBC (3.8-10.6) k/uL RBC (3.80-5.40) m/uL Hgb (11.4-16.0) gm/dL Hct (34.0-46.0) % MCV (80.0-100.0) fL MCH (25.0-35.0) pg Plt Count (150-450) k/uL Neutrophils # (1.3-7.7) k/uL Macrocytosis ABG pCO2 (35-45) mmHg ABG pO2 (83-108) mmHg ABG HCO3 (21-25) mmol/L ABG O2 Saturation (94-97) % Potassium 2.9 L (3.5-5.1) mmol/L Chloride (98-107) mmol/L Glucose (74-99) mg/dL POC Glucose (mg/dL) 105 H 113 H (75-99) mg/dL Calcium (8.4-10.2) mg/dL Total Protein (6.3-8.2) g/dL Albumin (3.5-5.0) g/dL Microbiology - Last 24 Hours (Table) 04/18/20 06:49 Blood Culture - Preliminary Blood No Growth after 48 hours 04/18/20 07:26 Urine Culture - Final Urine,Voided Assessment and Plan Assessment: Septic shock secondary to UTI and left lower lobe pneumonia possible aspiration. Lactic acidosis secondary to sepsis improved now. Acute kidney injury most likely prerenal and also possible ATN due to infection Altered mental status secondary to Metabolic and toxic encephalopathy and possible breakthrough seizures. EEG showed diffuse slowing. Down syndrome with developmental delay Obesity with BMI 36.8 Hypothyroidism Additional insufficiency maintained on hydrocortisone as outpatient. Stage III sacral decub ulcers present on admission. Chronic indwelling Busch catheter secondary to decubitus ulcers Chronic bowel and bladder incontinence. DVT prophylaxis Plan: Patient is being continued on IV hydration and currently on pressor support. Continue with antibiotics in form of Zosyn. Continued on antiarrhythmic medications. Swallow study when the patient is more awake. Patient was given Lasix. Continue with wound care and follow closely. Pulmonary and ID is on board. Further conditions based on clinical course. Time with Patient: Greater than 30
--- NOTE | 2020-04-23 11:50 | P.PN ---
Subjective Progress Note Date: 04/21/20 Principal diagnosis: Septic shock secondary to UTI and possible pneumonia 44-year-old female presents emergency Department via EMS from [facility] for fever, altered mental status. Patient has a history of Down syndrome, mental delay, normally nonverbal, nonmobile. Patient is full care at [facility]. Patient reportedly becomes his or night with a fever, increase respirator distress, hypotension. Report given to nurse that she had no symptoms yesterday. Information is very limited. Did review prior medical records. patient was diagnosed having UTI with secondary sepsis. At the time of the admission, the patient had a lactic acid of 5.8, white cell count of 15.3, hemoglobin of 14.6, 9% bandemia, the sodium level of 153 with a BUN of 41 and creatinine of 1.9. The UA was abnormal with many clumps of white cells and bacteria and the patient's coronavirus/: 19 nasal swab by PCR came back negative. Chest x-ray showed mild hilar prominence. In the emergency department, the patient was given IV fluids and he was started on a combination of Zosyn and Zithromax. 04/19/2020 patient is transferred to ICU for septic shock. She seems to be well resuscita chinedu since yesterday. She is currently on a normal saline infusion running at the rate of on 30 mL an hour. She remains on vasopressin and she is also on norepinephrine running at 0.23 mcg/kg per minute. Oxygen currently is at 6 L per minute nasal cannula. She has a congested cough. She is producing adequate amount of urine output. The chest x-ray from today wanting loss in the left lung and there is significant consolidation of the left compared to the right along with some air bronchograms in the left lower lobe; left lung pneumonia/aspiration. The urine cultures still pending. Blood cultures still pending; patient remains on IV Levaquin and Zosyn. The white cell count today is up to 33.8. The patient has a sodium of 147. Lactic acid is down to 1.8. Creatinine is down to 1.2 with a BUN of 19. As such, there has been significant improvement in her condition. In terms of seizure activity, no further jerking body movements has been noticed. The patient is currently on a combination of Keppra and IV Depakote. 04/20/2020 Patient is currently lying in the bed not response and still encephalopathic. No acute respiratory distress. Currently on oxygen at 3-4 L via nasal cannula. Patient is being continued on antibiotics in the form of Zosyn. Urine cultures are pending. Patient does have stage III sacral decubitus ulcers and chronic bowel incontinence. Patient is being taken it on Depakote dose decreased to her home dose and also Keppra. Neurology has seen the patient. EEG showed diffuse slowing consistent with toxic metabolic encephalopathy. Chest x-ray showed diffuse pleural parenchymal changes with possible pneumonia and CHF. Laboratory data showed WBC 20.4 today. Hemoglobin 9.8, sodium 140, potassium 3.0 and chloride 112 and bicarb is 27 and a BUN 13 and creatinine 0.74. ProBNP is 30 610. Coronary PCR is negative. 04/21/2020 Patient remains in ICU and off pressor support today. Still lethargic and seems to be more awake and opens her eyes slightly today. No overnight as his activity. A alcocer is being continued on antibiotics in the form of Zosyn. Urine culture and blood cultures are negative so far. Chest x-ray showed evidence of fluid overload and underlying pneumonia is not entirely excluded. A basic count is trending down to 18.1 today and hemoglobin 10.3. Patient was started on lactulose due to slightly elevated ammonia level. Next and neurology is following. Repeat CT was done this morning. Next and tolerating tube feedings NG tube. current medications reviewed. Objective - Vital Signs Vital signs: Vital Signs Temp 98.2 F 04/21/20 20:00 Pulse 98 04/21/20 22:00 Resp 17 04/21/20 22:00 BP 98/74 04/21/20 22:00 Pulse Ox 95 04/21/20 22:00 Intake & Output 04/21/20 04/21/20 04/22/20 06:59 18:59 06:59 Intake Total 1163.942 637.288 549 Output Total 1445 2550 185 Balance -281.058 -1912.712 364 Weight 79.8 kg 79.8 kg Intake: IV 1156 556 469 Levofloxacin 500Mg-D5w 100 Pmx 500 mg In Dextrose/ Water 1 100ml.bag @ 100 mls/hr IVPB Q24H [facility] Rx#: [id number] Piperacillin-Tazobactam 3 100 100 100 .375 gm In Sodium Chloride 0.9% 100 ml @ 25 mls/hr IVPB Q8H [facility] Rx#: [id number] Potassium Chloride 20 meq 600 In Water For Injection 1 100ml.bag @ 50 mls/hr IVPB Q2H [facility] Rx#: [id number] Pressure Bags 36 36 9 Sodium Chloride 0.9% 1, 220 220 60 000 ml @ 20 mls/hr IV . Q24H [facility] Rx#:[id number] Valproate Sodium 500 mg 200 100 100 In Sodium Chloride 0.9% 100 ml @ 100 mls/hr IVPB Q8HR [facility] Rx#:[id number] levETIRAcetam IV 1,000 mg 100 100 In Saline 1 100ml.bag @ 400 mls/hr IVPB Q12HR [facility] Rx#:[id number] Intake, IV Titration 7.942 1.288 0 Amount Norepinephrine 32 mg In 7.942 1.288 0 Sodium Chloride 0.9% 218 ml @ 0.05 MCG/KG/MIN 1.84 mls/hr IV .Q24H [facility] Rx#: [id number] Tube Feeding 50 50 Other 30 30 Output: Urine 1445 2550 185 Other: Voiding Method Indwelling Catheter Indwelling Catheter Indwelling Catheter # Bowel Movements 1 ABP, PAP, CO, CI - Last Documented Arterial Blood Pressure 115/68 - Exam - Exam General: Down's features and the patient is unresponsive and occasionally opens her eyes., no distress, appears at younger than stated age, short stature, small hands patient continues to have a congested cough. Unable to bring up any sputum. Derm: warm, dry Head: atraumatic, normocephalic, symmetric Eyes: EOMI, no lid lag, anicteric sclera Mouth: no lip lesion, mucus membranes dry Cardiovascular: S1S2 reg, no murmur, tachycardic is improved and no murmurs appreciated Lungs: Ronchi left base, no rhonchi, no rales , no accessory muscle use Abdominal: soft, nontender to palpation, no guarding, no appreciable organomegaly Ext: no gross muscle atrophy, no edema, no contractures. Stage III sacral decubitus ulcers. - Labs CBC & Chem 7: 04/23/20 04:20 04/23/20 04:20 Labs: Abnormal Lab Results - Last 24 Hours (Table) 04/20/20 04/21/20 04/21/20 Range/Units 23:41 01:44 04:12 WBC 18.1 H (3.8-10.6) k/uL RBC 2.82 L (3.80-5.40) m/uL Hgb 10.3 L (11.4-16.0) gm/dL Hct 31.4 L (34.0-46.0) % MCV 111.4 H (80.0-100.0) fL MCH 36.6 H (25.0-35.0) pg RDW 15.6 H (11.5-15.5) % Plt Count 107 L (150-450) k/uL Neutrophils # 16.4 H (1.3-7.7) k/uL Macrocytosis Marked A Sodium (137-145) mmol/L Potassium 3.2 L (3.5-5.1) mmol/L Chloride (98-107) mmol/L Carbon Dioxide (22-30) mmol/L Glucose (74-99) mg/dL POC Glucose (mg/dL) 101 H (75-99) mg/dL Calcium (8.4-10.2) mg/dL AST (14-36) U/L Total Protein (6.3-8.2) g/dL Albumin (3.5-5.0) g/dL 04/21/20 04/21/20 04/21/20 Range/Units 04:12 12:59 18:24 WBC (3.8-10.6) k/uL RBC (3.80-5.40) m/uL Hgb (11.4-16.0) gm/dL Hct (34.0-46.0) % MCV (80.0-100.0) fL MCH (25.0-35.0) pg RDW (11.5-15.5) % Plt Count (150-450) k/uL Neutrophils # (1.3-7.7) k/uL Macrocytosis Sodium 146 H (137-145) mmol/L Potassium 2.8 L (3.5-5.1) mmol/L Chloride 112 H (98-107) mmol/L Carbon Dioxide 34 H (22-30) mmol/L Glucose 102 H (74-99) mg/dL POC Glucose (mg/dL) 108 H (75-99) mg/dL Calcium 8.1 L (8.4-10.2) mg/dL AST 50 H (14-36) U/L Total Protein 5.4 L (6.3-8.2) g/dL Albumin 2.4 L (3.5-5.0) g/dL 04/21/20 Range/Units 20:57 WBC (3.8-10.6) k/uL RBC (3.80-5.40) m/uL Hgb (11.4-16.0) gm/dL Hct (34.0-46.0) % MCV (80.0-100.0) fL MCH (25.0-35.0) pg RDW (11.5-15.5) % Plt Count (150-450) k/uL Neutrophils # (1.3-7.7) k/uL Macrocytosis Sodium (137-145) mmol/L Potassium 2.8 L (3.5-5.1) mmol/L Chloride (98-107) mmol/L Carbon Dioxide (22-30) mmol/L Glucose (74-99) mg/dL POC Glucose (mg/dL) (75-99) mg/dL Calcium (8.4-10.2) mg/dL AST (14-36) U/L Total Protein (6.3-8.2) g/dL Albumin (3.5-5.0) g/dL Microbiology - Last 24 Hours (Table) 04/18/20 06:49 Blood Culture - Preliminary Blood No Growth after 72 hours Assessment and Plan Assessment: Septic shock secondary to UTI and left lower lobe pneumonia possible aspiration. Lactic acidosis secondary to sepsis improved now. Acute kidney injury most likely prerenal and also possible ATN due to infection Altered mental status secondary to Metabolic and toxic encephalopathy and p ossible breakthrough seizures. EEG showed diffuse slowing. Down syndrome with developmental delay Obesity with BMI 36.8 Hypothyroidism Additional insufficiency maintained on hydrocortisone as outpatient. Stage III sacral decub ulcers present on admission. Chronic indwelling Busch catheter secondary to decubitus ulcers Chronic bowel and bladder incontinence. DVT prophylaxis Plan: Patient is being continued on IV hydration and currently off pressor support. Continue with antibiotics in form of Zosyn. Continued on antiepileptic medications. Swallow study when the patient is more awake. Patient was given Lasix. Continue with wound care and follow closely. Pulmonary and ID is on board. Fu rther conditions based on clinical course. Time with Patient: Greater than 30
[2020-04-23 11:54] LABS: Glucose,Whole Blood 112 mg/dL (75-99)
--- NOTE | 2020-04-23 11:54 | P.PN ---
Subjective Progress Note Date: 04/22/20 Principal diagnosis: Septic shock secondary to UTI and possible pneumonia 44-year-old female presents emergency Department via EMS from [facility] for fever, altered mental status. Patient has a history of Down syndrome, mental delay, normally nonverbal, nonmobile. Patient is full care at [facility]. Patient reportedly becomes his or night with a fever, increase respirator distress, hypotension. Report given to nurse that she had no symptoms yesterday. Information is very limited. Did review prior medical records. patient was diagnosed having UTI with secondary sepsis. At the time of the admission, the patient had a lactic acid of 5.8, white cell count of 15.3, hemoglobin of 14.6, 9% bandemia, the sodium level of 153 with a BUN of 41 and creatinine of 1.9. The UA was abnormal with many clumps of white cells and bacteria and the patient's coronavirus/: 19 nasal swab by PCR came back negative. Chest x-ray showed mild hilar prominence. In the emergency department, the patient was given IV fluids and he was started on a combination of Zosyn and Zithromax. 04/19/2020 patient is transferred to ICU for septic shock. She seems to be well resuscita chinedu since yesterday. She is currently on a normal saline infusion running at the rate of on 30 mL an hour. She remains on vasopressin and she is also on norepinephrine running at 0.23 mcg/kg per minute. Oxygen currently is at 6 L per minute nasal cannula. She has a congested cough. She is producing adequate amount of urine output. The chest x-ray from today wanting loss in the left lung and there is significant consolidation of the left compared to the right along with some air bronchograms in the left lower lobe; left lung pneumonia/aspiration. The urine cultures still pending. Blood cultures still pending; patient remains on IV Levaquin and Zosyn. The white cell count today is up to 33.8. The patient has a sodium of 147. Lactic acid is down to 1.8. Creatinine is down to 1.2 with a BUN of 19. As such, there has been significant improvement in her condition. In terms of seizure activity, no further jerking body movements has been noticed. The patient is currently on a combination of Keppra and IV Depakote. 04/20/2020 Patient is currently lying in the bed not response and still encephalopathic. No acute respiratory distress. Currently on oxygen at 3-4 L via nasal cannula. Patient is being continued on antibiotics in the form of Zosyn. Urine cultures are pending. Patient does have stage III sacral decubitus ulcers and chronic bowel incontinence. Patient is being taken it on Depakote dose decreased to her home dose and also Keppra. Neurology has seen the patient. EEG showed diffuse slowing consistent with toxic metabolic encephalopathy. Chest x-ray showed diffuse pleural parenchymal changes with possible pneumonia and CHF. Laboratory data showed WBC 20.4 today. Hemoglobin 9.8, sodium 140, potassium 3.0 and chloride 112 and bicarb is 27 and a BUN 13 and creatinine 0.74. ProBNP is 30 610. Coronary PCR is negative. 04/21/2020 Patient remains in ICU and off pressor support today. Still lethargic and seems to be more awake and opens her eyes slightly today. No overnight as his activity. A alcocer is being continued on antibiotics in the form of Zosyn. Urine culture and blood cultures are negative so far. Chest x-ray showed evidence of fluid overload and underlying pneumonia is not entirely excluded. A basic count is trending down to 18.1 today and hemoglobin 10.3. Patient was started on lactulose due to slightly elevated ammonia level. Next and neurology is following. Repeat CT was done this morning. Next and tolerating tube feedings NG tube. 04/22/2020 Patient remains in the ICU. Patient is nonverbal but was able to open her eyes occasionally. Today patient was found to be in atrial fibrillation with RVR. She was given amiodarone bolus and also started on amiodarone drip. Patient was started back on norepinephrine drip due to hypotension again. Patient is converted back to sinus rhythm now. Tolerating tube feedings via NG tube. Ammonia level is normalized today. Continued on antibiotic medications. Continue on IV hydration. Patient is on 4 L oxygen with another cannula. Chest x-ray showed stable diffuse pleural parenchymal changes. Pulmonary and ID and neurology is on board. CT showed stable diffuse ventricular dilation likely on the basis of hydrocephalus. current medications reviewed. Objective - Vital Signs Vital signs: Vital Signs Temp 97.7 F 04/22/20 12:00 Pulse 84 04/22/20 14:00 Resp 19 04/22/20 14:00 BP 90/59 04/22/20 14:00 Pulse Ox 97 04/22/20 14:00 Intake & Output 04/21/20 04/22/20 04/22/20 18:59 06:59 18:59 Intake Total 637.288 967.214 958.198 Output Total 2550 515 225 Balance -1912.712 452.214 733.198 Weight 79.8 kg Intake: IV 556 676 184 Levofloxacin 500Mg-D5w 100 Pmx 500 mg In Dextrose/ Water 1 100ml.bag @ 100 mls/hr IVPB Q24H [facility] Rx#: [id number] Piperacillin-Tazobactam 3 100 100 .375 gm In Sodium Chloride 0.9% 100 ml @ 25 mls/hr IVPB Q8H [facility] Rx#: [id number] Pressure Bags 36 36 24 Sodium Chloride 0.9% 1, 220 240 160 000 ml @ 20 mls/hr IV . Q24H [facility] Rx#:[id number] Valproate Sodium 500 mg 100 100 In Sodium Chloride 0.9% 100 ml @ 100 mls/hr IVPB Q8HR [facility] Rx#:[id number] levETIRAcetam IV 1,000 mg 100 100 In Saline 1 100ml.bag @ 400 mls/hr IVPB Q12HR [facility] Rx#:[id number] Intake, IV Titration 1.288 1.214 244.198 Amount Dextrose 5% in Water 1, 225 000 ml @ 75 mls/hr IV . [id number] [facility] Rx#:[id number] Norepinephrine 32 mg In 1.288 1.214 19.198 Sodium Chloride 0.9% 218 ml @ 0.05 MCG/KG/MIN 1.84 mls/hr IV .Q24H [facility] Rx#: [id number] Oral 30 Tube Feeding 50 200 100 Other 30 90 400 Output: Urine 2550 515 225 Other: Voiding Method Indwelling Catheter Indwelling Catheter Indwelling Catheter # Bowel Movements 1 1 ABP, PAP, CO, CI - Last Documented Arterial Blood Pressure 126/73 - Exam - Exam General: Down's features and the patient is unresponsive and occasionally opens her eyes., no distress, appears at younger than stated age, short stature, small hands patient continues to have a congested cough. Unable to bring up any sputum. Derm: warm, dry Head: atraumatic, normocephalic, symmetric Eyes: EOMI, no lid lag, anicteric sclera Mouth: no lip lesion, mucus membranes dry Cardiovascular: S1S2 reg, no murmur, tachycardic is improved and no murmurs vlad reciated Lungs: Ronchi left base, no rhonchi, no rales , no accessory muscle use Abdominal: soft, nontender to palpation, no guarding, no appreciable organomegaly Ext: no gross muscle atrophy, no edema, no contractures. Stage III sacral decubitus ulcers. - Labs CBC & Chem 7: 04/23/20 04:20 04/23/20 04:20 Labs: Abnormal Lab Results - Last 24 Hours (Table) 04/21/20 04/21/20 04/21/20 Range/Units 18:24 20:57 23:11 WBC (3.8-10.6) k/uL RBC (3.80-5.40) m/uL Hgb (11.4-16.0) gm/dL MCV (80.0-100.0) fL MCH (25.0-35.0) pg RDW (11.5-15.5) % Plt Count (150-450) k/uL Neutrophils # (Manual) (1.3-7.7) k/uL Lymphocytes # (Manual) (1.0-4.8) k/uL Metamyelocytes # (Man) (0) k/uL Myelocytes # (Manual) (0) k/uL Nucleated RBCs (0-0) /100 WBC Macrocytosis ABG pH (7.35-7.45) ABG pCO2 (35-45) mmHg ABG pO2 (83-108) mmHg ABG HCO3 (21-25) mmol/L ABG Total CO2 (19-24) mmol/L Sodium (137-145) mmol/L Potassium 2.8 L 2.8 L (3.5-5.1) mmol/L Chloride (98-107) mmol/L Carbon Dioxide (22-30) mmol/L Glucose (74-99) mg/dL POC Glucose (mg/dL) 128 H (75-99) mg/dL Calcium (8.4-10.2) mg/dL 04/21/20 04/22/20 04/22/20 Range/Units 23:51 06:00 06:00 WBC 16.0 H (3.8-10.6) k/uL RBC 2.99 L (3.80-5.40) m/uL Hgb 10.7 L (11.4-16.0) gm/dL MCV 113.7 H (80.0-100.0) fL MCH 35.9 H (25.0-35.0) pg RDW 16.5 H (11.5-15.5) % Plt Count 92 L (150-450) k/uL Neutrophils # (Manual) 13.40 H (1.3-7.7) k/uL Lymphocytes # (Manual) 0.48 L (1.0-4.8) k/uL Metamyelocytes # (Man) 0.16 H (0) k/uL Myelocytes # (Manual) 1.60 H (0) k/uL Nucleated RBCs 1 H (0-0) /100 WBC Macrocytosis Marked A ABG pH (7.35-7.45) ABG pCO2 (35-45) mmHg ABG pO2 (83-108) mmHg ABG HCO3 (21-25) mmol/L ABG Total CO2 (19-24) mmol/L Sodium 154 H (137-145) mmol/L Potassium (3.5-5.1) mmol/L Chloride 118 H (98-107) mmol/L Carbon Dioxide 37 H (22-30) mmol/L Glucose 143 H (74-99) mg/dL POC Glucose (mg/dL) 122 H (75-99) mg/dL Calcium 8.1 L (8.4-10.2) mg/dL 04/22/20 04/22/20 Range/Units 11:22 12:38 WBC (3.8-10.6) k/uL RBC (3.80-5.40) m/uL Hgb (11.4-16.0) gm/dL MCV (80.0-100.0) fL MCH (25.0-35.0) pg RDW (11.5-15.5) % Plt Count (150-450) k/uL Neutrophils # (Manual) (1.3-7.7) k/uL Lymphocytes # (Manual) (1.0-4.8) k/uL Metamyelocytes # (Man) (0) k/uL Myelocytes # (Manual) (0) k/uL Nucleated RBCs (0-0) /100 WBC Macrocytosis ABG pH 7.48 H (7.35-7.45) ABG pCO2 46 H (35-45) mmHg ABG pO2 72 L (83-108) mmHg ABG HCO3 34 H (21-25) mmol/L ABG Total CO2 35 H (19-24) mmol/L Sodium (137-145) mmol/L Potassium (3.5-5.1) mmol/L Chloride (98-107) mmol/L Carbon Dioxide (22-30) mmol/L Glucose (74-99) mg/dL POC Glucose (mg/dL) 201 H (75-99) mg/dL Calcium (8.4-10.2) mg/dL Microbiology - Last 24 Hours (Table) 04/18/20 06:49 Blood Culture - Preliminary Blood No Growth after 96 hours Assessment and Plan Assessment: New onset atrial fibrillation with rapid regular rate. Likely precipitated by sepsis. Septic shock secondary to UTI and left lower lobe pneumonia possible aspiration. Lactic acidosis secondary to sepsis improved now. Acute kidney injury most likely prerenal and also possible ATN due to infection Altered mental status secondary to Metabolic and toxic encephalopathy and possible breakthrough seizures. EEG showed diffuse slowing. Down syndrome with developmental delay Obesity with BMI 36.8 Hypothyroidism Additional insufficiency maintained on hydrocortisone as outpatient. Stage III sacral decub ulcers present on admission. Chronic indwelling Busch catheter secondary to decubitus ulcers Chronic bowel and bladder incontinence. DVT prophylaxis Plan: Patient was started on amiodarone drip. Current back to sinus rhythm now. Patient is being continued on IV hydration and currently started back pressor support. Continue with antibiotics in form of Zosyn. Continued on antiepileptic medications. Swallow study when the patient is more awake. Patient was given Lasix. Continue with wound care and follow closely. Pulmonary and ID is on board. Further recommendations based on clinical course. Time with Patient: Greater than 30
[2020-04-23] MEDS: DEXTROSE 5% IN WATER 1,000 ML IV SCH ×2 (13:51→23:39)
[2020-04-23] MEDS: levETIRAcetam IV 1,000 MG in SALINE 1 100ML.BAG IVPB SCH ×2 (14:00→21:31)
[2020-04-23] MEDS: SODIUM CHLORIDE 0.9% 1,000 ML IV SCH (15:38)
--- NOTE | 2020-04-23 16:52 | P.PN ---
Subjective Progress Note Date: 04/23/20 Principal diagnosis: Septic shock secondary to urinary tract infection This is a 44-year-old female patient, a [place] [facility] resident with a known history of Down syndrome and developmental delay, normally nonverbal and nonmobile. The patient was admitted through emergency for sepsis and he was admitted to the medical floor and within few hours of admission the patient got transferred to the ICU because of profound hypotension and septic shock. The patient became febrile and she had increased respiration and hypertension and she was brought into the emergency department and the patient was diagnosed having UTI with secondary sepsis. At the time of the admission, the patient had a lactic acid of 5.8, white cell count of 15.3, hemoglobin of 14.6, 9% bandemia, the sodium level of 153 with a BUN of 41 and creatinine of 1.9. The UA was abnormal with many clumps of white cells and bacteria and the patient's coronavirus/: 19 nasal swab by PCR came back negative. Chest x-ray showed mild hilar prominence. In the emergency department, the patient was given IV fluids and he was started on a combination of Zosyn and Zithromax. The patient got transferred to the medical floor and the patient was found to be hypotensive, unresponsive to painful stimulation and she was having tremors/questionable seizure activity. Systolic blood pressure was apparently the mid 50s. The patient received a total of 3 L of fluid bolus of normal saline. Mentation was altered and quite diminished. The patient was placed on 12 L of oxygen by nasal cannula and her pulse ox was in the mid 90s. At one point, a CODE BLUE was also called thinking that the patient may not several falls for a blood pressure. The patient was placed on a monitor car operator. She was in sinus tachycardia. Pressors were started and subsequent blood pressure reading was 70/40. The patient got transferred to the intensive care units. Currently she is on levo fed which is running at a higher dose. Vasopressin was also started for hemodynamic support. This was started at physiologic dose. Started the patient also on IV fluids. Start the patient on hydrocortisone stress dose. At the same time, there was a concern for seizure activity. Start the patient on Keppra and she'll be receiving 1 g every 12 hours. Upon further review of the records, the patient is known to have also seizure disorder. She has history of hypothyroidism. She has been hospitalized in the past because of seizure acti vity and disorder. She was taken Depakote and Briviact on outpatient basis. She has previous history of intractable epilepsy and she has been evaluated [facility] many years back. She was hospitalized a few years ago for seizure activity and pneumonia. I believe she also has a component of venous insufficiency and the patient was receiving hydrocortisone on outpatient basis. On today's evaluation of 04/19/2020 patient is being seen for a follow-up. She seems to be well resuscitated since yesterday. She is currently on a normal saline infusion running at the rate of on 30 mL an hour. She remains on physiologic dose of vasopressin and she is also on norepinephrine running at 0 .23 mcg/kg per minute. Oxygen currently is at 6 L per minute nasal cannula. She has a congested cough. She is producing adequate amount of urine output. The chest x-ray from today wanting loss in the left lung and there is significant consolidation of the left compared to the right along with some air bronchograms in the left lower lobe. Consider the possibility of a left lung pneumonia/aspiration. The urine cultures still pending. Blood cultures still pending. Meanwhile, the patient is covered with a combination of Levaquin and Zosyn. The white cell count today is up to 33.8. The patient has a sodium of 147. Lactic acid is down to 1.8. Creatinine is down to 1.2 with a BUN of 19. As such, there has been significant improvement in her condition. In terms of seizure activity, no further jerking body movements has been noticed. The patient is currently on a combination of Keppra and IV Depakote. The triple- lumen catheter inserted in her right IJ. On 04/20/2020 patient seen in follow-up in the intensive care unit, she is still quite encephalopathic, almost stuporous, withdraws to very vigorous noxious stimulation, we had to OPEN her eyes open to evaluate her pupillary response, she is PERRLA, appears to be in no acute respiratory distress, and does have audible chest congestion. Currently on 4 L of oxygen pulse ox of 90%, hemodynamically she is stable, she is off the vasopressors including levofed and vasopressin, she isn't point an adenosine at a rate of 25 ML per hour, she is currently on 2 L of oxygen pulse ox of 94%, she is on, initially Levaquin and Zosyn for antibiotic coverage, her urine culture showed no growth, blood culture was negative as well. sHe has a chronic indwelling catheter related to stage III sacral decubitus ulcer, and she has chronic bowel incontinence. Today's chest x-ray shows diffuse pleural parenchymal changes correlating for diffuse pneumonia and possibility of CHF. White count is improving, down to 20.4 on today's labs, hemoglobin is 9.8, sodium is 140, potassium is 3.0, chloride is 112, CO2 is 27, BUN is 13 creatinine of 0.74, ferritin level was elevated as 1662, proBNP came back elevated at 3610, LFTs are now within normal limits, and her Coumadin 19 PCR was negative. Patient has had no witnessed seizure activit y, she is on Keppra and IV Depakote, neurology services are following, her EEG showed diffuse slowing consistent with a toxic metabolic hypoxic encephalopathy. Patient was reevaluated today on 04/21/20, remains in the ICU, she remains quite encephalopathic, obtunded, cannot arouse even with deep painful stimuli, patient is not on any sedatives or narcotics, no seizure activity has been noticed. Patient does have history of Down syndrome and seizure disorder, she was initially admitted with urosepsis. EEG done by neurology showed diffuse slowing consistent with toxic metabolic encephalopathy, there was no epileptiform focus or activity. Echocardiogram is basically unremarkable. Chest x-ray initially on admission showed evidence of fluid overload, underlying pneumonia is not entirely ruled out but felt to be less likely. Patient remained on antibiotics for her UTI and sepsis, again not clear whether the patient has underlying pneumonia. CBC showed WBC count of 18.1 hemoglobin is 10.3. Electrolytes are normal, however her ammonia level yesterday was 38. And I'm recommending a n asogastric tube to be placed, and recommending lactulose to get her ammonia level down hoping that. Her mental status. Repeat CT of the brain this morning is pending. Blood cultures have been negative since 04/18, urine cultures have been negative since admission. Reevaluated today on 04/22/20, as soon as I walked into the ICU, I was notified by the nurse that the patient is in atrial fibrillation with RVR. Patient was given amiodarone bolus and placed on amiodarone drip, patient was also h ypotensive requiring norepinephrine. Logically, the patient remains encephalopathic, difficult to arouse, and not responding to any stimuli. Not following any instructions. Shortly after she was placed on amiodarone, patient went into sinus rhythm, and her blood pressure also improved. Patient is being treated mostly for initial presentation of septic shock and urosepsis. Patient has Down syndrome, history of seizure disorder, and developmental delay. Sodium today is noted to be elevated at 154, hence I plan to correct that by giving the patient's free water flushes via nasogastric tube. Her ammonia level came back normal today, hence we'll hold on lactulose. Patient is now on potassium 20 mEq via nasogastric tube 4 times a day, her IV fluid was switched to D5W at 75 mL/h, and she will continue with water flushes at 400 mL every 4 hours. ABG on 4 L nasal cannula showed a pO2 of 72 pCO2 of 46 pH of 7.48, hence I did not feel that the patient stated to be intubated or mechanically ventilated. My major concern is if the patient is placed on mechanical ventilation, she would likely require tracheostomy and PEG tube placement, and it would be extremely difficult to wean and extubate the patient with all these medical issues as noted. Patient was reevaluated today on 04/23/20, remains on 4 L of nasal cannula, and her O2 saturations 100%. Patient is off norepinephrine, she is however on amiodarone at 0.5 mg per hour. Patient remains encephalopathic, not showing any neurological improvement whatsoever. Remains on tube feeding using Jevity/bolus feedings. Patient had another repeat CT of the brain, is negative except for some hydrocephalus. And that is being addressed by neurology on the case. No specific recommendation was made. WBC count today is 13.2 hemoglobin is 10.9 units was abnormal, renal profile is normal. Repeat ammonia level is normal. Chest x-ray showed interval improvement of interstitial edema, minimal pleural parenchymal changes Objective - Vital Signs Vital signs: Vital Signs Temp 97.6 F 04/23/20 14:57 Pulse 52 L 04/23/20 14:57 Resp 16 04/23/20 14:57 BP 108/72 04/23/20 14:57 Pulse Ox 99 04/23/20 14:57 Intake & Output 04/22/20 04/23/20 04/23/20 18:59 06:59 18:59 Intake Total 1745.715 9921 Output Total 475 455 970 Balance 9230.898 3593 -970 Weight 79.8 kg Intake: IV 276 1319 Dextrose 5% in Water 1, 900 000 ml @ 75 mls/hr IV . [id number] [facility] Rx#:[id number] Piperacillin-Tazobactam 3 100 .375 gm In Sodium Chloride 0.9% 100 ml @ 25 mls/hr IVPB Q8H [facility] Rx#: [id number] Pressure Bags 36 39 Sodium Chloride 0.9% 1, 240 180 000 ml @ 20 mls/hr IV . Q24H [facility] Rx#:[id number] levETIRAcetam IV 1,000 mg 100 In Saline 1 100ml.bag @ 400 mls/hr IVPB Q12HR [facility] Rx#:[id number] Intake, IV Titration 544.198 325 Amount Amiodarone 300 mg In 250 Dextrose 5% in Water 250 ml @ 0.5 MG/MIN 25 mls/hr IV .Q10H [facility] Rx#: [id number] Dextrose 5% in Water 1, 525 75 000 ml @ 75 mls/hr IV . [id number] [facility] Rx#:[id number] Norepinephrine 32 mg In 19.198 Sodium Chloride 0.9% 218 ml @ 0.05 MCG/KG/MIN 1.84 mls/hr IV .Q24H [facility] Rx#: [id number] Oral 30 30 Tube Feeding 200 200 Other 800 600 Output: Urine 475 455 970 Other: Voiding Method Indwelling Catheter Indwelling Catheter Indwelling Catheter # Voids 0 # Bowel Movements 1 ABP, PAP, CO, CI - Last Documented Arterial Blood Pressure 111/78 - Exam GENERAL EXAM: 44-year-old white female, with features of Down syndrome, obtunded, unresponsive to even deep painful stimuli. Not in respiratory distress, on 4 L nasal cannula HEAD: Normocephalic/atraumatic. Down syndrome features noted. EENT: PERRLA, MS, no icterus, no neck masses, no JVD. CHEST: No chest wall deformity. Symmetrical expansion. LUNGS: Fine crackles at the base. CVS: Irregular irregular rhythm, normal S1 and S2, no gallops, no murmurs, no rubs ABDOMEN: Soft, nontender. No hepatosplenomegaly, normal bowel sounds, no guarding or rigidity. EXTREMITIES: No clubbing, no edema, no cyanosis, 2+ pulses and upper and lower extremities. MUSCULOSKELETAL: Unable to assess. SKIN: Stage III decubitus ulcer on coccyx the wound bed is clean without any evidence of infection CENTRAL NERVOUS SYSTEM: Obtunded, keeps eyes closed, does not follow any commands. Minimal facial grimaces to painful stimuli. Pupils are round, tone is equal bilaterally. - Labs CBC & Chem 7: 04/23/20 04:20 04/23/20 04:20 Labs: Abnormal Lab Results - Last 24 Hours (Table) 04/22/20 04/22/20 04/23/20 Range/Units 17:25 23:48 04:20 WBC 13.2 H (3.8-10.6) k/uL RBC 2.96 L (3.80-5.40) m/uL Hgb 10.9 L (11.4-16.0) gm/dL MCV 114.9 H (80.0-100.0) fL MCH 36.7 H (25.0-35.0) pg RDW 16.2 H (11.5-15.5) % Plt Count 70 L (150-450) k/uL Neutrophils # (Manual) 10.20 H (1.3-7.7) k/uL Myelocytes # (Manual) 0.66 H (0) k/uL Nucleated RBCs 2 H (0-0) /100 WBC Macrocytosis Marked A Carbon Dioxide (22-30) mmol/L Glucose (74-99) mg/dL POC Glucose (mg/dL) 137 H 144 H (75-99) mg/dL Calcium (8.4-10.2) mg/dL AST (14-36) U/L Total Protein (6.3-8.2) g/dL Albumin (3.5-5.0) g/dL 04/23/20 04/23/20 04/23/20 Range/Units 04:20 06:07 11:46 WBC (3.8-10.6) k/uL RBC (3.80-5.40) m/uL Hgb (11.4-16.0) gm/dL MCV (80.0-100.0) fL MCH (25.0-35.0) pg RDW (11.5-15.5) % Plt Count (150-450) k/uL Neutrophils # (Manual) (1.3-7.7) k/uL Myelocytes # (Manual) (0) k/uL Nucleated RBCs (0-0) /100 WBC Macrocytosis Carbon Dioxide 37 H (22-30) mmol/L Glucose 174 H (74-99) mg/dL POC Glucose (mg/dL) 178 H 112 H (75-99) mg/dL Calcium 7.7 L (8.4-10.2) mg/dL AST 43 H (14-36) U/L Total Protein 4.8 L (6.3-8.2) g/dL Albumin 2.2 L (3.5-5.0) g/dL Microbiology - Last 24 Hours (Table) 04/18/20 06:49 Blood Culture - Preliminary Blood No Growth after 120 hours Assessment and Plan Assessment: Impression: 1 septic shock secondary to a UTI probably in combination with an extensive left lung pneumonia of an aspiration type.The patient was being aggressively resuscitated with IV fluids. The patient was on high-dose pressors. Was on a combination of vasopressin and norepinephrine infusion. Patient is on IV Zosyn and Levaquin. The patient's received a total of 4 L of IV fluid boluses , r equired diuretics over the last 24 hours, and now she is off pressors. 2 acute leukocytosis with bandemia secondary to above, improving 3 acute lactic acidosis secondary to above, resolved 4 acute kidney injury secondary to above, resolved 5 history of seizure disorder maintained on a combination of Depakote and Briviact on outpatient basis. The patient may be having underlying breakthrough seizures. The patient is currently on a combination of Depakote level of which is therapeutic and IV Keppra 6 unresponsiveness, consider metabolic encephalopathy, consider seizure with postictal state. 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 8 obesity 9 hypothyroidism 10 adrenal insufficiency maintained on hydrocortisone outpatient basis 11 [place] [facility] 12 stage III decubitus ulcer on sacral area, present on admission 13 chronic indwelling catheter related to stage III decubitus ulcer 14 bLadder and bowel incontinence 15 elevated ammonia level, resolved today 16 toxic metabolic encephalopathy, being followed by neurology, 17 hypernatremia, will correct with free water flushes via nasogastric tube and changing her main IV fluid to D5W. 18 new onset atrial fibrillation requiring amiodarone bolus and amiodarone drip, resolved shortly after placement on amiodarone, presently in sinus rhythm. 19 hypokalemia secondary to diuretics, will correct accordingly as it may be the cause of her atrial fibrillation with RVR. 20 the INR CODE STATUS was requested by mother today, hence we will transfer the patient out of the ICU. Recommendation: Continue present antibiotics coverage. Continue seizure medications. CT of the brain is nondiagnostic. Continue enteral feeding via nasogastric tube Continue aspiration precautions. Continue diuretics. Continue GI and DVT prophylaxis. Neurology to follow her encephalopathy and seizure issues. We will sign off and see the patient on when necessary basis. Time with Patient: Less than 30
[2020-04-23 16:58] LABS: Glucose,Whole Blood 148 mg/dL (75-99)
[2020-04-23] MEDS: SENNOSIDES 8.6 MG TAB PO SCH (21:20)
[2020-04-23] MEDS: LEVOFLOXACIN 500MG-D5W PMX 500 MG in DEXTROSE/WATER 1 100ML.BAG IVPB SCH (21:32)
[2020-04-23] MEDS: AMIODARONE 200 MG TAB PO SCH (21:56)
--- NOTE | 2020-04-23 22:46 | P.PN ---
Subjective Progress Note Date: 04/23/20 04/23/2020: Patient now on the regular floor in room #535. Patient still severely encephalopathic, not on sedatives. No seizures observed. Patient very congested, gurgling. 04/22/2020: patient currently not on any sedatives. Continues to be very encephalopathic. Patient is intermittently on low-dose norepinephrine. No seizure-like activity noted. Patient has now developed atrial fibrillation with rapid ventricular rate. Patient is on subcu heparin, also started on Cardizem. 04/21/2020: Patient currently not on any sedatives. She is severely encephalopathic. Keeps her eyes closed. No seizure-like activity noticed. 04/20/2020: Patient was seen by Dr. Lima initially yesterday for mental status change. Please refer to her note for details. Patient does have history of Down syndrome and seizure disorder. Patient was found to have urosepsis. Patient was having some trembling, for which neurology was consulted to rule out seizures. Patient currently not on any sedation. According to the nurse report, it was reported from the group home where she lives, that she sometimes have shaking like spells, which were considered not seizures. Patient had an EEG performed yesterday, which revealed diffuse slowing consistent with toxic metabolic encephalopathy. No epileptiform activity were seen. Patient had a 2-D echo performed today, which revealed EF greater than 55% with normal left-ventricular size, wall thickness and systolic function. Left atrial size is normal. Mild MR. Chest x-ray showed diffuse pleural-parenchymal changes correlate for diffuse pneumonia versus CHF. Patient's blood test from 04/20/2020 showed WBC 20.4 hemoglobin 9.8 platelets were 118. Patient's sodium was 147, potassium 5.2, BUN 19, currently 1.22, which has now improved. Hepatic panel with AST 42, ALT 28. Objective - Vital Signs Vital signs: Vital Signs Temp 98.6 F 04/23/20 19:14 Pulse 84 04/23/20 19:14 Resp 16 04/23/20 19:28 BP 108/84 04/23/20 19:14 Pulse Ox 91 L 04/23/20 19:14 Intake & Output 04/23/20 04/23/20 04/24/20 06:59 18:59 06:59 Intake Total 2474 Output Total 455 970 Balance 2018 Weight 79.8 kg Intake: IV 1319 Dextrose 5% in Water 1, 900 000 ml @ 75 mls/hr IV . [id number] [facility] Rx#:[id number] Piperacillin-Tazobactam 3 100 .375 gm In Sodium Chloride 0.9% 100 ml @ 25 mls/hr IVPB Q8H [facility] Rx#: [id number] Pressure Bags 39 Sodium Chloride 0.9% 1, 180 000 ml @ 20 mls/hr IV . Q24H [facility] Rx#:[id number] levETIRAcetam IV 1,000 mg 100 In Saline 1 100ml.bag @ 400 mls/hr IVPB Q12HR [facility] Rx#:[id number] Intake, IV Titration 325 Amount Amiodarone 300 mg In 250 Dextrose 5% in Water 250 ml @ 0.5 MG/MIN 25 mls/hr IV .Q10H [facility] Rx#: [id number] Dextrose 5% in Water 1, 75 000 ml @ 75 mls/hr IV . [id number] [facility] Rx#:[id number] Oral 30 Tube Feeding 200 Other 600 Output: Urine 455 970 Other: Voiding Method Indwelling Catheter Indwelling Catheter Indwelling Catheter # Voids 0 ABP, PAP, CO, CI - Last Documented Arterial Blood Pressure 111/78 - Exam Patient is significantly obtunded. Patient's encephalopathy is appears to be slightly worse. Her pupils are 5 mm, reacting to 4 mm. face is symmetric. Patient has very short stature. Short neck. Tone is equal. Abdomen is soft. Patient has stage III decubitus ulcers. No scoliosis or deformity. - Labs CBC & Chem 7: 04/23/20 04:20 04/23/20 04:20 Labs: Abnormal Lab Results - Last 24 Hours (Table) 04/22/20 04/23/20 04/23/20 Range/Units 23:48 04:20 04:20 WBC 13.2 H (3.8-10.6) k/uL RBC 2.96 L (3.80-5.40) m/uL Hgb 10.9 L (11.4-16.0) gm/dL MCV 114.9 H (80.0-100.0) fL MCH 36.7 H (25.0-35.0) pg RDW 16.2 H (11.5-15.5) % Plt Count 70 L (150-450) k/uL Neutrophils # (Manual) 10.20 H (1.3-7.7) k/uL Myelocytes # (Manual) 0.66 H (0) k/uL Nucleated RBCs 2 H (0-0) /100 WBC Macrocytosis Marked A Carbon Dioxide 37 H (22-30) mmol/L Glucose 174 H (74-99) mg/dL POC Glucose (mg/dL) 144 H (75-99) mg/dL Calcium 7.7 L (8.4-10.2) mg/dL AST 43 H (14-36) U/L Total Protein 4.8 L (6.3-8.2) g/dL Albumin 2.2 L (3.5-5.0) g/dL 04/23/20 04/23/20 04/23/20 Range/Units 06:07 11:46 16:53 WBC (3.8-10.6) k/uL RBC (3.80-5.40) m/uL Hgb (11.4-16.0) gm/dL MCV (80.0-100.0) fL MCH (25.0-35.0) pg RDW (11.5-15.5) % Plt Count (150-450) k/uL Neutrophils # (Manual) (1.3-7.7) k/uL Myelocytes # (Manual) (0) k/uL Nucleated RBCs (0-0) /100 WBC Macrocytosis Carbon Dioxide (22-30) mmol/L Glucose (74-99) mg/dL POC Glucose (mg/dL) 178 H 112 H 148 H (75-99) mg/dL Calcium (8.4-10.2) mg/dL AST (14-36) U/L Total Protein (6.3-8.2) g/dL Albumin (3.5-5.0) g/dL Microbiology - Last 24 Hours (Table) 04/18/20 06:49 Blood Culture - Preliminary Blood No Growth after 120 hours Assessment and Plan Assessment: * History of seizure disorder, with possible breakthrough seizure likely secondary to sepsis. Intermittent tremoring, likely due to metabolic encephalopathy, doubt seizures/status. EEG did not reveal any status, or seizure activity. * Toxic metabolic encephalopathy. * History of Down syndrome * Septic shock secondary to UTI and pneumonia * Acute kidney injury, improving * Hypertension * Elevated ammonia level * Stage III decubitus ulcer on sacral area Plan: * Patient's Depakote level is supratherapeutic 102.6. We will decrease Depakote further down to 250 mg 3 times a day. Ammonia is normal 11. * Patient at home was on Depakote 375 mg 3 times a day. * Continue same dose of Keppra 1000 mg twice a day. * Keppra level 43.8 (3-60). * Chest x-ray shows diffuse interstitial parenchymal changes. * Patient's encephalopathy likely due to sepsis. If any concerns, may consider LP. * Patient is now DO NOT RESUSCITATE. * Medical management as per IM/critical care.
--- NOTE | 2020-04-23 23:08 | PN ---
PROGRESS NOTE DATE OF SERVICE: 04/23/2020 REASON FOR FOLLOWUP: Aspiration pneumonia. INTERVAL HISTORY: The patient is currently afebrile. The patient is hemodynamically stable. The patient has been moved out of the ICU. She is currently on 3 L nasal cannula; did have NG for feeding. No vomiting, diarrhea or any other changes reported by the nursing staff. PHYSICAL EXAMINATION: Blood pressure is 108/84, pulse of 84, temperature 98.6. She is 91% on 3 L nasal cannula. General description is a middle-aged female lying in bed in no distress. RESPIRATORY SYSTEM: Unlabored breathing with decreased intensity of breath sounds. No wheeze. HEART: S1, S2. Regular rate and rhythm. ABDOMEN: Soft. No tenderness. LABS: Hemoglobin is 10.9, white count 13.2, BUN of 14, creatinine 0.68. DIAGNOSTIC IMPRESSION AND PLAN: Patient admitted to hospital with sepsis, concern likely for an aspiration pneumonia. Patient overall stabilized and is covered with Zosyn. Blood culture has been negative. Continue with supportive care. MMODL / IJN: [id number] /
[2020-04-23 23:39] LABS: Glucose,Whole Blood 109 mg/dL (75-99)
[2020-04-24 05:30] LABS: Glucose,Whole Blood 153 mg/dL (75-99)
[2020-04-24] MEDS: INSULIN ASPART (NovoLOG) 100 UNIT/ML VIAL SQ SCH ×3 (05:40→18:08)
[2020-04-24] MEDS: LEVOTHYROXINE 75 MCG TAB PO SCH (05:48)
[2020-04-24] MEDS: ASCORBIC ACID 500 MG TAB PO SCH (05:48)
[2020-04-24] MEDS: PIPERACILLIN-TAZOBACTAM 3.375 GM in SODIUM CHLORIDE 0.9% 100 ML IVPB SCH ×2 (05:54→15:48)
[2020-04-24 06:51] LABS: Glucose,Whole Blood 188 mg/dL (75-99)
[2020-04-24 07:00] LABS: HCT 31.5 % (34.0-46.0); HGB 10.2 gm/dL (11.4-16.0); Hypochromasia Slight; MCH 36.5 pg (25.0-35.0); MCHC 32.5 g/dL (31.0-37.0); MCV 112.2 fL (80.0-100.0); Macrocytosis Marked; Mean Platelet Volume 10.1; Platelet Count 53 k/uL (150-450); RDW 15.9 % (11.5-15.5); WBC 10.6 k/uL (3.8-10.6)
[2020-04-24] MEDS: levETIRAcetam IV 1,000 MG in SALINE 1 100ML.BAG IVPB SCH ×2 (08:11→20:38)
[2020-04-24] MEDS: HYDROCORTISONE SUCCINATE 100 MG/2 ML VIAL IV SCH ×2 (08:12→15:48)
[2020-04-24] MEDS: POTASSIUM BICARBONATE/CIT AC 20 MEQ TABLET.EFF PO SCH ×3 (08:12→18:09)
[2020-04-24] MEDS: BRIVARACETAM 10 MG/ML PO SCH (08:13)
[2020-04-24] MEDS: AMIODARONE 200 MG TAB PO SCH (08:13)
[2020-04-24] MEDS: VALPROATE SODIUM 250 MG in SODIUM CHLORIDE 0.9% 100 ML IVPB SCH ×2 (09:19→15:48)
[2020-04-24 09:48] LABS: Band Neutrophils % 5 %; Lymphocytes # (M) 0.64 k/uL (1.0-4.8); Metamyelocytes # (M) 0.42 k/uL (0); Metamyelocytes % 4 %; Monocytes # (M) 0.42 k/uL (0-1.0); Myelocytes # (M) 1.48 k/uL (0); Myelocytes % 14 %; Neutrophils % (M) 68 %; Nucleated Red Blood Cells 0 /100 WBC (0-0); Promyelocytes # (M) 0.11 k/uL (0); Promyelocytes % 1 %; Total Cells Counted 200
[2020-04-24 09:51] LABS: Toxic Granulation Present
[2020-04-24 09:52] LABS: Anisocytosis (M) Present; Poikilocytosis (M) Present
--- NOTE | 2020-04-24 10:32 | P.PN ---
Subjective This is a 45-year-old female past medical history of Down syndrome and developmental delay who at baseline is nonverbal and nonmobile. She is currently being treated for sepsis. She had one episode of A. fib with RVR that was treated with IV amiodarone. She is currently back in sinus mechanism. She is seen and examined sitting up in bed. She is not communicating or opening her eyes to verbal stimuli. Blood pressure 103/69 heart rate 84 afebrile maintaining oxygen saturation on nasal cannula. Laboratory data reviewed, WBC 10.6, hemoglobin 10.2, platelets 53. Echocardiogram on this admission revealed preserved LV systolic function with ejection fraction greater than 55%. GENERAL: Well-appearing, well-nourished and in no acute distress. NECK: Supple without JVD or thyromegaly. LUNGS: Coarse scattered rhonchi throughout. Respiration equal and unlabored. HEART: Regular rate and rhythm without murmurs, rubs or gallops. S1 and S2 heard. Distant heart sounds. EXTREMITIES: Normal range of motion, bilateral lower extremity 1+ pitting edema. No clubbing or cyanosis. Peripheral pulses intact. ASSESSMENT Episode of paroxysmal atrial fibrillation with rapid ventricular rate Sepsis with shock Thrombocytopenia Urinary tract infection Down syndrome Metabolic encephalopathy Seizure disorder PLAN Discontinue amiodarone. Ongoing medical management, we will follow along as needed. Nurse Practitioner note has been reviewed, I agree with a documented findings and plan of care. Patient was seen and examined. Objective - Vital Signs Vital signs: Vital Signs Temp 97.7 F 04/24/20 08:00 Pulse 84 04/24/20 08:00 Resp 16 04/24/20 08:00 BP 103/69 04/24/20 08:00 Pulse Ox 99 04/24/20 07:52 Intake & Output 04/23/20 04/24/20 04/24/20 18:59 06:59 18:59 Intake Total 380 220 Output Total 071 563 8301 Balance -970 -245 -1030 Weight 79.8 kg Intake: Oral 30 Tube Feeding 380 190 Output: Urine 670 786 9359 Uretheral (Busch) 625 350 Other: Voiding Method Indwelling Catheter Indwelling Catheter Indwelling Catheter # Voids 0 0 # Bowel Movements 1 1 ABP, PAP, CO, CI - Last Documented Arterial Blood Pressure 111/78 - Labs CBC & Chem 7: 04/24/20 06:45 04/23/20 04:20 Labs: Abnormal Lab Results - Last 24 Hours (Table) 04/19/20 04/23/20 04/23/20 Range/Units 17:20 11:46 16:53 RBC (3.80-5.40) m/uL Hgb (11.4-16.0) gm/dL Hct (34.0-46.0) % MCV (80.0-100.0) fL MCH (25.0-35.0) pg RDW (11.5-15.5) % Plt Count (150-450) k/uL Lymphocytes # (Manual) (1.0-4.8) k/uL Metamyelocytes # (Man) (0) k/uL Myelocytes # (Manual) (0) k/uL Promyelocytes # (Man) (0) k/uL Macrocytosis POC Glucose (mg/dL) 112 H 148 H (75-99) mg/dL Free Valproic Acid 41.5 H (4.8-17.3) mg/L 04/23/20 04/24/20 04/24/20 Range/Units 23:38 05:29 06:45 RBC 2.80 L (3.80-5.40) m/uL Hgb 10.2 L (11.4-16.0) gm/dL Hct 31.5 L (34.0-46.0) % MCV 112.2 H (80.0-100.0) fL MCH 36.5 H (25.0-35.0) pg RDW 15.9 H (11.5-15.5) % Plt Count 53 L (150-450) k/uL Lymphocytes # (Manual) 0.64 L (1.0-4.8) k/uL Metamyelocytes # (Man) 0.42 H (0) k/uL Myelocytes # (Manual) 1.48 H (0) k/uL Promyelocytes # (Man) 0.11 H (0) k/uL Macrocytosis Marked A POC Glucose (mg/dL) 109 H 153 H (75-99) mg/dL Free Valproic Acid (4.8-17.3) mg/L 04/24/20 Range/Units 06:50 RBC (3.80-5.40) m/uL Hgb (11.4-16.0) gm/dL Hct (34.0-46.0) % MCV (80.0-100.0) fL MCH (25.0-35.0) pg RDW (11.5-15.5) % Plt Count (150-450) k/uL Lymphocytes # (Manual) (1.0-4.8) k/uL Metamyelocytes # (Man) (0) k/uL Myelocytes # (Manual) (0) k/uL Promyelocytes # (Man) (0) k/uL Macrocytosis POC Glucose (mg/dL) 188 H (75-99) mg/dL Free Valproic Acid (4.8-17.3) mg/L Microbiology - Last 24 Hours (Table) 04/18/20 06:49 Blood Culture - Final Blood No Growth after 144 hours
[2020-04-24 11:56] LABS: Glucose,Whole Blood 149 mg/dL (75-99)
[2020-04-24 12:16] LABS: African American GFR (CKD) 128.5 (60.0-200.0); Anion Gap 4.3 mmol/L (4.00-12.00); Carbon Dioxide 36.7 mmol/L (21.6-31.8); Non-African American GFR(CKD) 110.9 (60.0-200.0); Potassium 3.5 mmol/L (3.5-5.5)
--- NOTE | 2020-04-24 14:09 | P.PN ---
Subjective Progress Note Date: 04/23/20 Principal diagnosis: Septic shock secondary to UTI and possible pneumonia 44-year-old female presents emergency Department via EMS from [facility] for fever, altered mental status. Patient has a history of Down syndrome, mental delay, normally nonverbal, nonmobile. Patient is full care at [facility]. Patient reportedly becomes his or night with a fever, increase respirator distress, hypotension. Report given to nurse that she had no symptoms yesterday. Information is very limited. Did review prior medical records. patient was diagnosed having UTI with secondary sepsis. At the time of the admission, the patient had a lactic acid of 5.8, white cell count of 15.3, hemoglobin of 14.6, 9% bandemia, the sodium level of 153 with a BUN of 41 and creatinine of 1.9. The UA was abnormal with many clumps of white cells and bacteria and the patient's coronavirus/: 19 nasal swab by PCR came back negative. Chest x-ray showed mild hilar prominence. In the emergency department, the patient was given IV fluids and he was started on a combination of Zosyn and Zithromax. 04/19/2020 patient is transferred to ICU for septic shock. She seems to be well resuscita chinedu since yesterday. She is currently on a normal saline infusion running at the rate of on 30 mL an hour. She remains on vasopressin and she is also on norepinephrine running at 0.23 mcg/kg per minute. Oxygen currently is at 6 L per minute nasal cannula. She has a congested cough. She is producing adequate amount of urine output. The chest x-ray from today wanting loss in the left lung and there is significant consolidation of the left compared to the right along with some air bronchograms in the left lower lobe; left lung pneumonia/aspiration. The urine cultures still pending. Blood cultures still pending; patient remains on IV Levaquin and Zosyn. The white cell count today is up to 33.8. The patient has a sodium of 147. Lactic acid is down to 1.8. Creatinine is down to 1.2 with a BUN of 19. As such, there has been significant improvement in her condition. In terms of seizure activity, no further jerking body movements has been noticed. The patient is currently on a combination of Keppra and IV Depakote. 04/20/2020 Patient is currently lying in the bed not response and still encephalopathic. No acute respiratory distress. Currently on oxygen at 3-4 L via nasal cannula. Patient is being continued on antibiotics in the form of Zosyn. Urine cultures are pending. Patient does have stage III sacral decubitus ulcers and chronic bowel incontinence. Patient is being taken it on Depakote dose decreased to her home dose and also Keppra. Neurology has seen the patient. EEG showed diffuse slowing consistent with toxic metabolic encephalopathy. Chest x-ray showed diffuse pleural parenchymal changes with possible pneumonia and CHF. Laboratory data showed WBC 20.4 today. Hemoglobin 9.8, sodium 140, potassium 3.0 and chloride 112 and bicarb is 27 and a BUN 13 and creatinine 0.74. ProBNP is 30 610. Coronary PCR is negative. 04/21/2020 Patient remains in ICU and off pressor support today. Still lethargic and seems to be more awake and opens her eyes slightly today. No overnight as his activity. A alcocer is being continued on antibiotics in the form of Zosyn. Urine culture and blood cultures are negative so far. Chest x-ray showed evidence of fluid overload and underlying pneumonia is not entirely excluded. A basic count is trending down to 18.1 today and hemoglobin 10.3. Patient was started on lactulose due to slightly elevated ammonia level. Next and neurology is following. Repeat CT was done this morning. Next and tolerating tube feedings NG tube. 04/22/2020 Patient remains in the ICU. Patient is nonverbal but was able to open her eyes occasionally. Today patient was found to be in atrial fibrillation with RVR. She was given amiodarone bolus and also started on amiodarone drip. Patient was started back on norepinephrine drip due to hypotension again. Patient is converted back to sinus rhythm now. Tolerating tube feedings via NG tube. Ammonia level is normalized today. Continued on antibiotic medications. Continue on IV hydration. Patient is on 4 L oxygen with another cannula. Chest x-ray showed stable diffuse pleural parenchymal changes. Pulmonary and ID and neurology is on board. CT showed stable diffuse ventricular dilation likely on the basis of hydrocephalus. 04/23/2020 Patient is currently resting in the bed. Does not communicate. Occasionally opens her eyes. On oxygen at 4 L via nasal cannula. Currently being continued on NG tube feeding and remains encephalopathy. Next line chest x-ray showed interval improvement of interstitial edema, minimal pleural parenchymal changes. Currently being continued on antibiotics. Patient remains on amiodarone drip. Cardiology is following. Patient is currently maintained in sinus rhythm. Laboratory data showed old age 13.2, hemoglobin 10.9 and recommended laboratory data within normal limits. current medications reviewed. Objective - Vital Signs Vital signs: Vital Signs Temp 97.8 F 04/23/20 00:00 Pulse 62 04/23/20 10:00 Resp 14 04/23/20 10:00 BP 105/75 04/23/20 10:00 Pulse Ox 98 04/23/20 10:00 Intake & Output 04/22/20 04/23/20 04/23/20 18:59 06:59 18:59 Intake Total 3873.827 4722 Output Total 475 455 70 Balance 3202.032 4921 -70 Weight 79.8 kg Intake: IV 276 1319 Dextrose 5% in Water 1, 900 000 ml @ 75 mls/hr IV . [id number] [facility] Rx#:[id number] Piperacillin-Tazobactam 3 100 .375 gm In Sodium Chloride 0.9% 100 ml @ 25 mls/hr IVPB Q8H [facility] Rx#: [id number] Pressure Bags 36 39 Sodium Chloride 0.9% 1, 240 180 000 ml @ 20 mls/hr IV . Q24H [facility] Rx#:[id number] levETIRAcetam IV 1,000 mg 100 In Saline 1 100ml.bag @ 400 mls/hr IVPB Q12HR [facility] Rx#:[id number] Intake, IV Titration 544.198 325 Amount Amiodarone 300 mg In 250 Dextrose 5% in Water 250 ml @ 0.5 MG/MIN 25 mls/hr IV .Q10H [facility] Rx#: [id number] Dextrose 5% in Water 1, 525 75 000 ml @ 75 mls/hr IV . [id number] [facility] Rx#:[id number] Norepinephrine 32 mg In 19.198 Sodium Chloride 0.9% 218 ml @ 0.05 MCG/KG/MIN 1.84 mls/hr IV .Q24H [facility] Rx#: [id number] Oral 30 30 Tube Feeding 200 200 Other 800 600 Output: Urine 475 455 70 Other: Voiding Method Indwelling Catheter Indwelling Catheter Indwelling Catheter # Voids 0 # Bowel Movements 1 ABP, PAP, CO, CI - Last Documented Arterial Blood Pressure 111/78 - Exam - Exam General: Down's features and the patient is unresponsive and occasionally opens her eyes., no distress, appears at younger than stated age, short stature, small hands patient continues to have a congested cough. Unable to bring up any sputum. Derm: warm, dry Head: atraumatic, normocephalic, symmetric Eyes: EOMI, no lid lag, anicteric sclera Mouth: no lip lesion, mucus membranes dry Cardiovascular: S1S2 reg, no murmur, tachycardic is improved and no murmurs appreciated Lungs: Ronchi left base, coarse breath sounds, no rhonchi, no rales , no acc essory muscle use Abdominal: soft, nontender to palpation, no guarding, no appreciable organomegaly Ext: no gross muscle atrophy, no edema, no contractures. Stage III sacral decubitus ulcers. - Labs CBC & Chem 7: 04/24/20 06:45 04/24/20 06:45 Labs: Abnormal Lab Results - Last 24 Hours (Table) 04/22/20 04/22/20 04/22/20 Range/Units 12:38 17:25 23:48 WBC (3.8-10.6) k/uL RBC (3.80-5.40) m/uL Hgb (11.4-16.0) gm/dL MCV (80.0-100.0) fL MCH (25.0-35.0) pg RDW (11.5-15.5) % Plt Count (150-450) k/uL Neutrophils # (Manual) (1.3-7.7) k/uL Myelocytes # (Manual) (0) k/uL Nucleated RBCs (0-0) /100 WBC Macrocytosis Carbon Dioxide (22-30) mmol/L Glucose (74-99) mg/dL POC Glucose (mg/dL) 201 H 137 H 144 H (75-99) mg/dL Calcium (8.4-10.2) mg/dL AST (14-36) U/L Total Protein (6.3-8.2) g/dL Albumin (3.5-5.0) g/dL 04/23/20 04/23/20 04/23/20 Range/Units 04:20 04:20 06:07 WBC 13.2 H (3.8-10.6) k/uL RBC 2.96 L (3.80-5.40) m/uL Hgb 10.9 L (11.4-16.0) gm/dL MCV 114.9 H (80.0-100.0) fL MCH 36.7 H (25.0-35.0) pg RDW 16.2 H (11.5-15.5) % Plt Count 70 L (150-450) k/uL Neutrophils # (Manual) 10.20 H (1.3-7.7) k/uL Myelocytes # (Manual) 0.66 H (0) k/uL Nucleated RBCs 2 H (0-0) /100 WBC Macrocytosis Marked A Carbon Dioxide 37 H (22-30) mmol/L Glucose 174 H (74-99) mg/dL POC Glucose (mg/dL) 178 H (75-99) mg/dL Calcium 7.7 L (8.4-10.2) mg/dL AST 43 H (14-36) U/L Total Protein 4.8 L (6.3-8.2) g/dL Albumin 2.2 L (3.5-5.0) g/dL 04/23/20 Range/Units 11:46 WBC (3.8-10.6) k/uL RBC (3.80-5.40) m/uL Hgb (11.4-16.0) gm/dL MCV (80.0-100.0) fL MCH (25.0-35.0) pg RDW (11.5-15.5) % Plt Count (150-450) k/uL Neutrophils # (Manual) (1.3-7.7) k/uL Myelocytes # (Manual) (0) k/uL Nucleated RBCs (0-0) /100 WBC Macrocytosis Carbon Dioxide (22-30) mmol/L Glucose (74-99) mg/dL POC Glucose (mg/dL) 112 H (75-99) mg/dL Calcium (8.4-10.2) mg/dL AST (14-36) U/L Total Protein (6.3-8.2) g/dL Albumin (3.5-5.0) g/dL Microbiology - Last 24 Hours (Table) 12/12/20 06:49 Blood Culture - Preliminary Blood No Growth after 120 hours Assessment and Plan Assessment: New onset atrial fibrillation with rapid regular rate. Likely precipitated by sepsis. Septic shock secondary to UTI and left lower lobe pneumonia possible aspiration. Lactic acidosis secondary to sepsis improved now. Acute kidney injury most likely prerenal and also possible ATN due to infection Altered mental status secondary to Metabolic and toxic encephalopathy and possible breakthrough seizures. EEG showed diffuse slowing. Down syndrome with developmental delay Obesity with BMI 36.8 Hypothyroidism Additional insufficiency maintained on hydrocortisone as outpatient. Stage III sacral decub ulcers present on admission. Chronic indwelling Busch catheter secondary to decubitus ulcers Chronic bowel and bladder incontinence. DVT prophylaxis Plan: Patient is being telemetry monitoring. continued on IV hydration with D5 water and currently off pressor support. Continue with antibiotics in form of Zosyn. Continued on antiepileptic medi cations. Swallow study when the patient is more awake. Patient was given Lasix. Continue with wound care and follow closely. Pulmonary, ID and cardiology is on board. Further recommendations based on clinical course. Time with Patient: Greater than 30
--- NOTE | 2020-04-24 15:06 | P.PN ---
Subjective Progress Note Date: 04/24/20 Septic shock secondary to UTI and possible pneumonia 44-year-old female presents emergency Department via EMS from [facility] for fever, altered mental status. Patient has a history of Down syndrome, mental delay, normally nonverbal, nonmobile. Patient is full care at [facility]. Patient reportedly becomes his or night with a fever, increase respirator distress, hypotension. Report given to nurse that she had no symptoms yesterday. Information is very limited. Did review prior medical records. patient was diagnosed having UTI with secondary sepsis. At the time of the admission, the patient had a lactic acid of 5.8, white cell count of 15.3, hemoglobin of 14.6, 9% bandemia, the sodium level of 153 with a BUN of 41 and creatinine of 1.9. The UA was abnormal with many clumps of white cells and bacteria and the patient's coronavirus/: 19 nasal swab by PCR came back negative. Chest x-ray showed mild hilar prominence. In the emergency department, the patient was given IV fluids and he was started on a combination of Zosyn and Zithromax. 04/19/2020 patient is transferred to ICU for septic shock. She seems to be well resuscitated since yesterday. She is currently on a normal saline infusion running at the rate of on 30 mL an hour. She remains on vasopressin and she is also on norepinephrine running at 0.23 mcg/kg per minute. Oxygen currently is at 6 L per minute nasal cannula. She has a congested cough. She is producing adequate amount of urine output. The chest x-ray from today wanting loss in the left lung and there is significant consolidation of the left compared to the right along with some air bronchograms in the left lower lobe; left lung pneumonia/aspiration. The urine cultures still pending. Blood cultures still pending; patient remains on IV Levaquin and Zosyn. The white cell count today is up to 33.8. The patient has a sodium of 147. Lactic acid is down to 1.8. Creatinine is down to 1.2 with a BUN of 19. As such, there has been significant improvement in her condition. In terms of seizure activity, no further jerking body movements has been noticed. The patient is currently on a combination of Keppra and IV Depakote. 04/20/2020 Patient is currently lying in the bed not response and still encephalopathic. No acute respiratory distress. Currently on oxygen at 3-4 L via nasal cannula. Patient is being continued on antibiotics in the form of Zosyn. Urine cultures are pending. Patient does have stage III sacral decubitus ulcers and chronic bowel incontinence. Patient is being taken it on Depakote dose decreased to her home dose and also Keppra. Neurology has seen the patient. EEG showed diffuse slowing consistent with toxic metabolic encephalopathy. Chest x-ray showed diffuse pleural parenchymal changes with possible pneumonia and CHF. Laboratory data showed WBC 20.4 today. Hemoglobin 9.8, sodium 140, potassium 3.0 and chloride 112 and bicarb is 27 and a BUN 13 and creatinine 0.74. ProBNP is 30 610. Coronary PCR is negative. 04/21/2020 Patient remains in ICU and off pressor support today. Still lethargic and seems to be more awake and opens her eyes slightly today. No overnight as his activity. A alcocer is being continued on antibiotics in the form of Zosyn. Urine culture and blood cultures are negative so far. Chest x-ray showed evidence of fluid overload and underlying pneumonia is not entirely excluded. A basic count is trending down to 18.1 today and hemoglobin 10.3. Patient was started on lactulose due to slightly elevated ammonia level. Next and neurology is following. Repeat CT was done this morning. Next and tolerating tube feedings NG tube. 04/22/2020 Patient remains in the ICU. Patient is nonverbal but was able to open her eyes occasionally. Today patient was found to be in atrial fibrillation with RVR. She was given amiodarone bolus and also started on amiodarone drip. Patient was started back on norepinephrine drip due to hypotension again. Patient is converted back to sinus rhythm now. Tolerating tube feedings via NG tube. Ammonia level is normalized today. Continued on antibiotic medications. Continue on IV hydration. Patient is on 4 L oxygen with another cannula. Chest x-ray showed stable diffuse pleural parenchymal changes. Pulmonary and ID and neurology is on board. CT showed stable diffuse ventricular dilation likely on the basis of hydrocephalus. 04/23/2020 Patient is currently resting in the bed. Does not communicate. Occasionally opens her eyes. On oxygen at 4 L via nasal cannula. Currently being continued on NG tube feeding and remains encephalopathy. Next line chest x-ray showed interval improvement of interstitial edema, minimal pleural parenchymal changes. Currently being continued on antibiotics. Patient remains on amiodarone drip. Cardiology is following. Patient is currently maintained in sinus rhythm. Laboratory data showed old age 13.2, hemoglobin 10.9 and recommended laboratory data within normal limits. 04/24/2020 Patient is seen in follow-up currently sleeping will open her eyes to verbal stimuli although does not speak. Patient continues with tube feedings and is maintained on oxygen via nasal cannula at 4 L and currently 99%. Patient is afebrile. Patient continues on IV antibiotics in the form of Levaquin and Zosyn and will continue at this time. To continue with sliding scale. White blood count improved today and is currently 10.6 and will repeat a.m. labs. Amiodarone has been discontinued. current medications reviewed. Objective - Vital Signs Vital signs: Vital Signs Temp 97.7 F 04/24/20 08:00 Pulse 84 04/24/20 08:00 Resp 16 04/24/20 08:00 BP 103/69 04/24/20 08:00 Pulse Ox 99 04/24/20 07:52 Intake & Output 04/23/20 04/24/20 04/24/20 18:59 06:59 18:59 Intake Total 380 220 Output Total 431 736 5648 Balance -970 -245 -1030 Weight 79.8 kg Intake: Oral 30 Tube Feeding 380 190 Output: Urine 530 486 6957 Uretheral (Busch) 625 350 Other: Voiding Method Indwelling Catheter Indwelling Catheter Indwelling Catheter # Voids 0 0 # Bowel Movements 1 1 ABP, PAP, CO, CI - Last Documented Arterial Blood Pressure 111/78 - Exam General: Down's syndrome features and the patient is unresponsive and occasionally opens her eyes., no distress, appears at younger than stated age, short stature, small hands patient continues to have a congested cough. Unable to bring up any sputum. Derm: warm, dry Head: atraumatic, normocephalic, symmetric Eyes: EOMI, no lid lag, anicteric sclera Mouth: no lip lesion, mucus membranes dry, protruding tongue Cardiovascular: S1 S2 reg, no murmur, tachycardic is improved and no murmurs appreciated Lungs: Ronchi left base, coarse breath sounds, no rhonchi, no rales , no accessory muscle use Abdominal: soft, nontender to palpation, no guarding, no appreciable organomegaly Ext: no gross muscle atrophy, no edema, no contractures. Stage III sacral decubitus ulcers. - Labs CBC & Chem 7: 04/24/20 06:45 04/24/20 06:45 Labs: Abnormal Lab Results - Last 24 Hours (Table) 04/19/20 04/23/20 04/23/20 Range/Units 17:20 11:46 16:53 RBC (3.80-5.40) m/uL Hgb (11.4-16.0) gm/dL Hct (34.0-46.0) % MCV (80.0-100.0) fL MCH (25.0-35.0) pg RDW (11.5-15.5) % Plt Count (150-450) k/uL Lymphocytes # (Manual) (1.0-4.8) k/uL Metamyelocytes # (Man) (0) k/uL Myelocytes # (Manual) (0) k/uL Promyelocytes # (Man) (0) k/uL Macrocytosis POC Glucose (mg/dL) 112 H 148 H (75-99) mg/dL Free Valproic Acid 41.5 H (4.8-17.3) mg/L 04/23/20 04/24/20 04/24/20 Range/Units 23:38 05:29 06:45 RBC 2.80 L (3.80-5.40) m/uL Hgb 10.2 L (11.4-16.0) gm/dL Hct 31.5 L (34.0-46.0) % MCV 112.2 H (80.0-100.0) fL MCH 36.5 H (25.0-35.0) pg RDW 15.9 H (11.5-15.5) % Plt Count 53 L (150-450) k/uL Lymphocytes # (Manual) 0.64 L (1.0-4.8) k/uL Metamyelocytes # (Man) 0.42 H (0) k/uL Myelocytes # (Manual) 1.48 H (0) k/uL Promyelocytes # (Man) 0.11 H (0) k/uL Macrocytosis Marked A POC Glucose (mg/dL) 109 H 153 H (75-99) mg/dL Free Valproic Acid (4.8-17.3) mg/L 04/24/20 Range/Units 06:50 RBC (3.80-5.40) m/uL Hgb (11.4-16.0) gm/dL Hct (34.0-46.0) % MCV (80.0-100.0) fL MCH (25.0-35.0) pg RDW (11.5-15.5) % Plt Count (150-450) k/uL Lymphocytes # (Manual) (1.0-4.8) k/uL Metamyelocytes # (Man) (0) k/uL Myelocytes # (Manual) (0) k/uL Promyelocytes # (Man) (0) k/uL Macrocytosis POC Glucose (mg/dL) 188 H (75-99) mg/dL Free Valproic Acid (4.8-17.3) mg/L Microbiology - Last 24 Hours (Table) 04/18/20 06:49 Blood Culture - Final Blood No Growth after 144 hours Assessment and Plan Assessment: New onset atrial fibrillation with rapid regular rate. Likely precipitated by sepsis. Currently in sinus rhythm Septic shock secondary to UTI and left lower lobe pneumonia possible aspiration. Lactic acidosis secondary to sepsis improved now. Acute kidney injury most likely prerenal and also possible ATN due to infection Altered mental status secondary to Metabolic and toxic encephalopathy and possible breakthrough seizures. EEG showed diffuse slowing. Down syndrome with developmental delay Obesity with BMI 36.8 Hypothyroidism Adrenal insufficiency maintained on hydrocortisone as outpatient. Stage III sacral decub ulcers present on admission. Chronic indwelling Busch catheter secondary to decubitus ulcers Chronic bowel and bladder incontinence. DVT prophylaxis Plan: Patient to continue with telemetry monitoring. Currently sinus rhythm. Amiodarone has been discontinued. Cardiology following an as-needed basis. She is maintained on tube feedings along with gentle IV hydration. IV antibiotics to continue in the form of Levaquin and Zosyn. Once the patient is more alert a nd awake will attempt swallow evaluation until done continue tube feedings. White blood count trending down and is 10.9 today. To continue with wound care and follow closely. Will repeat labs. Multiple medical consultations following given complex medical issues. Further recommendations to follow based on the clinical course of the patient.
[2020-04-24] MEDS: DEXTROSE 5% IN WATER 1,000 ML IV SCH (15:48)
[2020-04-24] MEDS: SODIUM CHLORIDE 0.9% 1,000 ML IV SCH (15:48)
[2020-04-24 17:21] LABS: Glucose,Whole Blood 156 mg/dL (75-99)
[2020-04-24] MEDS: LEVOFLOXACIN 500MG-D5W PMX 500 MG in DEXTROSE/WATER 1 100ML.BAG IVPB SCH (20:39)
[2020-04-25] LABS: Glucose,Whole Blood 168 mg/dL (75-99)
--- NOTE | 2020-04-25 00:33 | PN ---
PROGRESS NOTE DATE OF SERVICE: 04/24/2020 REASON FOR FOLLOWUP: Aspiration pneumonia. INTERVAL HISTORY: Patient is currently afebrile. The patient is breathing comfortably. The patient is hemodynamically stable. Tolerating her tube feeds. No vomiting or diarrhea has been reported. Patient herself is unable to provide any history. PHYSICAL EXAMINATION: Blood pressure 101/55, pulse of 62, temperature 97. She is 99% on 4 L nasal cannula. General description is a middle-aged female lying in bed in no distress. Respiratory system: Unlabored breathing with decreased breath sounds. Heart S1, S2. Regular rate and rhythm. Abdomen: Soft, no tenderness. LABORATORY DATA: Hemoglobin 10.1. White count is 10.6. Creatinine 0.6. Blood culture negative. Urine is negative. She was unable to provide any sputum. DIAGNOSTIC IMPRESSION AND PLAN: Patient admitted to the hospital with sepsis. Source is likely aspiration pneumonia with initial concern for urinary tract infection. However urine came back negative. Patient is covered on Zosyn to continue. Transition to oral antibiotic. improved on discharge. Continue supportive care. MMODL / IJN: [id number] /
[2020-04-25] MEDS: BRIVARACETAM 10 MG/ML PO SCH ×3 (00:45→21:00)
[2020-04-25] MEDS: SENNOSIDES 8.6 MG TAB PO SCH (00:45)
[2020-04-25] MEDS: PIPERACILLIN-TAZOBACTAM 3.375 GM in SODIUM CHLORIDE 0.9% 100 ML IVPB SCH ×4 (00:56→23:59)
[2020-04-25] MEDS: HYDROCORTISONE SUCCINATE 100 MG/2 ML VIAL IV SCH ×4 (00:57→23:16)
[2020-04-25] MEDS: INSULIN ASPART (NovoLOG) 100 UNIT/ML VIAL SQ SCH ×4 (01:11→16:53)
[2020-04-25] MEDS: VALPROATE SODIUM 250 MG in SODIUM CHLORIDE 0.9% 100 ML IVPB SCH ×4 (01:12→23:57)
[2020-04-25] MEDS: POTASSIUM BICARBONATE/CIT AC 20 MEQ TABLET.EFF PO SCH ×5 (02:13→23:15)
[2020-04-25 06:16] LABS: Anisocytosis Slight; HCT 33.4 % (34.0-46.0); HGB 11.1 gm/dL (11.4-16.0); MCH 36.4 pg (25.0-35.0); MCHC 33.2 g/dL (31.0-37.0); MCV 109.5 fL (80.0-100.0); Macrocytosis Marked; Mean Platelet Volume 11.1; RBC 3.05 m/uL (3.80-5.40); RDW 17.2 % (11.5-15.5); WBC 21.2 k/uL (3.8-10.6)
[2020-04-25 06:17] LABS: Platelet Count 46 k/uL (150-450)
[2020-04-25 06:20] LABS: Glucose,Whole Blood 151 mg/dL (75-99)
[2020-04-25 06:30] LABS: African American GFR (CKD) >90 (>60 ml/min/1.73 sqM); Anion Gap -3 mmol/L; Blood Urea Nitrogen 12 mg/dL (7-17); Calcium 8.1 mg/dL (8.4-10.2); Carbon Dioxide 37 mmol/L (22-30); Chloride 104 mmol/L (98-107); Glucose 161 mg/dL (74-99); Non-African American GFR(CKD) >90 (>60 ml/min/1.73 sqM); Sodium 138 mmol/L (137-145)
[2020-04-25 06:31] LABS: Potassium 5.2 mmol/L (3.5-5.1)
[2020-04-25] MEDS: DEXTROSE 5% IN WATER 1,000 ML IV SCH ×2 (06:38→17:36)
[2020-04-25 06:41] LABS: Band Neutrophils % 9 %; Lymphocytes # (M) 2.76 k/uL (1.0-4.8); Metamyelocytes # (M) 0.21 k/uL (0); Metamyelocytes % 1 %; Monocytes # (M) 1.48 k/uL (0-1.0); Myelocytes # (M) 1.48 k/uL (0); Myelocytes % 7 %; Neutrophils % (M) 63 %; Nucleated Red Blood Cells 0 /100 WBC (0-0); Total Cells Counted 200
[2020-04-25 06:42] LABS: Large Platelets Present; Polychromasia Present
[2020-04-25] MEDS: ASCORBIC ACID 500 MG TAB PO SCH (09:24)
[2020-04-25] MEDS: LEVOTHYROXINE 75 MCG TAB PO SCH (09:25)
[2020-04-25] MEDS: levETIRAcetam IV 1,000 MG in SALINE 1 100ML.BAG IVPB SCH ×2 (09:26→21:10)
[2020-04-25 11:49] LABS: Glucose,Whole Blood 115 mg/dL (75-99)
[2020-04-25 15:13] LABS: Anisocytosis Slight; HCT 30.4 % (34.0-46.0); HGB 9.8 gm/dL (11.4-16.0); MCHC 32.1 g/dL (31.0-37.0); MCV 111.9 fL (80.0-100.0); Macrocytosis Marked; Mean Platelet Volume 11.7; RBC 2.71 m/uL (3.80-5.40); RDW 17.4 % (11.5-15.5)
--- NOTE | 2020-04-25 15:14 | XR ---
EXAMINATION TYPE: XR chest 1V DATE OF EXAM: 04/25/2020 COMPARISON: 04/23/2020 HISTORY: Leukocytosis TECHNIQUE: Single view FINDINGS: Heart is enlarged. There is some linear infiltrate and atelectasis in the right upper lobe and left midlung. There is no heart failure. There is right jugular catheter with the tip in the righ t atrium. There are chest leads. Costophrenic angles are fairly clear. IMPRESSION: Mild subsegmental atelectasis unchanged. No heart failure.
[2020-04-25 15:27] LABS: Platelet Count 43 k/uL (150-450)
[2020-04-25] MEDS: SODIUM CHLORIDE 0.9% 1,000 ML IV SCH (15:51)
[2020-04-25 16:10] LABS: Band Neutrophils % 5 %; Metamyelocytes # (M) 0.96 k/uL (0); Metamyelocytes % 6 %; Myelocytes # (M) 1.28 k/uL (0); Myelocytes % 8 %; Neutrophils % (M) 63 %; Nucleated Red Blood Cells 0 /100 WBC (0-0); Poikilocytosis (M) Present; Total Cells Counted 200
[2020-04-25 16:42] LABS: Glucose,Whole Blood 152 mg/dL (75-99)
--- NOTE | 2020-04-25 19:06 | P.PN ---
Subjective Progress Note Date: 04/24/20 04/24/2020: Patient continues to be severely encephalopathic. Keeps her eyes closed. Would not open her eyes with noxious stimuli either. However when patient was repositioned, she did open her eyes, look around, and then close eyes again. No seizure-like activity. 04/23/2020: Patient now on the regular floor in room #535. Patient still severely encephalopathic, not on sedatives. No seizures observed. Patient very congested, gurgling. 04/22/2020: patient currently not on any sedatives. Continues to be very encephalopathic. Patient is intermittently on low-dose norepinephrine. No seizure-like activity noted. Patient has now developed atrial fibrillation with rapid ventricular rate. Patient is on subcu heparin, also started on Cardizem. 04/21/2020: Patient currently not on any sedatives. She is severely encephalopathic. Keeps her eyes closed. No seizure-like activity noticed. 04/20/2020: Patient was seen by Dr. Lima initially yesterday for mental status change. Please refer to her note for details. Patient does have history of Down syndrome and seizure disorder. Patient was found to have urosepsis. Patient was having some trembling, for which neurology was consulted to rule out seizures. Patient currently not on any sedation. According to the nurse report, it was reported from the skilled nursing where she lives, that she sometimes have shaking like spells, which were considered not seizures. Patient had an EEG performed yesterday, which revealed diffuse slowing consistent with toxic metabolic encephalopathy. No epileptiform activity were seen. Patient had a 2-D echo performed today, which revealed EF greater than 55% with normal left-ventricular size, wall thickness and systolic function. Left atrial size is normal. Mild MR. Chest x-ray showed diffuse pleural-parenchymal changes correlate for diffuse pneumonia versus CHF. Patient's blood test from 04/20/2020 showed WBC 20.4 hemoglobin 9.8 platelets were 118. Patient's sodium was 147, potassium 5.2, BUN 19, currently 1.22, which has now improved. Hepatic panel with AST 42, ALT 28. Objective - Vital Signs Vital signs: Vital Signs Temp 97.2 F L 04/24/20 20:30 Pulse 62 04/24/20 13:19 Resp 20 04/24/20 20:30 BP 99/66 04/24/20 20:30 Pulse Ox 94 L 04/24/20 20:30 Intake & Output 04/24/20 04/24/20 04/25/20 06:59 18:59 06:59 Intake Total 380 600 190 Output Total 625 1700 400 Balance -245 -1100 -210 Intake: Oral 30 Tube Feeding 380 570 190 Output: Urine 625 1700 400 Uretheral (Busch) 625 800 400 Other: Voiding Method Indwelling Catheter Indwelling Catheter # Voids 0 # Bowel Movements 1 1 ABP, PAP, CO, CI - Last Documented Arterial Blood Pressure 111/78 - Exam Patient is significantly obtunded, encephalopathic. When patient was repositioned, she did open her eyes, looked around and then close her eyes again. Did not make much eye contact. Her pupils are 5 mm, reacting to 4 mm. face is symmetric. Patient has very short stature. Short neck. Tone is equal. Abdomen is soft. Patient has stage III decubitus ulcers. - Labs CBC & Chem 7: 04/25/20 14:46 04/25/20 14:46 Labs: Abnormal Lab Results - Last 24 Hours (Table) 04/19/20 04/23/20 04/24/20 Range/Units 17:20 23:38 05:29 RBC (3.80-5.40) m/uL Hgb (11.4-16.0) gm/dL Hct (34.0-46.0) % MCV (80.0-100.0) fL MCH (25.0-35.0) pg RDW (11.5-15.5) % Plt Count (150-450) k/uL Lymphocytes # (Manual) (1.0-4.8) k/uL Metamyelocytes # (Man) (0) k/uL Myelocytes # (Manual) (0) k/uL Promyelocytes # (Man) (0) k/uL Macrocytosis Carbon Dioxide (21.6-31.8) mmol/L Glucose (70-110) mg/dL POC Glucose (mg/dL) 109 H 153 H (75-99) mg/dL Calcium (8.7-10.3) mg/dL Free Valproic Acid 41.5 H (4.8-17.3) mg/L 12/18/20 12/18/20 12/18/20 Range/Units 06:45 06:45 06:50 RBC 2.80 L (3.80-5.40) m/uL Hgb 10.2 L (11.4-16.0) gm/dL Hct 31.5 L (34.0-46.0) % MCV 112.2 H (80.0-100.0) fL MCH 36.5 H (25.0-35.0) pg RDW 15.9 H (11.5-15.5) % Plt Count 53 L (150-450) k/uL Lymphocytes # (Manual) 0.64 L (1.0-4.8) k/uL Metamyelocytes # (Man) 0.42 H (0) k/uL Myelocytes # (Manual) 1.48 H (0) k/uL Promyelocytes # (Man) 0.11 H (0) k/uL Macrocytosis Marked A Carbon Dioxide 36.7 H (21.6-31.8) mmol/L Glucose 199 H (70-110) mg/dL POC Glucose (mg/dL) 188 H (75-99) mg/dL Calcium 8.0 L (8.7-10.3) mg/dL Free Valproic Acid (4.8-17.3) mg/L 04/24/20 04/24/20 Range/Units 11:53 17:19 RBC (3.80-5.40) m/uL Hgb (11.4-16.0) gm/dL Hct (34.0-46.0) % MCV (80.0-100.0) fL MCH (25.0-35.0) pg RDW (11.5-15.5) % Plt Count (150-450) k/uL Lymphocytes # (Manual) (1.0-4.8) k/uL Metamyelocytes # (Man) (0) k/uL Myelocytes # (Manual) (0) k/uL Promyelocytes # (Man) (0) k/uL Macrocytosis Carbon Dioxide (21.6-31.8) mmol/L Glucose (70-110) mg/dL POC Glucose (mg/dL) 149 H 156 H (75-99) mg/dL Calcium (8.7-10.3) mg/dL Free Valproic Acid (4.8-17.3) mg/L Microbiology - Last 24 Hours (Table) 04/18/20 06:49 Blood Culture - Final Blood No Growth after 144 hours Assessment and Plan Assessment: * History of seizure disorder, with possible breakthrough seizure likely secondary to sepsis. Intermittent tremoring, likely due to metabolic encephalopathy, doubt seizures/status. EEG did not reveal any status, or seizure activity. * Toxic metabolic encephalopathy. * History of Down syndrome * Septic shock secondary to UTI and pneumonia * Acute kidney injury, improving * Hypertension * Elevated ammonia level * Stage III decubitus ulcer on sacral area Plan: * Patient's Depakote level is supratherapeutic 102.6. We will decrease Depakote further down to 250 mg 3 times a day. Ammonia is normal 11. * Patient at home was on Depakote 375 mg 3 times a day. * Continue same dose of Keppra 1000 mg twice a day. * Keppra level 43.8 (3-60). * Chest x-ray shows diffuse interstitial parenchymal changes. * Patient's encephalopathy likely due to sepsis. If any concerns, may consider LP. * Patient is now DO NOT RESUSCITATE. * Medical management as per IM/critical care. * Neurology service not available on the weekend. * Dr. Jonathan Brannon Will resume neurology service on Monday.
[2020-04-25] MEDS: SENNA LEAF EXTRACT SYRUP 528 MG/15 ML CUP PO SCH (21:57)
--- NOTE | 2020-04-25 23:11 | PN ---
PROGRESS NOTE DATE OF SERVICE: REASON FOR FOLLOW UP: Aspiration pneumonia. INTERVAL HISTORY: Patient is currently afebrile. Patient is breathing comfortably. She is hemodynamically stable. No further vomiting has been reported. Tolerating her tube feeds. No diarrhea reported. PHYSICAL EXAMINATION: Blood pressure 135/75, pulse of 78. Temperature 97 .1. She is 97% on 4 L nasal cannula. General description: The patient is a middle-aged female lying in bed in no distress. Respiratory system: Unlabored breathing. Coarse breath sounds bilaterally. No wheeze. HEART: S1, S2. Regular rate and rhythm. Abdomen soft, no tenderness. LABS: Hemoglobin 9.1, white count 16,000. DIAGNOSTIC IMPRESSION AND PLAN: Patient admitted to the hospital with sepsis, likely aspiration pneumonia in this patient clinically responding to Zosyn. We will continue and monitor clinical course closely. Continue supportive care. MMDAVIDL / GEOFFN: [id number] /
[2020-04-26 00:05] LABS: Glucose,Whole Blood 123 mg/dL (75-99)
[2020-04-26] MEDS: INSULIN ASPART (NovoLOG) 100 UNIT/ML VIAL SQ SCH ×4 (05:16→18:26)
[2020-04-26] MEDS: POTASSIUM BICARBONATE/CIT AC 20 MEQ TABLET.EFF PO SCH ×4 (05:55→22:23)
[2020-04-26 06:12] LABS: Glucose,Whole Blood 210 mg/dL (75-99)
[2020-04-26 06:30] LABS: Anisocytosis Slight; HCT 32.5 % (34.0-46.0); HGB 10.7 gm/dL (11.4-16.0); MCH 37.1 pg (25.0-35.0); MCV 112.3 fL (80.0-100.0); Macrocytosis Marked; Mean Platelet Volume 11.8; Platelet Count 45 k/uL (150-450); RBC 2.89 m/uL (3.80-5.40); RDW 17.1 % (11.5-15.5); WBC 16.5 k/uL (3.8-10.6)
[2020-04-26 06:40] LABS: Potassium 3.4 mmol/L (3.5-5.1)
[2020-04-26 06:41] LABS: ALT 48 U/L (4-34); AST 55 U/L (14-36); African American GFR (CKD) >90 (>60 ml/min/1.73 sqM); Albumin 2.1 g/dL (3.5-5.0); Albumin/Globulin Ratio 0.9; Alkaline Phosphatase 65 U/L (38-126); Blood Urea Nitrogen 12 mg/dL (7-17); Calcium 7.9 mg/dL (8.4-10.2); Chloride 98 mmol/L (98-107); Globulin 2.4 g/dL; Glucose 218 mg/dL (74-99); Non-African American GFR(CKD) >90 (>60 ml/min/1.73 sqM); Sodium 141 mmol/L (137-145); Total Bilirubin 0.5 mg/dL (0.2-1.3); Total Protein 4.5 g/dL (6.3-8.2)
[2020-04-26 06:48] LABS: Anion Gap -3 mmol/L
[2020-04-26 07:05] LABS: Carbon Dioxide 46 mmol/L (22-30)
[2020-04-26] MEDS: DEXTROSE 5% IN WATER 1,000 ML IV SCH ×2 (07:24→19:31)
[2020-04-26 07:35] LABS: Band Neutrophils % 3 %; Lymphocytes # (M) 1.65 k/uL (1.0-4.8); Metamyelocytes # (M) 0.99 k/uL (0); Metamyelocytes % 6 %; Monocytes # (M) 0.33 k/uL (0-1.0); Myelocytes # (M) 1.98 k/uL (0); Myelocytes % 12 %; Neutrophils % (M) 69 %; Nucleated Red Blood Cells 0 /100 WBC (0-0); Total Cells Counted 200
[2020-04-26 07:38] LABS: Large Platelets Present; Polychromasia Present
[2020-04-26 07:39] LABS: Poikilocytosis (M) Present
[2020-04-26 08:13] LABS: Glucose,Whole Blood 174 mg/dL (75-99)
[2020-04-26] MEDS: PIPERACILLIN-TAZOBACTAM 3.375 GM in SODIUM CHLORIDE 0.9% 100 ML IVPB SCH ×2 (08:48→15:16)
[2020-04-26] MEDS: HYDROCORTISONE SUCCINATE 100 MG/2 ML VIAL IV SCH ×2 (08:53→15:07)
[2020-04-26] MEDS: levETIRAcetam IV 1,000 MG in SALINE 1 100ML.BAG IVPB SCH ×2 (08:54→22:05)
[2020-04-26] MEDS: ASCORBIC ACID 500 MG TAB PO SCH (09:29)
[2020-04-26] MEDS: LEVOTHYROXINE 75 MCG TAB PO SCH (09:30)
[2020-04-26 11:59] LABS: Glucose,Whole Blood 97 mg/dL (75-99)
[2020-04-26] MEDS: VALPROATE SODIUM 250 MG in SODIUM CHLORIDE 0.9% 100 ML IVPB SCH ×2 (15:04→16:05)
[2020-04-26] MEDS: SODIUM CHLORIDE 0.9% 1,000 ML IV SCH (15:07)
[2020-04-26] MEDS: BRIVARACETAM 10 MG/ML PO SCH (15:45)
[2020-04-26] MEDS: SENNOSIDES 8.6 MG TAB PO SCH (16:43)
[2020-04-26 18:15] LABS: Glucose,Whole Blood 109 mg/dL (75-99)
[2020-04-26] MEDS: SENNA LEAF EXTRACT SYRUP 528 MG/15 ML CUP PO SCH (22:23)
--- NOTE | 2020-04-26 23:28 | P.PN ---
Subjective Progress Note Date: 04/25/20 Principal diagnosis: Septic shock secondary to UTI and possible pneumonia 44-year-old female presents emergency Department via EMS from [facility] for fever, altered mental status. Patient has a history of Down syndrome, mental delay, normally nonverbal, nonmobile. Patient is full care at [facility]. Patient reportedly becomes his or night with a fever, increase respirator distress, hypotension. Report given to nurse that she had no symptoms yesterday. Information is very limited. Did review prior medical records. patient was diagnosed having UTI with secondary sepsis. At the time of the admission, the patient had a lactic acid of 5.8, white cell count of 15.3, hemoglobin of 14.6, 9% bandemia, the sodium level of 153 with a BUN of 41 and creatinine of 1.9. The UA was abnormal with many clumps of white cells and bacteria and the patient's coronavirus/: 19 nasal swab by PCR came back negative. Chest x-ray showed mild hilar prominence. In the emergency department, the patient was given IV fluids and he was started on a combination of Zosyn and Zithromax. 04/19/2020 patient is transferred to ICU for septic shock. She seems to be well resuscita chinedu since yesterday. She is currently on a normal saline infusion running at the rate of on 30 mL an hour. She remains on vasopressin and she is also on norepinephrine running at 0.23 mcg/kg per minute. Oxygen currently is at 6 L per minute nasal cannula. She has a congested cough. She is producing adequate amount of urine output. The chest x-ray from today wanting loss in the left lung and there is significant consolidation of the left compared to the right along with some air bronchograms in the left lower lobe; left lung pneumonia/aspiration. The urine cultures still pending. Blood cultures still pending; patient remains on IV Levaquin and Zosyn. The white cell count today is up to 33.8. The patient has a sodium of 147. Lactic acid is down to 1.8. Creatinine is down to 1.2 with a BUN of 19. As such, there has been significant improvement in her condition. In terms of seizure activity, no further jerking body movements has been noticed. The patient is currently on a combination of Keppra and IV Depakote. 04/20/2020 Patient is currently lying in the bed not response and still encephalopathic. No acute respiratory distress. Currently on oxygen at 3-4 L via nasal cannula. Patient is being continued on antibiotics in the form of Zosyn. Urine cultures are pending. Patient does have stage III sacral decubitus ulcers and chronic bowel incontinence. Patient is being taken it on Depakote dose decreased to her home dose and also Keppra. Neurology has seen the patient. EEG showed diffuse slowing consistent with toxic metabolic encephalopathy. Chest x-ray showed diffuse pleural parenchymal changes with possible pneumonia and CHF. Laboratory data showed WBC 20.4 today. Hemoglobin 9.8, sodium 140, potassium 3.0 and chloride 112 and bicarb is 27 and a BUN 13 and creatinine 0.74. ProBNP is 30 610. Coronary PCR is negative. 04/21/2020 Patient remains in ICU and off pressor support today. Still lethargic and seems to be more awake and opens her eyes slightly today. No overnight as his activity. A alcocer is being continued on antibiotics in the form of Zosyn. Urine culture and blood cultures are negative so far. Chest x-ray showed evidence of fluid overload and underlying pneumonia is not entirely excluded. A basic count is trending down to 18.1 today and hemoglobin 10.3. Patient was started on lactulose due to slightly elevated ammonia level. Next and neurology is following. Repeat CT was done this morning. Next and tolerating tube feedings NG tube. 04/22/2020 Patient remains in the ICU. Patient is nonverbal but was able to open her eyes occasionally. Today patient was found to be in atrial fibrillation with RVR. She was given amiodarone bolus and also started on amiodarone drip. Patient was started back on norepinephrine drip due to hypotension again. Patient is converted back to sinus rhythm now. Tolerating tube feedings via NG tube. Ammonia level is normalized today. Continued on antibiotic medications. Continue on IV hydration. Patient is on 4 L oxygen with another cannula. Chest x-ray showed stable diffuse pleural parenchymal changes. Pulmonary and ID and neurology is on board. CT showed stable diffuse ventricular dilation likely on the basis of hydrocephalus. 04/23/2020 Patient is currently resting in the bed. Does not communicate. Occasionally opens her eyes. On oxygen at 4 L via nasal cannula. Currently being continued on NG tube feeding and remains encephalopathy. Next line chest x-ray showed interval improvement of interstitial edema, minimal pleural parenchymal changes. Currently being continued on antibiotics. Patient remains on amiodarone drip. Cardiology is following. Patient is currently maintained in sinus rhythm. Laboratory data showed old age 13.2, hemoglobin 10.9 and recommended laboratory data within normal limits. 04/25/2020 Patient is currently resting in the bed. Occasionally opens her eyes. Patient has been afebrile. Continued on antibiotics in the form of Zosyn. Laboratory data showed WBC 16.0 and hemoglobin 9.8 and platelets 43 Potassium 3.1 which is being replaced. Continued on antiepileptic medications. Currently on D5 water at 75 cc/h. Patient is tube feeding via NG tube. current medications reviewed. Objective - Vital Signs Vital signs: Vital Signs Temp 97.1 F L 04/25/20 14:01 Pulse 60 04/25/20 14:01 Resp 18 04/25/20 14:01 BP 135/75 04/25/20 14:01 Pulse Ox 97 04/25/20 14:01 Intake & Output 04/24/20 04/25/20 04/25/20 18:59 06:59 18:59 Intake Total 279 844 0970 Output Total 1700 1500 750 Balance -1100 -590 380 Intake: Oral 30 180 0 Tube Feeding 243 115 2863 Output: Urine 1700 1500 750 Uretheral (Busch) 800 400 500 Other: Voiding Method Indwelling Catheter Indwelling Catheter # Voids 0 0 # Bowel Movements 1 1 1 ABP, PAP, CO, CI - Last Documented Arterial Blood Pressure 111/78 - Exam - Exam General: Down's features and the patient is unresponsive and occasionally opens her eyes., no distress, appears at younger than stated age, short stature, small hands patient continues to have a congested cough. Unable to bring up any sputum. Derm: warm, dry Head: atraumatic, normocephalic, symmetric Eyes: EOMI, no lid lag, anicteric sclera Mouth: no lip lesion, mucus membranes dry Cardiovascular: S1S2 reg, no murmur, tachycardic is improved and no murmurs appreciated Lungs: Ronchi left base, coarse breath sounds, no rhonchi, no rales , no accessory muscle use Abdominal: soft, nontender to palpation, no guarding, no appreciable organomegaly Ext: no gross muscle atrophy, no edema, no contractures. Stage III sacral decubitus ulcers. - Labs CBC & Chem 7: 04/26/20 06:10 04/26/20 06:10 Labs: Abnormal Lab Results - Last 24 Hours (Table) 04/24/20 04/24/20 04/25/20 Range/Units 17:19 23:58 05:28 WBC 21.2 H (3.8-10.6) k/uL RBC 3.05 L (3.80-5.40) m/uL Hgb 11.1 L (11.4-16.0) gm/dL Hct 33.4 L (34.0-46.0) % MCV 109.5 H (80.0-100.0) fL MCH 36.4 H (25.0-35.0) pg RDW 17.2 H (11.5-15.5) % Plt Count 46 L (150-450) k/uL Neutrophils # (Manual) 15.20 H (1.3-7.7) k/uL Monocytes # (Manual) 1.48 H (0-1.0) k/uL Metamyelocytes # (Man) 0.21 H (0) k/uL Myelocytes # (Manual) 1.48 H (0) k/uL Macrocytosis Marked A Potassium (3.5-5.1) mmol/L Carbon Dioxide (22-30) mmol/L Glucose (74-99) mg/dL POC Glucose (mg/dL) 156 H 168 H (75-99) mg/dL Calcium (8.4-10.2) mg/dL 04/25/20 04/25/20 04/25/20 Range/Units 05:28 06:17 11:30 WBC (3.8-10.6) k/uL RBC (3.80-5.40) m/uL Hgb (11.4-16.0) gm/dL Hct (34.0-46.0) % MCV (80.0-100.0) fL MCH (25.0-35.0) pg RDW (11.5-15.5) % Plt Count (150-450) k/uL Neutrophils # (Manual) (1.3-7.7) k/uL Monocytes # (Manual) (0-1.0) k/uL Metamyelocytes # (Man) (0) k/uL Myelocytes # (Manual) (0) k/uL Macrocytosis Potassium 5.2 H (3.5-5.1) mmol/L Carbon Dioxide 37 H (22-30) mmol/L Glucose 161 H (74-99) mg/dL POC Glucose (mg/dL) 151 H 115 H (75-99) mg/dL Calcium 8.1 L (8.4-10.2) mg/dL 04/25/20 04/25/20 04/25/20 Range/Units 14:46 14:46 16:41 WBC 16.0 H (3.8-10.6) k/uL RBC 2.71 L (3.80-5.40) m/uL Hgb 9.8 L (11.4-16.0) gm/dL Hct 30.4 L (34.0-46.0) % MCV 111.9 H (80.0-100.0) fL MCH 36.0 H (25.0-35.0) pg RDW 17.4 H (11.5-15.5) % Plt Count 43 L (150-450) k/uL Neutrophils # (Manual) 10.80 H (1.3-7.7) k/uL Monocytes # (Manual) (0-1.0) k/uL Metamyelocytes # (Man) 0.96 H (0) k/uL Myelocytes # (Manual) 1.28 H (0) k/uL Macrocytosis Marked A Potassium 3.1 L (3.5-5.1) mmol/L Carbon Dioxide (22-30) mmol/L Glucose (74-99) mg/dL POC Glucose (mg/dL) 152 H (75-99) mg/dL Calcium (8.4-10.2) mg/dL Assessment and Plan Assessment: New onset atrial fibrillation with rapid regular rate. Likely precipitated by sepsis. rate controlle.dced metoprolol due to bradycardia Septic shock secondary to UTI and left lower lobe pneumonia possible aspiration. Lactic acidosis secondary to sepsis improved now. Acute kidney injury most likely prerenal and also possible ATN due to infection Altered mental status secondary to Metabolic and toxic encephalopathy and possible breakthrough seizures. EEG showed diffuse slowing. Down syndrome with developmental delay Obesity with BMI 36.8 Hypothyroidism Additional insufficiency maintained on hydrocortisone as outpatient. Stage III sacral decub ulcers present on admission. Chronic indwelling Busch catheter secondary to decubitus ulcers Chronic bowel and bladder incontinence. DVT prophylaxis Plan: Patient is being telemetry monitoring. continued on IV hydration with D5 water and currently off pressor support. Continue with antibiotics in form of Zosyn. Continued on antiepileptic medications. Swallow study when the patient is more awake. Patient was given Lasix. Continue with wound care and follow closely. Pulmonary, ID and cardiology is on board. Further recommendations based on clinical course. Time with Patient: Greater than 30
--- NOTE | 2020-04-26 23:30 | P.PN ---
Subjective Progress Note Date: 04/26/20 Principal diagnosis: Septic shock secondary to UTI and possible pneumonia 44-year-old female presents emergency Department via EMS from [facility] for fever, altered mental status. Patient has a history of Down syndrome, mental delay, normally nonverbal, nonmobile. Patient is full care at [facility]. Patient reportedly becomes his or night with a fever, increase respirator distress, hypotension. Report given to nurse that she had no symptoms yesterday. Information is very limited. Did review prior medical records. patient was diagnosed having UTI with secondary sepsis. At the time of the admission, the patient had a lactic acid of 5.8, white cell count of 15.3, hemoglobin of 14.6, 9% bandemia, the sodium level of 153 with a BUN of 41 and creatinine of 1.9. The UA was abnormal with many clumps of white cells and bacteria and the patient's coronavirus/: 19 nasal swab by PCR came back negative. Chest x-ray showed mild hilar prominence. In the emergency department, the patient was given IV fluids and he was started on a combination of Zosyn and Zithromax. 04/19/2020 patient is transferred to ICU for septic shock. She seems to be well resuscita chinedu since yesterday. She is currently on a normal saline infusion running at the rate of on 30 mL an hour. She remains on vasopressin and she is also on norepinephrine running at 0.23 mcg/kg per minute. Oxygen currently is at 6 L per minute nasal cannula. She has a congested cough. She is producing adequate amount of urine output. The chest x-ray from today wanting loss in the left lung and there is significant consolidation of the left compared to the right along with some air bronchograms in the left lower lobe; left lung pneumonia/aspiration. The urine cultures still pending. Blood cultures still pending; patient remains on IV Levaquin and Zosyn. The white cell count today is up to 33.8. The patient has a sodium of 147. Lactic acid is down to 1.8. Creatinine is down to 1.2 with a BUN of 19. As such, there has been significant improvement in her condition. In terms of seizure activity, no further jerking body movements has been noticed. The patient is currently on a combination of Keppra and IV Depakote. 04/20/2020 Patient is currently lying in the bed not response and still encephalopathic. No acute respiratory distress. Currently on oxygen at 3-4 L via nasal cannula. Patient is being continued on antibiotics in the form of Zosyn. Urine cultures are pending. Patient does have stage III sacral decubitus ulcers and chronic bowel incontinence. Patient is being taken it on Depakote dose decreased to her home dose and also Keppra. Neurology has seen the patient. EEG showed diffuse slowing consistent with toxic metabolic encephalopathy. Chest x-ray showed diffuse pleural parenchymal changes with possible pneumonia and CHF. Laboratory data showed WBC 20.4 today. Hemoglobin 9.8, sodium 140, potassium 3.0 and chloride 112 and bicarb is 27 and a BUN 13 and creatinine 0.74. ProBNP is 30 610. Coronary PCR is negative. 04/21/2020 Patient remains in ICU and off pressor support today. Still lethargic and seems to be more awake and opens her eyes slightly today. No overnight as his activity. A alcocer is being continued on antibiotics in the form of Zosyn. Urine culture and blood cultures are negative so far. Chest x-ray showed evidence of fluid overload and underlying pneumonia is not entirely excluded. A basic count is trending down to 18.1 today and hemoglobin 10.3. Patient was started on lactulose due to slightly elevated ammonia level. Next and neurology is following. Repeat CT was done this morning. Next and tolerating tube feedings NG tube. 04/22/2020 Patient remains in the ICU. Patient is nonverbal but was able to open her eyes occasionally. Today patient was found to be in atrial fibrillation with RVR. She was given amiodarone bolus and also started on amiodarone drip. Patient was started back on norepinephrine drip due to hypotension again. Patient is converted back to sinus rhythm now. Tolerating tube feedings via NG tube. Ammonia level is normalized today. Continued on antibiotic medications. Continue on IV hydration. Patient is on 4 L oxygen with another cannula. Chest x-ray showed stable diffuse pleural parenchymal changes. Pulmonary and ID and neurology is on board. CT showed stable diffuse ventricular dilation likely on the basis of hydrocephalus. 04/23/2020 Patient is currently resting in the bed. Does not communicate. Occasionally opens her eyes. On oxygen at 4 L via nasal cannula. Currently being continued on NG tube feeding and remains encephalopathy. Next line chest x-ray showed interval improvement of interstitial edema, minimal pleural parenchymal changes. Currently being continued on antibiotics. Patient remains on amiodarone drip. Cardiology is following. Patient is currently maintained in sinus rhythm. Laboratory data showed old age 13.2, hemoglobin 10.9 and recommended laboratory data within normal limits. 04/25/2020 Patient is currently resting in the bed. Occasionally opens her eyes. Patient has been afebrile. Continued on antibiotics in the form of Zosyn. Laboratory data showed WBC 16.0 and hemoglobin 9.8 and platelets 43 Potassium 3.1 which is being replaced. Continued on antiepileptic medications. Currently on D5 water at 75 cc/h. Patient is tube feeding via NG tube. 04/26/2020 Patient seems to be more awake and oriented today. Able to open her eyes. NG tube came out and was recently inserted. Patient has been afebrile. Blood pressure is stable. Tolerating tube feeding otherwise. Will hold IV fluids since patient is getting free water through NG tube and monitor electrolytes. Replace electrolytes. Continued on antibiotics. Heart rate is in 50s. current medications reviewed. Objective - Vital Signs Vital signs: Vital Signs Temp 97.4 F L 04/26/20 08:50 Pulse 50 L 04/26/20 08:50 Resp 20 04/26/20 08:50 BP 90/54 04/26/20 08:50 Pulse Ox 100 04/26/20 08:50 Intake & Output 04/25/20 04/26/20 04/26/20 18:59 06:59 18:59 Intake Total 1130 1815 Output Total 750 800 800 Balance 380 1015 -800 Intake: IV 1245 Dextrose 5% in Water 1, 825 000 ml @ 75 mls/hr IV . [id number] [facility] Rx#:[id number] Piperacillin-Tazobactam 3 100 .375 gm In Sodium Chloride 0.9% 100 ml @ 25 mls/hr IVPB Q8H [facility] Rx#: [id number] Sodium Chloride 0.9% 1, 220 000 ml @ 20 mls/hr IV . Q24H [facility] Rx#:[id number] levETIRAcetam IV 1,000 mg 100 In Saline 1 100ml.bag @ 400 mls/hr IVPB Q12HR [facility] Rx#:[id number] Oral 0 Tube Feeding 1130 570 Output: Urine 750 800 800 Uretheral (Busch) 500 Other: Voiding Method Indwelling Catheter Indwelling Catheter Indwelling Catheter # Voids 0 0 # Bowel Movements 1 ABP, PAP, CO, CI - Last Documented Arterial Blood Pressure 111/78 - Exam - Exam General: Down's features and the patient is unresponsive and occasionally opens her eyes., no distress, appears at younger than stated age, short stature, small hands patient continues to have a congested cough. Unable to bring up any sputum. Derm: warm, dry Head: atraumatic, normocephalic, symmetric Eyes: EOMI, no lid lag, anicteric sclera Mouth: no lip lesion, mucus membranes dry Cardiovascular: S1S2 reg, no murmur, tachycardic is improved and no murmurs appreciated Lungs: Ronchi left base, coarse breath sounds, no rhonchi, no rales , no accessory muscle use Abdominal: soft, nontender to palpation, no guarding, no appreciable organomegaly Ext: no gross muscle atrophy, no edema, no contractures. Stage III sacral decubitus ulcers. - Labs CBC & Chem 7: 04/26/20 06:10 04/26/20 06:10 Labs: Abnormal Lab Results - Last 24 Hours (Table) 04/25/20 04/25/20 04/25/20 Range/Units 14:46 14:46 16:41 WBC 16.0 H (3.8-10.6) k/uL RBC 2.71 L (3.80-5.40) m/uL Hgb 9.8 L (11.4-16.0) gm/dL Hct 30.4 L (34.0-46.0) % MCV 111.9 H (80.0-100.0) fL MCH 36.0 H (25.0-35.0) pg RDW 17.4 H (11.5-15.5) % Plt Count 43 L (150-450) k/uL Neutrophils # (Manual) 10.80 H (1.3-7.7) k/uL Metamyelocytes # (Man) 0.96 H (0) k/uL Myelocytes # (Manual) 1.28 H (0) k/uL Macrocytosis Marked A Potassium 3.1 L (3.5-5.1) mmol/L Carbon Dioxide (22-30) mmol/L Glucose (74-99) mg/dL POC Glucose (mg/dL) 152 H (75-99) mg/dL Calcium (8.4-10.2) mg/dL AST (14-36) U/L ALT (4-34) U/L Total Protein (6.3-8.2) g/dL Albumin (3.5-5.0) g/dL 04/26/20 04/26/20 04/26/20 Range/Units 00:04 06:10 06:10 WBC 16.5 H (3.8-10.6) k/uL RBC 2.89 L (3.80-5.40) m/uL Hgb 10.7 L (11.4-16.0) gm/dL Hct 32.5 L (34.0-46.0) % MCV 112.3 H (80.0-100.0) fL MCH 37.1 H (25.0-35.0) pg RDW 17.1 H (11.5-15.5) % Plt Count 45 L (150-450) k/uL Neutrophils # (Manual) 11.80 H (1.3-7.7) k/uL Metamyelocytes # (Man) 0.99 H (0) k/uL Myelocytes # (Manual) 1.98 H (0) k/uL Macrocytosis Marked A Potassium 3.4 L (3.5-5.1) mmol/L Carbon Dioxide 46 H* (22-30) mmol/L Glucose 218 H (74-99) mg/dL POC Glucose (mg/dL) 123 H (75-99) mg/dL Calcium 7.9 L (8.4-10.2) mg/dL AST 55 H (14-36) U/L ALT 48 H (4-34) U/L Total Protein 4.5 L (6.3-8.2) g/dL Albumin 2.1 L (3.5-5.0) g/dL 04/26/20 04/26/20 Range/Units 06:11 08:11 WBC (3.8-10.6) k/uL RBC (3.80-5.40) m/uL Hgb (11.4-16.0) gm/dL Hct (34.0-46.0) % MCV (80.0-100.0) fL MCH (25.0-35.0) pg RDW (11.5-15.5) % Plt Count (150-450) k/uL Neutrophils # (Manual) (1.3-7.7) k/uL Metamyelocytes # (Man) (0) k/uL Myelocytes # (Manual) (0) k/uL Macrocytosis Potassium (3.5-5.1) mmol/L Carbon Dioxide (22-30) mmol/L Glucose (74-99) mg/dL POC Glucose (mg/dL) 210 H 174 H (75-99) mg/dL Calcium (8.4-10.2) mg/dL AST (14-36) U/L ALT (4-34) U/L Total Protein (6.3-8.2) g/dL Albumin (3.5-5.0) g/dL Assessment and Plan Assessment: New onset atrial fibrillation with rapid regular rate. Likely precipitated by sepsis. rate controlle.dced metoprolol due to bradycardia Septic shock secondary to UTI and left lower lobe pneumonia possible aspiration. Lactic acidosis secondary to sepsis improved now. Acute kidney injury most likely prerenal and also possible ATN due to infection Altered mental status secondary to Metabolic and toxic encephalopathy and possible breakthrough seizures. EEG showed diffuse slowing. Down syndrome with developmental delay Obesity with BMI 36.8 Hypothyroidism Additional insufficiency maintained on hydrocortisone as outpatient. Stage III sacral decub ulcers present on admission. Chronic indwelling Busch catheter secondary to decubitus ulcers Chronic bowel and bladder incontinence. DVT prophylaxis Plan: Patient is being telemetry monitoring. continued on IV hydration with D5 water and currently off pressor support. Continue with antibiotics in form of Zosyn. Continued on antiepileptic medications. Swallow study when the patient is more awake. Patient was given Lasix. Continue with wound care and follow closely. Pulmonary, ID and cardiology is on board. Further recommendations based on clinical course. Time with Patient: Greater than 30
[2020-04-27] MEDS: PIPERACILLIN-TAZOBACTAM 3.375 GM in SODIUM CHLORIDE 0.9% 100 ML IVPB SCH ×4 (00:10→21:48)
[2020-04-27] MEDS: VALPROATE SODIUM 250 MG in SODIUM CHLORIDE 0.9% 100 ML IVPB SCH ×3 (00:10→17:12)
[2020-04-27 01:20] LABS: Glucose,Whole Blood 140 mg/dL (75-99)
[2020-04-27] MEDS: INSULIN ASPART (NovoLOG) 100 UNIT/ML VIAL SQ SCH ×4 (01:38→21:45)
[2020-04-27] MEDS: HYDROCORTISONE SUCCINATE 100 MG/2 ML VIAL IV SCH ×3 (01:39→17:09)
--- NOTE | 2020-04-27 02:57 | PN ---
PROGRESS NOTE DATE OF SERVICE: 04/26/2020 REASON FOR FOLLOWUP: Aspiration pneumonia. INTERVAL HISTORY: The patient is currently afebrile. The patient is hemodynamically stable. The patient has been tolerating her tube feed. No vomiting, diarrhea or any other changes reported by the nursing staff. PHYSICAL EXAMINATION: Blood pressure 90/54, pulse of 65, temperature 97.4. She is 100% on 3 L nasal cannula. General description is a middle-aged female lying in bed in no distress. RESPIRATORY SYSTEM: Unlabored breathing, some coarse breath sounds at the bases bilaterally. HEART: S1, S2. Regular rate and rhythm. ABDOMEN: Soft, no tenderness. LABS: Hemoglobin 10.7, white count 16.5. Creatinine 0.61. DIAGNOSTIC IMPRESSION AND PLAN: Patient admitted to the hospital with sepsis, source is likely aspiration pneumonia plus minus urinary tract infection. Urine has been negative. Currently covered with Zosyn that can be transitioned to a short course of oral Avelox on discharge. Continue with supportive care. MMODL / IJN: [id number] /
[2020-04-27 06:13] LABS: Glucose,Whole Blood 125 mg/dL (75-99)
[2020-04-27] MEDS: ASCORBIC ACID 500 MG TAB PO SCH (07:50)
[2020-04-27] MEDS: LEVOTHYROXINE 75 MCG TAB PO SCH (07:51)
[2020-04-27] MEDS: levETIRAcetam IV 1,000 MG in SALINE 1 100ML.BAG IVPB SCH ×2 (08:02→22:01)
[2020-04-27] MEDS: POTASSIUM BICARBONATE/CIT AC 20 MEQ TABLET.EFF PO SCH ×4 (08:02→22:02)
[2020-04-27 08:04] LABS: Anisocytosis Slight; HCT 35.7 % (34.0-46.0); HGB 11.8 gm/dL (11.4-16.0); MCH 37.3 pg (25.0-35.0); MCHC 33.2 g/dL (31.0-37.0); MCV 112.3 fL (80.0-100.0); Macrocytosis Marked; Mean Platelet Volume 10.6; RBC 3.17 m/uL (3.80-5.40)
[2020-04-27 08:06] LABS: Platelet Count 75 k/uL (150-450)
[2020-04-27 08:34] LABS: African American GFR (CKD) >90 (>60 ml/min/1.73 sqM); Blood Urea Nitrogen 14 mg/dL (7-17); Calcium 8.5 mg/dL (8.4-10.2); Chloride 95 mmol/L (98-107); Glucose 186 mg/dL (74-99); Non-African American GFR(CKD) >90 (>60 ml/min/1.73 sqM); Potassium 3.8 mmol/L (3.5-5.1); Sodium 138 mmol/L (137-145)
[2020-04-27 08:40] LABS: Anion Gap 1 mmol/L
[2020-04-27 08:46] LABS: Carbon Dioxide 42 mmol/L (22-30)
[2020-04-27] MEDS: DEXTROSE 5% IN WATER 1,000 ML IV SCH ×2 (10:20→21:47)
[2020-04-27 11:03] LABS: Band Neutrophils % 1 %; Eosinophils # (M) 0.25 k/uL (0-0.7); Metamyelocytes # (M) 0.25 k/uL (0); Metamyelocytes % 1 %; Myelocytes # (M) 0.25 k/uL (0); Myelocytes % 1 %; Neutrophils % (M) 88 %; Nucleated Red Blood Cells 0 /100 WBC (0-0); Total Cells Counted 200
[2020-04-27 11:04] LABS: Poikilocytosis (M) Present; Polychromasia Present
[2020-04-27 12:45] LABS: Glucose,Whole Blood 176 mg/dL (75-99)
--- NOTE | 2020-04-27 14:06 | P.DS ---
Providers Date of admission: 04/18/20 11:19 Expected date of discharge: 04/27/20 Attending physician: Hernandez Brumfield MD Consults: 04/18/20 15:16 Consult Physician Routine Consulting Provider: Hima Motley Consult Reason/Comments: Sepsis Do you want consulting provider notified?: Yes 04/18/20 16:49 Consult Physician Routine Consulting Provider: Taye Toledo Consult Reason/Comments: icu transfer Do you want consulting provider notified?: Yes 04/18/20 18:45 Consult Physician Routine Consulting Provider: Elvi Lima Consult Reason/Comments: SZ, AMS Do you want consulting provider notified?: Yes 04/22/20 09:55 Consult Physician Routine Consulting Provider: Hadley Maurer Consult Reason/Comments: AFIB RVR, new onset Do you want consulting provider notified?: Yes Primary care physician: Michel Ruiz [facility] Course: Final diagnosis New onset atrial fibrillation with rapid regular rate. Likely precipitated by sepsis. rate controlled Septic shock secondary to UTI and left lower lobe pneumonia possible aspiration. Lactic acidosis secondary to sepsis improved now. Acute kidney injury most likely prerenal and also possible ATN due to infection Altered mental status secondary to Metabolic and toxic encephalopathy and possible breakthrough seizures. EEG showed diffuse slowing. Down syndrome with developmental delay Obesity with BMI 36.8 Hypothyroidism Additional insufficiency maintained on hydrocortisone as outpatient. Stage III sacral decub ulcers present on admission. Chronic indwelling Busch catheter secondary to decubitus ulcers Chronic bowel and bladder incontinence. DVT prophylaxis No code Discharge disposition Patient is being discharged in a stable condition with guarded prognosis to [facility] as she is a resident there. Patient will be signing on with hospice per family request at [facility]. Patient will follow-up with Dr. Ruiz upon discharge. Total time taken is 35 minutes. History of present illness This is an 45-year-old female who was recently admitted with fever, altered mental status, septic shock, present on admission secondary to urinary tract infection and possible pneumonia and was being closely monitored. Patient was at [facility] as she is a resident there. Patient does have a history of Down syndrome with mental delay nonverbal and nonmobile. Apparently patient was having increasing respiratory distress along with the fever and low blood pressures and was brought here via ambulance. Patient was diagnosed with having urinary tract infection with secondary sepsis present on admission and found to have an elevated lactic acid level with a white blood count and elevated sodium. Patient has been maintained on IV antibiotics in the form of Zosyn and Zithromax. Patient was briefly monitored closely in the ICU during this hospitalization. Patient continues to be unresponsive and nonverbal and inability to eat. Patient has been receiving tube feedings via NG tube along with medications. A lengthy discussion was had with the family about the possibility of PEG tube placement for nutrition and mother and brother do not want a PEG tube to be placed at this time. Family met with hospice and will be signing on for hospice measures at [facility]. Please refer to previous dictations for further HPI On exam vital signs are stable. Temp is 97.5F, pulse is 51, respirations are 1 6, blood pressure is 137/89, oxygen saturation is 100% on 3 L via nasal cannula. Cardio S1, S2 are muffled. Respiratory shows diminished breath sounds at the bases with a few scattered rhonchi noted. Some mild expiratory wheezing noted. Abdomen is soft and nontender. Nervous system shows mild diffuse weakness. Please refer to medication reconciliation sheet for a list of medications. Patient Condition at Discharge: Poor Plan - Discharge Summary Discharge Rx Participant: No New Discharge Prescriptions: Continue Levothyroxine Sodium [Synthroid] 75 mcg PO DAILY@0700 Hydrocortisone [Cortef] 10 mg PO HS #30 tab Albuterol Nebulized [Ventolin Nebulized] 2.5 mg INHALATION RT-Q6H PRN PRN Reason: Shortness Of Breath Divalproex Sodium [Depakote] 375 mg PO TID@0700,1300,1900 Pro-Stat Awc 30 ml PO BID Potassium Chloride ER [K-Dur 10] 10 meq PO BID@0700,1600 Hydrocortisone [Cortef] 20 mg PO BID@0700,1600 Brivaracetam [Briviact] 50 mg PO BID Ascorbic Acid [Vitamin C] 1,000 mg PO DAILY@0700 Sennosides [Senna] 17.2 mg PO HS@2000 Calcium Polycarbophil [Fibercon] 625 mg PO DAILY Magnesium Hydroxide [Milk of Magnesia] 2,400 mg PO DAILY PRN PRN Reason: Constipation Discharge Medication List Levothyroxine Sodium [Synthroid] 75 mcg PO DAILY@0700 05/06/18 [History] Hydrocortisone [Cortef] 10 mg PO HS #30 tab 05/11/18 [Rx] Albuterol Nebulized [Ventolin Nebulized] 2.5 mg INHALATION RT-Q6H PRN 04/18/20 [History] Ascorbic Acid [Vitamin C] 1,000 mg PO DAILY@0700 04/18/20 [History] Brivaracetam [Briviact] 50 mg PO BID 04/18/20 [History] Calcium Polycarbophil [Fibercon] 625 mg PO DAILY 04/18/20 [History] Divalproex Sodium [Depakote] 375 mg PO TID@0700,1300,1900 04/18/20 [History] Hydrocortisone [Cortef] 20 mg PO BID@0700,1600 04/18/20 [History] Magnesium Hydroxide [Milk of Magnesia] 2,400 mg PO DAILY PRN 04/18/20 [History] Potassium Chloride ER [K-Dur 10] 10 meq PO BID@0700,1600 04/18/20 [History] Pro-Stat Awc 30 ml PO BID 04/18/20 [History] Sennosides [Senna] 17.2 mg PO HS@199904/18/20 [History] Follow up Appointment(s)/Referral(s): Michel Ruiz MD [Primary Care Provider] - 1-2 days Activity/Diet/Wound Care/Special Instructions: Patient is going to [facility] as tolerated Patient will be signing on with hospice at [facility] with family Discharge Disposition: TRANSFER TO SNF/ECF
[2020-04-27 17:19] LABS: Glucose,Whole Blood 123 mg/dL (75-99)
[2020-04-27] MEDS: SODIUM CHLORIDE 0.9% 1,000 ML IV SCH (17:44)
[2020-04-27 21:44] LABS: Glucose,Whole Blood 155 mg/dL (75-99)
[2020-04-27] MEDS: SENNA LEAF EXTRACT SYRUP 528 MG/15 ML CUP PO SCH (21:47)
--- NOTE | 2020-04-27 23:14 | PN ---
PROGRESS NOTE DATE OF SERVICE: 04/27/2020 REASON FOR FOLLOWUP: Aspiration pneumonia. INTERVAL HISTORY: Patient is currently afebrile. Patient is hemodynamically stable, breathing comfortably on nasal cannula oxygen. No vomiting has been reported. Patient currently continued on tube feeds. PHYSICAL EXAMINATION: Blood pressure 137/89, pulse of 51, temperature 97.5. She is 100% on 3 L nasal cannula. General description is an elderly female lying in bed in no distress. Respiratory system: Unlabored breathing with decreased breath sounds in the bases. No wheeze. Heart S1, S2. Regular rate and rhythm. Abdomen soft, no tenderness. LABS: Hemoglobin 11.1, white count 25,000. BUN of 14, creatinine 0.57. DIAGNOSTIC IMPRESSION AND PLAN: Patient admitted to the hospital with sepsis was likely aspiration pneumonia, covered with Zosyn. The patient did have elevated white count more likely steroid effect and we will monitor closely. Continue supportive care. MMODL / IJN: [id number] /
[2020-04-28] MEDS: HYDROCORTISONE SUCCINATE 100 MG/2 ML VIAL IV SCH ×2 (00:32→07:34)
[2020-04-28] MEDS: VALPROATE SODIUM 250 MG in SODIUM CHLORIDE 0.9% 100 ML IVPB SCH ×2 (00:32→09:00)
[2020-04-28 00:36] LABS: Glucose,Whole Blood 143 mg/dL (75-99)
[2020-04-28] MEDS: INSULIN ASPART (NovoLOG) 100 UNIT/ML VIAL SQ SCH ×3 (00:50→12:52)
[2020-04-28 05:34] LABS: Glucose,Whole Blood 169 mg/dL (75-99)
[2020-04-28 07:11] LABS: Glucose,Whole Blood 175 mg/dL (75-99)
[2020-04-28] MEDS: LEVOTHYROXINE 75 MCG TAB PO SCH (07:33)
[2020-04-28] MEDS: ASCORBIC ACID 500 MG TAB PO SCH (07:34)
[2020-04-28] MEDS: PIPERACILLIN-TAZOBACTAM 3.375 GM in SODIUM CHLORIDE 0.9% 100 ML IVPB SCH (07:34)
[2020-04-28] MEDS: levETIRAcetam IV 1,000 MG in SALINE 1 100ML.BAG IVPB SCH (09:02)
[2020-04-28] MEDS: POTASSIUM BICARBONATE/CIT AC 20 MEQ TABLET.EFF PO SCH ×2 (09:04→14:28)
[2020-04-28 12:06] LABS: Glucose,Whole Blood 150 mg/dL (75-99)
--- NOTE | 2020-04-28 13:24 | PN ---
PROGRESS NOTE DATE OF SERVICE: 04/28/2020 REASON FOR FOLLOWUP: Aspiration pneumonia. INTERVAL HISTORY: The patient is currently afebrile. The patient is hemodynamically stable. Currently on tube feeds. No vomiting, diarrhea or any other changes reported by the nursing staff. The patient herself is unable to provide any history. PHYSICAL EXAMINATION: Blood pressure 124/70 with pulse 82, temperature 97.5. She is 97% on 5 L nasal cannula. General description is a middle-aged female lying in bed in no distress. RESPIRATORY SYSTEM: Unlabored breathing, coarse breath sounds bilaterally. HEART: S1, S2. Regular rate and rhythm. ABDOMEN: Soft. No tenderness. LABS: No new labs have been obtained today. Blood culture negative. Urine is negative. DIAGNOSTIC IMPRESSION AND PLAN: Patient admitted to the hospital with sepsis, source likely aspiration pneumonia, unable to provide any sputum. Blood culture negative. Patient is on Zosyn finishing therapy with oral Avelox daily for another week and close outpatient followup. MMODL / IJN: [id number] /
[2020-04-28] MEDS: SODIUM CHLORIDE 0.9% 1,000 ML IV SCH (14:28)
[2020-04-28] MEDS: DEXTROSE 5% IN WATER 1,000 ML IV SCH (14:28)
--- NOTE | 2020-04-28 14:48 | P.PN ---
Subjective Progress Note Date: 04/27/20 Septic shock secondary to UTI and possible pneumonia 44-year-old female presents emergency Department via EMS from [facility] for fever, altered mental status. Patient has a history of Down syndrome, mental delay, normally nonverbal, nonmobile. Patient is full care at [facility]. Patient reportedly becomes his or night with a fever, increase respirator distress, hypotension. Report given to nurse that she had no symptoms yesterday. Information is very limited. Did review prior medical records. patient was diagnosed having UTI with secondary sepsis. At the time of the admission, the patient had a lactic acid of 5.8, white cell count of 15.3, hemoglobin of 14.6, 9% bandemia, the sodium level of 153 with a BUN of 41 and creatinine of 1.9. The UA was abnormal with many clumps of white cells and bacteria and the patient's coronavirus/: 19 nasal swab by PCR came back negative. Chest x-ray showed mild hilar prominence. In the emergency department, the patient was given IV fluids and he was started on a combination of Zosyn and Zithromax. 04/19/2020 patient is transferred to ICU for septic shock. She seems to be well resuscitated since yesterday. She is currently on a normal saline infusion running at the rate of on 30 mL an hour. She remains on vasopressin and she is also on norepinephrine running at 0.23 mcg/kg per minute. Oxygen currently is at 6 L per minute nasal cannula. She has a congested cough. She is producing adequate amount of urine output. The chest x-ray from today wanting loss in the left lung and there is significant consolidation of the left compared to the right along with some air bronchograms in the left lower lobe; left lung pneumonia/aspiration. The urine cultures still pending. Blood cultures still pending; patient remains on IV Levaquin and Zosyn. The white cell count today is up to 33.8. The patient has a sodium of 147. Lactic acid is down to 1.8. Creatinine is down to 1.2 with a BUN of 19. As such, there has been significant improvement in her condition. In terms of seizure activity, no further jerking body movements has been noticed. The patient is currently on a combination of Keppra and IV Depakote. 04/20/2020 Patient is currently lying in the bed not response and still encephalopathic. No acute respiratory distress. Currently on oxygen at 3-4 L via nasal cannula. Patient is being continued on antibiotics in the form of Zosyn. Urine cultures are pending. Patient does have stage III sacral decubitus ulcers and chronic bowel incontinence. Patient is being taken it on Depakote dose decreased to her home dose and also Keppra. Neurology has seen the patient. EEG showed diffuse slowing consistent with toxic metabolic encephalopathy. Chest x-ray showed diffuse pleural parenchymal changes with possible pneumonia and CHF. Laboratory data showed WBC 20.4 today. Hemoglobin 9.8, sodium 140, potassium 3.0 and chloride 112 and bicarb is 27 and a BUN 13 and creatinine 0.74. ProBNP is 30 610. Coronary PCR is negative. 04/21/2020 Patient remains in ICU and off pressor support today. Still lethargic and seems to be more awake and opens her eyes slightly today. No overnight as his activity. A alcocer is being continued on antibiotics in the form of Zosyn. Urine culture and blood cultures are negative so far. Chest x-ray showed evidence of fluid overload and underlying pneumonia is not entirely excluded. A basic count is trending down to 18.1 today and hemoglobin 10.3. Patient was started on lactulose due to slightly elevated ammonia level. Next and neurology is following. Repeat CT was done this morning. Next and tolerating tube feedings NG tube. 04/22/2020 Patient remains in the ICU. Patient is nonverbal but was able to open her eyes occasionally. Today patient was found to be in atrial fibrillation with RVR. She was given amiodarone bolus and also started on amiodarone drip. Patient was started back on norepinephrine drip due to hypotension again. Patient is converted back to sinus rhythm now. Tolerating tube feedings via NG tube. Ammonia level is normalized today. Continued on antibiotic medications. Continue on IV hydration. Patient is on 4 L oxygen with another cannula. Chest x-ray showed stable diffuse pleural parenchymal changes. Pulmonary and ID and neurology is on board. CT showed stable diffuse ventricular dilation likely on the basis of hydrocephalus. 04/23/2020 Patient is currently resting in the bed. Does not communicate. Occasionally opens her eyes. On oxygen at 4 L via nasal cannula. Currently being continued on NG tube feeding and remains encephalopathy. Next line chest x-ray showed interval improvement of interstitial edema, minimal pleural parenchymal changes. Currently being continued on antibiotics. Patient remains on amiodarone drip. Cardiology is following. Patient is currently maintained in sinus rhythm. Laboratory data showed old age 13.2, hemoglobin 10.9 and recommended laboratory data within normal limits. 04/24/2020 Patient is seen in follow-up currently sleeping will open her eyes to verbal stimuli although does not speak. Patient continues with tube feedings and is maintained on oxygen via nasal cannula at 4 L and currently 99%. Patient is afebrile. Patient continues on IV antibiotics in the form of Levaquin and Zosyn and will continue at this time. To continue with sliding scale. White blood count improved today and is currently 10.6 and will repeat a.m. labs. Amiodarone has been discontinued. current medications reviewed. 04/27/2020 She was seen and evaluated in follow-up with no changes noted. Discussed with the family at length about the possibility of PEG tube placement for continued nutrition and family does not want that at this time. Family wants to meet with hospice. Family will be coming in today to have a meeting with hospice. Will continue current medications at this time. Prognosis remains guarded. Objective - Vital Signs Vital signs: Vital Signs Temp 97.5 F L 04/27/20 08:35 Pulse 51 L 04/27/20 08:35 Resp 16 04/27/20 08:35 BP 137/89 04/27/20 08:35 Pulse Ox 100 04/27/20 08:35 Intake & Output 04/26/20 04/27/20 04/27/20 18:59 06:59 18:59 Intake Total 760 Output Total 1100 800 Balance -1100 -40 Intake: Oral 0 Tube Feeding 760 Output: Urine 1100 800 Uretheral (Busch) 400 Other: Voiding Method Indwelling Catheter Indwelling Catheter # Voids 0 0 ABP, PAP, CO, CI - Last Documented Arterial Blood Pressure 111/78 - Exam General: Down's syndrome features and the patient is unresponsive and somnolent, no distress, appears at younger than stated age, short stature, small hands patient continues to have a congested cough. Unable to bring up any sputum. Derm: warm, dry Head: atraumatic, normocephalic, symmetric Eyes: EOMI, no lid lag, anicteric sclera Mouth: no lip lesion, mucus membranes dry, protruding tongue Cardiovascular: S1 S2 reg, no murmur, tachycardic is improved and no murmurs appreciated Lungs: Ronchi left base, coarse breath sounds, scattered rhonchi, no rales , no accessory muscle use Abdominal: soft, nontender to palpation, no guarding, no appreciable organomegaly Ext: no gross muscle atrophy, no edema, no contractures. Stage III sacral decubitus ulcers. - Labs CBC & Chem 7: 04/27/20 07:45 04/27/20 07:45 Labs: Abnormal Lab Results - Last 24 Hours (Table) 04/26/20 04/27/20 04/27/20 Range/Units 18:12 01:19 06:12 WBC (3.8-10.6) k/uL RBC (3.80-5.40) m/uL MCV (80.0-100.0) fL MCH (25.0-35.0) pg RDW (11.5-15.5) % Plt Count (150-450) k/uL Neutrophils # (Manual) (1.3-7.7) k/uL Metamyelocytes # (Man) (0) k/uL Myelocytes # (Manual) (0) k/uL Macrocytosis Chloride (98-107) mmol/L Carbon Dioxide (22-30) mmol/L Glucose (74-99) mg/dL POC Glucose (mg/dL) 109 H 140 H 125 H (75-99) mg/dL 04/27/20 04/27/20 04/27/20 Range/Units 07:45 07:45 12:42 WBC 25.0 H (3.8-10.6) k/uL RBC 3.17 L (3.80-5.40) m/uL MCV 112.3 H (80.0-100.0) fL MCH 37.3 H (25.0-35.0) pg RDW 18.0 H (11.5-15.5) % Plt Count 75 L D (150-450) k/uL Neutrophils # (Manual) 22.20 H (1.3-7.7) k/uL Metamyelocytes # (Man) 0.25 H (0) k/uL Myelocytes # (Manual) 0.25 H (0) k/uL Macrocytosis Marked A Chloride 95 L (98-107) mmol/L Carbon Dioxide 42 H* (22-30) mmol/L Glucose 186 H (74-99) mg/dL POC Glucose (mg/dL) 176 H (75-99) mg/dL Assessment and Plan Assessment: New onset atrial fibrillation with rapid regular rate. Likely precipitated by sepsis. Currently in sinus rhythm Septic shock secondary to UTI and left lower lobe pneumonia possible aspiration. Lactic acidosis secondary to sepsis improved now. Acute kidney injury most likely prerenal and also possible ATN due to infection Altered mental status secondary to Metabolic and toxic encephalopathy and possible breakthrough seizures. EEG showed diffuse slowing. Down syndrome with developmental delay Obesity with BMI 36.8 Hypothyroidism Adrenal insufficiency maintained on hydrocortisone as outpatient. Stage III sacral decub ulcers present on admission. Chronic indwelling Busch catheter secondary to decubitus ulcers Chronic bowel and bladder incontinence. DVT prophylaxis No code Plan: Patient to continue with telemetry monitoring. Currently sinus rhythm. She is maintained on tube feedings along with gentle IV hydration. Discussed with the family about the possibility of PEG tube placement for continued feedings and family is against this. Family was requesting to speak with hospice and will be coming in today to meet with them. IV antibiotics to continue in the form of Levaquin and Zosyn. Further recommendations to follow based on the clinical course of the patient. Family met with hospice and would like to have the patient return to [facility] with hospice and comfort measures. Apparently there is a public guardian that makes placement arrangements for the patient and will discuss with them about safe discharge plan. Case management is following. Possible discharge in 24 hours.
[2020-04-28 15:52] VITALS: BP 101/64; PULSE 67; RESP 18; TEMP 98.1
== END 2020-04-28 15:48 | DRG 698 ==
LOC: EC 06:27 → 3SCARD 11:19 → 2SICU 17:25 → 5NMEDONC 04-23 10:50
PROVIDERS: ADMIT Internal Medicine; ATTEND Internal Medicine
PROC: 3E053XZ Introduction of Vasopressor into Peripheral Artery, Percutaneous Approach (ICD-10-PCS; principal; 2020-04-18)
PROC: 02H633Z Insertion of Infusion Device into Right Atrium, Percutaneous Approach (ICD-10-PCS; 2020-04-18)
PROC: 0DH67UZ Insertion of Feeding Device into Stomach, Via Natural or Artificial Opening (ICD-10-PCS; 2020-04-21)
PROC: 3E0G76Z Introduction of Nutritional Substance into Upper GI, Via Natural or Artificial Opening (ICD-10-PCS; 2020-04-21)
DX: T83.511A Infection and inflammatory reaction due to indwelling urethral catheter, initial encounter (principal); R65.21 Severe sepsis with septic shock; A41.9 Sepsis, unspecified organism; G92 Toxic encephalopathy; J69.0 Pneumonitis due to inhalation of food and vomit; L89.153 Pressure ulcer of sacral region, stage 3; N17.0 Acute kidney failure with tubular necrosis; J96.01 Acute respiratory failure with hypoxia; E27.40 Unspecified adrenocortical insufficiency; E87.0 Hyperosmolality and hypernatremia; E87.2 Acidosis; G91.9 Hydrocephalus, unspecified; G93.1 Anoxic brain damage, not elsewhere classified; E87.3 Alkalosis; N39.0 Urinary tract infection, site not specified; D69.6 Thrombocytopenia, unspecified; Z20.828 Contact with and (suspected) exposure to other viral communicable diseases; Z66 Do not resuscitate; I11.0 Hypertensive heart disease with heart failure; I50.9 Heart failure, unspecified; G40.909 Epilepsy, unspecified, not intractable, without status epilepticus; I48.0 Paroxysmal atrial fibrillation; E03.9 Hypothyroidism, unspecified; E66.9 Obesity, unspecified; E86.0 Dehydration; E87.6 Hypokalemia; E87.70 Fluid overload, unspecified; F79 Unspecified intellectual disabilities; I10 Essential (primary) hypertension; I87.2 Venous insufficiency (chronic) (peripheral); Q90.9 Down syndrome, unspecified; T50.2X5A Adverse effect of carbonic-anhydrase inhibitors, benzothiadiazides and other diuretics, initial encounter; R15.9 Full incontinence of feces; R62.50 Unspecified lack of expected normal physiological development in childhood; R32 Unspecified urinary incontinence; Z79.899 Other long term (current) drug therapy; Z79.890 Hormone replacement therapy; Z68.36 Body mass index [BMI] 36.0-36.9, adult; Y73.2 Prosthetic and other implants, materials and accessory gastroenterology and urology devices associated with adverse incidents
CPT/HCPCS: 36415; 70450; 71045; 80048; 80053; 80164; 80165; 80177; 81001; 82140; 82728; 82805; 83605; 83615; 83880; 84132; 84443; 85025; 85610; 85730; 86140; 87040; 87086; 87635; 93005; 93306; 94640; 95819; 96365; 96366; 96375; 99291